=== PATIENT | female | born 1940 | race Caucasian/White ===

== ENCOUNTER 2016-03-05 10:02 | Inpatient (IN) | payer OTHER ==
[~2016-03-05] VITALS: Ht 170.2 cm; Wt 136.3 kg
[~2016-03-05 10:02] MED LIST: ALLO300T2 PO; ANT125 PO; BND25X PO; FERR325T PO; LISI1TAB3 PO; LPR100 PO; METF500T5 PO; MOME200A INH; PRD20 PO; PRED1SUS3 OPL; PRT/40 PO; TIOT1SPR INH; WARF-246 PO
[2016-03-05] MEDS ORDERED: LISI40TA PO (10:47)
[2016-03-05] MEDS ORDERED: CEPH500C2 PO (10:47)
[2016-03-05 12:08] LABS: BASO % 0.6 %; BASO ABS # 0.03 K/uL (0-0.2); EOS % 7.3 %; IG% 0.2 %; LYMPH % 17.9 %; LYMPH ABS # 0.88 K/uL (1.2-3.4); MEAN CORPUSCULAR HEMOGLOBIN 27.5 pg (25-34); MEAN CORPUSCULAR HGB CONC 31.7 g/dl (32-36); MEAN PLATELET VOLUME 10.5 fL (7.4-10.4); MONO % 6.7 %; NEUT % 67.3 %; PLATELET COUNT 162 K/uL (130-400); RED BLOOD COUNT 4.14 M/uL (4.2-5.4); WHITE BLOOD COUNT 4.92 K/uL (4.8-10.8)
[2016-03-05 12:15] LABS: BLOOD UREA NITROGEN 35 mg/dl (7-18); BUN/CREATININE RATIO 28.8 (10-20); CALCIUM 9.7 mg/dl (8.5-10.1); CARBON DIOXIDE 25 mmol/L (21-32); CHLORIDE 106 mmol/L (98-107); GLUCOSE 155 mg/dl (70-99); POTASSIUM 4.4 mmol/L (3.5-5.1); SODIUM 141 mmol/L (136-145)
--- NOTE | 2016-03-05 12:15 | EMERGENCY ROOM VISIT NOTE ---
History Report prepared by Mary: Geri Rico Under the Supervision of: Dr. Kaz Osborn M.D. First contact with patient: 11:56 Chief Complaint: DIZZY Stated Complaint: LIGHTHEADED, DIZZINESS Nursing Triage Summary: dizziness started on saturday. hx of vertigo. "I didnt take any meclizine" History of Present Illness The patient is a 75 year old female who presents to the Emergency Room with complaints of intermittent dizziness starting 2 days ago. She reports the dizziness occurs with certain movements of her head. She currently denies any dizziness. She has some trouble walking which is not normal for her. She also complains of neck pain in the back which radiates to her left shoulder. She has a history of vertigo but reports that the quality of her current symptoms is different. She is on Coumadin for A-Fib, pulmonary embolism, and DVT. The patient denies chest pain, shortness of breath, or any other complaints. Source of History: patient Onset: 2 days ago Position: other (global) Quality: other (dizziness) Timing: intermittent Associated Symptoms: + neck pain, No SOB, No chest pain Review of Systems See HPI for pertinent positives & negatives. A total of 10 systems reviewed and were otherwise negative. 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 Family History Diabetes mellitus Social History Smoking Status: Never Smoker Drug Use: none Marital Status: single Housing Status: lives alone Occupation Status: employed Current/Historical Medications Scheduled Allopurinol (Zyloprim), 300 MG PO QAM Cephalexin Monohydrate (Keflex), 500 MG PO BID Ferrous Sulfate (Ferrous Sulfate), 325 MG PO QPM Lisinopril (Zestril), 40 MG PO DAILY Metformin Hcl Er (Glucophage Er), 500 MG PO BID Metoprolol Tartrate (Metoprolol Tartrate), 100 MG PO BID Mometasone Furoate-Formoterol (Dulera 200/5 Mcg), 1 PUFF INH BID Pantoprazole (Pantoprazole Sodium), 40 MG PO QAM Tiotropium [place] Monohydrate (Spiriva Respimat), 1 PUFF INH DAILY Warfarin Sodium (Warfarin Sodium), PO UD Allergies Coded Allergies: Technetium-99M (Verified Allergy, Severe, ANAPHYLAXIS, 09/07/15) Amoxicillin (Verified Allergy, Intermediate, RASH, 09/11/15) Nitrofurantoin (Verified Allergy, Intermediate, HIVES, 09/07/15) Replaces FURADANTIN CARR Iodine (Unverified Allergy, Unknown, hives, HAS HAD SINCE W/O PROBLEM, ) pt states that it only happened once, and has had iodine at [place] and was fine. Physical Exam Vital Signs Date Time Temp Pulse Resp B/P Pulse Ox O2 Delivery O2 Flow Rate FiO2 03/05/16 14:41 68 03/05/16 14:00 68 28 130/66 94 Room Air 03/05/16 12:13 68 18 176/81 97 Room Air 74 174/78 66 166/66 03/05/16 10:21 36.6 64 18 171/88 92 Room Air Physical Exam CONSTITUTIONAL: No acute distress HEENT: No icterus, moist mucous membranes NECK: No meningismus, trachea is midline. CARDIOVASCULAR: Regular rate, normal perfusion RESPIRATORY: Unlabored breathing. Clear to auscultation. GASTROINTESTINAL: Non-tender GENITOURINARY: No flank tenderness MUSCULOSKELETAL: Full range of motion NEUROLOGIC: No acute gross focal deficits. No cerebellar signs. PSYCHIATRIC: Normal affect SKIN: Normal for ethnicity. Medical Decision & Procedures ER Provider Diagnostic Interpretation: CT results as stated below per my review and radiologist interpretation. CT OF THE HEAD WITHOUT CONTRAST CLINICAL HISTORY: Dizziness. COMPARISON STUDY: Head CT and MRI of the brain April 27, 2013. CT DOSE: 537.48 mGy.cm TECHNIQUE: Helical axial images of the head were obtained without IV contrast. Automated exposure control was utilized for the study. FINDINGS: No acute intracranial hemorrhage, midline shift or mass effect is present. Ventricular system is normal. The basilar cisterns are patent. There are no extra-axial collections. White matter hypodensity suggests small vessel disease. There are no findings to suggest acute dural sinus thrombosis or acute territorial infarct. There is chronic deformity of the left globe. Visualized portions of the sinuses and mastoid air cells are clear. There are no calvarial abnormalities. IMPRESSION: No acute intracranial findings. Electronically signed by: Eduin Castanon M.D. 03/05/2016 12:53 PM Dictated Date/Time: 03/05/2016 12:51 PM Laboratory Results 03/05/16 11:20 Red Blood Count 4.14, Mean Corpuscular Volume 87.0, Mean Corpuscular Hemoglobin 27.5, Mean Corpuscular Hemoglobin Concent 31.7, Mean Platelet Volume 10.5, Neutrophils (%) (Auto) 67.3, Lymphocytes (%) (Auto) 17.9, Monocytes (%) (Auto) 6.7, Eosinophils (%) (Auto) 7.3, Basophils (%) (Auto) 0.6, Neutrophils # (Auto) 3.31, Lymphocytes # (Auto) 0.88, Monocytes # (Auto) 0.33, Eosinophils # (Auto) 0.36, Basophils # (Auto) 0.03 03/05/16 11:20 Test 03/05/16 11:20 03/05/16 12:25 White Blood Count 4.92 K/uL (4.8-10.8) Red Blood Count 4.14 M/uL (4.2-5.4) Hemoglobin 11.4 g/dL (12.0-16.0) Hematocrit 36.0 % (37-47) Mean Corpuscular Volume 87.0 fL (80-100) Mean Corpuscular Hemoglobin 27.5 pg (25-34) Mean Corpuscular Hemoglobin Concent 31.7 g/dl (32-36) Platelet Count 162 K/uL (130-400) Mean Platelet Volume 10.5 fL (7.4-10.4) Neutrophils (%) (Auto) 67.3 % Lymphocytes (%) (Auto) 17.9 % Monocytes (%) (Auto) 6.7 % Eosinophils (%) (Auto) 7.3 % Basophils (%) (Auto) 0.6 % Neutrophils # (Auto) 3.31 K/uL (1.4-6.5) Lymphocytes # (Auto) 0.88 K/uL (1.2-3.4) Monocytes # (Auto) 0.33 K/uL (0.11-0.59) Eosinophils # (Auto) 0.36 K/uL (0-0.5) Basophils # (Auto) 0.03 K/uL (0-0.2) RDW Standard Deviation 63.2 fL (36.4-46.3) RDW Coefficient of Variation 20.0 % (11.5-14.5) Immature Granulocyte % (Auto) 0.2 % Immature Granulocyte # (Auto) 0.01 K/uL (0.00-0.02) Anisocytosis PRESENT Prothrombin Time 30.1 SECONDS (9.0-12.0) Prothromb Time International Ratio 2.7 (0.9-1.1) Activated Partial Thromboplast Time 49.2 SECONDS (21.0-31.0) Partial Thromboplastin Ratio 1.9 Anion Gap 10.0 mmol/L (3-11) Est Creatinine Clear Calc Drug Dose 60.4 ml/min Estimated GFR () 51.6 Estimated GFR (Non- 44.5 BUN/Creatinine Ratio 28.8 (10-20) Calcium Level 9.7 mg/dl (8.5-10.1) Troponin I < 0.015 ng/ml (0-0.045) Urine Color YELLOW Urine Appearance CLEAR (CLEAR) Urine pH 5.0 (4.5-7.5) Urine Specific [place] 1.014 (1.000-1.030) Urine Protein NEG (NEG) Urine Glucose (UA) NEG (NEG) Urine Ketones NEG (NEG) Urine Occult Blood TRACE (NEG) Urine Nitrite POS (NEG) Urine Bilirubin NEG (NEG) Urine Urobilinogen NEG (NEG) Urine Leukocyte Esterase TRACE (NEG) Urine WBC (Auto) 5-10 /hpf (0-5) Urine RBC (Auto) 0-4 /hpf (0-4) Urine Hyaline Casts (Auto) 1-5 /lpf (0-5) Urine Epithelial Cells (Auto) >30 /lpf (0-5) Urine Bacteria (Auto) 4+ (NEG) Labs reviewed by ED physician. ECG Indication: other (Dizziness) Rate (beats per minute): 60s Rhythm: sinus rhythm Findings: other (Normal axis; normal St segments) ED Course 1156: Past medical records reviewed. The patient was evaluated in room B11A. A complete history and physical examination was performed. Medical Decision Differential diagnosis includes but is not limited to intracranial bleed, orthostatic hypotension, UTI, electrolyte abnormality,anemia. 75 y/o presented from home for evaluation of acute onset gait dysfunction and dizziness. afib, DVT, PE on coumadin. 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 There is a slight droop of left eyelid which patient states is chronic. (-) CT Head, INR satisfactory. Possible UTI noted. Patient hospitalized as she could not walk safely on more than two occasions/re-examinations. [place] [facility] [place] Primary Impression: Dizziness Scribe Attestation The scribe's documentation has been prepared under my direction and personally reviewed by me in its entirety. I confirm that the note above accurately reflects all work, treatment, procedures, and medical decision making performed by me. Departure Information Referrals Bc Carter M.D. (PCP) Patient Instructions My [facility]
[2016-03-05 12:22] LABS: INR 2.7 (0.9-1.1); PARTIAL THROMBOPLASTIN RATIO 1.9; PROTHROMBIN TIME (PATIENT) 30.1 SECONDS (9.0-12.0)
[2016-03-05 12:34] LABS: ANISOCYTOSIS PRESENT; COMPLETE YES
--- NOTE | 2016-03-05 12:55 | DIAGNOSTIC IMAGING REPORT ---
CT OF THE HEAD WITHOUT CONTRAST CLINICAL HISTORY: Dizziness. COMPARISON STUDY: Head CT and MRI of the brain April 27, 2013. CT DOSE: 537.48 mGy.cm TECHNIQUE: Helical axial images of the head were obtained without IV contrast. Automated exposure control was utilized for the study. FINDINGS: No acute intracranial hemorrhage, midline shift or mass effect is present. Ventricular system is normal. The basilar cisterns are patent. There are no extra-axial collections. White matter hypodensity suggests small vessel disease. There are no findings to suggest acute dural sinus thrombosis or acute territorial infarct. There is chronic deformity of the left globe. Visualized portions of the sinuses and mastoid air cells are clear. There are no calvarial abnormalities. IMPRESSION: No acute intracranial findings. Electronically signed by: Eduin Castanon M.D. 03/05/2016 12:53 PM Dictated Date/Time: 03/05/2016 12:51 PM
[2016-03-05 13:01] LABS: URINE APPEARANCE CLEAR (CLEAR); URINE BILIRUBIN NEG (NEG); URINE COLOR YELLOW; URINE EPITHELIAL CELL AUTO >30 /lpf (0-5); URINE NITRITE POS (NEG); URINE SPECIFIC GRAVITY 1.014 (1.000-1.030); UROBILINOGEN NEG (NEG); ZZUR CULT IF INDIC CLEAN CATCH YES
[2016-03-05 13:06] LABS: MANUAL MICROSCOPIC REQUIRED? NO; REVIEW REQ? NO
[2016-03-05] MEDS ORDERED: SODIUM CHLORIDE 0.9% 1000ML 1,000 ML IV SCH (17:32)
[2016-03-05] MEDS ORDERED: MECLIZINE HCL 25 MG TAB PO SCH (17:32)
[2016-03-05] MEDS ORDERED: ONDANSETRON INJ 2 MG/ML 2 ML VIAL IV PRN (17:45)
[2016-03-05] MEDS ORDERED: ACETAMINOPHEN 325 MG TAB PO PRN (17:45)
[2016-03-05 20:04] VITALS: BP 166/81; PULSE 66; TEMP 36.5; O2SAT 95; Ht 170.2 cm; Wt 136.3 kg
--- NOTE | 2016-03-05 21:07 | History and Physical ---
History & Physical Date & Time of Service: Mar 05, 2016 at 20:51 Chief Complaint: Dizziness Primary Care Physician: Bc Carter M.D. History of Present Illness Source: patient, hospital records 75 yo female with history of atrial fibrillation, DVT and PE, long standing anticoagulation on Coumadin, presented to the ED with increased dizziness. Symptoms started three days ago. She described feeling light headed early Saturday morning around 3 am when she woke to go to the bathroom. She then woke at 6am with plans to go her grand daughters competition but when she bent forward to brush her teeth she immediately felt dizzy. She did not leave the house that day, moved around very little. Yesterday, her symptoms seemed better and she assumed she was getting better. Then today the dizziness got worse. At one point she felt the room was spinning and she fell into her chair. She denies any recent viral infections, no sinusitis, no ear infections. She has a tendency to get wax build up in her ears, got some wax out of her right ear yesterday. No nausea or vomiting associated with the dizziness, no new visual changes. She was ambulated by the doctor and nursing staff in the ED and she was so unsteady, they recommended coming in for observation, especially since she lives alone and she is on Coumadin, did not want to fall and hurt herself. Past Medical/Surgical History Medical Problems: (1) Anticoagulants,Lt,Current Use Status: Chronic (2) Atrial fibrillation with RVR Status: Resolved (3) Deep venous thrombosis Status: Resolved (4) DM (diabetes mellitus) Status: Chronic (5) HTN (hypertension) Status: Chronic (6) Knee Joint Replacement Status Status: Resolved (7) Morbid Obesity Status: Chronic (8) Pulmonary embolism Status: Resolved (9) Sepsis Status: Resolved Family History Diabetes mellitus Social History Smoking Status: Never Smoker Drug Use: none Marital Status: single Occupational Status: employed Immunizations History of Influenza Vaccine: Yes Influenza Vaccine Date: Dec 08, 2010 History of Tetanus Vaccine?: Yes History of Pneumococcal: Yes History of Hepatitis B Vaccine: No Multi-Drug Resistant Organisms History of MDRO: No Allergies Coded Allergies: Technetium-99M (Verified Allergy, Severe, ANAPHYLAXIS, 09/07/15) Amoxicillin (Verified Allergy, Intermediate, RASH, 09/11/15) Nitrofurantoin (Verified Allergy, Intermediate, HIVES, 09/07/15) Replaces FURADANTIN CARR Iodine (Unverified Allergy, Unknown, hives, HAS HAD SINCE W/O PROBLEM, ) pt states that it only happened once, and has had iodine at [place] and was fine. Home Medications Scheduled Allopurinol (Zyloprim), 300 MG PO QAM Cephalexin Monohydrate (Keflex), 500 MG PO BID Ferrous Sulfate (Ferrous Sulfate), 325 MG PO QPM Lisinopril (Zestril), 40 MG PO DAILY Metformin Hcl Er (Glucophage Er), 500 MG PO BID Metoprolol Tartrate (Metoprolol Tartrate), 100 MG PO BID Mometasone Furoate-Formoterol (Dulera 200/5 Mcg), 1 PUFF INH BID Pantoprazole (Pantoprazole Sodium), 40 MG PO QAM Tiotropium [place] Monohydrate (Spiriva Respimat), 1 PUFF INH DAILY Warfarin Sodium (Warfarin Sodium), PO UD Review of Systems Constitutional: + fatigue, + weakness, No chills, No fever, No problem reported , No sweats, No weight loss Eyes: No diplopia, No discharge, No eye pain, No problem reported, No redness, No worsening of vision ENT: No dental problems, No hearing loss, No nasal symptoms, No problem reported, No sore throat, No tinnitus, No trouble swallowing, No unusual epistaxis Respiratory: No cough, No dyspnea at rest, No dyspnea on exertion, No hemoptysis, No problem reported, No shortness of breath, No sputum, No wheezing Cardiovascular: No PND, No chest pain, No claudication, No edema, No orthopnea , No palpitations, No problem reported Abdomen: No GI bleeding, No constipation, No diarrhea, No nausea, No pain, No problem reported, No vomiting Musculoskeletal: No calf pain, No joint pain, No muscle pain, No problem reported, No swelling Genitourinary - Female: No dysuria, No urinary frequency, No urinary incontinence, No urinary urgency Neurologic: + balance problems, + vertigo, No memory loss, No numbness/tingling , No paralysis, No problem reported, No weakness Psychiatric: No anhedonism, No anxiety, No depression symptoms, No insomnia, No problem reported, No substance abuse Endocrine: No excessive thirst, No excessive urination, No fatigue, No problem reported Hematologic / Lymphatic: No abnormal bleeding/bruising, No clotting problems, No night sweats, No problem reported, No swollen lymph nodes Integumentary: No bleeding, No color change, No itch, No new/changing skin lesions, No problem reported, No rash Allergic / Immunologic: No environmental allergies, No food allergies, No frequent infections, No hives, No pet sensitivities, No poor healing, No problem reported, No prolonged convalescence, No seasonal allergies Physical Exam Vital Signs Date Time Temp Pulse Resp B/P Pulse Ox O2 Delivery O2 Flow Rate FiO2 03/05/16 20:04 36.5 66 18 166/81 95 Room Air 03/05/16 18:16 70 18 171/71 95 Room Air 03/05/16 14:41 68 03/05/16 14:00 68 28 130/66 94 Room Air 03/05/16 12:13 68 18 176/81 97 Room Air 74 174/78 66 166/66 03/05/16 10:21 36.6 64 18 171/88 92 Room Air General Appearance: WD/WN, no apparent distress Head: normocephalic, atraumatic Eyes: normal inspection, PERRL, EOMI, sclerae normal, + pertinent finding (no nystagmus, horizontal or vertical) ENT: normal ENT inspection, hearing grossly normal, pharynx normal Neck: supple, no adenopathy, no JVD, trachea midline Respiratory/Chest: chest non-tender, lungs clear, normal breath sounds, no respiratory distress, no accessory muscle use Cardiovascular: regular rate, rhythm, no edema, no gallop, no JVD, no murmur, normal peripheral pulses Abdomen/GI: normal bowel sounds, non tender, soft, no organomegaly Back: normal inspection, no CVA tenderness, no muscle spasm, normal range of motion Extremities/Musculoskelatal: normal inspection, no calf tenderness, normal capillary refill, no pedal edema, normal range of motion Neurologic/Psych: pizza cook II-XII nml as tested, no motor/sensory deficits, alert, normal mood/affect, oriented x 3 Skin: normal color, warm/dry, no rash Diagnostics Laboratory Results Results Past 24 Hours Test 03/05/16 11:20 03/05/16 12:25 Range/Units White Blood Count 4.92 4.8-10.8 K/uL Red Blood Count 4.14 4.2-5.4 M/uL Hemoglobin 11.4 12.0-16.0 g/dL Hematocrit 36.0 37-47 % Mean Corpuscular Volume 87.0 80-100 fL Mean Corpuscular Hemoglobin 27.5 25-34 pg Mean Corpuscular Hemoglobin Concent 31.7 32-36 g/dl Platelet Count 162 130-400 K/uL Mean Platelet Volume 10.5 7.4-10.4 fL Neutrophils (%) (Auto) 67.3 % Lymphocytes (%) (Auto) 17.9 % Monocytes (%) (Auto) 6.7 % Eosinophils (%) (Auto) 7.3 % Basophils (%) (Auto) 0.6 % Neutrophils # (Auto) 3.31 1.4-6.5 K/uL Lymphocytes # (Auto) 0.88 1.2-3.4 K/uL Monocytes # (Auto) 0.33 0.11-0.59 K/uL Eosinophils # (Auto) 0.36 0-0.5 K/uL Basophils # (Auto) 0.03 0-0.2 K/uL RDW Standard Deviation 63.2 36.4-46.3 fL RDW Coefficient of Variation 20.0 11.5-14.5 % Immature Granulocyte % (Auto) 0.2 % Immature Granulocyte # (Auto) 0.01 0.00-0.02 K/uL Anisocytosis PRESENT Prothrombin Time 30.1 9.0-12.0 SECONDS Prothromb Time International Ratio 2.7 0.9-1.1 Activated Partial Thromboplast Time 49.2 21.0-31.0 SECONDS Partial Thromboplastin Ratio 1.9 Sodium Level 141 136-145 mmol/L Potassium Level 4.4 3.5-5.1 mmol/L Chloride Level 106 98-107 mmol/L Carbon Dioxide Level 25 21-32 mmol/L Anion Gap 10.0 3-11 mmol/L Blood Urea Nitrogen 35 7-18 mg/dl Creatinine 1.20 0.60-1.20 mg/dl Est Creatinine Clear Calc Drug Dose 60.4 ml/min Estimated GFR () 51.6 Estimated GFR (Non- 44.5 BUN/Creatinine Ratio 28.8 10-20 Random Glucose 155 70-99 mg/dl Calcium Level 9.7 8.5-10.1 mg/dl Troponin I < 0.015 0-0.045 ng/ml Urine Color YELLOW Urine Appearance CLEAR CLEAR Urine pH 5.0 4.5-7.5 Urine Specific [place] 1.014 1.000-1.030 Urine Protein NEG NEG Urine Glucose (UA) NEG NEG Urine Ketones NEG NEG Urine Occult Blood TRACE NEG Urine Nitrite POS NEG Urine Bilirubin NEG NEG Urine Urobilinogen NEG NEG Urine Leukocyte Esterase TRACE NEG Urine WBC (Auto) 5-10 0-5 /hpf Urine RBC (Auto) 0-4 0-4 /hpf Urine Hyaline Casts (Auto) 1-5 0-5 /lpf Urine Epithelial Cells (Auto) >30 0-5 /lpf Urine Bacteria (Auto) 4+ NEG Microbiology Results 03/05/16 Urine Culture, Received Pending Diagnostic Radiology CT head normal EKG sinus bradycardia Impression Assessment and Plan 75 yo female with worsening vertigo, unclear etiology - Vertigo: unclear etiology, CT head normal, no signs of ear infection ED suggested possible UTI but doubt that it is contributing, no symptoms and contaminated sample will treat symptoms with Meclizine she c/o stiff neck, will check cervical spine films check MRI brain to r/o small stroke - Atrial fibrillation: in sinus rhythm, continue metoprolol and Coumadin - h/o PE and DVT: continue Coumadin - DM type II: continue Metformin and use Novolog SS - DVT prophylaxis: on Coumadin Level of Care Telemetry Advanced Directives Existing Advance Directive: Yes Existing Living Will: Yes Existing Power of Glassware Defect Repairer: Yes Resuscitation Status FULL RESUSCITATION VTE Prophylaxis VTE Risk Assessment Done? Y/N: Yes Risk Level: High Given or contraindicated: Warfarin (Coumadin) Additional Copies To Bc Carter M.D.
[2016-03-05] MEDS ORDERED: GLUCOSE 10 TABS/TUBE PO PRN (21:15)
[2016-03-05] MEDS ORDERED: DEXTROSE 50% 50 ML SYR IV PRN (21:15)
[2016-03-05] MEDS ORDERED: GLUCAGON FOR INJ 1 MG VIAL SQ PRN (21:15)
[2016-03-05] MEDS ORDERED: GLUCOSE 40% GEL 15 GM TUBE PO PRN (21:15)
[2016-03-05] MEDS ORDERED: IV FLUIDS COMPLETED PRN (21:30)
--- NOTE | 2016-03-05 21:48 | DIAGNOSTIC IMAGING REPORT ---
MRI OF THE BRAIN WITHOUT IV CONTRAST CLINICAL HISTORY: Dizziness. COMPARISON STUDY: CT of the brain dated 03/05/2016. MRI of the brain dated 04/27/2013. TECHNIQUE: MRI of the brain was performed utilizing various T1 and T2-weighted sequences in the axial, sagittal, and coronal planes. IV contrast was not administered for this examination. The patient declined to complete the examination, and there is no coronal FLAIR or axial T1 sequence. FINDINGS: Brain parenchyma: There is mild patchy subcortical and periventricular microangiopathic disease. There is no hemorrhage or mass effect. There is no restricted diffusion to suggest acute ischemia. Sifuentes-white matter differentiation is preserved. No extra-axial fluid collection is seen. The cerebellar tonsils are normal in configuration. Ventricles, sulci, and cisterns: Normal in configuration. Pituitary and sella: Unremarkable. Intracranial vasculature: Normal flow voids are maintained at the skull base. Orbits: The bony orbits are grossly intact. There is chronic deformity and atrophy of the left lobe. The right globes normal in appearance. There is a right ocular lens implant. Sinuses and mastoids: The paranasal sinuses are clear. There is a right mastoid effusion. Calvarium: Unremarkable. Cervical cord: Partially visualized cervical spinal cord is normal in morphology and signal intensity. IMPRESSION: No acute intracranial abnormality is identified noting an incomplete examination. The patient declined to complete the study. Electronically signed by: Karel Palma M.D. 03/05/2016 9:46 PM Dictated Date/Time: 03/05/2016 9:36 PM
--- NOTE | 2016-03-05 22:41 | DIAGNOSTIC IMAGING REPORT ---
CERVICAL SPINE 4 VIEWS CLINICAL HISTORY: Neck pain and vertigo. FINDINGS: AP, lateral, odontoid, and Osborne views of the cervical spine are obtained. No prior studies are available for comparison at the time of dictation. The skeletal structures are osteopenic. There is no radiographic evidence of fracture or malalignment. Vertebral body height and alignment are maintained throughout the cervical spine. The spinolaminar line is preserved. The odontoid process and lateral masses are intact as visualized. These are suboptimally imaged. Anterior osteophytes are seen throughout. There is moderate degenerative disc space narrowing seen from C3-C4 through C6-C7. Degenerative endplate sclerosis is identified at C3-C4, C5-C6, and C6-C7. Posterior disc osteophyte complexes from C3 -C4 through C6-C7 likely contribute to mild acquired compromise of the central canal. Facet arthropathy is noted at several levels. The prevertebral soft tissues are within normal limits. Atherosclerotic calcification is seen in the carotid bulbs. Partially imaged apical lung parenchyma appears clear. IMPRESSION: 1. No acute bony abnormality is seen involving the cervical spine. 2. Osteopenia and multilevel cervical spondylosis as detailed above. Electronically signed by: Karel Palma M.D. 03/05/2016 10:38 PM Dictated Date/Time: 03/05/2016 10:36 PM
[2016-03-05] MEDS: FERROUS SULFATE 325 MG TAB PO SCH (22:43)
[2016-03-05] MEDS: METFORMIN HCL 500 MG TABCR PO SCH (22:43)
[2016-03-05] MEDS: METOPROLOL TARTRATE 100 MG TAB PO SCH (22:44)
[2016-03-05] MEDS: INSULIN ASPART 100 UNITS/ML 3 ML PEN SC SCH (22:53)
[2016-03-05] MEDS ORDERED: CEPHALEXIN MONOHYDRATE 500 MG CAP PO ONE (23:27)
[2016-03-05 23:40] VITALS: BP 100/61; PULSE 57; TEMP 36.4; O2SAT 92
[2016-03-06] VITALS (11 sets, daily range): BP systolic 98–149; BP diastolic 50–76; PULSE 57–68; TEMP 36.4–36.7; O2SAT 92–97
[2016-03-06 07:29] LABS: BASO % 0.5 %; BASO ABS # 0.02 K/uL (0-0.2); EOS % 7.8 %; HEMATOCRIT 33.1 % (37-47); IG% 0.3 %; LYMPH % 26.9 %; MEAN CELL VOLUME 87.1 fL (80-100); MEAN CORPUSCULAR HEMOGLOBIN 27.4 pg (25-34); MEAN CORPUSCULAR HGB CONC 31.4 g/dl (32-36); MEAN PLATELET VOLUME 10.1 fL (7.4-10.4); MONO % 6.2 %; NEUT % 58.3 %; PLATELET COUNT 132 K/uL (130-400); WHITE BLOOD COUNT 3.72 K/uL (4.8-10.8)
[2016-03-06 07:42] LABS: INR 2.4 (0.9-1.1); PROTHROMBIN TIME (PATIENT) 27.2 SECONDS (9.0-12.0)
[2016-03-06] MEDS: METFORMIN HCL 500 MG TABCR PO SCH ×2 (07:51→17:11)
[2016-03-06] MEDS: INSULIN ASPART 100 UNITS/ML 3 ML PEN SC SCH ×4 (07:53→21:00)
[2016-03-06 07:59] LABS: COMPLETE YES
[2016-03-06 08:02] LABS: BUN/CREATININE RATIO 27.1 (10-20); CALCIUM 8.8 mg/dl (8.5-10.1); CREATININE 1.1 mg/dl (0.60-1.20); MAGNESIUM 1.4 mg/dl (1.8-2.4); POTASSIUM 4.1 mmol/L (3.5-5.1)
[2016-03-06] MEDS ORDERED: CEPHALEXIN MONOHYDRATE 500 MG CAP PO SCH (09:00)
[2016-03-06] MEDS: DULERA - ORDER AWAITING ACTION SCH ×2 (09:21)
[2016-03-06] MEDS: TIOTROPIUM BROMIDE 5 PUFF/90 MCG INH INH SCH (09:21)
[2016-03-06] MEDS: PANTOprazole SOD 40 MG TAB PO SCH (09:21)
[2016-03-06] MEDS: METOPROLOL TARTRATE 100 MG TAB PO SCH (09:21)
[2016-03-06] MEDS: LISINOPRIL 40 MG TAB PO SCH (09:22)
[2016-03-06] MEDS: ALLOPURINOL 300 MG TAB PO SCH (09:22)
[2016-03-06] MEDS ORDERED: MAGNESIUM SULFATE 1GM / D5W 1 GM in PREMIXED IN D5W 100 ML IV ONE ×2 (10:30→10:45)
[2016-03-06] MEDS ORDERED: MAGNESIUM SULFATE 1GM / D5W 1 GM in PREMIXED IN D5W 100 ML IV SCH (11:00)
[2016-03-06] MEDS: MECLIZINE HCL 25 MG TAB PO PRN (11:01)
[2016-03-06] MEDS: CIPROFLOXACIN / D5W 400 MG in PREMIXED IN D5W 200 ML IV SCH ×2 (11:31→23:13)
--- NOTE | 2016-03-06 13:58 | Medical Student: [facility] ---
Med Student Progress Note Date of Service Mar 06, 2016. Subjective Pt evaluation today including: conversation w/ patient, physical exam, chart review, lab review, review of studies Pain: none reported PO Intake: tolerating po diet Voiding: no voiding problems no acute events overnight. patient reports that she has been feeling well for the most part since being hospitalized yesterday for lightheadedness and near falls. she reports that she had some lightheadedness on one of her three trips to the bathroom overnight, and fell on the bed. She had not asked for the nurse to help her ambulate to the toilet but acknowledged that she should while here in the hospital. denies palpitations, shortness of breath, weakness, changes in sensation, abdominal pain, nausea, vomiting, diarrhea. No other symptoms to report. Review of Systems All Other Systems: Reviewed and Negative (see HPI) Objective Vital Signs Date Time Temp Pulse Resp B/P Pulse Ox O2 Delivery O2 Flow Rate FiO2 03/06/16 12:00 94 Room Air 03/06/16 11:49 36.7 59 18 146/76 94 Room Air 03/06/16 08:42 36.4 65 18 137/74 92 Room Air 03/06/16 08:00 93 Room Air 03/06/16 04:00 93 Room Air 03/06/16 03:20 36.5 58 18 98/58 93 Room Air 03/06/16 00:01 92 Room Air 03/05/16 23:40 36.4 57 18 100/61 92 Room Air 03/05/16 20:04 36.5 66 18 166/81 95 Room Air 03/05/16 18:16 70 18 171/71 95 Room Air 03/05/16 14:41 68 03/05/16 14:00 68 28 130/66 94 Room Air Physical Exam General Appearance: no apparent distress, + obese Eyes: right eye normal inspection, left eye pertinent finding (ptosis and loss of vision), bilateral eyes EOMI, bilateral eyes PERRL ENT: hearing grossly normal, pharynx normal Neck: supple, no JVD Respiratory/Chest: chest non-tender, lungs clear, normal breath sounds, + pertinent finding (some transmitted upper respiratory sounds and coughing on exam) Cardiovascular: no edema, no gallop, no JVD, no murmur, + irregularly irregular Abdomen: non tender, soft Extremities: non-tender, no pedal edema Neurologic/Psychiatric: security rep II-XII nml as tested, no motor/sensory deficits, alert, normal mood/affect, oriented x 3 Skin: normal color, warm/dry, no rash Laboratory Results Last 24 Hours Test 03/05/16 22:50 03/06/16 06:28 03/06/16 07:05 03/06/16 11:34 Bedside Glucose 189 mg/dl 128 mg/dl 125 mg/dl White Blood Count 3.72 K/uL Red Blood Count 3.80 M/uL Hemoglobin 10.4 g/dL Hematocrit 33.1 % Mean Corpuscular Volume 87.1 fL Mean Corpuscular Hemoglobin 27.4 pg Mean Corpuscular Hemoglobin Concent 31.4 g/dl Platelet Count 132 K/uL Mean Platelet Volume 10.1 fL Neutrophils (%) (Auto) 58.3 % Lymphocytes (%) (Auto) 26.9 % Monocytes (%) (Auto) 6.2 % Eosinophils (%) (Auto) 7.8 % Basophils (%) (Auto) 0.5 % Neutrophils # (Auto) 2.17 K/uL Lymphocytes # (Auto) 1.00 K/uL Monocytes # (Auto) 0.23 K/uL Eosinophils # (Auto) 0.29 K/uL Basophils # (Auto) 0.02 K/uL RDW Standard Deviation 63.5 fL RDW Coefficient of Variation 20.1 % Immature Granulocyte % (Auto) 0.3 % Immature Granulocyte # (Auto) 0.01 K/uL Red Blood Cell Morphology Unremarkable Prothrombin Time 27.2 SECONDS Prothromb Time International Ratio 2.4 Sodium Level 142 mmol/L Potassium Level 4.1 mmol/L Chloride Level 108 mmol/L Carbon Dioxide Level 23 mmol/L Anion Gap 11.0 mmol/L Blood Urea Nitrogen 30 mg/dl Creatinine 1.10 mg/dl Est Creatinine Clear Calc Drug Dose 64.5 ml/min Estimated GFR () 57.3 Estimated GFR (Non- 49.4 BUN/Creatinine Ratio 27.1 Random Glucose 125 mg/dl Calcium Level 8.8 mg/dl Magnesium Level 1.4 mg/dl Medications Current Inpatient Medications Medications (Trade) Dose Ordered Sig/Claudia Route Start Time Stop Time Status Last Admin Dose Admin Acetaminophen (Tylenol Tab) 650 mg Q4H PRN PO 03/05/16 17:45 04/04/16 17:44 Ondansetron HCl (Zofran Inj) 4 mg Q6H PRN IV 03/05/16 17:45 04/04/16 17:44 Meclizine HCl (Antivert Tab) 25 mg Q8 PRN PO 03/05/16 17:45 04/04/16 17:44 03/06/16 11:01 25 MG Allopurinol (Zyloprim Tab) 300 mg QAM PO 03/06/16 09:00 04/05/16 08:59 03/06/16 09:22 300 MG Lisinopril (Zestril Tab) 40 mg DAILY PO 03/06/16 09:00 04/05/16 08:59 03/06/16 09:22 40 MG Metformin HCl (Glucophage Extended Rel Tab) 500 mg BIDM PO 03/05/16 21:00 04/04/16 20:59 03/06/16 07:51 500 MG Pantoprazole Sodium (Protonix Tab) 40 mg QAM PO 03/06/16 09:00 04/05/16 08:59 03/06/16 09:21 40 MG Ferrous Sulfate (Feosol Tab) 325 mg QPM PO 03/05/16 21:00 04/04/16 20:59 03/05/16 22:43 325 MG Tiotropium [place] (Spiriva Handihaler Inhaler) 1 puff DAILY INH 03/06/16 09:00 04/05/16 08:59 03/06/16 09:21 1 PUFF Warfarin Sodium (Coumadin Tab) 5 mg DAILY@16 PO 03/06/16 16:00 04/05/16 15:59 Insulin Aspart (novoLOG ASPART) SLIDING SCALE G... ACHS SC 03/05/16 21:00 04/04/16 20:59 03/06/16 12:08 8 UNITS Glucose (Glucose 40% Gel) 15-30 GRAMS 15 GRAMS... UD PRN PO 03/05/16 21:15 04/04/16 21:14 Glucose (Glucose Chew Tab) 4-8 Tablets 4 Tabl... UD PRN PO 03/05/16 21:15 04/04/16 21:14 Dextrose (Dextrose 50% 50ML Syringe) 25-50ML OF 50% DW IV FOR... UD PRN IV 03/05/16 21:15 04/04/16 21:14 Glucagon (Glucagon Inj) 1 mg UD PRN SQ 03/05/16 21:15 04/04/16 21:14 Miscellaneous (Iv Fluids Completed) 1 ea PRN PRN N/A 03/05/16 21:30 03/05/17 21:29 Metoprolol Tartrate 50 mg 50 mg BID PO 03/06/16 21:00 04/05/16 20:59 Ciprofloxacin/ Dextrose/Prmx (Cipro / D5w/ Premixed D5W) 200 ml @ 100 mls/hr Q12H IV 03/06/16 11:00 03/11/16 10:59 03/06/16 11:31 100 MLS/HR Mometasone Furoate/ Formoterol Fumar (Dulera) 1 ea BID INH 03/06/16 21:00 04/05/16 20:59 Assessment and Plan Assessment and Plan: This is a 75 yo woman with a history of afib rate controlled with metoprolol, DVT, PE on coumadin prophylaxis who presented with lightheadedness and near fall. Non-vertiginous lightheadedness: per imaging, no acute cerebrovascular accident - UA suggestive of UTI - d/c keflex and begin ciprofloxacin for treatment given penicillin/ nitrofurantoin allergies - Possibly due to beta andrea-induced bradycardia - decreased metoprolol to from 100 mg bid to 50 mg bid, new dose to start tonight (03/06) - Meclizine prn for symptoms of vertigo Atrial fibrillation: - bradycardic, but sinus rhythm on metoprolol - decrease dose to 50 mg po bid and monitor rate control - continue coumadin 5 mg for stroke prophylaxis h/o PE and DVT: - continue Coumadin DM type II: - continue Metformin and use Novolog SS DVT prophylaxis: - on Coumadin
[2016-03-06] MEDS: WARFARIN SOD 5 MG TAB PO SCH (16:13)
--- NOTE | 2016-03-06 16:45 | Progress Note ---
Subjective Date of Service: Mar 06, 2016. Subjective pt still feels about the same, recounts how she fell to left while standing at bedside overnight, no injuries and was aware she was not supposed to get out of bed without help, is agreeable to starting antibiotic for uti and lowering Metoprolol Problem List Medical Problems: (1) Dizziness Status: Acute Review of Systems Constitutional: + fatigue, + weakness, No chills, No fever Respiratory: No cough, No shortness of breath Cardiac: No chest pain, No edema Abdomen: No diarrhea, No nausea, No pain, No vomiting Musculoskeletal: No joint pain, No muscle pain Female : No dysuria, No urinary frequency Neurologic: + balance problems, + weakness, No memory loss, No paralysis Psychiatric: No anhedonism, No depression symptoms Objective Vital Signs Date Time Temp Pulse Resp B/P Pulse Ox O2 Delivery O2 Flow Rate FiO2 03/06/16 04:00 93 Room Air 03/06/16 03:20 36.5 58 18 98/58 93 Room Air 03/06/16 00:01 92 Room Air 03/05/16 23:40 36.4 57 18 100/61 92 Room Air 03/05/16 20:04 36.5 66 18 166/81 95 Room Air 03/05/16 18:16 70 18 171/71 95 Room Air 03/05/16 14:41 68 03/05/16 14:00 68 28 130/66 94 Room Air 03/05/16 12:13 68 18 176/81 97 Room Air 74 174/78 66 166/66 03/05/16 10:21 36.6 64 18 171/88 92 Room Air Physical Exam General Appearance: WD/WN, + mild distress Eyes: + pertinent finding (has cloudy corneal on left eye) Respiratory/Chest: chest non-tender, lungs clear Cardiovascular: regular rate, rhythm, no murmur Abdomen: normal bowel sounds, non tender, soft Extremities: no pedal edema, no calf tenderness Neurologic/Psychiatric: alert, oriented x 3 Laboratory Results Last 24 Hours Test 03/05/16 11:20 03/05/16 12:25 03/05/16 22:50 03/06/16 06:28 White Blood Count 4.92 K/uL Red Blood Count 4.14 M/uL Hemoglobin 11.4 g/dL Hematocrit 36.0 % Mean Corpuscular Volume 87.0 fL Mean Corpuscular Hemoglobin 27.5 pg Mean Corpuscular Hemoglobin Concent 31.7 g/dl Platelet Count 162 K/uL Mean Platelet Volume 10.5 fL Neutrophils (%) (Auto) 67.3 % Lymphocytes (%) (Auto) 17.9 % Monocytes (%) (Auto) 6.7 % Eosinophils (%) (Auto) 7.3 % Basophils (%) (Auto) 0.6 % Neutrophils # (Auto) 3.31 K/uL Lymphocytes # (Auto) 0.88 K/uL Monocytes # (Auto) 0.33 K/uL Eosinophils # (Auto) 0.36 K/uL Basophils # (Auto) 0.03 K/uL RDW Standard Deviation 63.2 fL RDW Coefficient of Variation 20.0 % Immature Granulocyte % (Auto) 0.2 % Immature Granulocyte # (Auto) 0.01 K/uL Anisocytosis PRESENT Prothrombin Time 30.1 SECONDS Prothromb Time International Ratio 2.7 Activated Partial Thromboplast Time 49.2 SECONDS Partial Thromboplastin Ratio 1.9 Sodium Level 141 mmol/L Potassium Level 4.4 mmol/L Chloride Level 106 mmol/L Carbon Dioxide Level 25 mmol/L Anion Gap 10.0 mmol/L Blood Urea Nitrogen 35 mg/dl Creatinine 1.20 mg/dl Est Creatinine Clear Calc Drug Dose 60.4 ml/min Estimated GFR () 51.6 Estimated GFR (Non- 44.5 BUN/Creatinine Ratio 28.8 Random Glucose 155 mg/dl Calcium Level 9.7 mg/dl Troponin I < 0.015 ng/ml Urine Color YELLOW Urine Appearance CLEAR Urine pH 5.0 Urine Specific [place] 1.014 Urine Protein NEG Urine Glucose (UA) NEG Urine Ketones NEG Urine Occult Blood TRACE Urine Nitrite POS Urine Bilirubin NEG Urine Urobilinogen NEG Urine Leukocyte Esterase TRACE Urine WBC (Auto) 5-10 /hpf Urine RBC (Auto) 0-4 /hpf Urine Hyaline Casts (Auto) 1-5 /lpf Urine Epithelial Cells (Auto) >30 /lpf Urine Bacteria (Auto) 4+ Bedside Glucose 189 mg/dl 128 mg/dl Test 03/06/16 07:05 Assessment and Plan 75 yo female with dizziness that she does not feel is consistent with her previous vertigo, unclear etiology dizziness: unclear etiology, CT head normal, no signs of ear infection MRI brain normal but was incomplete as pt could not tolerate complete study etiology could be from too much b andrea preventing compensating tachy, could be from gram negative seen in urine >100,000 will treat with cipro, in addition to supressive cephalexin, and reduce metoprolol while on monitor to track afib - Atrial fibrillation: in sinus rhythm, continue metoprolol and Coumadin - h/o PE and DVT: continue Coumadin - DM type II: continue Metformin and use Novolog SS - DVT prophylaxis: on Coumadin
[2016-03-06] MEDS: MOMETASONE FUROATE-FORMOTEROL (DULERA) 200mcg/5mcg per inh INH SCH (21:07)
[2016-03-06] MEDS: FERROUS SULFATE 325 MG TAB PO SCH (21:07)
[2016-03-06] MEDS: CEPHALEXIN MONOHYDRATE 500 MG CAP PO SCH (21:07)
[2016-03-06] MEDS: METOPROLOL TARTRATE 50 MG TAB PO SCH (21:07)
[2016-03-07] VITALS (11 sets, daily range): BP systolic 102–150; BP diastolic 58–81; PULSE 61–66; TEMP 36.3–36.7; O2SAT 90–96
[2016-03-07] MEDS: MECLIZINE HCL 25 MG TAB PO PRN ×2 (03:05→17:06)
[2016-03-07 06:23] LABS: INR 2.4 (0.9-1.1); PROTHROMBIN TIME (PATIENT) 26.2 SECONDS (9.0-12.0)
[2016-03-07] MEDS: METFORMIN HCL 500 MG TABCR PO SCH ×2 (07:50→17:04)
[2016-03-07] MEDS: INSULIN ASPART 100 UNITS/ML 3 ML PEN SC SCH ×4 (07:51→21:18)
[2016-03-07] MEDS: MOMETASONE FUROATE-FORMOTEROL (DULERA) 200mcg/5mcg per inh INH SCH ×2 (08:31→21:11)
[2016-03-07] MEDS: ALLOPURINOL 300 MG TAB PO SCH (08:32)
[2016-03-07] MEDS: CEPHALEXIN MONOHYDRATE 500 MG CAP PO SCH ×2 (08:32→21:12)
[2016-03-07] MEDS: LISINOPRIL 40 MG TAB PO SCH (08:32)
[2016-03-07] MEDS: TIOTROPIUM BROMIDE 5 PUFF/90 MCG INH INH SCH (08:32)
[2016-03-07] MEDS: PANTOprazole SOD 40 MG TAB PO SCH (08:32)
[2016-03-07] MEDS: METOPROLOL TARTRATE 50 MG TAB PO SCH (08:33)
[2016-03-07] MEDS ORDERED: ASPIRIN 81 MG ECTAB PO STA (10:34)
[2016-03-07] MEDS: CIPROFLOXACIN / D5W 400 MG in PREMIXED IN D5W 200 ML IV SCH ×3 (10:47→22:50)
[2016-03-07] MEDS ORDERED: SCOPOLAMINE 1.5 MG TDSY TD SCH (11:00)
--- NOTE | 2016-03-07 13:56 | Progress Note ---
Subjective Date of Service: Mar 07, 2016. Subjective this pt did have a spell that coincided with some more significant bradycardia, she stated it improved with meclizine Problem List Medical Problems: (1) Dizziness Status: Acute Review of Systems Constitutional: + fatigue, + weakness, No chills, No fever Respiratory: No cough, No shortness of breath, No sputum, No wheezing Cardiac: No PND, No chest pain, No palpitations Abdomen: No diarrhea, No pain, No vomiting Neurologic: + balance problems, + weakness Objective Vital Signs Date Time Temp Pulse Resp B/P Pulse Ox O2 Delivery O2 Flow Rate FiO2 03/07/16 12:00 92 Room Air 03/07/16 11:45 36.4 61 16 114/59 92 Room Air 03/07/16 08:00 91 Room Air 03/07/16 07:14 36.7 64 18 102/61 91 Room Air 03/07/16 04:00 90 Room Air 03/07/16 03:55 36.6 65 21 150/70 90 Room Air 03/07/16 00:00 92 Room Air 03/06/16 23:55 36.6 63 20 112/50 92 Room Air 03/06/16 20:00 97 Room Air 03/06/16 20:00 36.5 68 149/75 97 Room Air 03/06/16 16:00 95 Room Air 03/06/16 15:23 36.4 57 18 126/76 95 Room Air Physical Exam General Appearance: WD/WN, + mild distress Neck: supple, no JVD Respiratory/Chest: chest non-tender, lungs clear, normal breath sounds Cardiovascular: + bradycardia, + systolic murmur Abdomen: normal bowel sounds, non tender, no organomegaly Extremities: no pedal edema, no calf tenderness Neurologic/Psychiatric: alert, oriented x 3 Laboratory Results Last 24 Hours Test 03/06/16 16:22 03/06/16 20:03 03/07/16 05:56 03/07/16 06:52 Bedside Glucose 93 mg/dl 118 mg/dl 134 mg/dl Prothrombin Time 26.2 SECONDS Prothromb Time International Ratio 2.4 Test 03/07/16 10:58 Bedside Glucose 144 mg/dl Assessment and Plan 75 yo female with dizziness that she does not feel is consistent with her previous vertigo, unclear etiology dizziness: unclear etiology, CT head normal, no signs of ear infection MRI brain normal but was incomplete as pt could not tolerate complete study etiology could be from too much b andrea preventing compensating tachy, did have episode of bradycardia duscussed with Dr Aponte and will stop metoprolol tartrate and change to am succinate on 03/08 given improved with meclizine, will try trans derm scopolamine and use low dose aspirin in case of cerebrovascular disease could be from gram negative seen in urine >100,000 will treat with cipro, in addition to supressive cephalexin - Atrial fibrillation: in sinus rhythm(gonzalez at times) , continue metoprolol and Coumadin - h/o PE and DVT: continue Coumadin - DM type II: continue Metformin and use Novolog SS - DVT prophylaxis: on Coumadin
[2016-03-07] MEDS ORDERED: METOPROLOL TARTRATE 1 MG/ML VIAL IV PRN (14:00)
[2016-03-07] MEDS: CHECK SCOPOLAMINE PATCH PLACEMENT SCH ×2 (16:00→22:50)
[2016-03-07] MEDS: WARFARIN SOD 5 MG TAB PO SCH (16:38)
--- NOTE | 2016-03-07 18:43 | CARDIOLOGY CONSULTATION ---
DATE OF CONSULTATION: 03/07/2016 CONSULTING PHYSICIAN: Dr. Scruggs. REASON FOR CONSULTATION: Possible symptomatic bradycardia. TIME: 17:35 p.m. HISTORY OF PRESENT ILLNESS: Ms. Rocha is a very pleasant 75-year-old female with a history significant for mitral valve endocarditis, paroxysmal atrial fibrillation, diastolic CHF, nonobstructive CAD, dyslipidemia, hypertension, GI bleeding requiring blood transfusion and also history of pulmonary emboli. She presented to [facility] on 03/05/2016 with dizziness. Symptoms have been going on for the past few days. She feels lightheaded or woozy when she stands up and describes it as dizziness. She did have some spinning sensation at some point when she turns from side to side, but otherwise describes it mostly as a lightheaded/unbalanced type feeling. They occur only while standing and changing positions. She does not have any episodes at rest. She denies any actual syncope or near syncope, but did fall to the floor due to feeling a spinning sensation at one point. While here, she has been diagnosed with a urinary tract infection and has been placed on antibiotics by the primary service. She has also been noted to have intermittent bradycardia with heart rates in the 50s, especially overnight. She had an episode of lightheadedness/dizziness at approximately 3:00 a.m. this morning and was noted to have heart rates in the 50s with an ectopic beat at that time. For this reason, her beta andrea therapy, metoprolol, has been weaned. She was on 100 mg twice daily chronically but this was decreased to 50 mg twice daily, as of last evening. Despite this change, she had another episode of lightheadedness/dizziness today at approximately noon. Her heart rate at that time mostly was in the 60, but at times also in the 50s. There was no arrhythmia to correlate with any of these symptoms. She took meclizine for 2 doses and actually felt better while on meclizine without any significant symptoms. This has been replaced by a scopolamine patch. Her symptoms today occurred with this patch in place. She did have orthostatic vital signs done upon presentation. She did not have any significant drop in her blood pressure at that time. There was also no significant change in her heart rate. Thus, her orthostatic vitals were unremarkable. She does not feel that she is any better now than she was since she presented. Once again; however, she recently has had changes in her medications as noted above. She denies chest pain, shortness of breath, syncope, near syncope or recent palpitations; however, she has had occasional palpitations over the past few months. Palpitations last only a few minutes and do not appear to be overly bothersome to her. She denies any worsening in her swelling. She denies melena, hematochezia, hematuria, or other bleeding. She has not had any recent nausea, vomiting, abdominal pain, stroke or stroke-like symptoms. REVIEW OF SYSTEMS: As above and review of systems otherwise negative. PAST MEDICAL HISTORY: 1. Mitral valve endocarditis, April 2013. 2. Group B strep septicemia April 2013. 3. Paroxysmal atrial fibrillation. 4. Endophthalmitis April of 2013. 5. Diastolic CHF. 6. Nonobstructive CAD. 7. Dyslipidemia. 8. Hypertension. 9. GI bleeding requiring blood transfusion. 10. History of pulmonary emboli. 11. Right shoulder septic joint and left knee infected hardware April of 2013, status post surgery. 12. Recurrent diverticulitis with GI bleed with a hemoglobin of 6.2 on 11/18/2014. 13. Arthritis. 14. Asthma. 15. Diabetes. 16. COPD. 17. Esophageal reflux. 18. Migraines. 19. Mitral regurgitation. 20. Superficial thrombophlebitis lower extremities. 21. Varicose veins. CURRENT MEDICATIONS: Include: 1. Aspirin 81 mg daily. 2. Keflex 500 mg p.o. b.i.d. 3. Ciprofloxacin 400 mg IV q. 12 hours. 4. Lisinopril 40 mg daily. 5. Metoprolol tartrate 50 mg twice daily. 6. Meclizine 25 mg as needed. 7. Metformin 500 mg b.i.d. 8. Protonix 40 mg daily. 9. Scopolamine patch 1.5 mg q. 72 hours. 10. Coumadin 5 mg daily. ALLERGIES: AMOXICILLIN, IODINE, NITROFURANTOIN, TECHNETIUM 99M. SOCIAL HISTORY: No current tobacco abuse. Lives alone. She works at [email or web address]. She has 1 son named Leighton. She has grandchildren. She is currently alone in her hospital room. FAMILY HISTORY: Her mother had heart disease in her 60s. PHYSICAL EXAMINATION: VITAL SIGNS: Temperature 36.5 degrees, heart rate 64 beats per minute, respiration rate 19, blood pressure 124/81 mmHg, oxygen saturation is 96% on room air. Weight 135.7 kg. GENERAL: No acute distress. She is alert and oriented. HEENT: Anicteric sclerae NECK: No appreciable JVD. No bruits. Normal carotid upstrokes bilaterally. CARDIAC: PMI was nonpalpable. There was no ventricular heave. Normal S1, S2. No murmurs, rubs, or gallops were auscultated. LUNGS: Clear to auscultation bilaterally without wheezes, rales or rhonchi. ABDOMEN: Soft, obese, nontender, nondistended, normoactive bowel sounds, no bruits. EXTREMITIES: Trace bilateral lower extremity edema. 2+ radial pulses bilaterally. 2+ posterior tibialis pulses bilaterally. No palpable cords. No cyanosis. PSYCHIATRIC: Affect appears appropriate. LABORATORY DATA: White blood cell count 3.72, hemoglobin 10.4, platelets 132. Sodium 142, potassium 4.1, BUN 30, creatinine 1.1, magnesium 1.4. Troponin undetectable. She did receive magnesium supplementation. IMAGING DATA: Brain MRI report reviewed. No acute intracranial abnormality; however, incomplete examination. She declined a complete study according to radiology. Telemetry personally reviewed as noted above. ECG upon presentation demonstrated sinus bradycardia at 55 beats per minute. ASSESSMENT AND PLAN: 1. Bradycardia: It is not clear if bradycardia is playing a role in her symptoms; however, she does have bradycardia and with symptoms, it would be reasonable to further reduce beta andrea. Dr. Scruggs has inquired about changing metoprolol tartrate 50 mg twice daily to 50 mg once daily and metoprolol succinate formulation. This would appear to be a reasonable approach. Her heart rate trend does demonstrate that her heart rate mostly has been in the 50s and 60s throughout her hospital stay. This was discussed with her in detail. Monitor closely for any change in symptoms. 2. Lightheadedness/dizziness: She did not have any orthostatic blood pressure changes upon presentation, but continues to have these symptoms intermittently. She appeared to do better while on meclizine. There could be a vertigo component as she did have some spinning sensation, but not always. Heart rate medications adjusted as above. She does not appear to be hypovolemic. If no significant improvement in her symptoms, could consider decreasing lisinopril to 30 mg daily, which she had been on for quite some time before it was increased to 40, several months ago. But, otherwise would continue with plan for now. When reviewing old records, she did have MRA of her neck vasculature on 04/27/2013 with moderate atherosclerotic narrowing of the origin of the great vessels. 3. Carotid artery stenosis: Neck MRA in the past did suggest atherosclerotic changes. Carotid duplex ordered as noted above. 4. Paroxysmal atrial fibrillation: She is in sinus rhythm. Beta andrea being adjusted as above. Continue anticoagulation for stroke risk reduction. Her INR is therapeutic. 5. Nonobstructive coronary artery disease: No angina. She did not tolerate statin therapy. Continue beta andrea with changes as above. 6. Hypertension: Beta andrea being adjusted as above. She is on lisinopril. Continue current regimen for now. 7. Urinary tract infection: May or may not be contributing to her symptoms. This is being treated per primary service. 8. Disposition: Cardiology will continue to follow along. The patient's care was discussed earlier today with Dr. Scruggs in regards to beta andrea plan. Greater than 40 minutes time spent counseling patient, coordinating care, and reviewing multiple records. Thank you for allowing us to participate in care of Ms. Rocha.
--- NOTE | 2016-03-07 19:02 | DIAGNOSTIC IMAGING REPORT ---
ULTRASOUND OF THE CAROTID ARTERIES CLINICAL HISTORY: Carotid artery stenosis. COMPARISON STUDY: Radiograph of the neck dated 04/27/2013. TECHNIQUE: Real-time, grayscale, and color Doppler sonography of the carotid arteries is performed. Images are reviewed in the transverse and longitudinal planes. FINDINGS: Blood pressure in the right arm measures 181/100 and blood pressure in the left arm measures 189/112. The carotid arteries are patent bilaterally and demonstrate antegrade flow. There is mild echogenic shadowing atherosclerotic plaque seen bilaterally. Normal doppler arterial waveforms are seen throughout. Velocity measurements are listed below. Common carotid peak systolic velocity (cm/sec): RIGHT: 92 LEFT: 109 ICA proximal peak systolic velocity (cm/sec): RIGHT: 55 LEFT: 78 ICA mid peak systolic velocity (cm/sec): RIGHT: 65 LEFT: 70 ICA distal peak systolic velocity (cm/sec): RIGHT: 62 LEFT: 73 ICA/CC peak systolic ratio: RIGHT: 0.7 LEFT: 0.7 Antegrade flow was shown in the vertebral arteries. The external carotid arteries are patent. IMPRESSION: 1. There is no sonographic evidence of hemodynamically significant stenosis in the right or left carotid arterial system. 2. Antegrade flow is shown in the vertebral arteries. 3. Hypertension as above. Electronically signed by: Karel Palma M.D. 03/07/2016 7:00 PM Dictated Date/Time: 03/07/2016 6:58 PM
[2016-03-07] MEDS: FERROUS SULFATE 325 MG TAB PO SCH (21:13)
[2016-03-08 04:00] VITALS: BP 115/67; PULSE 78; TEMP 36.4; O2SAT 91
[2016-03-08] MEDS: MECLIZINE HCL 25 MG TAB PO PRN (05:52)
[2016-03-08 06:52] LABS: INR 2.1 (0.9-1.1); PROTHROMBIN TIME (PATIENT) 23.3 SECONDS (9.0-12.0)
[2016-03-08 07:46] VITALS: BP 140/80; PULSE 83; TEMP 36.7; O2SAT 90
[2016-03-08] MEDS: METFORMIN HCL 500 MG TABCR PO SCH ×2 (08:06→17:06)
[2016-03-08] MEDS: CHECK SCOPOLAMINE PATCH PLACEMENT SCH ×3 (08:06→23:46)
[2016-03-08] MEDS: INSULIN ASPART 100 UNITS/ML 3 ML PEN SC SCH ×4 (08:06→21:00)
[2016-03-08] MEDS: ALLOPURINOL 300 MG TAB PO SCH (08:11)
[2016-03-08] MEDS: PANTOprazole SOD 40 MG TAB PO SCH (08:11)
[2016-03-08] MEDS: METOPROLOL SUCC 50MG EXT REL TAB PO SCH (08:12)
[2016-03-08] MEDS: ASPIRIN 81 MG ECTAB PO SCH (08:13)
[2016-03-08] MEDS: TIOTROPIUM BROMIDE 5 PUFF/90 MCG INH INH SCH (08:14)
[2016-03-08] MEDS: MOMETASONE FUROATE-FORMOTEROL (DULERA) 200mcg/5mcg per inh INH SCH ×2 (08:14→21:01)
[2016-03-08] MEDS: CEPHALEXIN MONOHYDRATE 500 MG CAP PO SCH ×2 (08:15→21:02)
[2016-03-08] MEDS: LISINOPRIL 40 MG TAB PO SCH (08:16)
[2016-03-08] MEDS ORDERED: ASPEC81 PO (09:08)
--- NOTE | 2016-03-08 09:09 | Discharge Instructions ---
Discharge Instructions Admission Reason for Admission: Dizziness Discharge Discharge Diagnosis / Problem: urinary infection , dizziness Discharge Goals Goal(s): Diagnostic testing, Therapeutic intervention Activity Recommendations Activity Limitations: resume your previous activity . Current Hospital Diet Patient's current hospital diet: Diabetes Type 2 Diet Discharge Diet Recommended Diet: Diabetes Type 2 Diet Pending Studies Studies pending at discharge: no Medical Emergencies . Who to Call and When: Medical Emergencies: If at any time you feel your situation is an emergency, please call 911 immediately. . Non-Emergent Contact Non-Emergency issues call your: Manager [employer] (Dr Aponte) Call Non-Emergent contact if: temperature is above 101, you have any medication questions . . "Provider Documentation" section prepared by Subhash Scruggs. VTE Core Measure Inpt VTE Proph given/why not?: Warfarin (Coumadin)
[2016-03-08] MEDS ORDERED: TPRSR50 PO (09:13)
[2016-03-08] MEDS ORDERED: SCPTP TOP (09:13)
[2016-03-08] MEDS ORDERED: MECL-91 PO (09:13)
[2016-03-08] MEDS ORDERED: CPR500 PO (09:15)
[2016-03-08] MEDS ORDERED: MECLIZINE HCL 25 MG TAB PO ONE (10:30)
[2016-03-08] MEDS ORDERED: METOPROLOL SUCC 50MG EXT REL TAB PO ONE (11:00)
--- NOTE | 2016-03-08 11:40 | CARDIOLOGY PROGRESS NOTE ---
DATE: 03/08/2016 TIME: 11:12 a.m. SUBJECTIVE: She continues to feel quite poor while on her feet and ambulating. I was able to witness and speak to her while she was walking with physical therapy. She was quite symptomatic. Her heart rate at that time appropriately increased and was in the 100s on telemetry. Overall, her heart rate has trended upward with reduction in beta-andrea therapy. She stated that just getting out of bed and to use the bedside commode also caused significant dizziness/lightheadedness. She denies shortness of breath at rest, syncope, near syncope or chest discomfort. She does have chronic dyspnea with exertion, which is unchanged. OBJECTIVE: VITAL SIGNS: Temperature 36.7 degrees, heart rate 83 beats per minute, respiration rate 18, blood pressure 140/80 mmHg, oxygen saturation 90% on room air. Weight 135.1 kg. GENERAL: No acute distress. She is alert. NECK: No appreciable JVD but thick neck. CARDIAC EXAM: No ventricular heave. Regular, normal S1, S2. No audible murmurs, rubs or gallops. LUNGS: Clear to auscultation bilaterally without wheezes, rales or rhonchi. ABDOMEN: Obese, soft, nontender, nondistended. Normoactive bowel sounds. EXTREMITIES: Trace bilateral lower extremity edema. No cyanosis. PSYCHIATRIC: Affect appears appropriate. Telemetry personally reviewed. Heart rate has trended upward. She now comes tachycardic with little exertion in her room. No arrhythmia. LABORATORY DATA: Glucose 132. INR 2.1. MEDICATIONS: Include aspirin 81 mg daily, ciprofloxacin 400 mg IV q. 12 hours, lisinopril 40 mg daily, scopolamine patch, metoprolol succinate 50 mg daily, Protonix 40 mg daily, Coumadin 5 mg daily, Spiriva 1 puff daily. Carotid duplex report reviewed from 03/07/2016. No hemodynamically significant stenosis bilaterally. Antegrade flow shown within the vertebral arteries. ASSESSMENT AND PLAN: 1. Dizziness: Etiology uncertain. She felt as though she did better while on meclizine alone; however, she did receive meclizine last evening and also this morning. Heart rate does not appear to be playing a role as she is no longer bradycardic and continues to have symptoms without any significant improvement. Carotid duplex is unremarkable. Orthostatic vital signs will be once again ordered; however, they were unremarkable upon presentation. Symptoms do not appear to be related to the cardiac issue at this time. Further workup per primary service. 2. Bradycardia: This has resolved with decreasing doses of beta-andrea. She had been taking 100 mg twice daily and is now on 50 mg of metoprolol succinate. She is now becoming tachycardic with little exertion. Can increase metoprolol succinate to 100 mg daily. Additional beta-andrea was ordered today by Dr. Scruggs. Bradycardia does not appear to be symptomatic as her symptoms continue despite weaning doses of beta-andrea. 3. Carotid artery stenosis: No significant carotid artery stenosis on duplex. 4. Paroxysmal atrial fibrillation: Continue beta-andrea with adjustments as above. INR is therapeutic. Continue anticoagulation for stroke risk reduction. 5. Nonobstructive coronary artery disease: She is asymptomatic in this regard. She did not tolerate statin therapy. 6. Hypertension: Blood pressure has been reasonable with intermittent mild hypertension. However, she was more significantly hypertensive upon presentation. Continue medications as above. If she was found to have orthostatic hypotension today, would reduce lisinopril; however, orthostatics were unremarkable upon presentation. 7. Urinary tract infection: She is being treated per primary service. 8. Disposition: No further cardiac recommendations at this time. Plan of care has been discussed with Dr. Scruggs of the primary service.
[2016-03-08 11:51] VITALS: BP 140/75; PULSE 61; TEMP 36.4; O2SAT 97
[2016-03-08] MEDS: CIPROFLOXACIN / D5W 400 MG in PREMIXED IN D5W 200 ML IV SCH ×2 (11:57→22:31)
[2016-03-08 15:42] VITALS: BP 137/81; PULSE 61; TEMP 36.5; O2SAT 100
--- NOTE | 2016-03-08 16:20 | Progress Note ---
Subjective Date of Service: Mar 08, 2016. Subjective with tapering of B Joao did have tachycardia with exertion, also transderm scop did not work as well with meclizine, does not feel steady on feet enough to go home alone Problem List Medical Problems: (1) Dizziness Status: Acute Review of Systems Constitutional: + fatigue, + weakness, No chills, No fever Eyes: No diplopia, No worsening of vision Respiratory: + dyspnea on exertion, No cough, No shortness of breath Cardiac: + palpitations, No chest pain, No edema Abdomen: No diarrhea, No nausea, No pain, No vomiting Neurologic: + balance problems, + weakness, No memory loss, No paralysis Objective Vital Signs Date Time Temp Pulse Resp B/P Pulse Ox O2 Delivery O2 Flow Rate FiO2 03/08/16 12:00 Room Air 03/08/16 11:51 36.4 61 20 140/75 97 Room Air 03/08/16 08:00 Room Air 03/08/16 07:46 36.7 83 18 140/80 90 Room Air 03/08/16 04:00 36.4 78 16 115/67 91 Room Air 03/08/16 04:00 Room Air 03/07/16 23:54 36.5 66 18 113/58 93 Room Air 03/07/16 23:44 Room Air 03/07/16 20:00 Room Air 03/07/16 19:17 36.3 62 22 137/58 94 Room Air Physical Exam General Appearance: WD/WN, + mild distress Eyes: PERRL, EOMI Neck: supple, no JVD Respiratory/Chest: chest non-tender, lungs clear, normal breath sounds Cardiovascular: regular rate, rhythm (in nsr but fast with exertion), + tachycardia, + systolic murmur Abdomen: normal bowel sounds, non tender, soft Neurologic/Psychiatric: alert, oriented x 3 Laboratory Results Last 24 Hours Test 03/07/16 20:07 03/08/16 05:27 03/08/16 06:21 03/08/16 11:21 Bedside Glucose 121 mg/dl 132 mg/dl 135 mg/dl Prothrombin Time 23.3 SECONDS Prothromb Time International Ratio 2.1 Assessment and Plan 75 yo female with dizziness that initially was not felt to be vertigo but with negative work up and now meclizine helps dizziness: consider vertigo, CT head normal, no signs of ear infection MRI brain normal but was incomplete as pt could not tolerate complete study etiology could be from too much b joao preventing compensating tachy, did have episode of bradycardia associated with symptoms Dr Aponte in agreement with metoprolol tartrate change to succinate on 03/08, needed to increase dose to 100mg from 50 mg given improved with meclizine, will increase daily meclizine dose stop transderm scopolamine Enterobacter uti will treat with cipro( sensitivities confirm), in addition to suppressive cephalexin - Atrial fibrillation: in sinus rhythm(gonzalez at times) , continue metoprolol and Coumadin - h/o PE and DVT: continue Coumadin - DM type II: continue Metformin and use Novolog SS - DVT prophylaxis: on Coumadin
[2016-03-08] MEDS: WARFARIN SOD 5 MG TAB PO SCH (17:07)
[2016-03-08 19:49] VITALS: BP_SYST 142; BP_SYST 153; BP_SYST 160; BP_DIAS 69; BP_DIAS 81; BP_DIAS 83; PULSE 53; TEMP 36.4; O2SAT 96
[2016-03-08 20:00] VITALS: O2SAT 96
[2016-03-08] MEDS: FERROUS SULFATE 325 MG TAB PO SCH (21:02)
[2016-03-08] MEDS: MECLIZINE HCL 25 MG TAB PO SCH (22:31)
[2016-03-09] VITALS (12 sets, daily range): BP systolic 90–137; BP diastolic 52–87; PULSE 59–73; TEMP 36.3–36.7; O2SAT 91–99
[2016-03-09] MEDS: MECLIZINE HCL 25 MG TAB PO SCH ×2 (05:58→14:21)
--- NOTE | 2016-03-09 07:46 | Clinical Documentation Query ---
RONAK Dalton : CLINICAL DOCUMENTATION QUERY Patient is a 75 year old female admitted with dizziness. Differential has included vertigo, inner ear infection, adverse effect of beta andrea therapy. Documentation after admission has included Enterobacter UTI, being treated with Ciprofloxacin. As appropriate, consider explicit documentation of POA status as this may directly affect DRG assignment and cannot be assumed by the data warehouse developer. Thank you. In your clinical opinion is this patient being managed for: ( . ) Enterobacter UTI, POA ( ) Other explanation of clinical findings (Please Explain) ( ) Unable to determine (Please Define) ( ) Need to Discuss ( ) Not Agree The medical record reflects the following clinical findings, treatment, and risk factors. Clinical Indicators: As above Treatment: UA, C&S, Ciprofloxacin Risk Factors: Age, gender Please clarify and document your clinical opinion in the progress notes and discharge summary. Terms such as "probable", "suspected", "likely", "questionable", "possible", or "still to be ruled out" are acceptable. IF IN AGREEMENT, YOU MUST DOCUMENT ABOVE DIAGNOSTIC STATEMENT IN DAILY PROGRESS NOTES AND DISCHARGE SUMMARY. This document is not part of the patient's record. Thank You, Ted Marnielli, RN [phone]
[2016-03-09] MEDS: CHECK SCOPOLAMINE PATCH PLACEMENT SCH (08:00)
[2016-03-09] MEDS: METFORMIN HCL 500 MG TABCR PO SCH (08:13)
[2016-03-09] MEDS: TIOTROPIUM BROMIDE 5 PUFF/90 MCG INH INH SCH (08:14)
[2016-03-09] MEDS: ALLOPURINOL 300 MG TAB PO SCH (08:14)
[2016-03-09] MEDS: MOMETASONE FUROATE-FORMOTEROL (DULERA) 200mcg/5mcg per inh INH SCH (08:14)
[2016-03-09] MEDS: ASPIRIN 81 MG ECTAB PO SCH (08:14)
[2016-03-09] MEDS: CEPHALEXIN MONOHYDRATE 500 MG CAP PO SCH (08:15)
[2016-03-09] MEDS: PANTOprazole SOD 40 MG TAB PO SCH (08:15)
[2016-03-09] MEDS: INSULIN ASPART 100 UNITS/ML 3 ML PEN SC SCH ×2 (08:17→12:10)
[2016-03-09] MEDS: LISINOPRIL 40 MG TAB PO SCH (09:38)
[2016-03-09] MEDS: METOPROLOL SUCC 50MG EXT REL TAB PO SCH (09:38)
[2016-03-09] MEDS ORDERED: CPR500 PO (11:33)
--- NOTE | 2016-03-09 11:37 | Discharge Summary ---
Discharge Summary Admission Date: Mar 08, 2016 at 16:49 Discharge Date: Mar 09, 2016 Discharge Disposition: Home Principal Diagnosis: dizziness, vertigo, medication affect Immunizations: Have You Had Influenza Vaccine: Yes Influenza Vaccine Date: Dec 08, 2010 History of Tetanus Vaccine?: Yes History of Pneumococcal: Yes History of Hepatitis B Vaccine: No Medication Reconciliation New Medications: Ciprofloxacin (Ciprofloxacin HCl) 500 Mg Tab 500 MG PO BID, #7 DOSE Meclizine HCl (Meclizine 25) 25 Mg Tab 25 MG PO Q8, #30 DOSE 4 Refills Metoprolol Succinate (Metoprolol Succinate ER) 50 Mg Tabcr 100 MG PO DAILY, #60 DOSE 6 Refills may substitute 100mg tabs if available Aspirin (Aspirin EC Low Dose) 81 Mg Ectab 81 MG PO QAM for 365 Days Changed Medications: Lisinopril (Zestril) 40 Mg Tab 20 MG PO DAILY, #60 TAB (Changed from: 40 MG) Continued Medications: Allopurinol (Zyloprim) 300 Mg Tab 300 MG PO QAM, #90 Cephalexin Monohydrate (Keflex) 500 Mg Cap 500 MG PO BID, #15 CAP Ferrous Sulfate (Ferrous Sulfate) 325 Mg Tab 325 MG PO QPM, #30 Metformin Hcl Er (Glucophage Er) 500 Mg Tab 500 MG PO BID, TAB Mometasone Furoate-Formoterol (Dulera 200/5 Mcg) 1 Aer Aer 1 PUFF INH BID, #13 Pantoprazole (Pantoprazole Sodium) 40 Mg Tab 40 MG PO QAM Tiotropium Speer Monohydrate (Spiriva Respimat) 2.5 Mcg/Act Spr 1 PUFF INH DAILY, #4 Warfarin Sodium (Warfarin Sodium) 5 Mg Tab PO UD, #60 5 MG ON WEDNESDAYS THEN 7.5 SATURDAY,SATURDAY,SATURDAY,SATURDAY,SATURDAY,SATURDAY Discontinued Medications: Metoprolol Tartrate (Metoprolol Tartrate) 100 Mg Tab 100 MG PO BID, #120 Discharge Exam Review of Systems: Constitutional: + weakness, No chills, No fever Respiratory: No cough, No dyspnea on exertion, No shortness of breath, No sputum Cardiovascular: No chest pain, No edema, No orthopnea Abdomen: No diarrhea, No nausea, No pain, No vomiting Genitourinary - Female: No dysuria, No urinary frequency Neurologic: No memory loss, No paralysis Psychiatric: No anhedonism, No depression symptoms Physical Exam: General Appearance: WD/WN, no apparent distress Neck: supple, no JVD Respiratory/Chest: chest non-tender, lungs clear, normal breath sounds Cardiovascular: regular rate, rhythm, no murmur Abdomen / GI: normal bowel sounds, non tender, soft Extremities: no pedal edema, normal range of motion Neurologic/Psychiatric: alert, oriented x 3 Hospital Course 75 yo female with dizziness that initially was not felt to be vertigo but with negative work up and now meclizine helps dizziness: consider vertigo, CT head normal, no signs of ear infection MRI brain normal but was incomplete as pt could not tolerate complete study etiology could be from too much b andrea preventing compensating tachy, did have episode of bradycardia associated with symptoms Dr Aponte in agreement with metoprolol tartrate change to succinate on 03/08, needed to increase dose to 100mg from 50 mg given improved with meclizine, will increase daily meclizine dose stop transderm scopolamine Enterobacter uti poa will treat with cipro( sensitivities confirm), in addition to suppressive cephalexin - Atrial fibrillation: in sinus rhythm(gonzalez at times) , continue metoprolol and Coumadin - h/o PE and DVT: continue Coumadin - DM type II: continue Metformin - DVT prophylaxis: on Coumadin Total Time Spent: Greater than 30 minutes This includes examination of the patient, discharge planning, medication reconciliation, and communication with other providers. Discharge Instructions Please refer to the electronic Patient Visit Report (Discharge Instructions) for additional information.
[2016-03-09] MEDS: CIPROFLOXACIN / D5W 400 MG in PREMIXED IN D5W 200 ML IV SCH (12:00)
[2016-03-09] MEDS ORDERED: LISI40TA PO (12:53)
== END 2016-03-09 16:05 | disposition home or self-care (01) | DRG 690 ==
LOC: ENRESERVTM → ENRESERVDT → C.EDB 10:03 → C.2T 17:38 → OBSVTOIN 03-08 16:49
PROVIDERS: ADMIT Internal Medicine; ATTEND Internal Medicine
DX: N39.0 Urinary tract infection, site not specified (principal); I50.32 Chronic diastolic (congestive) heart failure; R42 Dizziness and giddiness; B96.89 Other specified bacterial agents as the cause of diseases classified elsewhere; I48.0 Paroxysmal atrial fibrillation; I25.10 Atherosclerotic heart disease of native coronary artery without angina pectoris; I10 Essential (primary) hypertension; J44.9 Chronic obstructive pulmonary disease, unspecified; E78.5 Hyperlipidemia, unspecified; K21.9 Gastro-esophageal reflux disease without esophagitis; E11.9 Type 2 diabetes mellitus without complications; Z79.4 Long term (current) use of insulin; Z79.01 Long term (current) use of anticoagulants; Z79.82 Long term (current) use of aspirin; Z86.718 Personal history of other venous thrombosis and embolism; Z86.711 Personal history of pulmonary embolism; Z82.49 Family history of ischemic heart disease and other diseases of the circulatory system

== ENCOUNTER → 2016-04-12 | Outpatient (CLI) | payer OTHER ==
[~2016-04-12] MED LIST changes: -ANT125 PO; +ASPEC81 PO; -BND25X PO; +CEPH500C2 PO; +CPR500 PO; -LISI1TAB3 PO; +LISI40TA PO; -LPR100 PO; +MECL-91 PO; -PRD20 PO; -PRED1SUS3 OPL; +TPRSR50 PO
[2016-04-12 16:43] LABS: HEMATOCRIT 35.9 % (37-47); MEAN CELL VOLUME 88.2 fL (80-100); MEAN CORPUSCULAR HGB CONC 32.9 g/dl (32-36); PLATELET COUNT 205 K/uL (130-400); RED BLOOD COUNT 4.07 M/uL (4.2-5.4); WHITE BLOOD COUNT 5.18 K/uL (4.8-10.8)
[2016-04-12 16:44] LABS: URINE APPEARANCE CLOUDY (CLEAR); URINE BILIRUBIN NEG (NEG); URINE COLOR YELLOW; URINE EPITHELIAL CELL AUTO >30 /lpf (0-5); URINE NITRITE NEG (NEG); URINE SPECIFIC GRAVITY 1.012 (1.000-1.030); UROBILINOGEN NEG (NEG)
[2016-04-12 16:49] LABS: BLOOD UREA NITROGEN 38 mg/dl (7-18); BUN/CREATININE RATIO 31.6 (10-20); CALCIUM 9.4 mg/dl (8.5-10.1); CARBON DIOXIDE 27 mmol/L (21-32); CHLORIDE 105 mmol/L (98-107); GLUCOSE 133 mg/dl (70-99); POTASSIUM 4.4 mmol/L (3.5-5.1); SODIUM 139 mmol/L (136-145)
[2016-04-12 17:00] LABS: MANUAL MICROSCOPIC REQUIRED? NO; REVIEW REQ? NO; URINE PROTIEN/CREAT RATIO 0.1 (0-0.2); URINE TOTAL PROTEIN 9.8 mg/dl (0-11.9)
== END | disposition home or self-care (01) ==
LOC: C.LAB1850 15:40
PROVIDERS: ATTEND Internal Medicine Nephrology
DX: N18.3 Chronic kidney disease, stage 3 (moderate) (principal); E55.9 Vitamin D deficiency, unspecified; I48.91 Unspecified atrial fibrillation

== ENCOUNTER → 2016-07-02 | Outpatient (CLI) | payer OTHER ==
[~2016-07-02] MED LIST changes: +FERR1TAB62 PO; -FERR325T PO; +PANT40TA2 PO; -PRT/40 PO
[2016-07-02 13:13] LABS: BASO % 0.5 %; BASO ABS # 0.03 K/uL (0-0.2); COMPLETE YES; EOS % 8.6 %; HEMATOCRIT 40.6 % (37-47); IG% 0.2 %; LYMPH % 18.8 %; LYMPH ABS # 1.13 K/uL (1.2-3.4); MEAN CELL VOLUME 93.5 fL (80-100); MEAN CORPUSCULAR HEMOGLOBIN 30.2 pg (25-34); MEAN CORPUSCULAR HGB CONC 32.3 g/dl (32-36); MEAN PLATELET VOLUME 10.2 fL (7.4-10.4); MONO % 6.8 %; NEUT % 65.1 %; PLATELET COUNT 187 K/uL (130-400); RED BLOOD COUNT 4.34 M/uL (4.2-5.4); WHITE BLOOD COUNT 6.02 K/uL (4.8-10.8)
[2016-07-02 13:45] LABS: ESTIMATED AVERAGE GLUCOSE 154 mg/dl; HA1C FLAG Normal (Normal)
[2016-07-02 15:04] LABS: AST/SGOT 21 U/L (15-37); BLOOD UREA NITROGEN 22 mg/dl (7-18); BUN/CREATININE RATIO 22.3 (10-20); CALCIUM 9.7 mg/dl (8.5-10.1); CARBON DIOXIDE 25 mmol/L (21-32); CHLORIDE 107 mmol/L (98-107); CHOLESTEROL 262 mg/dl (0-200); GLUCOSE 146 mg/dl (70-99); POTASSIUM 4.5 mmol/L (3.5-5.1); SODIUM 142 mmol/L (136-145)
[2016-07-02 15:06] LABS: ALB/GLOB RATIO 1.1 (0.9-2); ALKALINE PHOSPHATASE 69 U/L (45-117); ALT/SGPT 35 U/L (12-78); CHOLESTEROL/HDL RATIO 4.6; HDL CHOLESTEROL 57 mg/dl; LDL CHOLESTEROL CALCULATED 150 mg/dl; TRIGLYCERIDES 276 mg/dl (0-150); VERY LOW DENSITY LIPOPROT CALC 55 mg/dl
== END | disposition home or self-care (01) ==
LOC: C.LAB1850 11:41
PROVIDERS: ATTEND Internal Medicine Pulmonary Disease
DX: I10 Essential (primary) hypertension (principal); E78.5 Hyperlipidemia, unspecified; E11.9 Type 2 diabetes mellitus without complications; K57.90 Diverticulosis of intestine, part unspecified, without perforation or abscess without bleeding; J44.9 Chronic obstructive pulmonary disease, unspecified; J45.909 Unspecified asthma, uncomplicated; D64.9 Anemia, unspecified; I48.91 Unspecified atrial fibrillation; A49.1 Streptococcal infection, unspecified site

== ENCOUNTER → 2016-10-22 | Outpatient (CLI) | payer OTHER ==
[~2016-10-22] MED LIST changes: -FERR1TAB62 PO; +FERR325T PO; -PANT40TA2 PO; +PRT/40 PO
[2016-10-22 18:17] LABS: BLOOD UREA NITROGEN 40 mg/dl (7-18); CALCIUM 9.7 mg/dl (8.5-10.1); CARBON DIOXIDE 27 mmol/L (21-32); CHLORIDE 106 mmol/L (98-107); GLUCOSE 236 mg/dl (70-99); POTASSIUM 4.7 mmol/L (3.5-5.1); SODIUM 139 mmol/L (136-145)
== END | disposition home or self-care (01) ==
LOC: C.LAB1850 16:22
PROVIDERS: ATTEND Internal Medicine Cardiovascular Disease
DX: I10 Essential (primary) hypertension (principal); I48.91 Unspecified atrial fibrillation

== ENCOUNTER → 2017-01-07 | Outpatient (CLI) | payer OTHER ==
[~2017-01-07] MED LIST changes: +FERR1TAB62 PO; -FERR325T PO; +PANT40TA2 PO; -PRT/40 PO
[2017-01-07 12:43] LABS: BASO % 1.6 %; BASO ABS # 0.08 K/uL (0-0.2); COMPLETE YES; EOS % 8.4 %; HEMATOCRIT 39.8 % (37-47); IG% 0.2 %; LYMPH % 22.6 %; LYMPH ABS # 1.15 K/uL (1.2-3.4); MEAN CELL VOLUME 96.6 fL (80-100); MEAN CORPUSCULAR HEMOGLOBIN 31.6 pg (25-34); MEAN CORPUSCULAR HGB CONC 32.7 g/dl (32-36); MEAN PLATELET VOLUME 10.8 fL (7.4-10.4); MONO % 5.5 %; NEUT % 61.7 %; PLATELET COUNT 159 K/uL (130-400); RED BLOOD COUNT 4.12 M/uL (4.2-5.4); WHITE BLOOD COUNT 5.09 K/uL (4.8-10.8)
[2017-01-07 14:05] LABS: ALT/SGPT 34 U/L (12-78); AST/SGOT 19 U/L (15-37); BLOOD UREA NITROGEN 27 mg/dl (7-18); BUN/CREATININE RATIO 25.6 (10-20); CALCIUM 9.2 mg/dl (8.5-10.1); CARBON DIOXIDE 23 mmol/L (21-32); CHLORIDE 104 mmol/L (98-107); CREATININE 1.06 mg/dl (0.60-1.20); GLUCOSE 179 mg/dl (70-99); POTASSIUM 4.6 mmol/L (3.5-5.1); SODIUM 137 mmol/L (136-145); URIC ACID 5.1 mg/dl (2.6-7.2)
[2017-01-07 14:06] LABS: ALKALINE PHOSPHATASE 66 U/L (45-117)
[2017-01-07 14:33] LABS: ESTIMATED AVERAGE GLUCOSE 163 mg/dl; HA1C FLAG Normal (Normal)
== END | disposition home or self-care (01) ==
LOC: C.LAB1850 10:10
PROVIDERS: ATTEND Internal Medicine Pulmonary Disease
DX: K57.90 Diverticulosis of intestine, part unspecified, without perforation or abscess without bleeding (principal)

== ENCOUNTER → 2017-01-11 | Outpatient (CLI) | payer OTHER ==
--- NOTE | 2017-01-11 15:38 | DIAGNOSTIC IMAGING REPORT ---
(CHEST) THORAX WITHOUT CT DOSE: 1620.76 mGy.cm HISTORY: COUGH TECHNIQUE: Multiaxial CT images of the chest were performed without contrast. A dose lowering technique was utilized adhering to the principles of ALARA. COMPARISON: Chest CT 05/31/2015. FINDINGS: The central airways are patent. No pleural effusions. No pneumothorax. Emphysema. No suspicious lytic or blastic osseous lesions. Mildly heterogeneous thyroid gland is again noted. No mediastinal or hilar lymphadenopathy. The heart is normal in size. Mild calcified plaque within the normal caliber thoracic aorta. The main pulmonary artery is mildly dilated up to 3.3 cm. This remains unchanged. The visualized spleen and adrenal glands are unremarkable. There are few stable hypodense lesions within the liver. Dominant lesion within the left hepatic lobe measures 1.7 cm. No significant change in multiple scattered groundglass nodules seen throughout the lungs. Dominant nodule within the left upper lobe on image 99 measures 11 mm. Dominant right lung nodule within the right middle lobe on image 194 measures 13 mm. There are few scattered solid subcentimeter nodules with the largest in the left lower lobe on image 123 measuring 5 mm. IMPRESSION: 1. No significant change in the multiple scattered groundglass nodules. These are highly suspicious for low-grade neoplasms. 2. A few stable subcentimeter solid nodules within the lungs. 3. Emphysema. Electronically signed by: Maciel Modi M.D. 01/11/2017 3:37 PM Dictated Date/Time: 01/11/2017 3:29 PM
== END | disposition home or self-care (01) ==
LOC: C.CTS 15:08
PROVIDERS: ATTEND Internal Medicine Pulmonary Disease
DX: R91.8 Other nonspecific abnormal finding of lung field (principal); I48.91 Unspecified atrial fibrillation; J44.9 Chronic obstructive pulmonary disease, unspecified; R05 Cough; E11.9 Type 2 diabetes mellitus without complications; I10 Essential (primary) hypertension

== ENCOUNTER → 2017-02-14 | Outpatient (CLI) | payer OTHER ==
[~2017-02-14] MED LIST changes: -ASPEC81 PO; +ASPI-320 PO
--- NOTE | 2017-02-14 09:46 | DIAGNOSTIC IMAGING REPORT ---
TWO VIEW CHEST CLINICAL HISTORY: Hemoptysis. FINDINGS: PA and lateral chest radiographs are compared to study dated 01/19/2016 and correlated with chest CT dated 01/11/2017. The examination is degraded by large body habitus. The cardiomediastinal heart is top normal for projection and there is atherosclerotic calcification of the thoracic aorta. Chronic interstitial thickening is similar to previous. Small groundglass lesions seen on the previous CT are not apparent by x-ray. No airspace consolidation or pleural effusion is identified. There is no pneumothorax. The skeletal structures are osteopenic. The bony thorax appears intact. IMPRESSION: No acute cardiopulmonary abnormality. Small groundglass foci seen on the 01/11/[address] are not apparent by x-ray. Electronically signed by: Karel Palma M.D. 02/14/2017 9:45 AM Dictated Date/Time: 02/14/2017 9:43 AM
[2017-02-14 11:26] LABS: BASO % 0.8 %; BASO ABS # 0.04 K/uL (0-0.2); EOS % 8.3 %; EOS ABS # 0.42 K/uL (0-0.5); HEMATOCRIT 35.9 % (37-47); IG# 0.02 K/uL (0.00-0.02); LYMPH % 21.7 %; MEAN CORPUSCULAR HEMOGLOBIN 32.1 pg (25-34); MEAN CORPUSCULAR HGB CONC 33.4 g/dl (32-36); MEAN PLATELET VOLUME 10.3 fL (7.4-10.4); MONO % 7.3 %; MONO ABS # 0.37 K/uL (0.11-0.59); NEUT % 61.5 %; NEUT ABS # 3.13 K/uL (1.4-6.5); PLATELET COUNT 178 K/uL (130-400); RED CELL DISTRIBUTION WIDTH CV 15.4 % (11.5-14.5); RED CELL DISTRIBUTION WIDTH SD 54.1 fL (36.4-46.3); WHITE BLOOD COUNT 5.08 K/uL (4.8-10.8)
[2017-02-14 11:30] LABS: INR 1.9 (0.9-1.1)
[2017-02-14 13:05] LABS: ALKALINE PHOSPHATASE 62 U/L (45-117); ALT/SGPT 29 U/L (12-78); AST/SGOT 23 U/L (15-37); BLOOD UREA NITROGEN 40 mg/dl (7-18); CALCIUM 9.5 mg/dl (8.5-10.1); CARBON DIOXIDE 22 mmol/L (21-32); CREATININE 1.37 mg/dl (0.60-1.20); GLUCOSE 169 mg/dl (70-99); POTASSIUM 4.2 mmol/L (3.5-5.1); SODIUM 136 mmol/L (136-145); TOTAL PROTEIN 6.9 gm/dl (6.4-8.2)
== END | disposition home or self-care (01) ==
LOC: C.RAD1850 09:31
PROVIDERS: ATTEND Internal Medicine Pulmonary Disease
DX: R04.2 Hemoptysis (principal)

== ENCOUNTER → 2017-07-03 | Outpatient (CLI) | payer OTHER ==
[2017-07-03 12:38] LABS: BASO % 0.8 %; BASO ABS # 0.04 K/uL (0-0.2); EOS % 9.7 %; EOS ABS # 0.46 K/uL (0-0.5); HEMATOCRIT 39.7 % (37-47); HEMOGLOBIN 13.3 g/dL (12.0-16.0); IG# 0.01 K/uL (0.00-0.02); LYMPH % 24.7 %; LYMPH ABS # 1.17 K/uL (1.2-3.4); MEAN CELL VOLUME 94.1 fL (80-100); MEAN CORPUSCULAR HEMOGLOBIN 31.5 pg (25-34); MEAN CORPUSCULAR HGB CONC 33.5 g/dl (32-36); MONO % 4.9 %; MONO ABS # 0.23 K/uL (0.11-0.59); NEUT % 59.7 %; NEUT ABS # 2.83 K/uL (1.4-6.5); PLATELET COUNT 140 K/uL (130-400); RED CELL DISTRIBUTION WIDTH CV 15.3 % (11.5-14.5); RED CELL DISTRIBUTION WIDTH SD 51.9 fL (36.4-46.3); WHITE BLOOD COUNT 4.74 K/uL (4.8-10.8)
[2017-07-03 12:54] LABS: HEMOGLOBIN A1C 7.7 % (4.5-5.6)
[2017-07-03 13:04] LABS: ALBUMIN 3.5 gm/dl (3.4-5.0); ALKALINE PHOSPHATASE 60 U/L (45-117); ALT/SGPT 37 U/L (12-78); AST/SGOT 26 U/L (15-37); BLOOD UREA NITROGEN 21 mg/dl (7-18); CALCIUM 9.4 mg/dl (8.5-10.1); CARBON DIOXIDE 28 mmol/L (21-32); GLUCOSE 153 mg/dl (70-99); POTASSIUM 4.3 mmol/L (3.5-5.1); SODIUM 139 mmol/L (136-145); TOTAL PROTEIN 6.8 gm/dl (6.4-8.2)
== END | disposition home or self-care (01) ==
LOC: C.LAB1850 10:56
PROVIDERS: ATTEND Internal Medicine Pulmonary Disease
DX: I10 Essential (primary) hypertension (principal); E11.9 Type 2 diabetes mellitus without complications; I48.91 Unspecified atrial fibrillation; R05 Cough; R91.8 Other nonspecific abnormal finding of lung field; J44.9 Chronic obstructive pulmonary disease, unspecified

== ENCOUNTER 2018-09-11 21:06 | Inpatient (IN) ==
[2018-09-11] MEDS ORDERED: ONDANSETRON INJ 2 MG/ML 2 ML VIAL IV STA (21:37)
[2018-09-11] MEDS ORDERED: ACETAMINOPHEN 500 MG TAB PO STA (21:40)
[2018-09-11] MEDS ORDERED: ALBUT/IPRATROP 3MG/0.5MG NEB 3 ML VIAL NEB STA (21:40)
[2018-09-11] MEDS ORDERED: SODIUM CHLORIDE 0.9% 1000ML 1,000 ML IV SCH (21:45)
[2018-09-11 22:32] LABS: Basophils # (auto) 0.01 K/uL (0-0.2); Basophils % (auto) 0.2 %; Eosinophils # (auto) 0.02 K/uL (0-0.5); Eosinophils % (auto) 0.3 %; Hematocrit (blood only) 37.3 % (37-47); Hemoglobin 12.4 g/dL (12.0-16.0); Lymphocytes # (auto) 0.56 K/uL (1.2-3.4); Lymphocytes % (auto) 8.6 %; Mean Corpuscular Hgb Conc 33.2 g/dL (32-36); Mean Corpuscular Volume 94.9 fL (80-100); Mean Platelet Volume 10.5 fL (7.4-10.4); Monocytes # (auto) 0.23 K/uL (0.11-0.59); Monocytes % (auto) 3.5 %; Neutrophils # (auto) 5.67 K/uL (1.4-6.5); Neutrophils % (auto) 87.4 %; Platelet Count 134 K/uL (130-400); RDW Coefficient of Variation 15.1 % (11.5-14.5); RDW Standard Deviation 52.4 fL (36.4-46.3); Red Blood Count 3.93 M/uL (4.2-5.4); White Blood Count 6.49 K/uL (4.8-10.8)
--- NOTE | 2018-09-11 22:35 | XRay Report ---
XR chest 1V portable HISTORY: 78 years-old Female weakness acute weakness COMPARISON: Chest radiograph 05/15/2018 TECHNIQUE: , Chest CT 01/23/2018 FINDINGS: Cardiac silhouette is enlarged, unchanged. Emphysema with chronic interstitial coarsening. Subsegment al medial right lung base opacities. No pneumothorax, large pleural effusion or overt pulmonary edema . Degenerative changes of the shoulders and spine. IMPRESSION: 1. Cardiomegaly without overt pulmonary edema. 2. Emphysema. 3. Subsegmental medial right lung base opacities suggest atelectasis with pneumonitis considered less likely. The above report was generated using voice recognition software. It may contain grammatical, syntax o r spelling errors. Electronically signed by: Cuco Naylor M.D. 09/11/2018 10:33 PM
[2018-09-11 22:50] LABS: Alanine Aminotransferase 19 U/L (12-78); Albumin Level 3.4 gm/dl (3.4-5.0); Aspartate Aminotransferase 14 U/L (15-37); BUN Creatinine Ratio 17.1 (10-20); Blood Urea Nitrogen 30 mg/dl (7-18); Calcium 9.2 mg/dl (8.5-10.1); Carbon Dioxide 24 mmol/L (21-32); Chloride 104 mmol/L (98-107); Creatinine Clr Calc Pharmacy 39.1 ml/min; Est GFR (African American) 31.6; Est GFR (Non-African American) 27.2; Glucose 159 mg/dl (70-99); Magnesium 1.4 mg/dl (1.8-2.4); Potassium 4.6 mmol/L (3.5-5.1); Sodium 135 mmol/L (136-145)
[2018-09-11 22:57] LABS: INR 2.8 (0.9-1.1); Prothrombin Time 26.7 Seconds (9.0-12.0)
--- NOTE | 2018-09-11 22:58 | CT Scan Report ---
ABDOMEN AND PELVIS CT WITHOUT CONTRAST CT DOSE: 1929.75 mGy.cm HISTORY: Acute upper abdominal pain UPPER ABD PAIN TECHNIQUE: Multiaxial CT images of the abdomen and pelvis were performed without contrast. A dose lo wering technique was utilized adhering to the principles of ALARA. COMPARISON STUDY: Chest radiograph of same day, chest CT 01/23/2018, CT abdomen and pelvis 01/18/2015 FINDINGS: Partially imaged consolidative and groundglass opacities of the right lower lobe. 1.6 cm groundglass nodule of the right middle lobe is unchanged from 01/23/2018. Left lung base is generally clear. No p neumatosis or pneumoperitoneum. Imaged inferior cardiac chambers are mildly enlarged with small peric ardial effusion. Dense mitral annular calcifications noted. Limited evaluation of the solid abdominal organs without the use of IV contrast. Suggestion of mild hepatic steatosis. There are several scatt ered subcentimeter hypodense lesions of the liver which are too small to characterize however suggest s probable cysts. 1.3 cm subcapsular cyst of the left hepatic lobe is unchanged. No intrahepatic bili juan ductal dilation. Cholelithiasis without CT evidence of acute cholecystitis. Spleen is mildly enla rged, 14.1 cm. Mild generalized pancreatic atrophy. Mild thickening of the adrenal glands. Mild nonsp ecific bilateral perinephric stranding. No renal or ureteral calculi or obstructive uropathy. Calcifi cation about the left hemipelvis on image 295 series 3 is likely vascular. Urinary bladder is unremar kable small cystocele. Uterus is within normal limits. Indeterminate 3.8 x 3.0 cm cystic lesion of th e left adnexum, unchanged. Calcified plaque of the abdominal aorta without aneurysm. No adenopathy. Tiny hiatal hernia. No bowel obstruction. Colonic diverticulosis without acute diverticulitis. No bowel wall thickening. Terminal ileum and appendix are unremarkable. Diastases recti with tiny fat filled periumbilical hernia. Dege nerative changes of the pelvis, hips and spine. No acute fracture identified. Lumbar levoscoliosis. IMPRESSION: 1. Partially imaged consolidation of the right lower lobe is suggestive of pneumonia. Follow-up imagi ng to document resolution recommended. 2. 1.6 cm groundglass nodule of the right middle lobe, unchanged from 01/23/2018. 3. No bowel obstruction or bowel wall thickening. 4. Cholelithiasis. 5. Colonic diverticulosis without acute diverticulitis. 5. Additional findings as above. Electronically signed by: Cuco Naylor M.D. 09/11/2018 10:56 PM
[2018-09-11 23:01] LABS: Alkaline Phosphatase 65 U/L (45-117); Bilirubin,Total 0.6 mg/dl (0.2-1); Globulin 3.4 gm/dl (2.5-4.0); Total Protein 6.8 gm/dl (6.4-8.2); Troponin I < 0.015 ng/ml (0-0.045)
[2018-09-11 23:03] LABS: Partial Thromboplastin Time 54.6 Seconds (21.0-31.0)
[2018-09-11 23:22] LABS: Appearance Urine Clear (Clear); Bilirubin Urine Negative (Negative); Blood Urine Negative (Negative); Color Urine Yellow; Glucose Urine UA Negative (Negative); Ketones Urine Negative (Negative); Leukocyte Esterase Urine Negative (Negative); Nitrite Urine Negative (Negative); Protein Urine Negative (Negative); Specific Gravity Urine 1.021 (1.000-1.030); Urobilinogen Urine Negative (Negative)
[2018-09-11] MEDS ORDERED: DOXYCYCLINE HYCLATE 100 MG in DEXTROSE 5% 100 ML IV STA (23:36)
[2018-09-11] MEDS ORDERED: CEFEPIME 2,000 MG/20 ML VIAL IV STA (23:36)
[2018-09-12] MEDS: MAGNESIUM SULFATE / D5W 1 GM/100 ML BAG IV SCH ×2 (00:04→01:05)
--- NOTE | 2018-09-12 01:15 | History & Physical Report ---
Date of Service September 12, 2018 Assessment & Plan (1) Pneumonia: 78 y/o F Hx DM II, HTN, DVT/PE, gout, GERD, AF, septic joint. Presenting from home at the [facility] for progressive weakness, nausea and a cough, which she states set in the day of admission. She denies any CP, significant SOB and could not confirm a fever, although she was febrile on arrival. A CT abdomen was obtained and did not show any acute abnormalities in the abdomen, however a RLL consolidation was seen. Initial labs are notable for ARABELLA and hypomagnesemia. 1) PNM - she received Cefepime and Doxy in the ER. We will provide Doxy only for now. Would consider broadening coverage if she does not show short-term improvement, only because she had been taking Bactrim and Keflex. Placed on duonebs and an 02 protocol. 2) ARABELLA - IVF - recheck BMP AM 3) AF - rate is controlled, INR is therapeutic at 2.8 - cont Coumadin, Toprol. 4) DM II - placed on a SS 5) Gout - cont Allopurinol 6) Regarding her joint inflammation - there is no current evidence of this. We would choose to contact her orthopedist (Dr Juarez) AM to determine if Keflex or Bactrim should be continued. Full code - Coumadin prophylaxis Total time for this admit including review of labs, meds, imaging, records - discussion with pt and ER attending - 40 min Present on Admission?: Yes History of Present Illness Chief Complaint: Cough and weakness Primary Care Provider: Bc Carter MD 78 y/o F Hx DM II, HTN, DVT/PE, gout, GERD, AF, septic joint. Presenting from home at the [facility] for progressive weakness, nausea and a cough, which she states set in the day of admission. She denies any CP, significant SOB and could not confirm a fever, although she was febrile on arrival. A CT abdomen was obtained and did not show any acute abnormalities in the abdomen, however a RLL consolidation was seen. Initial labs are notable for ARABELLA and hypomagnesemia. The pt reports that the prior week she developed swelling of her L wrist and 4th and 5th fingers. She was evaluated by her orthopedist and placed on Keflex and Bactrim as she had a high WBC count and an elevated CRP. She states that she was not diagnosed with cellulitis and osteomyelitis and that the swelling resolved in a day after she was placed in a removable splint. 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 Does not drink alcohol. Maintains independence Family: Mother due to lung disease Father due to "old age" at 83 Allergies Allergy/AdvReac Type Severity Reaction Status Date / Time technetium-99m Allergy Severe ANAPHYLAXIS Verified 09/11/18 21:30 amoxicillin Allergy Intermediate RASH Verified 09/11/18 21:30 nitrofurantoin Allergy Intermediate HIVES Verified 09/11/18 21:30 iodine Allergy Unknown hives, HAS Verified 09/11/18 21:30 HAD SINCE W/O PROBLEM Home Medications Home Medications Medication Instructions Recorded Confirmed Type allopurinol 300 mg PO DAILY 05/15/18 09/11/18 History cephalexin [Keflex] 500 mg PO BID 05/15/18 09/11/18 History ferrous sulfate 324 mg PO DAILY 05/15/18 09/11/18 History lisinopril 40 mg PO DAILY 05/15/18 09/11/18 History metformin 500 mg PO BID 05/15/18 09/11/18 History metoprolol succinate [Toprol XL] 100 mg PO BID 05/15/18 09/11/18 History tiotropium bromide [Spiriva 2 puff INHALATION DAILY 05/15/18 09/11/18 History Respimat] warfarin 2.5 mg PO Q OTHER DAY 05/15/18 09/11/18 History warfarin 5 mg PO Q OTHER DAY 05/15/18 09/11/18 History sulfamethoxazole-trimethoprim 1 tab PO BID 09/11/18 09/11/18 History [Bactrim DS] Past Med/Surg History Medical History Atrial fibrillation with RVR (Resolved 04/24/13) DM (diabetes mellitus) (Chronic) HTN (hypertension) (Chronic) Sepsis (Resolved) Acute renal failure Anemia Diverticulitis Elevated troponin GI bleed Proteinuria Uremic encephalopathy C. difficile colitis Social History Preferred Language: Thai Feels Safe at Home: Yes Smoking Status: Former smoker Cigarettes Per Day: 50 Review of Systems Review of Systems: Gen: Weakness reported ENT: Denies congestion, throat pain, hearing loss Eyes: Denies acute visual changes CV: Denies CP, palpitations Pulmonary: Denies SOB, cough, wheezing GI: Denies N/V, diarrhea, constipation Neuro: Denies acute or unilateral weakness, acute gait impairment, headache or acute visual changes Musculoskeletal: Denies joint pain, inflammation Endocrine: Denies polydipsia, polyuria Skin: Denies acute rashes or ulcers Physical Exam Physical Exam: General: AAO x 3, no distress ENT: No erythema or exudates, no thrush Eyes: MIGUEL, EOMI Head and neck: Normocephalic, atraumatic, No JVD, neck is supple. Chest/heart: Nontender, S1,2, RRR, no murmurs, no gallops Lungs: CTAB, no wheezing or crackles Abdomen: Nontender, nondistended, BS+ Neuro: AAO x 3, speech is clear, no unilateral weakness or loss of sensation, coordination intact Musculoskeletal: No joint inflammation, muscle tenderness, FROM Skin: No acute rashes or ulcers Extremities: No clubbing, cyanosis, edema Results & Data Vital Signs (Past 12 Hours) Vital Signs Temp Pulse Pulse Resp BP BP Pulse Ox 09/12/18 00:51 95 H 21 09/12/18 00:50 96 H 19 91/42 L 09/12/18 00:00 100 H 23 108/55 L 92 09/11/18 23:31 102 H 26 H 119/61 91 09/11/18 22:31 108 H 15 128/59 L 09/11/18 22:10 95 09/11/18 22:09 94 H 24 93/76 L 95 09/11/18 21:57 97 H 20 94 09/11/18 21:08 99.0 F 104 H 18 149/86 H 90 PG Care Time/CCT Total # of Minutes Spent Total Time Spent with Patient: Total time spent is greater than 50% in coordination of care (as documented) at patient's floor/unit and/or counseling patient: (1) Pneumonia Laterality: right Lung location: lower lobe of lung
[2018-09-12] MEDS ORDERED: SODIUM CHLORIDE 0.9% 1000ML 1,000 ML IV SCH (01:30)
[2018-09-12] MEDS ORDERED: SODIUM CHLORIDE 0.9% 1000ML 500 ML IV SCH (01:30)
[2018-09-12] MEDS ORDERED: ACETAMINOPHEN 325 MG TAB PO PRN (02:26)
[2018-09-12] MEDS ORDERED: ALUMINUM/MAGNESIUM SUSP 30 ML UDC PO PRN (02:26)
[2018-09-12] MEDS ORDERED: ONDANSETRON INJ 2 MG/ML 2 ML VIAL IV PRN (02:26)
[2018-09-12] MEDS ORDERED: MAGNESIUM HYDROXIDE SUSP 30 ML UDC PO PRN (02:26)
[2018-09-12] MEDS ORDERED: POLYETHYLENE (MIRALAX) 17 GM PACK PO PRN (02:26)
--- NOTE | 2018-09-12 02:34 | Emergency Department Note ---
Entered by Lissette Powell acting as a scribe for ED Provider Note CHIEF COMPLAINT: Nausea HISTORY OF PRESENT ILLNESS: The patient is a 78 year old female with PMHx of Afib and sepsis who presents to the Emergency Room with complaints of nausea starting 18 hours ago. The patient states that she woke up at 0330 this morning with chills, cough, back pain, weakness, headache, lightheadedness and epigastric pain. The patient notes that she felt perfectly fine yesterday. The patient states that she had blood work done 8 days ago and had a high blood count. The patient notes that she saw her PCP 2 days ago for hand swelling and was put on Bactrim which she takes twice a day. The patient states that she is concerned that this new medication is causing the nausea. Pt denies LOC, diaphoresis, visual changes, neck pain, chest pain, breathing difficulties, vomiting, melena, hematochezia, urinary symptoms, numbness, lymphadenopathy, rash, or other complaints. REVIEW OF SYSTEMS: See HPI for pertinent positives and negatives. A total of ten systems were reviewed and were otherwise negative. PMHx/PSHx: Afib, sepsis, C.diff, HTN, diverticulitis, GI bleed SOCIAL HISTORY: Patient lives at home. PHYSICAL EXAM: GENERAL: Awake, alert, well-appearing, in no distress HENT: Normocephalic, atraumatic. Oropharynx unremarkable. EYES: PERRL. Normal conjunctiva. Sclera non-icteric. NECK: Inspection normal. Non-tender. Supple. No nuchal rigidity. FROM. No masses. RESPIRATORY: Expiratory wheezes. No rales. Normal respiratory effort. CARDIAC: Borderline tachycardic, irregular rhythm. No murmurs. No rubs. Extremities warm and well perfused. Pulses equal. No JVD. GI: Upper abdominal tenderness bilaterally. Soft, non-distended. No rebound or guarding. No masses. RECTAL: Deferred. MUSCULOSKELETAL: Atraumatic. Chest examination reveals no tenderness. The back is symmetrical on inspection without obvious abnormality. There is no CVA tenderness to palpation. No joint edema. LOWER EXTREMITIES: Calves are equal size bilaterally and non-tender. No edema. No discoloration. NEURO: Normal sensorium. No sensory or motor deficits noted. SKIN: No rash or jaundice noted. EMERGENCY DEPARTMENT COURSE: 2133: Past medical records reviewed. The patient was evaluated in room C1, and a complete history and physical examination were performed. 2345: Patient was reassessed. She is feeling informed of the findings. Will need further management in the hospital. 0035: I discussed the patient's case with Dr. Galarza- [facility] Hospitalist. He will e valuate the patient for further management. MEDICAL DECISION MAKING: C1 Prior records/ancillary studies reviewed. Prior laboratory studies revealed normal renal function. Nursing notes reviewed and agree them. Additional history obtained from the patient's son. The patient's history was concerning for weakness and chills. Differential diagnosis: Etiologies such as metabolic, infection, hypo/hyperglycemia, electrolyte abnormalities, cardiac sources, intracerebral event, toxicologic, neurologic, as well as others were entertained. Physical examination: As above. Patient had wheezing and a significant cough present. ER treatment provided: IV Lock Normal saline hydration IV magnesium IV cefepime IV doxycycline On reassessment the patient felt better. Diagnostics interpretation by me: ECG: Rapid A. fib noted. No acute ischemia. The labs revealed an unremarkable CBC. INR therapeutic at 2.8. Chemistry panel revealed mild dehydration with a slight elevation of her creatinine. The value of 1.4. Troponin and urinalysis were negative. Imaging studies: Chest x-ray revealed increased markings in the right base felt to be consistent with atelectasis per radiology. CT scan of the abdomen pelvis was performed due to the abdominal discomfort and nausea. The patient had consolidation noted at the right base concerning for pneumonia. Patient was weak. She had hypomagnesemia. She also has a pneumonia seen on CT imaging with wheezing and a cough. This is concerning as she was on Bactrim as well as Keflex as an outpatient. I discussed further treatment in the hospital. Patient and family were in agreement. Consultation: A consultation was placed with the hospitalist. The case was discussed and diagnostics were reviewed. The patient was evaluated in the ER for further treatment. IMPRESSION: Pneumonia right lower lobe, nausea, dehydration, hypomagnesemia PLAN: Being evaluated by Hospitalist The scribe's documentation has been prepared under my direction and personally reviewed by me in its entirety. I confirm that the note above accurately reflects all work, treatment, procedures, and medical decision making performed by me. Impression & Plan Pneumonia, Nausea, Dehydration, Hypomagnesemia Past Med/Surg History Medical History Atrial fibrillation with RVR (Resolved 04/24/13) DM (diabetes mellitus) (Chronic) HTN (hypertension) (Chronic) Sepsis (Resolved) Acute renal failure Anemia Diverticulitis Elevated troponin GI bleed Proteinuria Uremic encephalopathy C. difficile colitis Social History Preferred Language: [place] Feels Safe at Home: Yes Smoking Status: Former smoker Cigarettes Per Day: 50 Results & Data Vital Signs Vital Signs - 24 hr 09/11/18 21:08 09/11/18 21:57 09/11/18 22:09 Temperature 37.2 C Temperature Source Oral Sepsis Recent Fever Within 48 Hours No Sepsis New/Unexplained Change in Mental Status No Sepsis Action Taken by Nursing No Action Required Pulse Rate 104 H Pulse Rate [Right Finger] 97 H 94 H Pulse Rate from SpO2 Sensor Pulse Rhythm [Right Finger] Respiratory Rate 18 20 24 Respiratory Effort / Characteristics Non-Labored Spontaneous Non-Labored Spontaneous Non-Labored Spontaneous Respiratory Depth Normal Normal Respiratory Pattern Regular Blood Pressure 149/86 H Blood Pressure [Right Arm] 93/76 L Blood Pressure Mean 107 Blood Pressure Mean [Right Arm] 81 Blood Pressure Position Sitting Pulse Oximetry 90 94 95 Oxygen Delivery Method Room Air Room Air Room Air 09/11/18 22:10 09/11/18 22:31 09/11/18 23:31 Temperature Temperature Source Sepsis Recent Fever Within 48 Hours Sepsis New/Unexplained Change in Mental Status Sepsis Action Taken by Nursing Pulse Rate 108 H Pulse Rate [Right Finger] 102 H Pulse Rate from SpO2 Sensor Pulse Rhythm [Right Finger] Irregular Respiratory Rate 15 26 H Respiratory Effort / Characteristics Non-Labored Spontaneous Respiratory Depth Normal Respiratory Pattern Regular Blood Pressure 128/59 L Blood Pressure [Right Arm] 119/61 Blood Pressure Mean 82 Blood Pressure Mean [Right Arm] 80 Blood Pressure Position Pulse Oximetry 95 91 Oxygen Delivery Method Room Air Room Air 09/12/18 00:00 09/12/18 00:50 09/12/18 00:51 Temperature Temperature Source Sepsis Recent Fever Within 48 Hours Sepsis New/Unexplained Change in Mental Status Sepsis Action Taken by Nursing Pulse Rate 100 H 96 H Pulse Rate [Right Finger] 95 H Pulse Rate from SpO2 Sensor 101 H Pulse Rhythm [Right Finger] Respiratory Rate 23 19 21 Respiratory Effort / Characteristics Respiratory Depth Respiratory Pattern Blood Pressure 108/55 L 91/42 L Blood Pressure [Right Arm] Blood Pressure Mean 72 58 Blood Pressure Mean [Right Arm] Blood Pressure Position Pulse Oximetry 92 Oxygen Delivery Method Room Air Home Medications Current Medication List: was personally reviewed by me Laboratory Data Attestation: I reviewed the patient's lab results. Result diagrams: 09/11/18 22:17 09/11/18 22:17 Lab Results 09/11/18 09/11/18 09/11/18 Range/Units 22:17 22:17 22:17 WBC 6.49 (4.8-10.8) K/uL RBC 3.93 L (4.2-5.4) M/uL Hgb 12.4 (12.0-16.0) g/dL Hct 37.3 (37-47) % MCV 94.9 (80-100) fL MCH 31.6 (25-34) pg MCHC 33.2 (32-36) g/dL RDW Std Deviation 52.4 H (36.4-46.3) fL RDW Coeff of Beatrice 15.1 H (11.5-14.5) % Plt Count 134 (130-400) K/uL MPV 10.5 H (7.4-10.4) fL Immature Gran % (Auto) 0.0 % Neut % (Auto) 87.4 % Lymph % (Auto) 8.6 % [place] % (Auto) 3.5 % Eos % (Auto) 0.3 % Baso % (Auto) 0.2 % Immature Gran # (Auto) 0.00 (0.00-0.02) K/uL Neut # (Auto) 5.67 (1.4-6.5) K/uL Lymph # (Auto) 0.56 L (1.2-3.4) K/uL [place] # (Auto) 0.23 (0.11-0.59) K/uL Eos # (Auto) 0.02 (0-0.5) K/uL Baso # (Auto) 0.01 (0-0.2) K/uL PT 26.7 H (9.0-12.0) Seconds INR 2.8 H (0.9-1.1) APTT 54.6 H* (21.0-31.0) Seconds PTT Ratio 2.0 Sodium 135 L (136-145) mmol/L Potassium 4.6 (3.5-5.1) mmol/L Chloride 104 (98-107) mmol/L Carbon Dioxide 24 (21-32) mmol/L Anion Gap 6.0 (3-11) BUN 30 H (7-18) mg/dl Creatinine 1.77 H (0.6-1.2) mg/dl Est Cr Clr Drug Dosing 39.1 ml/min Est GFR ( Amer) 31.6 Est GFR (Non-Af Amer) 27.2 BUN/Creatinine Ratio 17.1 (10-20) Glucose 159 H (70-99) mg/dl POC Lactic Acid Elias (0.90-1.70) mmol/L Calcium 9.2 (8.5-10.1) mg/dl Magnesium 1.4 L (1.8-2.4) mg/dl Total Bilirubin 0.6 (0.2-1) mg/dl AST 14 L (15-37) U/L ALT 19 (12-78) U/L Alkaline Phosphatase 65 (45-117) U/L Troponin I < 0.015 (0-0.045) ng/ml Total Protein 6.8 (6.4-8.2) gm/dl Albumin 3.4 (3.4-5.0) gm/dl Globulin 3.4 (2.5-4.0) gm/dl Albumin/Globulin Ratio 1.0 (0.9-2) TSH 0.921 (0.300-4.500) uIu/ml Urine Color Urine Appearance (Clear) Urine pH (4.5-7.5) Ur Specific [place] (1.000-1.030) Urine Protein (Negative) Urine Glucose (UA) (Negative) Urine Ketones (Negative) Urine Blood (Negative) Urine Nitrite (Negative) Urine Bilirubin (Negative) Urine Urobilinogen (Negative) Ur Leukocyte Esterase (Negative) 09/11/18 09/11/18 Range/Units 22:24 23:10 WBC (4.8-10.8) K/uL RBC (4.2-5.4) M/uL Hgb (12.0-16.0) g/dL Hct (37-47) % MCV (80-100) fL MCH (25-34) pg MCHC (32-36) g/dL RDW Std Deviation (36.4-46.3) fL RDW Coeff of Beatrice (11.5-14.5) % Plt Count (130-400) K/uL MPV (7.4-10.4) fL Immature Gran % (Auto) % Neut % (Auto) % Lymph % (Auto) % [place] % (Auto) % Eos % (Auto) % Baso % (Auto) % Immature Gran # (Auto) (0.00-0.02) K/uL Neut # (Auto) (1.4-6.5) K/uL Lymph # (Auto) (1.2-3.4) K/uL [place] # (Auto) (0.11-0.59) K/uL Eos # (Auto) (0-0.5) K/uL Baso # (Auto) (0-0.2) K/uL PT (9.0-12.0) Seconds INR (0.9-1.1) APTT (21.0-31.0) Seconds PTT Ratio Sodium (136-145) mmol/L Potassium (3.5-5.1) mmol/L Chloride (98-107) mmol/L Carbon Dioxide (21-32) mmol/L Anion Gap (3-11) BUN (7-18) mg/dl Creatinine (0.6-1.2) mg/dl Est Cr Clr Drug Dosing ml/min Est GFR ( Amer) Est GFR (Non-Af Amer) BUN/Creatinine Ratio (10-20) Glucose (70-99) mg/dl POC Lactic Acid Elias 1.31 (0.90-1.70) mmol/L Calcium (8.5-10.1) mg/dl Magnesium (1.8-2.4) mg/dl Total Bilirubin (0.2-1) mg/dl AST (15-37) U/L ALT (12-78) U/L Alkaline Phosphatase (45-117) U/L Troponin I (0-0.045) ng/ml Total Protein (6.4-8.2) gm/dl Albumin (3.4-5.0) gm/dl Globulin (2.5-4.0) gm/dl Albumin/Globulin Ratio (0.9-2) TSH (0.300-4.500) uIu/ml Urine Color Yellow Urine Appearance Clear (Clear) Urine pH 5.0 (4.5-7.5) Ur Specific [place] 1.021 (1.000-1.030) Urine Protein Negative (Negative) Urine Glucose (UA) Negative (Negative) Urine Ketones Negative (Negative) Urine Blood Negative (Negative) Urine Nitrite Negative (Negative) Urine Bilirubin Negative (Negative) Urine Urobilinogen Negative (Negative) Ur Leukocyte Esterase Negative (Negative) Administered Medications Sodium Chloride (Nss 1000ml) 1,000 mls @ 500 mls/hr IV .Q2H NEELA Stop: 10/12/18 01:29 Last Admin: 09/12/18 02:28 Dose: Not Given Documented by: [id number] Discontinued Medications Acetaminophen (Tylenol) 1,000 mg PO NOW STA Stop: 09/11/18 21:41 Last Admin: 09/11/18 22:29 Dose: 1,000 mg Documented by: [id number] Albuterol (Duoneb) 3 ml NEB NOW STA Stop: 09/11/18 21:41 Last Admin: 09/11/18 21:55 Dose: 3 ml Documented by: [id number] Sodium Chloride (Nss 1000ml) 1,000 mls @ 125 mls/hr IV .Q8H NEELA Stop: 09/12/18 05:44 Last Infusion: 09/12/18 01:58 Dose: 125 mls/hr Documented by: [id number] Infusion: 09/12/18 01:27 Dose: 0 mls/hr Documented by: [id number] Admin: 09/11/18 22:25 Dose: 125 mls/hr Documented by: [id number] Magnesium Sulfate/Dextrose (Magnesium Sulfate / D5w) 1 gm in 100 mls @ 100 mls/hr IV Q1H NEELA Stop: 09/12/18 01:44 Last Infusion: 09/12/18 02:05 Dose: 0 mls/hr Documented by: [id number] Admin: 09/12/18 01:05 Dose: 100 mls/hr Documented by: [id number] Infusion: 09/12/18 01:04 Dose: 0 mls/hr Documented by: [id number] Admin: 09/12/18 00:04 Dose: 100 mls/hr Documented by: [id number] Cefepime HCl (Maxipime) 2,000 mg in 20 mls @ 5 mls/min IV NOW STA; Protocol Stop: 09/11/18 23:39 Last Admin: 09/11/18 23:57 Dose: 5 mls/min Documented by: [id number] Doxycycline Hyclate 100 mg/ (Dextrose) 110 mls @ 50 mls/hr IV NOW STA Stop: 09/12/18 01:47 Last Infusion: 09/12/18 02:15 Dose: 0 mls/hr Documented by: [id number] Admin: 09/12/18 00:03 Dose: 50 mls/hr Documented by: [id number] Sodium Chloride (Nss 1000ml) 500 mls @ 999 mls/hr IV .Q31M NEELA Stop: 09/12/18 02:00 Last Infusion: 09/12/18 01:58 Dose: 0 mls/hr Documented by: [id number] Admin: 09/12/18 01:27 Dose: 999 mls/hr Documented by: [id number] Ondansetron HCl (Zofran) 4 mg IV NOW STA Stop: 09/11/18 21:38 Last Admin: 09/11/18 22:24 Dose: 4 mg Documented by: [id number] Imaging Data Radiologist's Impression: Radiology results as stated below per my review and the radiologist's interpretation: XR chest 1V portable HISTORY: 78 years-old Female weakness acute weakness COMPARISON: Chest radiograph 05/15/2018 TECHNIQUE: , Chest CT 01/23/2018 FINDINGS: Cardiac silhouette is enlarged, unchanged. Emphysema with chronic interstitial coarsening. Subsegmental medial right lung base opacities. No pneumothorax, large pleural effusion or overt pulmonary edema. Degenerative changes of the shoulders and spine. IMPRESSION: 1. Cardiomegaly without overt pulmonary edema. 2. Emphysema. 3. Subsegmental medial right lung base opacities suggest atelectasis with pneumonitis considered less likely. The above report was generated using voice recognition software. It may contain grammatical, syntax or spelling errors. Electronically signed by: Cuco Naylor M.D. 09/11/2018 10:33 PM ABDOMEN AND PELVIS CT WITHOUT CONTRAST CT DOSE: 1929.75 mGy.cm HISTORY: Acute upper abdominal pain UPPER ABD PAIN TECHNIQUE: Multiaxial CT images of the abdomen and pelvis were performed without contrast. A dose lowering technique was utilized adhering to the principles of ALARA. COMPARISON STUDY: Chest radiograph of same day, chest CT 01/23/2018, CT abdomen and pelvis 01/18/2015 FINDINGS: Partially imaged consolidative and groundglass opacities of the right lower lobe. 1.6 cm groundglass nodule of the right middle lobe is unchanged from 01/11. Left lung base is generally clear. No pneumatosis or pneumoperitoneum. Imaged inferior cardiac chambers are mildly enlarged with small pericardial effusion. Dense mitral annular calcifications noted. Limited evaluation of the solid abdominal organs without the use of IV contrast. Suggestion of mild hepatic steatosis. There are several scattered subcentimeter hypodense lesions of the liver which are too small to characterize however suggests probable cysts. 1.3 cm subcapsular cyst of the left hepatic lobe is unchanged. No intrahepatic biliary ductal dilation. Cholelithiasis without CT evidence of acute cholecystitis. Spleen is mildly enlarged, 14.1 cm. Mild generalized pancreatic atrophy. Mild thickening of the adrenal glands. Mild nonspecific bilateral perinephric stranding. No renal or ureteral calculi or obstructive uropathy. Calcification about the left hemipelvis on image 295 series 3 is likely vascular. Urinary bladder is unremarkable small cystocele. Uterus is within normal limits. Indeterminate 3.8 x 3.0 cm cystic lesion of the left adnexum, unchanged. Calcified plaque of the abdominal aorta without aneurysm. No adenopathy. Tiny hiatal hernia. No bowel obstruction. Colonic diverticulosis without acute diverticulitis. No bowel wall thickening. Terminal ileum and appendix are unremarkable. Diastases recti with tiny fat filled periumbilical hernia. Degenerative changes of the pelvis, hips and spine. No acute fracture identified. Lumbar levoscoliosis. IMPRESSION: 1. Partially imaged consolidation of the right lower lobe is suggestive of pneumonia. Follow-up imaging to document resolution recommended. 2. 1.6 cm groundglass nodule of the right middle lobe, unchanged from 01/23/2018. 3. No bowel obstruction or bowel wall thickening. 4. Cholelithiasis. 5. Colonic diverticulosis without acute diverticulitis. 5. Additional findings as above. Electronically signed by: Cuco Naylor M.D. 09/11/2018 10:56 PM ECG Data Attestation: I personally reviewed and interpreted this ECG as follows: Indication: weakness Rate (beats per minute): 105 Rhythm: atrial fibrillation Findings: + other (low voltage QRS) and + nonspecific-ST abn; no ST elevation Blood Pressure Blood Pressure Findings: Normal blood pressure Blood Pressure Disposition: did not require urgent referral Discharge Plan Visit Data *Final* Discharge Date/Time: 09/12/18 02:00 Chief Complaint: Nausea Stated Complaint: NAUSEA, STOMACH CRAMPS ED Provider: Bc Platt Discharge Problem: Pneumonia, Nausea, Dehydration, Hypomagnesemia Patient Disposition: Admitted As Inpatient Discharge Instructions Interventions: ED Discharge Assessment Last Done: 09/12/18 02:00 Discharge Problem: Pneumonia Qualifiers: Laterality: right Lung location: lower lobe of lung The scribe's documentation has been prepared under my direction and personally reviewed by me in its entirety. I confirm that the note above accurately reflects all work, treatment, procedures, and medical decision making performed by me.
[2018-09-12] MEDS: LACTATED RINGER'S 1,000 ML IV SCH ×2 (02:58→11:01)
[2018-09-12] MEDS: ALBUT/IPRATROP 3MG/0.5MG NEB 3 ML VIAL NEB SCH ×4 (07:24→19:19)
[2018-09-12] MEDS: FERROUS SULFATE 325 MG TAB PO SCH (08:38)
[2018-09-12] MEDS: LISINOPRIL 40 MG TAB PO SCH (08:39)
[2018-09-12] MEDS: METOPROLOL SUCC 50MG EXT REL TAB PO SCH ×2 (08:39→19:27)
[2018-09-12] MEDS: ALLOPURINOL 300 MG TAB PO SCH (08:39)
[2018-09-12] MEDS: DOXYCYCLINE HYCLATE 100 MG in DEXTROSE 5% 100 ML IV SCH ×2 (12:51→22:59)
[2018-09-12] MEDS ORDERED: WARFARIN SOD 5 MG TAB PO SCH (16:00)
[2018-09-13] MEDS: ALBUT/IPRATROP 3MG/0.5MG NEB 3 ML VIAL NEB SCH ×4 (07:23→19:11)
[2018-09-13] MEDS: ALLOPURINOL 300 MG TAB PO SCH (08:07)
[2018-09-13] MEDS: METOPROLOL SUCC 50MG EXT REL TAB PO SCH ×2 (08:07→20:49)
[2018-09-13] MEDS: FERROUS SULFATE 325 MG TAB PO SCH (08:07)
[2018-09-13] MEDS: LISINOPRIL 40 MG TAB PO SCH (10:21)
--- NOTE | 2018-09-13 12:13 | Family Medicine Progress Note ---
Date of Service September 13, 2018 Assessment & Plan (1) Pneumonia: 78 y/o F Hx DM II, HTN, DVT/PE, gout, GERD, AF, septic joint. Presenting from home at the behest of family for progressive weakness, nausea and a cough, which she states set in the day of admission. She denies any CP, significant SOB and could not confirm a fever, although she was febrile on arrival. A CT abdomen was obtained and did not show any acute abnormalities in the abdomen, however a RLL consolidation was seen. Initial labs are notable for ARABELLA and hypomagnesemia. On bactrim and keflex as outpatient for septic joint PNM - received Cefepime and Doxy in the ER. Continued only Doxy. Blood cultures negative so far. Would consider broadening coverage if she does not show short- term improvement, only because she had been taking Bactrim and Keflex. - Continue duonebs Hypotension - Likely from infection. Holding lisinopril. Hypoxia - continue O2. ARABELLA - IVF - recheck BMP AM AF - rate is controlled, INR is therapeutic at 2.8 on admission- cont Coumadin, Toprol. DM II - placed on a SS. Metformin on hold due to CT scan on admission. Last A1c 7.6 Gout - cont Allopurinol Regarding her joint inflammation - there is no current evidence of this. Will contact her orthopedist (Dr Juarez) before discharge to determine if Keflex or Bactrim should be continued. Full code - Coumadin prophylaxis (2) Hypoxia: (3) Hypotension: (4) DM (diabetes mellitus): (5) HTN (hypertension): Subjective Feeling tired. no fever cough +. denies difficulty breathing. was out to the restroom - dizziness better Review of Systems Cardiovascular: no chest pain with activity Physical Exam Constitutional: WD/WN, vitals as above dissheveled + Respiratory: normal respiratory effort Auscultation: + rhonchi Cardiovascular: Rate/Rhythm: regular rate and regular rhythm Gastrointestinal (Abdomen): normal bowel sounds, soft, nontender, no hepatosplenomegaly Results & Data Vital Signs (Past 12 Hours) Vital Signs Temp Pulse Pulse Resp BP BP Pulse Ox 09/13/18 11:16 37.1 C 95 H 22 125/75 94 09/13/18 11:14 90 18 95 09/13/18 08:00 101 H 09/13/18 07:24 91 H 18 95 09/13/18 07:00 37.4 C 91 H 22 94/48 L 96 09/13/18 05:00 95 H 22 94 09/13/18 04:31 36.8 C 102 H 22 164/89 H 91 PG Care Time/CCT Total # of Minutes Spent Total Time Spent with Patient: Total time spent is greater than 50% in coordination of care (as documented) at patient's floor/unit and/or counseling patient: (1) Pneumonia Laterality: right Lung location: lower lobe of lung
[2018-09-13] MEDS: DOXYCYCLINE HYCLATE 100 MG in DEXTROSE 5% 100 ML IV SCH (12:34)
[2018-09-13] MEDS ORDERED: WARFARIN SOD 2.5 MG TAB PO SCH (16:00)
[2018-09-13] MEDS: INSULIN ASPART 100 UNITS/ML 3 ML PEN SC SCH (20:50)
[2018-09-14] MEDS: DOXYCYCLINE HYCLATE 100 MG in DEXTROSE 5% 100 ML IV SCH ×2 (00:17→11:55)
[2018-09-14] MEDS ORDERED: COUGH DROP (SUGAR FREE) LOZ 24 LOZ/1 BOX BUCCAL PRN (04:44)
[2018-09-14 06:14] LABS: Hematocrit (blood only) 30.5 % (37-47); Hemoglobin 10.1 g/dL (12.0-16.0); Mean Corpuscular Hgb Conc 33.1 g/dL (32-36); Mean Corpuscular Volume 95.6 fL (80-100); RDW Coefficient of Variation 15.2 % (11.5-14.5); RDW Standard Deviation 53.4 fL (36.4-46.3); Red Blood Count 3.19 M/uL (4.2-5.4); White Blood Count 3.57 K/uL (4.8-10.8)
[2018-09-14 06:22] LABS: INR 1.6 (0.9-1.1); Prothrombin Time 15.6 Seconds (9.0-12.0)
[2018-09-14 06:37] LABS: Mean Platelet Volume 10.5 fL (7.4-10.4); Platelet Count 97 K/uL (130-400)
[2018-09-14 06:40] LABS: Basophils # (auto) 0.02 K/uL (0-0.2); Basophils % (auto) 0.6 %; Dohle Bodies Occasional; Eosinophils % (auto) 5.6 %; Lymphocytes % (auto) 19.6 %; Monocytes # (auto) 0.25 K/uL (0.11-0.59); Neutrophils % (auto) 67.2 %; Platelet Estimate Decreased (Normal)
[2018-09-14 06:45] LABS: Albumin Level 2.6 gm/dl (3.4-5.0); BUN Creatinine Ratio 22.6 (10-20); Calcium 8.1 mg/dl (8.5-10.1); Creatinine Clr Calc Pharmacy 51.3 ml/min; Est GFR (African American) 44.6; Est GFR (Non-African American) 38.5; Potassium 4.4 mmol/L (3.5-5.1)
[2018-09-14 06:48] LABS: Albumin Globulin Ratio 0.9 (0.9-2); Bilirubin,Total 0.5 mg/dl (0.2-1); Total Protein 5.6 gm/dl (6.4-8.2)
[2018-09-14] MEDS: ALBUT/IPRATROP 3MG/0.5MG NEB 3 ML VIAL NEB SCH ×3 (07:09→15:16)
[2018-09-14] MEDS: INSULIN ASPART 100 UNITS/ML 3 ML PEN SC SCH ×2 (08:26→12:13)
[2018-09-14] MEDS: FERROUS SULFATE 325 MG TAB PO SCH (08:27)
[2018-09-14] MEDS: METOPROLOL SUCC 50MG EXT REL TAB PO SCH (08:27)
[2018-09-14] MEDS: ALLOPURINOL 300 MG TAB PO SCH (08:27)
--- NOTE | 2018-09-14 14:35 | Discharge Summary ---
Date of Service September 14, 2018 Admission HPI Per Admitting Provider 78 y/o F Hx DM II, HTN, DVT/PE, gout, GERD, AF, septic joint. Presenting from home at the [facility] for progressive weakness, nausea and a cough, which she states set in the day of admission. She denies any CP, significant SOB and could not confirm a fever, although she was febrile on arrival. A CT abdomen was obtained and did not show any acute abnormalities in the abdomen, however a RLL consolidation was seen. Initial labs are notable for ARABELLA and hypomagnesemia. The pt reports that the prior week she developed swelling of her L wrist and 4th and 5th fingers. She was evaluated by her orthopedist and placed on Keflex and Bactrim as she had a high WBC count and an elevated CRP. She states that she was not diagnosed with cellulitis and osteomyelitis and that the swelling resolved in a day after she was placed in a removable splint. 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 Does not drink alcohol. Maintains independence Family: Mother due to lung disease Father due to "old age" at 83 Principal Diagnosis Community Acquired Pneumonia with hypoxia Discharge Exam Constitutional WD/WN, vitals as above Respiratory normal respiratory effort Auscultation: + rhonchi Cardiovascular Rate/Rhythm: regular rate and regular rhythm Gastrointestinal (Abdomen) normal bowel sounds, soft, nontender, no hepatosplenomegaly Discharge Data Allergies Allergy/AdvReac Type Severity Reaction Status Date / Time technetium-99m Allergy Severe ANAPHYLAXIS Verified 09/11/18 21:30 amoxicillin Allergy Intermediate RASH Verified 09/11/18 21:30 nitrofurantoin Allergy Intermediate HIVES Verified 09/11/18 21:30 iodine Allergy Unknown hives, HAS Verified 09/11/18 21:30 HAD SINCE W/O PROBLEM Consultations 09/11/18 23:39 ED Decision to Admit Stat Ordered Studies 09/11/18 21:37 CT abd pelvis wo con Stat Hospital Course (1) Pneumonia: 78 y/o F Hx DM II, HTN, DVT/PE, gout, GERD, AF, septic joint. Presenting from home at the [facility] for progressive weakness, nausea and a cough, which she states set in the day of admission. She denies any CP, significant SOB and could not confirm a fever, although she was febrile on arrival. A CT abdomen was obtained and did not show any acute abnormalities in the abdomen, however a RLL consolidation was seen. Initial labs are notable for ARABELLA and hypomagnesemia. On bactrim and keflex as outpatient for septic joint Community Acquired pneumonia - received Cefepime and Doxy in the ER. Continued only Doxy through the hospital stay. Blood cultures negative x2. -Vitals stable, felt overall better. Discharged home on doxycycline for 7 more days. Hypertension - Was hypotensive during hospital stay. Had dizziness on initial presentation. ? secondary to infection. Held lisinopril during hospital stay and d/tennille on discharge. to check BP at home and take readings at hospital f/u appt. Hypoxia - 2 step with no oxygen needs on discharge. ARABELLA - creatinine improved 1.77 on admission - 1.4 on discharge. AF - rate controlled, INR is therapeutic at 2.8 on admission- continued Coumadin. INR on discharge 1.6. Dose of coumadin recently decreased. Advised to go back to 5mgs daily except 2.5mgs on saturday. Continued Toprol. DM II - placed on a SS. Metformin on hold due to CT scan on admission. Resume metformin on discharge. Last A1c 7.6 Gout - cont Allopurinol h/o Septic joints - on keflex and bactrim at home. Bactrim was prescribed only for 10 days as outpatient - since he will be doxy for total of 10 days - advised to discuss with Dr. Carter/or ortho Dr. Juarez if he needs any further bactrim after finishing doxy. continued keflex. (2) Hypoxia: (3) Hypotension: (4) DM (diabetes mellitus): (5) HTN (hypertension): Total Time Total Time Spent Total Time Spent (In Minutes): 40 Discharge Plan Discharge Items Patient Disposition: Home - Self-Care Reason For Visit: PNM, DEHYDRATION Discharge Diagnosis: Pneumonia - Community acquired, Hypoxia Discharge Goals: Decrease discomfort Activity: Resume your previous activity Non-emergency contact: Primary Care Provider Call non-emergency contact if: you have any medication questions Follow-up/Referrals: Bc Carter MD [Primary Care Provider] - Diet: Carb Consistent or DM2 and Heart Healthy Addtl Provider Instructions: Follow up with family physician in one week Stop lisinopril for now since your blood pressure has been running low. Keep checking your blood pressure at home until your visit with Dr. Carter Your INR on day of discharge is 1.6. Take warfarin 5mg daily except saturday when you take 2.5mgs. Check INR on 09/17/18 and report to your physician for any adjustment on INR Prescriptions: New doxycycline hyclate 100 mg capsule 100 mg PO BID 10 Days Qty: 20 RF: 0 Continued metoprolol succinate [Toprol XL] 100 mg Tablet Extended Release 24 Hr 100 mg PO BID RF: 0 cephalexin [Keflex] 500 mg Capsule 500 mg PO BID RF: 0 warfarin 5 mg Tablet 5 mg PO Q OTHER DAY RF: 0 warfarin 5 mg Tablet 2.5 mg PO Q OTHER DAY RF: 0 allopurinol 300 mg Tablet 300 mg PO DAILY RF: 0 metformin 500 mg Tablet Extended Release 24 Hr 500 mg PO BID RF: 0 ferrous sulfate 324 mg (65 mg iron) Tablet,Delayed Release (Dr/Ec) 324 mg PO DAILY RF: 0 Spiriva Respimat 2.5 mcg/actuation Mist 2 puff INHALATION DAILY RF: 0 Discontinued lisinopril 40 mg tablet 40 mg PO DAILY RF: 0 sulfamethoxazole-trimethoprim [Bactrim DS] 800-160 mg Tablet 1 tab PO BID RF: 0 Stand-Alone Forms: [facility] Discharge Orders: Discharge Order (Routine); Ordered 09/14/18 Ordered By: Carlyn Daniel Admission Data Admit Date/Time: 09/12/18 01:08 Attending Provider: Carlyn Daniel Admit Provider: Dameon Galarza Primary Care Provider: Bc Carter Other Providers: Dameon Galarza Service: Telemetry Medical Other Interventions: Discharge Summary Assessment (RN) Last Done: 09/14/18 15:29 DC Date/Time DO NOT enter until pt leaves facility: 09/14/18 15:55
== END 2018-09-14 15:55 | disposition home or self-care (01) | DRG 194 ==
LOC: ED 21:06 → 2N 09-12 01:08 → SUATTDRO 09-12 01:08 → 2N 09-12 02:00

== ENCOUNTER 2019-10-20 07:21 | Inpatient (IN) ==
[2019-10-20 07:43] LABS: Basophils # (auto) 0.02 K/uL (0-0.2); Basophils % (auto) 0.3 %; Eosinophils # (auto) 0.16 K/uL (0-0.5); Eosinophils % (auto) 2.4 %; Hematocrit (blood only) 35.3 % (37-47); Hemoglobin 11.8 g/dL (12.0-16.0); Immature Granulocytes # (auto) 0.01 K/uL (0.00-0.02); Immature Granulocytes % (auto) 0.2 %; Lymphocytes # (auto) 1.04 K/uL (1.2-3.4); Lymphocytes % (auto) 15.7 %; Mean Corpuscular Hemoglobin 31.5 pg (25-34); Mean Corpuscular Hgb Conc 33.4 g/dL (32-36); Mean Corpuscular Volume 94.1 fL (80-100); Mean Platelet Volume 10.1 fL (7.4-10.4); Monocytes # (auto) 0.51 K/uL (0.11-0.59); Monocytes % (auto) 7.7 %; Neutrophils # (auto) 4.88 K/uL (1.4-6.5); Neutrophils % (auto) 73.7 %; Platelet Count 157 K/uL (130-400); RDW Coefficient of Variation 16.1 % (11.5-14.5); RDW Standard Deviation 55.2 fL (36.4-46.3); Red Blood Count 3.75 M/uL (4.2-5.4); White Blood Count 6.62 K/uL (4.8-10.8)
--- NOTE | 2019-10-20 07:47 | Emergency Department Note ---
Impression & Plan Pulmonary edema, Atrial fibrillation with rapid ventricular response, Hypomagnesemia ED Provider Note NAME: KINJAL DAVIS AGE: 79 SEX: F : 1940 ARRIVES VIA: Ambulance INFORMANT: Patient, ED PROVIDER(S): Leif Uribe DO CHIEF COMPLAINT: Shortness of breath HPI: The patient is a 79-year-old female who presented to the emergency department for an evaluation of shortness of breath. The patient's symptoms started yesterday. She started noticing very significant shortness of breath especially with any exertion. The patient has a history of atrial fibrillation and has been noticing rapid heart rate as well. She denies having any fever but does have a nonproductive cough. She is also noticed significant weight gain recently. She was started on steroids because of her breathing and noticed that she was having swelling in her legs as well as weight gain and orthopnea. The patient denies having any back pain that is new but she does have chronic back pain. She does complain of chest "tightness" which is worsened with exertion as well as lying flat. The patient did not see her primary care physician for the symptoms. She presented to the emergency department via ALS and was treated with 20 mg of Cardizem prior to arrival for rapid atrial fibrillation. The patient denies any COVID risk factors but was seen by her primary care physician last week. ROS: See above HPI for pertinent positives & negatives. A total of 10 systems reviewed and were otherwise negative. PAST MEDICAL HISTORY: See Below PAST SURGICAL HISTORY: See Below FAMILY HISTORY: See Below SOCIAL HISTORY: See Below HOME MEDICATIONS: See Below ALLERGIES: See Below VITALS: See Below PHYSICAL EXAMINATION: GENERAL: The patient is awake and alert. She is somewhat anxious appearing EYES: The left conjunctiva is injected. The left pupil is nonreactive. 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 EARS, NOSE, MOUTH AND THROAT: The nose is without any evidence of any deformity. NECK: The neck is nontender and supple. RESPIRATORY: Shallow respirations were noted. Diminished breath sounds were noted throughout. There were scattered rales in the right lung field. There is significant conversational dyspnea and tachypnea. CARDIOVASCULAR: Irregular and tachycardic heart sounds were noted to auscultation. No definite murmurs noted. GASTROINTESTINAL: The abdomen is soft. Abdomen is nontender. MUSCULOSKELETAL/EXTREMITIES: There is no evidence of gross deformity full range of motion is noted in the hips and shoulders. SKIN: Pedal edema was noted bilaterally. NEUROLOGIC: Patient is awake alert and oriented x3. MEDICAL DECISION MAKING: The patient is a 79-year-old female who presented to the emergency department fo r an evaluation of difficulty breathing. The patient was coughing and had abnormal lung sounds. Her physical exam appears to be consistent with volume overload and pulmonary edema. The patient was in rapid atrial fibrillation prior to arrival. She was treated with IV Cardizem prior to arrival after a medic command call. The patient was treated with IV magnesium and IV Lasix in the emergency department. She was reevaluated multiple times. At rest she was significantly improved but with any slight exertion she would become very dyspneic. I discussed patient's laboratory and radiographic studies with her. Ultimately I did discuss her case with the on-call [facility] hospitalist. They will evaluate the patient in the emergency department for further management and disposition. Triage Nursing notes reviewed. Prior medical records reviewed Vital Signs: reviewed and remarkable for tachypnea and tachycardia Differential diagnosis: Reactive airway disease, pneumonia, pneumothorax, COPD, CHF, infections, cardiac ischemia, pulmonary embolism, musculoskeletal, gastrointestinal, as well as other pathologies. ER treatment provided: See below Diagnostics interpreted by me: ECG: EKG was obtained in the emergency department. My interpretation is atrial fibrillation at 107 bpm. There is no ectopy. Lateral ST abnormalities were noted. This was compared to a tracing from September 11, 2018. No significant changes were noted. Cardiac Monitoring: An order was placed for continuous cardiac monitoring. The monitor shows a rate of 110 bpm with atrial fibrillation rhythm. Laboratory studies: As stated above and show below. Imaging studies: See below Consultation(s): 1015: I discussed this case with Karel Lyn [facility] will evaluate the patient in the emergency department for further management and disposition ED COURSE: Procedures: none PDMP:reviewed and no issues Critical Care: None Past Med/Surg History Medical History A-fib Alopecia Arthritis Asthma C. 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 Chronic kidney disease (CKD), stage III (moderate) Chronic obstructive pulmonary disease Diverticulitis Edema Endocarditis of mitral valve GI bleed Gout, joint HTN (hypertension) Hyperlipidemia intermediate project manager (current) use of anticoagulants Mitral regurgitation Obesity Panic attacks AND CLAUSTROPHOBIA Sepsis Shortness of breath Type 2 diabetes mellitus Surgical History History of anesthesia reaction SLOW TO WAKE UP [place] [place] of bladder surgery History of cataract surgery R/L History of colonoscopy History of total knee replacement R/L S/P IVC filter AND REMOVED Family History Unknown Diabetes Hypertension Mother Diabetes Cardiac disorder Grandfather Sinus disorder Social History Smoking Status: Former smoker Cigarettes Per Day: 50; Second Hand Exposure: No; Hx Alcohol Use: Yes Alcohol type: wine Hx Substance Use: No Preferred Language: Lao Communication Ability: Effective Cable Television Installer Required: No Beliefs That Will Affect Care: None Current Living Situation: Alone Feels Safe at Home: Yes Allergies Allergies Allergy/AdvReac Type Severity Reaction Status Date / Time technetium-99m Allergy Severe ANAPHYLAXIS Verified 10/20/19 08:20 amoxicillin Allergy Intermediate RASH Verified 10/20/19 08:20 nitrofurantoin Allergy Intermediate HIVES Verified 10/20/19 08:20 iodine Allergy Unknown HIVES, Verified 10/20/19 08:20 WITH DYE 30 YRS AGO-HAS HAD SINCE W/O PROBLEM Home Meds Home Medications Medication Instructions Recorded Confirmed blood sugar diagnostic #10 ea 09/29/18 10/14/19 lancets 30 gauge #25 ea 09/29/18 10/14/19 ferrous sulfate 324 mg PO HS 10/20/19 10/20/19 warfarin 5 mg PO HS 10/20/19 10/20/19 Previous Rx's Medication Instructions Recorded blood sugar diagnostic #100 ea 09/22/18 lancets #100 ea 09/22/18 metformin 500 mg tablet,extended 500 mg PO BID #180 tab 12/15/18 release 24 hr lisinopril 5 mg tablet 5 mg PO QAM #30 tab 12/16/18 cephalexin 500 mg capsule See Rx Instructions .ROUTE 03/23/19 .COMPLEX #60 each metoprolol succinate 100 mg 150 mg PO BID #270 tab 07/02/19 tablet,extended release 24 hr albuterol sulfate 1.25 mg INHALATION Q6H PRN #180 ml 07/22/19 tiotropium bromide 2.5 2 puff INHALATION QAM #4 gm 07/22/19 mcg/actuation mist for inhalation allopurinol 300 mg tablet 300 mg PO QAM #90 tab 09/14/19 mometasone-formoterol HFA 200 2 puff INH BID #3 inhaler 10/15/19 mcg-5 mcg/actuation aerosol inhaler Results & Data (ED) Vital Signs Vital Signs - 24 hr 10/20/19 07:31 10/20/19 07:33 10/20/19 07:35 Temperature 37.5 C Temperature Source Oral Pulse Rate 99 H 97 H Pulse Rate from SpO2 Sensor 104 H Pulse Rhythm Irregular Respiratory Rate 26 H 29 H Respiratory Effort / Characteristics Labored Short of Breath SOB on Exertion Blood Pressure 125/108 H Blood Pressure Mean 113 Blood Pressure Position Sitting Pulse Oximetry 94 92 Oxygen Delivery Method Room Air Room Air Room Air Oxygen Flow Rate 92 Sepsis Recent Fever Within 48 Hours No Sepsis New/Unexplained Change in Mental Status No Sepsis Action Taken by Nursing No Action Required 10/20/19 08:00 10/20/19 08:01 10/20/19 08:16 Temperature Temperature Source Pulse Rate 95 H 95 H Pulse Rate from SpO2 Sensor 101 H 99 H Pulse Rhythm Respiratory Rate 29 H 29 H 22 Respiratory Effort / Characteristics Labored Blood Pressure 135/80 147/61 H Blood Pressure Mean 100 87 Blood Pressure Position Pulse Oximetry 93 93 93 Oxygen Delivery Method Room Air Room Air Oxygen Flow Rate Sepsis Recent Fever Within 48 Hours Sepsis New/Unexplained Change in Mental Status Sepsis Action Taken by Nursing 10/20/19 08:31 10/20/19 08:46 10/20/19 09:01 Temperature Temperature Source Pulse Rate 99 H 99 H 93 H Pulse Rate from SpO2 Sensor 102 H 102 H 91 H Pulse Rhythm Respiratory Rate 29 H 31 H 21 Respiratory Effort / Characteristics Blood Pressure 137/76 116/102 H 117/67 Blood Pressure Mean 79 107 79 Blood Pressure Position Pulse Oximetry 93 94 93 Oxygen Delivery Method Room Air Oxygen Flow Rate Sepsis Recent Fever Within 48 Hours Sepsis New/Unexplained Change in Mental Status Sepsis Action Taken by Nursing 10/20/19 09:16 10/20/19 09:31 10/20/19 09:46 Temperature Temperature Source Pulse Rate 91 H 103 H 94 H Pulse Rate from SpO2 Sensor 92 H 98 H 95 H Pulse Rhythm Respiratory Rate 21 19 36 H Respiratory Effort / Characteristics Blood Pressure 93/64 L 101/55 L 95/55 L Blood Pressure Mean 70 64 72 Blood Pressure Position Pulse Oximetry 94 95 93 Oxygen Delivery Method Oxygen Flow Rate Sepsis Recent Fever Within 48 Hours Sepsis New/Unexplained Change in Mental Status Sepsis Action Taken by Nursing 10/20/19 10:01 10/20/19 10:08 Temperature Temperature Source Pulse Rate 95 H Pulse Rate from SpO2 Sensor 106 H Pulse Rhythm Respiratory Rate 29 H Respiratory Effort / Characteristics Spontaneous Blood Pressure 98/75 L Blood Pressure Mean 81 Blood Pressure Position Pulse Oximetry 95 93 Oxygen Delivery Method Room Air Oxygen Flow Rate Sepsis Recent Fever Within 48 Hours Sepsis New/Unexplained Change in Mental Status Sepsis Action Taken by Half-Way Medications Current Medication List: was personally reviewed by me Laboratory Data Attestation: I reviewed the patient's lab results. Result diagrams: 10/20/19 07:30 10/20/19 07:30 Lab Results 10/20/19 10/20/19 10/20/19 Range/Units 07:30 07:30 07:30 WBC 6.62 (4.8-10.8) K/uL RBC 3.75 L (4.2-5.4) M/uL Hgb 11.8 L (12.0-16.0) g/dL Hct 35.3 L (37-47) % MCV 94.1 (80-100) fL MCH 31.5 (25-34) pg MCHC 33.4 (32-36) g/dL RDW Std Deviation 55.2 H (36.4-46.3) fL RDW Coeff of Beatrice 16.1 H (11.5-14.5) % Plt Count 157 (130-400) K/uL MPV 10.1 (7.4-10.4) fL Immature Gran % (Auto) 0.2 % Neut % (Auto) 73.7 % Lymph % (Auto) 15.7 % Parker % (Auto) 7.7 % Eos % (Auto) 2.4 % Baso % (Auto) 0.3 % Neut # (Auto) 4.88 (1.4-6.5) K/uL Lymph # (Auto) 1.04 L (1.2-3.4) K/uL Parker # (Auto) 0.51 (0.11-0.59) K/uL Eos # (Auto) 0.16 (0-0.5) K/uL Baso # (Auto) 0.02 (0-0.2) K/uL Immature Gran # (Auto) 0.01 (0.00-0.02) K/uL PT 29.3 H (9.0-12.0) Seconds INR 2.9 H (0.9-1.1) APTT 49.5 H* (21.0-31.0) Seconds PTT Ratio 1.8 VBG pH (7.36-7.41) VBG pCO2 (38-50) mmHg VBG pO2 mmHg VBG HCO3 mmol/L VBG O2 Saturation % VBG Base Excess mEq/L Barometric Pressure mm/Hg Sodium 138 (136-145) mmol/L Potassium 4.2 (3.5-5.1) mmol/L Chloride 109 H (98-107) mmol/L Carbon Dioxide 22 (21-32) mmol/L Anion Gap 8.0 (3-11) BUN 26 H (7-18) mg/dl Creatinine 1.11 (0.6-1.2) mg/dl Est Cr Clr Drug Dosing 62.5 ml/min Est GFR ( Amer) 55.1 Est GFR (Non-Af Amer) 47.5 BUN/Creatinine Ratio 23.6 H (10-20) Glucose 190 H (70-99) mg/dl Lactate (0.4-2.0) mmol/L Calcium 8.7 (8.5-10.1) mg/dl Magnesium 1.1 L (1.8-2.4) mg/dl Total Bilirubin 0.7 (0.2-1) mg/dl AST 21 (15-37) U/L ALT 27 (12-78) U/L Alkaline Phosphatase 44 L (45-117) U/L Troponin I < 0.015 (0-0.045) ng/ml NT-Pro-B Natriuret Pep 7882 H (0-1800) pg/ml Total Protein 6.3 L (6.4-8.2) gm/dl Albumin 3.0 L (3.4-5.0) gm/dl Globulin 3.3 (2.5-4.0) gm/dl Albumin/Globulin Ratio 0.9 (0.9-2) Procalcitonin (0-0.5) ng/ml COVID-19 Eval Order COVID-19 PCR (Negative) 10/20/19 10/20/19 10/20/19 Range/Units 07:30 07:50 07:50 WBC (4.8-10.8) K/uL RBC (4.2-5.4) M/uL Hgb (12.0-16.0) g/dL Hct (37-47) % MCV (80-100) fL MCH (25-34) pg MCHC (32-36) g/dL RDW Std Deviation (36.4-46.3) fL RDW Coeff of Beatrice (11.5-14.5) % Plt Count (130-400) K/uL MPV (7.4-10.4) fL Immature Gran % (Auto) % Neut % (Auto) % Lymph % (Auto) % Parker % (Auto) % Eos % (Auto) % Baso % (Auto) % Neut # (Auto) (1.4-6.5) K/uL Lymph # (Auto) (1.2-3.4) K/uL Parker # (Auto) (0.11-0.59) K/uL Eos # (Auto) (0-0.5) K/uL Baso # (Auto) (0-0.2) K/uL Immature Gran # (Auto) (0.00-0.02) K/uL PT (9.0-12.0) Seconds INR (0.9-1.1) APTT (21.0-31.0) Seconds PTT Ratio VBG pH (7.36-7.41) VBG pCO2 (38-50) mmHg VBG pO2 mmHg VBG HCO3 mmol/L VBG O2 Saturation % VBG Base Excess mEq/L Barometric Pressure mm/Hg Sodium (136-145) mmol/L Potassium (3.5-5.1) mmol/L Chloride (98-107) mmol/L Carbon Dioxide (21-32) mmol/L Anion Gap (3-11) BUN (7-18) mg/dl Creatinine (0.6-1.2) mg/dl Est Cr Clr Drug Dosing ml/min Est GFR ( Amer) Est GFR (Non-Af Amer) BUN/Creatinine Ratio (10-20) Glucose (70-99) mg/dl Lactate (0.4-2.0) mmol/L Calcium (8.5-10.1) mg/dl Magnesium (1.8-2.4) mg/dl Total Bilirubin (0.2-1) mg/dl AST (15-37) U/L ALT (12-78) U/L Alkaline Phosphatase (45-117) U/L Troponin I (0-0.045) ng/ml NT-Pro-B Natriuret Pep (0-1800) pg/ml Total Protein (6.4-8.2) gm/dl Albumin (3.4-5.0) gm/dl Globulin (2.5-4.0) gm/dl Albumin/Globulin Ratio (0.9-2) Procalcitonin < 0.05 (0-0.5) ng/ml COVID-19 Eval Order Covid19 Done at [facility] COVID-19 PCR NEGATIVE (Negative) 10/20/19 10/20/19 Range/Units 08:03 08:03 WBC (4.8-10.8) K/uL RBC (4.2-5.4) M/uL Hgb (12.0-16.0) g/dL Hct (37-47) % MCV (80-100) fL MCH (25-34) pg MCHC (32-36) g/dL RDW Std Deviation (36.4-46.3) fL RDW Coeff of Beatrice (11.5-14.5) % Plt Count (130-400) K/uL MPV (7.4-10.4) fL Immature Gran % (Auto) % Neut % (Auto) % Lymph % (Auto) % Parker % (Auto) % Eos % (Auto) % Baso % (Auto) % Neut # (Auto) (1.4-6.5) K/uL Lymph # (Auto) (1.2-3.4) K/uL Parker # (Auto) (0.11-0.59) K/uL Eos # (Auto) (0-0.5) K/uL Baso # (Auto) (0-0.2) K/uL Immature Gran # (Auto) (0.00-0.02) K/uL PT (9.0-12.0) Seconds INR (0.9-1.1) APTT (21.0-31.0) Seconds PTT Ratio VBG pH 7.42 H (7.36-7.41) VBG pCO2 35 L (38-50) mmHg VBG pO2 57 mmHg VBG HCO3 22 mmol/L VBG O2 Saturation 91.0 % VBG Base Excess -1.8 mEq/L Barometric Pressure 733.9 mm/Hg Sodium (136-145) mmol/L Potassium (3.5-5.1) mmol/L Chloride (98-107) mmol/L Carbon Dioxide (21-32) mmol/L Anion Gap (3-11) BUN (7-18) mg/dl Creatinine (0.6-1.2) mg/dl Est Cr Clr Drug Dosing ml/min Est GFR ( Amer) Est GFR (Non-Af Amer) BUN/Creatinine Ratio (10-20) Glucose (70-99) mg/dl Lactate 1.1 (0.4-2.0) mmol/L Calcium (8.5-10.1) mg/dl Magnesium (1.8-2.4) mg/dl Total Bilirubin (0.2-1) mg/dl AST (15-37) U/L ALT (12-78) U/L Alkaline Phosphatase (45-117) U/L Troponin I (0-0.045) ng/ml NT-Pro-B Natriuret Pep (0-1800) pg/ml Total Protein (6.4-8.2) gm/dl Albumin (3.4-5.0) gm/dl Globulin (2.5-4.0) gm/dl Albumin/Globulin Ratio (0.9-2) Procalcitonin (0-0.5) ng/ml COVID-19 Eval Order COVID-19 PCR (Negative) Administered Medications Discontinued Medications Furosemide (Furosemide 40 Mg/4 Ml Vial) 40 mg IV NOW STA Stop: 10/20/19 09:28 Last Admin: 10/20/19 09:56 Dose: 40 mg Documented by: [id number] Magnesium Sulfate/Dextrose (Magnesium Sulfate / D5w) 1 gm in 100 mls @ 100 mls/hr IV Q1H NEELA Stop: 10/20/19 10:15 Last Admin: 10/20/19 09:56 Dose: 100 mls/hr Documented by: [id number] Infusion: 10/20/19 09:49 Dose: 0 mls/hr Documented by: [id number] Admin: 10/20/19 08:49 Dose: 100 mls/hr Documented by: [id number] Imaging Data Radiologist's Impression: XR chest 1V portable HISTORY: 79 years-old Female SEPSIS acute tachycardia COMPARISON: Chest radiograph 09/23/2019 TECHNIQUE: Portable AP view of the chest FINDINGS: Cardiac silhouette is enlarged. Emphysema with chronic interstitial coarsening. Calcified plaque the thoracic aortic arch. Mild pulmonary vascular congestion. Unchanged blunting of the costophrenic angles. There is no pneumothorax, large pleural effusion or airspace consolidation typical for pneumonia. Degenerative changes of the shoulders and spine. IMPRESSION: 1. Cardiomegaly with pulmonary vascular congestion. 2. Emphysema. ACT 112: Negative or not required by law. The above report was generated using voice recognition software. It may contain grammatical, syntax or spelling errors. Electronically signed by: Cuco Naylor M.D. 10/20/2019 9:16 AM Dictated: 10/20/19914 Transcribed: 10/20/19914 Blood Pressure Blood Pressure Findings: Normal blood pressure Discharge Plan Visit Data Chief Complaint: Shortness of Breath/Dyspnea Stated Complaint: sob/tachycardia ED Provider: Leif Uribe Discharge Problem: Pulmonary edema, Atrial fibrillation with rapid ventricular response, Hypomagnesemia Patient Disposition: Being Evaluated by Hospitalist Condition: Good Forms Stand Alone Forms: Butlr Prescriptions Prescriptions: No Action (DME) blood sugar diagnostic strip See Dose Instructions .ROUTE .MEDSUPPLY Qty: 100 RF: 3 (DME) lancets misc See Dose Instructions .ROUTE .MEDSUPPLY Qty: 100 RF: 3 metformin 500 mg tablet extended release 24 hr 500 mg PO BID Qty: 180 RF: 3 cephalexin 500 mg capsule See Rx Instructions .ROUTE .COMPLEX Qty: 60 RF: 11 metoprolol succinate [Toprol XL] 100 mg tablet extended release 24 hr 150 mg PO BID Qty: 270 RF: 3 Spiriva Respimat 2.5 mcg/actuation mist 2 puff INHALATION QAM Qty: 4 RF: 5 albuterol sulfate 2.5 mg /3 mL (0.083 %) solution for nebulization 1.25 mg INHALATION Q6H PRN (Reason: Wheezing) Qty: 180 RF: 5 allopurinol 300 mg tablet 300 mg PO QAM Qty: 90 RF: 3 Dulera 200-5 mcg/actuation HFA aerosol inhaler 2 puff INH BID Qty: 3 RF: 3 lisinopril 5 mg tablet 5 mg PO QAM Qty: 30 RF: 5 (DME) lancets [OneTouch Delica Lancets] 30 gauge misc See Dose Instructions .ROUTE .MEDSUPPLY Qty: 25 RF: 0 (DME) OneTouch Ultra Blue Test Strip strip See Dose Instructions .ROUTE .MEDSUPPLY Qty: 10 RF: 0 warfarin 5 mg tablet 5 mg PO HS RF: 0 ferrous sulfate 324 mg (65 mg iron) tablet,delayed release (DR/EC) 324 mg PO HS RF: 0 Referrals Referrals: Bc Carter MD [Primary Care Provider] - Discharge Problem: Pulmonary edema Qualifiers: Chronicity: acute Qualified Code(s): J81.0 - Acute pulmonary edema
[2019-10-20 07:59] LABS: BUN Creatinine Ratio 23.6 (10-20); Blood Urea Nitrogen 26 mg/dl (7-18); Calcium 8.7 mg/dl (8.5-10.1); Carbon Dioxide 22 mmol/L (21-32); Chloride 109 mmol/L (98-107); Creatinine Clr Calc Pharmacy 62.5 ml/min; Est GFR (African American) 55.1; Est GFR (Non-African American) 47.5; Glucose 190 mg/dl (70-99); Magnesium 1.1 mg/dl (1.8-2.4); Potassium 4.2 mmol/L (3.5-5.1); Sodium 138 mmol/L (136-145)
[2019-10-20 08:03] LABS: Alanine Aminotransferase 27 U/L (12-78); Albumin Globulin Ratio 0.9 (0.9-2); Alkaline Phosphatase 44 U/L (45-117); Aspartate Aminotransferase 21 U/L (15-37); Bilirubin,Total 0.7 mg/dl (0.2-1); Globulin 3.3 gm/dl (2.5-4.0); NT Pro B Type Natriuretic Pept 7882 pg/ml (0-1800); Total Protein 6.3 gm/dl (6.4-8.2); Troponin I < 0.015 ng/ml (0-0.045)
[2019-10-20 08:16] LABS: INR 2.9 (0.9-1.1); Partial Thromboplastin Ratio 1.8; Prothrombin Time 29.3 Seconds (9.0-12.0)
[2019-10-20 08:21] LABS: Base Excess VBG -1.8 mEq/L; pH VBG 7.42 (7.36-7.41)
[2019-10-20 08:37] LABS: Partial Thromboplastin Time 49.5 Seconds (21.0-31.0)
[2019-10-20] MEDS: MAGNESIUM SULFATE / D5W 1 GM/100 ML BAG IV SCH ×4 (08:49→22:50)
--- NOTE | 2019-10-20 09:18 | XRay Report ---
XR chest 1V portable HISTORY: 79 years-old Female SEPSIS acute tachycardia COMPARISON: Chest radiograph 09/23/2019 TECHNIQUE: Portable AP view of the chest FINDINGS: Cardiac silhouette is enlarged. Emphysema with chronic interstitial coarsening. Calcified plaque the thoracic aortic arch. Mild pulmonary vascular congestion. Unchanged blunting of the costophrenic angl es. There is no pneumothorax, large pleural effusion or airspace consolidation typical for pneumonia. Degenerative changes of the shoulders and spine. IMPRESSION: 1. Cardiomegaly with pulmonary vascular congestion. 2. Emphysema. ACT 112: Negative or not required by law. The above report was generated using voice recognition software. It may contain grammatical, syntax o r spelling errors. Electronically signed by: Cuco Naylor M.D. 10/20/2019 9:16 AM
[2019-10-20] MEDS ORDERED: FUROSEMIDE 40 MG/4 ML VIAL IV STA (09:27)
--- NOTE | 2019-10-20 11:08 | History & Physical Report ---
Date of Service October 20, 2019 Assessment & Plan (1) Atrial fibrillation with rapid ventricular response: Patient presented with shortness of breath but now with hypoxia She had received diltiazem 20 mg in route to the hospital Presented and found to be with pulmonary edema * Given furosemide 40 mg IV on arrival * Follow strict I's and O's Patient does have history of COPD but this does not appear to be exacerbation Continue treat the atrial fibrillation with RVR focusing on rate control She does follow with Dr. Nathen Aponte in the outpatient setting Follow on telemetry - Will continue Lasix 40 mg IV daily - Repeat echo (2) Pulmonary edema: Multifactorial including A. fib with RVR, administration of Cardizem Received 40 mg of furosemide in the ED Significant improvement within 30 minutes Chest x-ray tomorrow morning Continue to monitor on telemetry Focus on rate control for the atrial fibrillation (3) Hypomagnesemia: Magnesium level 1.1 Patient received 2 g of magnesium sulfate in the emergency department We will hold on additional correction at this time Repeat magnesium level at 3:00 this afternoon Potassium level is stable at 4.2 Patient noted to have low magnesium levels for at least the last 2 years. May benefit from oral supplement (4) Type 2 diabetes mellitus: Generally well controlled with a hemoglobin A1c of 7.4 at the highest Treated with metformin 500 mg p.o. twice daily No basal insulin at home We will hold metformin for now and start Lantus 5 mg twice daily as well as a sliding scale with NovoLog Check repeat hemoglobin A 1C as a previous is from June 2019 (5) CAD in [place] artery: Nonocclusive heart disease Followed by [facility] cardiology group Troponin is negative Continue with metoprolol and lisinopril Monitoring telemetry unit EKG tomorrow morning (6) Diverticulosis: Patient reports recent diverticulitis but I am unable to find CT abdomen pelvis Patient reportedly on Keflex 500 mg twice daily -this is been stopped at the time of admission Procalcitonin is negative No abdominal tenderness or adventitious sounds Hold antibiotics and follow supportively (7) Chronic kidney disease (CKD), stage III (moderate): Patient currently with a BUN of 26 and a creatinine of 1.11 Follow serial labs Strict I's and O's (8) Gout, joint: Allopurinol daily No current complaints (9) Chronic venous insufficiency: Recent chemical ablation of the bilateral saphenous vein with Dr. Lizarraga No evidence of asymmetrical edema No evidence of cellulitis Continue to follow (10) Arthritis: No aspirin, Plaquenil, methotrexate as an outpatient Follow supportively (11) DVT prophylaxis: Patient anticoagulated with Coumadin INR currently 2.9 Continue warfarin and follow daily INR Please refer to Dr. Acosta's addendum for further corrections or recommendations. History of Present Illness Primary Care Provider: Bc Carter MD Attending: Dr. Fan Acosta This is a 79-year-old female with a past medical history including permanent atrial fibrillation, chronic anticoagulation with warfarin, diabetes mellitus type 2 on metformin only, COPD, asthma, chronic venous insufficiency, gout, arthritis, history of endocarditis of mitral valve, mitral valve regurgitation, hypertension, chronic anemia on iron supplement, nonobstructive CAD, chronic kidney disease stage III, diverticulosis, endometrial polyp, GERD, hyperlipidemia, spondylolisthesis, history of umbilical hernia with repair, vitamin D deficiency. The patient states that for the last 2 or 3 days she has been having increasing shortness of breath. She has chronic atrial fibrillation and has noticed some variation in her heart rate over the last couple of days. Yesterday at 4:30 in the morning she awoke with a fast rate and felt lightheaded with shortness of breath. She denies any falls, syncope, presyncope. She has had a cough since August and has been on 2 course of prednisone with her last course completed 11 days ago. She has some chest tightness when laying flat but no specific chest pain. She has had nausea for about 2 weeks but no vomiting. She denies any fever or chills. She has no recent sick contacts. Rapid testing in the ED was COVID negative. She has no travel or contact with anyone that was COVID positive. She has no other acute complaints. Socially, the patient lives alone and has no pets. She has a son that lives in [facility]. She was a previous smoker but quit several years ago. She follows with Dr. Carter and Donna Wall PA-C on a regular basis for COPD and asthma.Most recent pulmonary function testing was completed 07/03/2011 and showed mild to moderate obstructive airway disease with slight improvement after inhaled bronchodilator. There was also mild reduction in the DLCO. FVC was 85% / 104%, FEV1 75% / 82%, FEV1/FVC 89% / 80%, TLC was 156%, DLCOunc was 66%. Most recent echocardiogram was 05/19/2018. Results showed mildly dilated left ventricle with normal systolic function with an EF of 60 to 65%. There is no evidence of wall motion abnormalities. There is moderate to severe mitral annular calcification of the posterior annulus. There is no hemodynamically significant valvular aortic stenosis or aortic regurgitation. Allergies Allergy/AdvReac Type Severity Reaction Status Date / Time technetium-99m Allergy Severe ANAPHYLAXIS Verified 10/20/19 08:20 amoxicillin Allergy Intermediate RASH Verified 10/20/19 08:20 nitrofurantoin Allergy Intermediate HIVES Verified 10/20/19 08:20 iodine Allergy Unknown HIVES, Verified 10/20/19 08:20 WITH DYE 30 YRS AGO-HAS HAD SINCE W/O PROBLEM Home Medications Home Medications Medication Instructions Recorded Confirmed Type blood sugar diagnostic #100 ea 09/22/18 10/14/19 Rx lancets #100 ea 09/22/18 10/14/19 Rx blood sugar diagnostic #10 ea 09/29/18 10/14/19 History lancets 30 gauge #25 ea 09/29/18 10/14/19 History metformin 500 mg tablet,extended 500 mg PO BID #180 tab 12/15/18 10/20/19 Rx release 24 hr lisinopril 5 mg tablet 5 mg PO QAM #30 tab 12/16/18 10/20/19 Rx cephalexin 500 mg capsule See Rx Instructions .ROUTE 03/23/19 10/20/19 Rx .COMPLEX #60 each metoprolol succinate 100 mg 150 mg PO BID #270 tab 07/02/19 10/20/19 Rx tablet,extended release 24 hr albuterol sulfate 1.25 mg INHALATION Q6H PRN #180 ml 07/22/19 10/20/19 Rx tiotropium bromide 2.5 2 puff INHALATION QAM #4 gm 07/22/19 10/20/19 Rx mcg/actuation mist for inhalation allopurinol 300 mg tablet 300 mg PO QAM #90 tab 09/14/19 10/20/19 Rx mometasone-formoterol HFA 200 2 puff INH BID #3 inhaler 10/15/19 10/20/19 Rx mcg-5 mcg/actuation aerosol inhaler ferrous sulfate 324 mg PO HS 10/20/19 10/20/19 History warfarin 5 mg PO HS 10/20/19 10/20/19 History Past Med/Surg History Medical History A-fib Alopecia Arthritis Asthma C. 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 Mitral regurgitation Obesity Panic attacks AND CLAUSTROPHOBIA Sepsis Shortness of breath Type 2 diabetes mellitus Surgical History History of anesthesia reaction SLOW TO WAKE UP History of [place]rosc[place] of [place] [place] of bladder surgery History of cataract surgery R/L History of colonoscopy History of total knee replacement R/L S/P IVC filter AND REMOVED Family History Unknown Diabetes Hypertension Mother Diabetes Cardiac disorder Grandfather Sinus disorder Social History Smoking Status: Former smoker Cigarettes Per Day: 50; Smoking End Date: 12/1992; Second Hand Exposure: No; Do You Dip or Chew Tobacco: No; Tobacco Cessation Education Requested by Patient: No Hx Alcohol Use: Yes Alcohol type: wine Hx Substance Use: No Preferred Language: Slovak Communication Ability: Effective Surgical Instrument Maker Required: No Beliefs That Will Affect Care: None marital status: Unknown Current Living Situation: Alone Other Information That Helps Us Care for You: No Feels Safe at Home: Yes Safety Concerns: Feels Safe At This Time Review of Systems Review of Systems: All systems reviewed & are unremarkable except as noted in HPI & below Physical Exam Physical Exam: GENERAL : No acute distress EYES: No icterus, gaze conjugate NOSE: No evidence of epistaxis MOUTH: No lesions or candidiasis NECK: Supple LUNGS: Rhonchorous bilaterally in the upper wiley on the posterior. There is also evidence of bronchospasm on the anterior with transmitted sounds to the larynx. Inspiratory effort is good. No paradoxical chest wall movement. HEART: Irregular, irregular, rate is in the 90s ABDOMEN: Soft, NT, ND, BS Present EXTREMITIES: No LE edema, pedal pulses intact surgical scars from recent bilateral SVG ablation. No evidence of cellulitis or infection. NEURO: A&OX3. Patient is blind in the left eye and cannot appreciate light fr om scope. Otherwise, no focal deficits appreciated to cranial nerves II through XII. Results & Data Results & Data ([facility]) Vital Signs (Past 12 Hours) Vital Signs Temp Pulse Resp BP Pulse Ox 10/20/19 10:08 93 10/20/19 10:01 95 H 29 H 98/75 L 95 10/20/19 09:46 94 H 36 H 95/55 L 93 10/20/19 09:31 103 H 19 101/55 L 95 10/20/19 09:16 91 H 21 93/64 L 94 10/20/19 09:01 93 H 21 117/67 93 10/20/19 08:46 99 H 31 H 116/102 H 94 10/20/19 08:31 99 H 29 H 137/76 93 10/20/19 08:16 95 H 22 147/61 H 93 10/20/19 08:01 95 H 29 H 135/80 93 10/20/19 08:00 29 H 93 10/20/19 07:33 37.5 C 97 H 29 H 125/108 H 92 10/20/19 07:31 99 H 26 H 94 Laboratory Results 10/20/19 07:30 10/20/19 07:30 Laboratory Tests 07/10/18 01/12/19 07/09/19 08:49 10:21 09:52 Hemoglobin A1c 7.6 H 6.9 H 7.3 H 10/20/19 07:30 Troponin I < 0.015 Laboratory Tests 05/15/18 09/11/18 10/20/19 08:46 22:17 07:30 Magnesium 1.4 L 1.4 L 1.1 L Diagnostic Findings XR chest 1V portable HISTORY: 79 years-old Female SEPSIS acute tachycardia COMPARISON: Chest radiograph 09/23/2019 TECHNIQUE: Portable AP view of the chest FINDINGS: Cardiac silhouette is enlarged. Emphysema with chronic interstitial coarsening. Calcified plaque the thoracic aortic arch. Mild pulmonary vascular congestion. Unchanged blunting of the costophrenic angles. There is no pneumothorax, large pleural effusion or airspace consolidation typical for pneumonia. Degenerative changes of the shoulders and spine. IMPRESSION: 1. Cardiomegaly with pulmonary vascular congestion. 2. Emphysema. ACT 112: Negative or not required by law. The above report was generated using voice recognition software. It may contain grammatical, syntax or spelling errors. Electronically signed by: Cuco Naylor M.D. 10/20/2019 9:16 AM Code Status & VTE Plan Code Status Level V: DNR/DNI VTE Prophylaxis Plan VTE Prophylaxis will be ordered: Yes Supervising Physician Co-Signing Physician Notes I supervised Karel Lyn PA-C on this admission. I interviewed and examined the patient independently of him. The plan is as written in the PA's note except for any following changes/exceptions: None 79yo F w/ hx of afib who presents with shortness of breath and afib with RVR. Feeling better now that Lasix is working. Less shortness of breath. - Will repeat echo to determine any changes that would have caused HF symptoms. - Continue Lasix 40 mg IV daily for now PG Care Time/CCT Total # of Minutes Spent Total Time Spent with Patient: Total time spent is greater than 50% in coordination of care (as documented) at patient's floor/unit and/or counseling patient: 60 minutes Coding Level of Care Code 01336 Initial Inpt Care Lvl 3 Diagnoses Atrial fibrillation with rapid ventricular response I48.91 Pulmonary edema J81.0 Chronicity: acute Hypomagnesemia E83.42 Type 2 diabetes mellitus E11.9 CAD in [place] artery I25.10 Diverticulosis K57.90 Chronic kidney disease (CKD), stage III (moderate) N18.3 Gout, joint M10.9 Chronic venous insufficiency I87.2 Arthritis M19.90 DVT prophylaxis Z29.9 Time Spent (min) 60 (1) Pulmonary edema Chronicity: acute Qualified Code(s): J81.0 - Acute pulmonary edema
[2019-10-20 11:13] LABS: Appearance Urine Clear (Clear); Bilirubin Urine Negative (Negative); Blood Urine Negative (Negative); Color Urine Yellow; Glucose Urine UA Negative (Negative); Ketones Urine Negative (Negative); Leukocyte Esterase Urine Negative (Negative); Nitrite Urine Negative (Negative); Protein Urine Negative (Negative); Specific Gravity Urine 1.013 (1.000-1.030); Urobilinogen Urine Negative (Negative)
[2019-10-20] MEDS ORDERED: GLUCOSE 10 TABS/TUBE PO PRN (12:28)
[2019-10-20] MEDS ORDERED: GLUCOSE 40% GEL 15 GM TUBE PO PRN (12:28)
[2019-10-20] MEDS ORDERED: ALUMINUM/MAGNESIUM SUSP 30 ML UDC PO PRN (12:28)
[2019-10-20] MEDS ORDERED: DEXTROSE 50% 50 ML SYRINGE IV PRN (12:28)
[2019-10-20] MEDS ORDERED: GLUCAGON FOR INJ 1 MG VIAL SQ PRN (12:28)
[2019-10-20] MEDS ORDERED: POLYETHYLENE (MIRALAX) 17 GM PACK PO PRN (12:28)
[2019-10-20] MEDS ORDERED: CARBOHYDRATES FOR HYPOGLYCEMIA PO PRN (12:28)
[2019-10-20] MEDS ORDERED: ONDANSETRON INJ 2 MG/ML 2 ML VIAL IV PRN (12:28)
[2019-10-20] MEDS ORDERED: ACETAMINOPHEN 325 MG TAB PO PRN (12:28)
[2019-10-20] MEDS ORDERED: MAGNESIUM HYDROXIDE SUSP 30 ML UDC PO PRN (12:28)
[2019-10-20] MEDS ORDERED: INSULIN GLARGINE SOLOSTAR 100 UNITS/ML 3 ML PEN SC ONE (12:56)
[2019-10-20] MEDS ORDERED: PHARMACY GLYCEMIC MGMT CONSULT SCH (12:57)
--- NOTE | 2019-10-20 13:02 | Pharmacy Report ---
Pharmacy Glycemic Short Note 2 - Date of Service October 20, 2019 - Glycemic Short BSG Results (Last 24 hours): 10/20/19 10/20/19 07:30 12:03 Glucose 190 H POC Glucose 216 H OUTPATIENT ANTIDIABETIC REGIMEN: * Metformin 500mg PO BID * A1c = 7.3% 07/09/19 ASSESSMENT: * Type 2 diabetic admitted w/ SOB, a fib w/ RVR, pulmonary edema * BSGs in the 190-216 range since admission * Plan to initiate basal/bolus regimen using "mild-moderate" stress level and adjusted body-weight. Metformin will be held at this time. PLAN FOR INPATIENT GLYCEMIC CONTROL: * Check A1c * Hold outpatient oral diabetes medications (metformin) * Basal insulin * Lantus 10 units SQ x 1 now. Then BID per scale: 0 units if BSG less than 140, 5 units if BSG 140-200, 10 units if BSG above 200 * Bolus insulin * NovoLog per scale ACHS or Q6hrs while NPO * Goal Range: Low 110 mg/dL - High 140 mg/dL * Correction Factor: 25 mg/dL/unit * Nutritional / Prandial insulin per carb ratio of 1 unit per 8 grams CHO consumed PLAN FOR DISCHARGE: * to be determined
[2019-10-20 13:14] LABS: Appearance Urine Clear (Clear); Bilirubin Urine Negative (Negative); Blood Urine Negative (Negative); Color Urine Yellow; Glucose Urine UA Negative (Negative); Ketones Urine Negative (Negative); Leukocyte Esterase Urine Negative (Negative); Nitrite Urine Negative (Negative); Protein Urine Negative (Negative); Specific Gravity Urine 1.009 (1.000-1.030); Urobilinogen Urine Negative (Negative)
[2019-10-20] MEDS: INSULIN ASPART 100 UNITS/ML 3 ML PEN SC SCH ×3 (13:27→20:50)
[2019-10-20] MEDS: lisinopriL 5 MG TAB PO SCH (13:28)
[2019-10-20] MEDS: FLUTICASONE/VILANTEROL 200/25MCG 14 PUFFS/INHALER INH SCH (13:30)
[2019-10-20] MEDS: UMECLIDINIUM BROMIDE 62.5MCG/BLISTER 7 PUFFS/INHALER INH SCH (13:30)
[2019-10-20] MEDS: WARFARIN SOD 5 MG TAB PO SCH (17:38)
--- NOTE | 2019-10-20 18:12 | Electrocardiogram Report ---
Test Reason : Blood Pressure : / mmHG Vent. Rate : 107 BPM Atrial Rate : 093 BPM P-R Int : 000 ms QRS Dur : 082 ms QT Int : 306 ms P-R-T Axes : 000 027 063 degrees QTc Int : 408 ms Atrial fibrillation with rapid ventricular response Low voltage QRS Abnormal ECG When compared with ECG of 11-SEP-2018 22:03, No significant change was found Confirmed by Maxime Willis ([id number]) on 10/20/2019 6:12:04 PM Referred By: ED Confirmed By:Elliott Willis
[2019-10-20] MEDS ORDERED: ALBUT/IPRATROP 3MG/0.5MG NEB 3 ML VIAL NEB PRN (19:35)
[2019-10-20] MEDS: INSULIN GLARGINE SOLOSTAR 100 UNITS/ML 3 ML PEN SC SCH (20:50)
[2019-10-20] MEDS: cephALEXin 500 MG CAP PO SCH (21:51)
[2019-10-20] MEDS: METOPROLOL SUCC 50MG EXT REL TAB PO SCH (22:03)
[2019-10-20] MEDS: FERROUS SULFATE 325 MG TAB PO SCH (22:04)
[2019-10-21] MEDS: MAGNESIUM SULFATE / D5W 1 GM/100 ML BAG IV SCH (00:41)
[2019-10-21 06:36] LABS: Basophils # (auto) 0.01 K/uL (0-0.2); Basophils % (auto) 0.2 %; Eosinophils # (auto) 0.12 K/uL (0-0.5); Eosinophils % (auto) 2.8 %; Hematocrit (blood only) 30.3 % (37-47); Hemoglobin 10.4 g/dL (12.0-16.0); Immature Granulocytes # (auto) 0.01 K/uL (0.00-0.02); Immature Granulocytes % (auto) 0.2 %; Lymphocytes # (auto) 0.87 K/uL (1.2-3.4); Lymphocytes % (auto) 20.3 %; Mean Corpuscular Hemoglobin 32.1 pg (25-34); Mean Corpuscular Hgb Conc 34.3 g/dL (32-36); Mean Corpuscular Volume 93.5 fL (80-100); Mean Platelet Volume 9.9 fL (7.4-10.4); Monocytes # (auto) 0.33 K/uL (0.11-0.59); Monocytes % (auto) 7.7 %; Neutrophils # (auto) 2.94 K/uL (1.4-6.5); Neutrophils % (auto) 68.8 %; Platelet Count 132 K/uL (130-400); RDW Standard Deviation 54.4 fL (36.4-46.3); Red Blood Count 3.24 M/uL (4.2-5.4); White Blood Count 4.28 K/uL (4.8-10.8)
[2019-10-21 06:42] LABS: INR 2.2 (0.9-1.1); Prothrombin Time 21.9 Seconds (9.0-12.0)
[2019-10-21 07:14] LABS: BUN Creatinine Ratio 22.2 (10-20); Calcium 8.5 mg/dl (8.5-10.1); Creatinine Clr Calc Pharmacy 62.4 ml/min; Est GFR (African American) 56.3; Est GFR (Non-African American) 48.6; Magnesium 1.8 mg/dl (1.8-2.4); Potassium 3.8 mmol/L (3.5-5.1)
[2019-10-21 07:47] LABS: Estimated Average Glucose 192 mg/dl; Hemoglobin A1C 8.3 % (4.5-5.6)
[2019-10-21] MEDS ORDERED: STAT IV Infusion **Titration per Protocol STA (08:05)
[2019-10-21] MEDS: INSULIN ASPART 100 UNITS/ML 3 ML PEN SC SCH ×4 (08:07→20:33)
[2019-10-21] MEDS: UMECLIDINIUM BROMIDE 62.5MCG/BLISTER 7 PUFFS/INHALER INH SCH (08:09)
[2019-10-21] MEDS: METOPROLOL SUCC 50MG EXT REL TAB PO SCH ×2 (08:10→20:30)
[2019-10-21] MEDS: FLUTICASONE/VILANTEROL 200/25MCG 14 PUFFS/INHALER INH SCH (08:10)
[2019-10-21] MEDS: cephALEXin 500 MG CAP PO SCH ×2 (08:11→20:30)
[2019-10-21] MEDS: FUROSEMIDE 40 MG in SYRINGE 0 ML IV SCH (08:12)
[2019-10-21] MEDS: INSULIN GLARGINE SOLOSTAR 100 UNITS/ML 3 ML PEN SC SCH ×2 (08:13→12:49)
[2019-10-21] MEDS: dilTIAZem HCL 125 MG in DEXTROSE 5% 100 ML IV SCH (08:20)
--- NOTE | 2019-10-21 09:05 | XRay Report ---
SINGLE VIEW CHEST CLINICAL HISTORY: Dyspnea. FINDINGS: An AP, portable, upright chest radiograph is compared to study dated 10/20/2019 and correlate d with chest CT dated 01/14/2019. The examination is degraded by portable technique and apical lordoti c positioning. The heart is enlarged noting atherosclerotic calcification of the thoracic aorta. Ques tion mild pulmonary vascular congestion. Emphysema and chronic interstitial thickening is similar to previous. Enlargement of central pulmonary arteries suggests pulmonary artery hypertension. No airspa ce consolidation or large pleural effusion is identified. Foci of parenchymal scarring are seen throu ghout both lungs. There is no pneumothorax. The skeletal structures are osteopenic. The bony thorax a ppears intact. IMPRESSION: 1. Cardiomegaly. Question mild pulmonary vascular congestion. 2. Emphysema. 3. No airspace consolidation or large pleural effusion is identified. ACT 112: Negative or not required by law. Electronically signed by: Karel Palma M.D. 10/21/2019 9:04 AM
[2019-10-21] MEDS: lisinopriL 5 MG TAB PO SCH (09:17)
--- NOTE | 2019-10-21 11:06 | Pharmacy Report ---
Pharmacy Glycemic Short Note 2 - Date of Service October 21, 2019 - Glycemic Short BSG Results (Last 24 hours): 10/20/19 10/20/19 10/20/19 12:03 16:25 20:08 Glucose POC Glucose 216 H 146 H 127 H 10/21/19 06:21 Glucose 146 H POC Glucose OUTPATIENT ANTIDIABETIC REGIMEN: * Metformin 500mg PO BID * A1c = 7.3% 07/09/19 ASSESSMENT: 10/20 * Glycemic control has improved over last 24 hrs. 23 units SQ insulin administered yesterday * Fasting BSG 146 this AM with 10 units basal on board - slightly above goal - will continue 10 units once daily at this time rather than BID scaled dosing * Novolog CF/CR doses performed well yesterday - continue same today and monitor BSG pattern * A1c 8.3% this AM, up from 7.3% when last checked 07/09/19 - patient's glycemic control appears to have deteriorated over last several months 10/19 * Type 2 diabetic admitted w/ SOB, a fib w/ RVR, pulmonary edema * BSGs in the 190-216 range since admission * Plan to initiate basal/bolus regimen using "mild-moderate" stress level and adjusted body-weight. Metformin will be held at this time. PLAN FOR INPATIENT GLYCEMIC CONTROL: * Check A1c * Hold outpatient oral diabetes medications (metformin) * Basal insulin * Lantus 10 units SQ x 1 now. Then BID per scale: 0 units if BSG less than 140, 5 units if BSG 140-200, 10 units if BSG above 200 * Bolus insulin * NovoLog per scale ACHS or Q6hrs while NPO * Goal Range: Low 110 mg/dL - High 140 mg/dL * Correction Factor: 25 mg/dL/unit * Nutritional / Prandial insulin per carb ratio of 1 unit per 8 grams CHO consumed PLAN FOR DISCHARGE: * Given more recent A1c of 8.3%, one might consider increasing metformin dosage and addition of a second agent to manage DM if the deterioration in glycemic control not due dietary indiscretion. Options for second agent include: empagliflozin (no dose adjustment if eGFR/eCrCl > 45) or canagliflozin (dose reduction required if eGFR/eCrCl < 60) due to benefits in CVD and CKD.
--- NOTE | 2019-10-21 11:53 | Hospitalist Progress Note ---
Date of Service October 21, 2019 Assessment & Plan (1) Acute systolic (congestive) heart failure: clinically improving with IV diuresis. continue lasix IV. will give additional dose this afternoon; weight is still above dry weight and she is still quite symptomatic. repeat labs in am. echo findings noted - EF now 50-55%, was >60% about 1 year ago. modest decrease in LV function could be tachy-arrhythmia induced vs ischemia (new wall motion abnormality on echo) vs other. formal cardiology consult placed to [facility] cardiology given her echo findings. (2) Atrial fibrillation with rapid ventricular response: improved with addition of low-dose cardizem infusion in addition to her usual beta andrea (150mg BID of toprol xl). cont coumadin with daily INR. (3) Type 2 diabetes mellitus: pharmacy consult appreciated for glycemic management. 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 now on chronic keflex 500mg BID for prophylaxis. all of the above was in setting of what sounds like a TKR infection. (5) CAD in [place] artery: 2012 cath reviewed - had 20-30% RCA disease. this RCA lesion could be worse 8+ years later - unable to take chronic statin. cont BB, JESUS. consider low-dose aspirin. echo results noted. (6) Chronic kidney disease (CKD), stage III (moderate): fluctuating CrCL over the last 1-2 years CrCL often <60 depending on volume status (7) Morbid obesity: BMI 47.9 (8) Abnormal echocardiogram: drop in EF to 50-55% wall motion abnormality - basal inferior wall cardiology consult requested (9) Chronic obstructive pulmonary disease: not in exacerbation at this time continue home meds pulmonary symptoms are cardiac in nature (10) DVT prophylaxis: coumadin daily INR will need PT/OT Admission and Anticipated Discharge Date Admission Date: October 20, 2019 Subjective overnight tele showed a.fib with rates >100. rates now improved this am with addition of cardizem infusion. patient reports feeling better overall. less dyspnea at rest, but still with SADLER with walking in the room. orthopnea also still present. abdominal bloating and LE edema improved. denies any recent chest pain although she has chest tightness when the dyspnea is at its worst. mentions she had 2 courses of prednisone this summer for her asthma without resolution of symptoms. Review of Systems Constitutional: no fever, no chills and no anorexia Respiratory: + cough (Mild ), + dyspnea, + dyspnea on exertion and + wheezing Cardiovascular: no palpitations Gastrointestinal: + bloating; no abdominal pain, no nausea and no vomiting Physical Exam Constitutional: + morbidly obese; no acute distress and no altered mental status ENMT: external ear and nose normal, oropharynx normal Respiratory: Auscultation: + diminished lung sounds (Bases) and + wheezes (End-exp); no crackles Cardiovascular: Rate/Rhythm: regular rate and + irregularly irregular Heart Sounds: normal S1 and normal S2; no murmur Vessels: + JVD, posterior tibial pulses present and dorsalis pedis pulses present Extremities: + edema (Trace b/l ) Gastrointestinal (Abdomen): normal bowel sounds, soft, nontender, no hepatosplenomegaly Psychiatric: A+Ox3, euthymic affect Results & Data Results & Data ([facility]) Vital Signs (Past 12 Hours) Vital Signs Temp Pulse Pulse Resp BP BP Pulse Ox 10/21/19 11:14 36.8 C 101 H 20 114/86 92 10/21/19 09:00 99 H 122/84 10/21/19 07:30 18 90 10/21/19 07:19 37.0 C 110 H 18 116/65 90 10/21/19 07:00 18 90 10/21/19 06:30 22 92 10/21/19 04:00 37.0 C 114 H 22 96/74 L 92 Laboratory Results Laboratory Results - last 24 hr 10/20/19 10/20/19 10/20/19 12:03 13:05 15:02 WBC RBC Hgb Hct MCV MCH MCHC RDW Std Deviation RDW Coeff of Beatrice Plt Count MPV Immature Gran % (Auto) Neut % (Auto) Lymph % (Auto) [place] % (Auto) Eos % (Auto) Baso % (Auto) Neut # (Auto) Lymph # (Auto) [place] # (Auto) Eos # (Auto) Baso # (Auto) Immature Gran # (Auto) PT INR Sodium Potassium Chloride Carbon Dioxide Anion Gap BUN Creatinine Est Cr Clr Drug Dosing Est GFR ( Amer) Est GFR (Non-Af Amer) BUN/Creatinine Ratio Glucose POC Glucose 216 H Estimat Average Glucose Hemoglobin A1c Calcium Magnesium 1.4 L Urine Color Yellow Urine Appearance Clear Urine pH 5.0 Ur Specific Irving 1.009 Urine Protein Negative Urine Glucose (UA) Negative Urine Ketones Negative Urine Blood Negative Urine Nitrite Negative Urine Bilirubin Negative Urine Urobilinogen Negative Ur Leukocyte Esterase Negative 10/20/19 10/20/19 10/21/19 16:25 20:08 06:21 WBC 4.28 L RBC 3.24 L Hgb 10.4 L Hct 30.3 L MCV 93.5 MCH 32.1 MCHC 34.3 RDW Std Deviation 54.4 H RDW Coeff of Beatrice 16.0 H Plt Count 132 MPV 9.9 Immature Gran % (Auto) 0.2 Neut % (Auto) 68.8 Lymph % (Auto) 20.3 [place] % (Auto) 7.7 Eos % (Auto) 2.8 Baso % (Auto) 0.2 Neut # (Auto) 2.94 Lymph # (Auto) 0.87 L [place] # (Auto) 0.33 Eos # (Auto) 0.12 Baso # (Auto) 0.01 Immature Gran # (Auto) 0.01 PT INR Sodium Potassium Chloride Carbon Dioxide Anion Gap BUN Creatinine Est Cr Clr Drug Dosing Est GFR ( Amer) Est GFR (Non-Af Amer) BUN/Creatinine Ratio Glucose POC Glucose 146 H 127 H Estimat Average Glucose Hemoglobin A1c Calcium Magnesium Urine Color Urine Appearance Urine pH Ur Specific Irving Urine Protein Urine Glucose (UA) Urine Ketones Urine Blood Urine Nitrite Urine Bilirubin Urine Urobilinogen Ur Leukocyte Esterase 10/21/19 10/21/19 10/21/19 06:21 06:21 06:21 WBC RBC Hgb Hct MCV MCH MCHC RDW Std Deviation RDW Coeff of Beatrice Plt Count MPV Immature Gran % (Auto) Neut % (Auto) Lymph % (Auto) [place] % (Auto) Eos % (Auto) Baso % (Auto) Neut # (Auto) Lymph # (Auto) [place] # (Auto) Eos # (Auto) Baso # (Auto) Immature Gran # (Auto) PT 21.9 H INR 2.2 H Sodium 137 Potassium 3.8 Chloride 105 Carbon Dioxide 24 Anion Gap 8.0 BUN 24 H Creatinine 1.09 Est Cr Clr Drug Dosing 62.4 Est GFR ( Amer) 56.3 Est GFR (Non-Af Amer) 48.6 BUN/Creatinine Ratio 22.2 H Glucose 146 H POC Glucose Estimat Average Glucose 192 Hemoglobin A1c 8.3 H Calcium 8.5 Magnesium 1.8 Urine Color Urine Appearance Urine pH Ur Specific Irving Urine Protein Urine Glucose (UA) Urine Ketones Urine Blood Urine Nitrite Urine Bilirubin Urine Urobilinogen Ur Leukocyte Esterase PG Care Time/CCT Total # of Minutes Spent Total Time Spent with Patient: Total time spent is greater than 50% in coordination of care (as documented) at patient's floor/unit and/or counseling patient: Coding Level of Care Code 23577 Subseq Hosp Care Lvl 3 Diagnoses Acute systolic (congestive) heart failure I50.21 Atrial fibrillation with rapid ventricular response I48.91 Type 2 diabetes mellitus E11.9 Diabetes mellitus longwall shearer operator insulin use: without skilled nursing use Diabetes mellitus complication status: without complication Endocarditis of mitral valve I05.8 CAD in [place] artery I25.10 Chronic kidney disease (CKD), stage III (moderate) N18.3 Morbid obesity E66.01 Abnormal echocardiogram R93.1 Chronic obstructive pulmonary disease J44.9 COPD type: unspecified COPD DVT prophylaxis Z29.9 (1) Chronic obstructive pulmonary disease COPD type: unspecified COPD Qualified Code(s): J44.9 - Chronic obstructive pulmonary disease, unspecified (2) Type 2 diabetes mellitus Diabetes mellitus longwall shearer operator insulin use: without longwall shearer operator use Diabetes mellitus complication status: without complication Qualified Code(s): E11.9 - Type 2 diabetes mellitus without complications
[2019-10-21] MEDS: NYSTATIN SUSP 500,000 U/5 ML UDC PO SCH ×3 (13:04→20:29)
--- NOTE | 2019-10-21 16:27 | XCELERA ---
[id number] \\[id number]
[2019-10-21] MEDS: WARFARIN SOD 5 MG TAB PO SCH (16:38)
[2019-10-21] MEDS ORDERED: FUROSEMIDE 40 MG in SYRINGE 0 ML IV ONE (17:45)
[2019-10-21] MEDS ORDERED: POTASSIUM CHLORIDE 20 MEQ TABCR PO ONE (17:45)
--- NOTE | 2019-10-21 19:25 | Electrocardiogram Report ---
Test Reason : Blood Pressure : / mmHG Vent. Rate : 108 BPM Atrial Rate : 000 BPM P-R Int : 000 ms QRS Dur : 084 ms QT Int : 298 ms P-R-T Axes : 000 006 036 degrees QTc Int : 399 ms Atrial fibrillation with rapid ventricular response with premature ventricular or aberrantly conducte d complexes Nonspecific ST abnormality Abnormal ECG When compared with ECG of 20-OCT-2019 07:30, No significant change was found Confirmed by Maxime Willis ([id number]) on 10/21/2019 7:24:42 PM Referred By: REFERRED SELF Confirmed By:Elliott Willis
[2019-10-21] MEDS: FERROUS SULFATE 325 MG TAB PO SCH (20:29)
[2019-10-22] MEDS: dilTIAZem HCL 125 MG in DEXTROSE 5% 100 ML IV SCH (03:37)
[2019-10-22 06:20] LABS: INR 2.1 (0.9-1.1); Prothrombin Time 21.4 Seconds (9.0-12.0)
[2019-10-22 06:47] LABS: BUN Creatinine Ratio 24.1 (10-20); Calcium 8.6 mg/dl (8.5-10.1); Creatinine Clr Calc Pharmacy 54.1 ml/min; Est GFR (African American) 47.7; Est GFR (Non-African American) 41.2; Magnesium 1.5 mg/dl (1.8-2.4); Potassium 3.7 mmol/L (3.5-5.1)
[2019-10-22] MEDS: INSULIN ASPART 100 UNITS/ML 3 ML PEN SC SCH ×4 (08:11→20:26)
[2019-10-22] MEDS: lisinopriL 5 MG TAB PO SCH (08:16)
[2019-10-22] MEDS: cephALEXin 500 MG CAP PO SCH ×2 (08:16→20:25)
[2019-10-22] MEDS: FLUTICASONE/VILANTEROL 200/25MCG 14 PUFFS/INHALER INH SCH (08:18)
[2019-10-22] MEDS: INSULIN GLARGINE SOLOSTAR 100 UNITS/ML 3 ML PEN SC SCH (08:19)
[2019-10-22] MEDS: FUROSEMIDE 40 MG in SYRINGE 0 ML IV SCH (08:24)
[2019-10-22] MEDS: UMECLIDINIUM BROMIDE 62.5MCG/BLISTER 7 PUFFS/INHALER INH SCH (08:25)
[2019-10-22] MEDS: NYSTATIN SUSP 500,000 U/5 ML UDC PO SCH ×4 (08:26→20:23)
[2019-10-22 08:51] LABS: Folate (Folic Acid) 20.6 ng/ml (>5.38)
--- NOTE | 2019-10-22 09:43 | Cardiology Consultation ---
Date of Consultation October 22, 2019 Assessment & Plan (1) Atrial fibrillation with rapid ventricular response: Shira Rocha is a 79-year-old female with a history of endocarditis in 2014 now complicated by mitral annular calcification, chronic atrial fibrillation, nonobstructive CAD, COPD, and chronic venous insufficiency who is consulted to the cardiology service primarily for changes noticed on an echocardiogram performed yesterday, 10/20, in the setting of an active (but resolving) episode of AFib w/ RVR alongside historical and physical exam findings consistent with an exacerbation of diastolic dysfunction. 1. Acute Diastolic Dysfunction - Clinically Improving - When reviewed to his echocardiogram in 2019, his new echo performed yesterday does not reveal any major changes suggestive of decompensated systolic left ventricular function. Her EF may be slightly reduced from last year (>60% to mid-50% range), but is still within normal limits. Additionally, although there may be some basal apical hypokinesis, the clinical relevance is unclear, as the surrounding territory appears to be functioning normally. When this is considered alongside with an otherwise unchanged EKG (with exception of resolved RVR) with no evidence of acute ST-T changes and the patient's history, an acute episode of ischemia seems less likely at this time. - The patient's physical examination and improvement of respiratory effort with diuresis does suggest there is likely some component of diastolic dysfunction contributing to her current state. The exact cause of this dysfunction, however, is unclear at this time. May have been d/t increased sodium intake from her regular soup consumption. Her atrial fibrillation with RVR is likely secondary to this process. - Advise heart-healthy diet / low-sodium diet - Recommend continuing furosemide 40mg IV daily at this time. If her clinical status does not show persistent improvement, another cause of her symptoms - such as a pulmonary etiology - should be explored more (- 4lb down since yesterday on Lasix 40mg IV daily) 2. Permanent Atrial Fibrillation, with Episode of Rapid Ventricular Rate -- Currently Rate Controlled - Continue metoprolol succinate 150mg PO b.i.d. - Recommend discontinuing diltiazem gtt at this time given persistently good rates in the 80s-90s. Present on Admission?: Yes (2) Abnormal echocardiogram: (3) Chronic obstructive pulmonary disease: (4) Endocarditis of mitral valve: (5) Chronic venous insufficiency: Supervising Physician Co-Signing Physician Notes I saw and examined the patient at the bedside with Dr. Quinteros. Briefly, the patient is known to have permanent atrial fibrillation and mild valvular heart disease. She developed progressive dyspnea recently and presented with what appeared to be an element of pulmonary edema as well as elevated ventricular rates. The etiology of her pulmonary edema is unclear. She did recently undergo a course of steroids and may have been eating more sodium by admission. I do not believe there was any inter seemed ischemic event. While the current echo report differs from 1 obtained previously, direct visualization of the images does not reveal any significant change in the LV systolic function, and wall motion abnormality described is not new. She has had notable improvement in her symptoms with an aggressive diuresis. Her renal function appears stable. I would advocate continued diuresis at the current dose, monitoring her electrolytes and renal function closely. Would expect near resolution of her symptoms with continued diuresis at the current rate. If she continues to have symptoms of dyspnea despite losing well over 5 L of fluid, I would be suspicious of an alternate etiology contributing to her shortness of breath. I would agree with discontinuing the diltiazem infusion. She can be continued on her outpatient dose of metoprolol. I think a rate control appears better now that she has diuresed. We may need some additional agents for rate control, but I think we have a better understanding of her heart rates over the next couple of days. History of Present Illness Reason for Consultation: echocardiogram changes Attending Physician: Iglesia Decker History of Present Illness Shira Rocha is a 79-year-old female with a history of chronic atrial fibrillation, endocarditis in 2013 now complicated by mitral annular calcification, nonobstructive CAD, COPD, and chronic venous insufficiency who is consulted to the cardiology service primarily for changes noticed on an echocard iogram performed yesterday, 10/20, in the setting of an active (but resolving) episode of AFib w/ RVR. Briefly regarding her past history, Ms. 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 She notes that she developed atrial fibrillation shortly after this time and has been in it ever since. She is followed by Dr. Aponte for her cardiology care. In the timeframe of April - June, Ms. Rocha notes that she noticed her legs began to swell and that she received 2x scans to evaluate for etiology. The majority of the swelling was thought to be d/t venous insufficiency. She also notes since this time, however, that baseline dyspnea has been worse than usual and that basic activities like walking in the house have gotten much harder and have left her winded. 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 She denies chest pain during any such events, but does not she'll occasionally get chest pressure when she's very short of breath. On 10/18, she then reported to [facility] via EMS for shortness of breath x 2-3 days that did not seem to be triggered by anything in specific from her standpoint - does endorse perhaps eating more soup lately. Of note, she did report having a cough in August for which she was placed on two courses of prednisone, with the last course being finished just shy of 2 weeks ago. Otherwise, she has not had any chest pain, illnesses, or new leg pain that have stuck out to her. Aside from the aforementioned prednisone, no new medications either. When she was picked up by EMS, she was found to be in AFib w/ RVR and given diltiazem 20mg IV x 1. In the ED, a CXR did reveal cardiomegaly with pulmonary vascular congestion -- alongside physical exam, was suggestive of pulmonary edema. She was given furosemide 40mg IV x 1. Aside from her AFib w/ RVR, EKGs were not significant for any new or acute changes, including evidence of ischemia. An echocardiogram was obtained yesterday which demonstrated left ventricular dilation and a low-normal function with an LV EF of 50-55%, which is decreased from an EF >60% a year ago. There is also evidence of new basal-inferior hypokinesis within the LV that was not seen on her echo in 2019. Her mitral annulus continues to demonstrate severe calcification and her left atrium is mildly dilated. Right heart function appears WNL. Since yesterday, Ms. Rocha has remained on telemetry with her rates remaining contained to the 80s - 90s on diltiazem gtt (5mg/hr). She has also demonstrated some clinical improvement in her volume status on lasix 40mg IV daily (gtt). Upon speaking with her this morning, she denies chest pain or pressure. She does endorse excessive shortness of breath with movement and demonstrates orthopnea - breathing better when leaned up compared to lying supine. Feels well overall. Allergies Allergy/AdvReac Type Severity Reaction Status Date / Time technetium-99m Allergy Severe ANAPHYLAXIS Verified 10/20/19 08:20 amoxicillin Allergy Intermediate RASH Verified 10/20/19 08:20 nitrofurantoin Allergy Intermediate HIVES Verified 10/20/19 08:20 iodine Allergy Unknown HIVES, Verified 10/20/19 08:20 WITH DYE 30 YRS AGO-HAS HAD SINCE W/O PROBLEM Home Medications Home Medications Medication Instructions Recorded Confirmed Type blood sugar diagnostic #100 ea 09/22/18 10/14/19 Rx lancets #100 ea 09/22/18 10/14/19 Rx blood sugar diagnostic #10 ea 09/29/18 10/14/19 History lancets 30 gauge #25 ea 09/29/18 10/14/19 History metformin 500 mg tablet,extended 500 mg PO BID #180 tab 12/15/18 10/20/19 Rx release 24 hr lisinopril 5 mg tablet 5 mg PO QAM #30 tab 12/16/18 10/20/19 Rx cephalexin 500 mg capsule See Rx Instructions .ROUTE 03/23/19 10/20/19 Rx .COMPLEX #60 each metoprolol succinate 100 mg 150 mg PO BID #270 tab 07/02/19 10/20/19 Rx tablet,extended release 24 hr albuterol sulfate 1.25 mg INHALATION Q6H PRN #180 ml 07/22/19 10/20/19 Rx tiotropium bromide 2.5 2 puff INHALATION QAM #4 gm 07/22/19 10/20/19 Rx mcg/actuation mist for inhalation allopurinol 300 mg tablet 300 mg PO QAM #90 tab 09/14/19 10/20/19 Rx mometasone-formoterol HFA 200 2 puff INH BID #3 inhaler 10/15/19 10/20/19 Rx mcg-5 mcg/actuation aerosol inhaler ferrous sulfate 324 mg PO HS 10/20/19 10/20/19 History warfarin 5 mg PO HS 10/20/19 10/20/19 History Patient History Medical History A-fib Alopecia Arthritis Asthma C. difficile colitis CAD in [place] artery Chronic kidney disease (CKD), stage III (moderate) Chronic obstructive pulmonary disease Diverticulitis Edema Endocarditis of mitral valve GI bleed Gout, joint HTN (hypertension) Hyperlipidemia FPC (current) use of anticoagulants Mitral regurgitation Obesity Panic attacks AND CLAUSTROPHOBIA Sepsis Shortness of breath Type 2 diabetes mellitus Surgical History History of anesthesia reaction SLOW TO WAKE UP History of arthroscopy of knee WITH DEBRIDEMENT R/L-[facility] [place] History of bladder surgery History of cataract surgery R/L History of colonoscopy History of total knee replacement R/L S/P IVC filter AND REMOVED Family History Unknown Diabetes Hypertension Mother Diabetes Cardiac disorder Grandfather Sinus disorder Social History Smoking Status: Former smoker Cigarettes Per Day: 50; Smoking End Date: 12/1992; Second Hand Exposure: No; Do You Dip or Chew Tobacco: No; Tobacco Cessation Education Requested by Patient: No Hx Alcohol Use: Yes Alcohol type: wine Hx Substance Use: No Preferred Language: Azeri Communication Ability: Effective 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 Rocha is sitting at the edge of her bed speaking to her nurse. Upon changing positions to lay back in her bed, she does demonstrate shortness of breath and orthopnea -- breathing better when the bed is tilted upwards. Once settled, she appears more comfortable and is speaking in full sentences. She appears well. Alert and NAD. Respiratory: See general impression. Upon getting settled, respiratory effort is perhaps slightly increased from a relaxed state, but not severely. No use of accessory muscles. Speaking in full sentences. Auscultation does reveal intermittent, end-expiratory wheezes most noticeable in the left and right lower lobes. No crackles. Cardiovascular: Given the patient's body habitus and respiratory status, clear auscultation of the heart was difficult. However, of what could be heard, patient's rate was normal and her rhythm was irregular. S1 and S2 were both present without any appreciable murmurs, rubs, or gallops. Radial pulses are 2+ b/l. There is appreciable 2+ pitting edema within both lower extremities extending into the feet, worse on the R compared to the L. Results & Data ([facility]) Vital Signs (Past 12 Hours) Vital Signs Temp Pulse Resp BP Pulse Ox 10/22/19 07:22 36.7 C 99 H 20 97/53 L 90 10/22/19 03:31 36.6 C 89 20 138/74 93 10/21/19 23:20 36.6 C 90 22 119/76 93 PG Care Time/CCT Total # of Minutes Spent Total Time Spent with Patient: Total time spent is greater than 50% in coordination of care (as documented) at patient's floor/unit and/or counseling patient: Coding Level of Care Code 60175 Initial Inpt Care Lvl 3 Diagnoses Atrial fibrillation with rapid ventricular response I48.91 Abnormal echocardiogram R93.1 Chronic obstructive pulmonary disease J44.9 COPD type: unspecified COPD Endocarditis of mitral valve I05.8 Chronic venous insufficiency I87.2 Resident Activity Tracking Resident Involvement: Resident Care Provided Care Provided: Adult Hospital Medicine (1) Chronic obstructive pulmonary disease COPD type: unspecified COPD Qualified Code(s): J44.9 - Chronic obstructive pulmonary disease, unspecified
[2019-10-22] MEDS: METOPROLOL SUCC 50MG EXT REL TAB PO SCH ×2 (11:57→20:24)
[2019-10-22] MEDS: MAGNESIUM SULFATE / D5W 1 GM/100 ML BAG IV SCH ×2 (12:02→13:50)
[2019-10-22] MEDS: CYANOCOBALAMIN 500 MCG TABLET (VITAMIN B-12) PO SCH (12:03)
--- NOTE | 2019-10-22 12:22 | Pharmacy Report ---
Pharmacy Glycemic Short Note 2 - Date of Service October 22, 2019 - Glycemic Short BSG Results (Last 24 hours): 10/21/19 10/21/19 10/21/19 12:45 16:29 20:23 Glucose POC Glucose 211 H 70 141 H 10/22/19 10/22/19 10/22/19 05:56 07:23 11:20 Glucose 138 H POC Glucose 153 H 133 H OUTPATIENT ANTIDIABETIC REGIMEN: * Metformin 500mg PO BID * A1c = 7.3% 07/09/19 ASSESSMENT: 10/21 * BSGs well controlled over last 24 hrs * Fasting BSG 138-153 this AM with 10 units Lantus on board. There is room to titrate dose upwards. * Post-prandial BSGs well controlled yesterday, however pre-dinner BSG did drop to 70 yesterday - will decrease Novolog doses today * May consider resuming Metformin in near future if improving clinically and renal fxn stable. 10/20 * Glycemic control has improved over last 24 hrs. 23 units SQ insulin administered yesterday * Fasting BSG 146 this AM with 10 units basal on board - slightly above goal - will continue 10 units once daily at this time rather than BID scaled dosing * Novolog CF/CR doses performed well yesterday - continue same today and monitor BSG pattern * A1c 8.3% this AM, up from 7.3% when last checked 07/09/19 - patient's glycemic control appears to have deteriorated over last several months 10/19 * Type 2 diabetic admitted w/ SOB, a fib w/ RVR, pulmonary edema * BSGs in the 190-216 range since admission * Plan to initiate basal/bolus regimen using "mild-moderate" stress level and adjusted body-weight. Metformin will be held at this time. PLAN FOR INPATIENT GLYCEMIC CONTROL: * Hold outpatient oral diabetes medications (metformin) * Basal insulin - increase * Lantus 14 units SQ Q AM * Bolus insulin - decrease * NovoLog per scale ACHS or Q6hrs while NPO * Goal Range: Low 110 mg/dL - High 150 mg/dL * Correction Factor: 30 mg/dL/unit * Nutritional / Prandial insulin per carb ratio of 1 unit per 10 grams CHO consumed PLAN FOR DISCHARGE: * Given more recent A1c of 8.3%, one might consider increasing metformin dosage and addition of a second agent to manage DM if the deterioration in glycemic control not due dietary indiscretion. Options for second agent include: empagliflozin (no dose adjustment if eGFR/eCrCl > 45) or canagliflozin (dose reduction required if eGFR/eCrCl < 60) due to benefits in CVD and CKD.
[2019-10-22] MEDS: WARFARIN SOD 5 MG TAB PO SCH (15:34)
[2019-10-22] MEDS ORDERED: POTASSIUM CHLORIDE 20 MEQ TABCR PO STA (16:26)
[2019-10-22] MEDS ORDERED: FUROSEMIDE 20 MG in SYRINGE 0 ML IV ONE (16:45)
--- NOTE | 2019-10-22 18:59 | Electrocardiogram Report ---
Test Reason : Blood Pressure : / mmHG Vent. Rate : 084 BPM Atrial Rate : 000 BPM P-R Int : 000 ms QRS Dur : 086 ms QT Int : 390 ms P-R-T Axes : 000 004 039 degrees QTc Int : 460 ms Atrial fibrillation with premature ventricular or aberrantly conducted complexes Nonspecific ST abnormality Abnormal ECG When compared with ECG of 21-OCT-2019 07:41, QT has lengthened Confirmed by Maxime Willis ([id number]) on 10/22/2019 6:58:44 PM Referred By: REFERRED SELF Confirmed By:Elliott Willis
--- NOTE | 2019-10-22 19:59 | Hospitalist Progress Note ---
Date of Service October 22, 2019 Assessment & Plan (1) Acute systolic (congestive) heart failure: clinically improved. cont IV lasix, shooting for net negative 2 liters/day. will again give additional dose of lasix this afternoon. repeat labs in am. echo findings 10/21/19 - EF now 50-55%, was >60% about 1 year ago. modest decrease in LV function could be tachy-arrhythmia induced vs ischemia (new wall motion abnormality on echo) vs other. [facility] cardiology consult appreciated - ischemia felt unlikely at this time. no plans for ischemic evaluation at this time. (2) Atrial fibrillation with rapid ventricular response: improved cont 150mg BID of toprol xl cont coumadin with daily INR INR remains therapeutic (3) Type 2 diabetes mellitus: pharmacy consult appreciated for glycemic management. control is excellent. 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 now on chronic keflex 500mg BID for prophylaxis. all of the above was in setting of what sounds like a TKR infection. (5) CAD in [place] artery: 2012 cath reviewed - had 20-30% RCA disease. this RCA lesion could be worse 8+ years later - unable to take chronic statin - but chances are low for such. cont BB, JESUS. consider low-dose aspirin. echo results noted. (6) Chronic kidney disease (CKD), stage III (moderate): fluctuating CrCL over the last 1-2 years CrCL often <60 depending on volume status CrCL today stable in 50s (7) Morbid obesity: BMI 47.9 (8) Chronic obstructive pulmonary disease: not in exacerbation at this time continue home meds pulmonary symptoms are cardiac in nature from pulm edema (9) Hypomagnesemia: replace with 2 grams mag sulfate then place on oral mag oxide for maintenance repeat mag level am (10) Thrombocytopenia: very mild with mild leukopenia as well b12 is low-normal; will supplement 1000mcg daily folate is wnl cont to trend no signs of an infectious process to explain the low platelets low wbc count is chronic (runs 5-6 chronically) (11) DVT prophylaxis: coumadin daily INR will order PT/OT left message for pt's son on 10/22/19 Admission and Anticipated Discharge Date Admission Date: October 20, 2019 Subjective patient feeling better. still with SADLER with ambulating to bathroom but dyspnea at rest resolved and no orthopnea. eating fine. no chest pain/tightness. tele overnight with rate controlled a.fib, rates <100. Review of Systems Constitutional: + fatigue; no fever, no chills and no anorexia Respiratory: + cough and + wheezing Cardiovascular: + edema; no chest pain, no orthopnea and no paroxysmal nocturnal dyspnea Gastrointestinal: no abdominal pain, no nausea and no vomiting Physical Exam Constitutional: + morbidly obese; no acute distress and no altered mental status laying flat in bed comfortably w/o orthopnea ENMT: external ear and nose normal, oropharynx normal Respiratory: Auscultation: + diminished lung sounds (Bases) and + wheezes (End-exp - scant today); no crackles Cardiovascular: Rate/Rhythm: regular rate and + irregularly irregular Heart Sounds: normal S1 and normal S2; no murmur Vessels: posterior tibial pulses present and dorsalis pedis pulses present; no JVD Extremities: + edema (Trace b/l ) Gastrointestinal (Abdomen): normal bowel sounds, soft, nontender, no hepatosplenomegaly Psychiatric: A+Ox3, euthymic affect Results & Data Results & Data ([facility]) Vital Signs (Past 12 Hours) Vital Signs Temp Pulse Pulse Resp BP BP Pulse Ox 10/22/19 16:00 94 H 10/22/19 15:28 36.6 C 96 H 19 126/65 95 10/22/19 12:00 10/22/19 11:32 36.6 C 79 20 119/80 91 Pulse Ox 10/22/19 16:00 10/22/19 15:28 10/22/19 12:00 94 10/22/19 11:32 Laboratory Results Laboratory Results - last 24 hr 10/21/19 10/22/19 10/22/19 20:23 05:56 05:56 PT 21.4 H INR 2.1 H Sodium 137 Potassium 3.7 Chloride 103 Carbon Dioxide 25 Anion Gap 9.0 BUN 30 H Creatinine 1.25 H Est Cr Clr Drug Dosing 54.1 Est GFR ( Amer) 47.7 Est GFR (Non-Af Amer) 41.2 BUN/Creatinine Ratio 24.1 H Glucose 138 H POC Glucose 141 H Calcium 8.6 Magnesium 1.5 L Vitamin B12 Folate 10/22/19 10/22/19 10/22/19 05:56 07:23 11:20 PT INR Sodium Potassium Chloride Carbon Dioxide Anion Gap BUN Creatinine Est Cr Clr Drug Dosing Est GFR ( Amer) Est GFR (Non-Af Amer) BUN/Creatinine Ratio Glucose POC Glucose 153 H 133 H Calcium Magnesium Vitamin B12 322 Folate 20.60 10/22/19 16:06 PT INR Sodium Potassium Chloride Carbon Dioxide Anion Gap BUN Creatinine Est Cr Clr Drug Dosing Est GFR ( Amer) Est GFR (Non-Af Amer) BUN/Creatinine Ratio Glucose POC Glucose 157 H Calcium Magnesium Vitamin B12 Folate PG Care Time/CCT Total # of Minutes Spent Total Time Spent with Patient: Total time spent is greater than 50% in coordination of care (as documented) at patient's floor/unit and/or counseling patient: Coding Level of Care Code 00546 Subseq Hosp Care Lvl 3 Diagnoses Acute systolic (congestive) heart failure I50.21 Atrial fibrillation with rapid ventricular response I48.91 Type 2 diabetes mellitus E11.9 Diabetes mellitus [employer] insulin use: without mcc use Diabetes mellitus complication status: without complication Endocarditis of mitral valve I05.8 CAD in [place] artery I25.10 Chronic kidney disease (CKD), stage III (moderate) N18.3 Morbid obesity E66.01 Chronic obstructive pulmonary disease J44.9 COPD type: unspecified COPD Hypomagnesemia E83.42 Thrombocytopenia D69.6 DVT prophylaxis Z29.9 (1) Type 2 diabetes mellitus Diabetes mellitus mcc insulin use: without [employer] use Diabetes mellitus complication status: without complication Qualified Code(s): E11.9 - Type 2 diabetes mellitus without complications (2) Chronic obstructive pulmonary disease COPD type: unspecified COPD Qualified Code(s): J44.9 - Chronic obstructive pulmonary disease, unspecified
[2019-10-22] MEDS: MAGNESIUM OXIDE 400 MG TAB PO SCH (20:23)
[2019-10-22] MEDS: FERROUS SULFATE 325 MG TAB PO SCH (20:24)
[2019-10-23 06:45] LABS: INR 2.2 (0.9-1.1); Prothrombin Time 21.8 Seconds (9.0-12.0)
[2019-10-23 06:59] LABS: BUN Creatinine Ratio 25.5 (10-20); Calcium 8.7 mg/dl (8.5-10.1); Creatinine Clr Calc Pharmacy 44.3 ml/min; Est GFR (Non-African American) 32.8; Magnesium 1.8 mg/dl (1.8-2.4); Potassium 4.1 mmol/L (3.5-5.1)
--- NOTE | 2019-10-23 08:34 | Cardiology Progress Note ---
Date of Service October 23, 2019 Assessment & Plan (1) Atrial fibrillation with rapid ventricular response: Shira Rocha is a 79-year-old female with a history of endocarditis in 2013 now complicated by mitral annular calcification, chronic atrial fibrillation, nonobstructive CAD, COPD, and chronic venous insufficiency who is consulted to the cardiology service primarily for changes noticed on an echocardiogram performed yesterday, 10/20, in the setting of an active (but resolving) episode of AFib w/ RVR alongside historical and physical exam findings consistent with an exacerbation of diastolic dysfunction. 1. Acute Diastolic Dysfunction - Clinically Improving - When reviewed to his echocardiogram in 2019, his new echo performed yesterday does not reveal any major changes suggestive of decompensated systolic left ventricular function. Her EF may be slightly reduced from last year (>60% to mid-50% range), but is still within normal limits. Additionally, although there may be some basal apical hypokinesis, the clinical relevance is unclear, as the surrounding territory appears to be functioning normally. When this is considered alongside with an otherwise unchanged EKG (with exception of resolved RVR) with no evidence of acute ST-T changes and the patient's history, an acute episode of ischemia seems unlikely at this time. - The patient's physical examination and improvement of respiratory effort with diuresis does suggest there is likely some component of diastolic dysfunction contributing to her current state. The exact cause of this dysfunction, however, is unclear at this time. May have been d/t increased sodium intake from her regu lar soup consumption. Her recent steroid courses (ending ~12 days ago) may also have been contributory. Her atrial fibrillation with RVR is likely secondary to this process. - Advise heart-healthy diet / low-sodium diet both in the inpatient and outpatient settings, staying < 2000mg of sodium daily - Volume status continues to improve day-by-day as patient diureses. Down this morning by ~3kg from yesterday AM with corollary I&Os. Respiratory status is much improved from previous days. Recommend continuing furosemide 40mg IV daily at this time while in the hospital. - Would advise continuing furosemide 20mg PO daily in the outpatient setting. 2. Permanent Atrial Fibrillation, with Episode of Rapid Ventricular Rate -- Currently Rate Controlled - Permanent atrial fibrillation, documented since 2013, in the known history of sepsis in 2013, complicated by mitral annular stenosis, and left atrial dilation - Recommend continuing metoprolol succinate 150mg PO b.i.d. -- well rate controlled on this - Diltiazem drip discontinued since yesterday (2) Chronic obstructive pulmonary disease: (3) Endocarditis of mitral valve: (4) Chronic venous insufficiency: Admission and Anticipated Discharge Date Admission Date: October 20, 2019 Supervising Physician Co-Signing Physician Notes I saw and examined the patient at the bedside with Dr. Quinteros. Clinically she is much better. She has affected a good diuresis with improvement in her symptoms. Her exam is benign. I think she can continue IV diuretics while an inpatient and be discharged on low-dose diuretic, 20 mg daily. She will require close follow-up in the clinic to monitor her volume status and renal function. Her overall rate control appears improved as well. I think she can be maintained on her outpatient regimen metoprolol succinate 150 mg twice daily. Continue systemic anticoagulation. Subjective NAEO. Feeling well this morning and reports sleeping well overall. Reports that her baseline respiratory status continues to get better day-by-day. No shortness of breath this morning. No chest pains or palpitations. Rates have remained in the 80-90s overnight without significant fluctuation. Review of Systems Review of Systems: as per HPI Physical Exam Constitutional: Well-appearing 79-year-old female who is relaxed in bed, speaking in full sentences, and does not appear in any acute distress. Respiratory: Good respiratory effort that continues to show improvement from previous days. Speaking in full sentences without difficulty. Lungs are clear to auscultation this morning. Cardiovascular: Normal rate with irregular rhythm. S1 and S2 are present without m/r/g. Upper extremity pulses are 2+ bilaterally. There is still 1+ pitting edema in the lower extremities bilaterally, in the presence of chronic venous insufficiency. Results & Data ([facility]) Vital Signs (Past 12 Hours) Vital Signs Temp Pulse Pulse Resp BP Pulse Ox 10/23/19 07:31 36.5 C 90 19 96/48 L 90 10/22/19 23:59 87 10/22/19 23:32 36.7 C 97 H 18 102/70 93 PG Care Time/CCT Total # of Minutes Spent Total Time Spent with Patient: Total time spent is greater than 50% in coordination of care (as documented) at patient's floor/unit and/or counseling patient: Coding Level of Care Code 82143 Subseq Hosp Care Lvl 2 Diagnoses Atrial fibrillation with rapid ventricular response I48.91 Chronic obstructive pulmonary disease J44.9 COPD type: unspecified COPD Endocarditis of mitral valve I05.8 Chronic venous insufficiency I87.2 Resident Activity Tracking Resident Involvement: Resident Care Provided Care Provided: Adult Hospital Medicine (1) Chronic obstructive pulmonary disease COPD type: unspecified COPD Qualified Code(s): J44.9 - Chronic obstructive pulmonary disease, unspecified
[2019-10-23] MEDS: MAGNESIUM OXIDE 400 MG TAB PO SCH (09:04)
[2019-10-23] MEDS: INSULIN ASPART 100 UNITS/ML 3 ML PEN SC SCH ×4 (09:10→16:46)
--- NOTE | 2019-10-23 09:42 | CT Scan Report ---
CT SCAN OF THE CHEST WITHOUT IV CONTRAST CLINICAL HISTORY: Dyspnea. COPD. Pulmonary nodule. COMPARISON STUDY: Chest CT scans dated 01/14/2019, 01/23/2018, and 05/31/2015. TECHNIQUE: CT scan of the thorax was performed from the thoracic inlet to the upper abdomen. Images are reviewed in the axial, sagittal, and coronal planes. IV contrast was not administered for this ex amination as per the referring clinician. A dose lowering technique was utilized adhering to the brina markples of [place]. CT DOSE: 943.18 mGy.cm FINDINGS: Thyroid: Imaged portions of the thyroid gland are normal in size and attenuation. A 2.0 cm low-attenu ation nodule is again seen in the right lobe. Smaller nodules are noted in the left lobe. Thoracic aorta: There is atherosclerotic calcification of the thoracic aorta, which is normal in tory lilian and demonstrates standard 3-vessel arch anatomy. Heart: The heart is mildly enlarged noting trace pericardial effusion. The coronary arteries and mitr al annulus are densely calcified. The pulmonary trunk is dilated, measuring up to 3.5 cm in diameter . This suggests pulmonary artery hypertension. Lungs and pleural spaces: Emphysematous change is noted. There is no lobar consolidation or pleural e ffusion. Scarring/atelectasis is noted at the lung bases. The trachea and central airways are clear. There are numerous groundglass (greater than 20) lesions scattered throughout both lungs. The largest lesion is in the right middle lobe seen on image #198 and measures 1.8 cm. A right lower lobe lesion on image #182 measures 1.4 cm, and a right upper lobe lesion on image #93 measures 1.2 cm. Addition al solid pulmonary nodules measure up to 5 mm (left lower lobe image #125, left lower lobe image #193 ). Mediastinum: There are scattered subcentimeter mediastinal lymph nodes. These are not pathologically enlarged by size criteria and are similar in appearance to prior studies. Karen: Not well assessed without IV contrast. Axillae: There is no axillary lymphadenopathy. Upper abdomen: There is a small hiatal hernia. The liver appears cirrhotic in morphology with nodular ity of the surface contour. A 1.8 cm cyst is again seen in the left lobe of the liver. Additional sub centimeter hepatic hypodensities also likely represent cysts but are too small for definitive charact erization. Skeletal structures: The skeletal structures are osteopenic. No lytic or blastic bony lesions are see n. Degenerative change is noted in the shoulders and thoracic spine. IMPRESSION: 1. Cardiomegaly and emphysema. 2. There is no airspace consolidation or pleural effusion. 3. Again seen are numerous groundglass pulmonary lesions scattered throughout both lungs. 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 4. Additional solid pulmonary nodules measure up to 5 mm. 5. There is no mediastinal adenopathy. 6. The appearance of the liver suggests early change of cirrhosis. Electronically signed by: Karel Palma M.D. 10/23/2019 9:40 AM
[2019-10-23] MEDS: FLUTICASONE/VILANTEROL 200/25MCG 14 PUFFS/INHALER INH SCH (11:34)
[2019-10-23] MEDS: UMECLIDINIUM BROMIDE 62.5MCG/BLISTER 7 PUFFS/INHALER INH SCH (11:35)
[2019-10-23] MEDS: cephALEXin 500 MG CAP PO SCH (11:36)
[2019-10-23] MEDS: NYSTATIN SUSP 500,000 U/5 ML UDC PO SCH ×2 (11:36→16:45)
[2019-10-23] MEDS: METOPROLOL SUCC 50MG EXT REL TAB PO SCH (11:37)
[2019-10-23] MEDS: lisinopriL 5 MG TAB PO SCH (11:38)
[2019-10-23] MEDS: CYANOCOBALAMIN 500 MCG TABLET (VITAMIN B-12) PO SCH (11:38)
[2019-10-23] MEDS: INSULIN GLARGINE SOLOSTAR 100 UNITS/ML 3 ML PEN SC SCH ×2 (11:44→15:08)
--- NOTE | 2019-10-23 12:16 | Pharmacy Report ---
Pharmacy Glycemic Short Note 2 - Date of Service October 23, 2019 - Glycemic Short BSG Results (Last 24 hours): 10/22/19 10/22/19 10/23/19 16:06 20:21 06:03 Glucose 133 H POC Glucose 157 H 155 H 10/23/19 10/23/19 07:29 11:27 Glucose POC Glucose 139 H 150 H OUTPATIENT ANTIDIABETIC REGIMEN: * Metformin 500mg PO BID * A1c = 7.3% 07/09/19 ASSESSMENT: 10/22 * BSGs again well controlled * Fasting BSG at upper end of goal with 10 units basal on board - plan to continue with increased dose of Lantus this AM * Post-prandial BSGs all at goal yesterday - no changes to Novolog doses 10/21 * BSGs well controlled over last 24 hrs * Fasting BSG 138-153 this AM with 10 units Lantus on board. There is room to titrate dose upwards. * Post-prandial BSGs well controlled yesterday, however pre-dinner BSG did drop to 70 yesterday - will decrease Novolog doses today * May consider resuming Metformin in near future if improving clinically and renal fxn stable. 10/20 * Glycemic control has improved over last 24 hrs. 23 units SQ insulin administered yesterday * Fasting BSG 146 this AM with 10 units basal on board - slightly above goal - will continue 10 units once daily at this time rather than BID scaled dosing * Novolog CF/CR doses performed well yesterday - continue same today and monitor BSG pattern * A1c 8.3% this AM, up from 7.3% when last checked 07/09/19 - patient's glycemic control appears to have deteriorated over last several months 10/19 * Type 2 diabetic admitted w/ SOB, a fib w/ RVR, pulmonary edema * BSGs in the 190-216 range since admission * Plan to initiate basal/bolus regimen using "mild-moderate" stress level and adjusted body-weight. Metformin will be held at this time. PLAN FOR INPATIENT GLYCEMIC CONTROL: * Hold outpatient oral diabetes medications (metformin) * Basal insulin - increase * Lantus 14 units SQ Q AM * Bolus insulin - no change * NovoLog per scale ACHS or Q6hrs while NPO * Goal Range: Low 110 mg/dL - High 150 mg/dL * Correction Factor: 30 mg/dL/unit * Nutritional / Prandial insulin per carb ratio of 1 unit per 10 grams CHO consumed PLAN FOR DISCHARGE: * Given more recent A1c of 8.3%, one might consider increasing metformin dosage and addition of a second agent to manage DM if the deterioration in glycemic control not due dietary indiscretion. Options for second agent include: empagliflozin (no dose adjustment if eGFR/eCrCl > 45) or canagliflozin (dose reduction required if eGFR/eCrCl < 60) due to benefits in CVD and CKD.
--- NOTE | 2019-10-23 16:07 | Discharge Summary ---
Date of Service date of admission - October 20, 2019 date of discharge - October 23, 2019 Admission HPI Per Admitting Provider Attending: Dr. Fan Acosta This is a 79-year-old female with a past medical history including permanent atrial fibrillation, chronic anticoagulation with warfarin, diabetes mellitus type 2 on metformin only, COPD, asthma, chronic venous insufficiency, gout, arthritis, history of endocarditis of mitral valve, mitral valve regurgitation, hypertension, chronic anemia on iron supplement, nonobstructive CAD, chronic kidney disease stage III, diverticulosis, endometrial polyp, GERD, hyperlipidemia, spondylolisthesis, history of umbilical hernia with repair, vitamin D deficiency. The patient states that for the last 2 or 3 days she has been having increasing shortness of breath. She has chronic atrial fibrillation and has noticed some variation in her heart rate over the last couple of days. Yesterday at 4:30 in the morning she awoke with a fast rate and felt lightheaded with shortness of breath. She denies any falls, syncope, presyncope. She has had a cough since August and has been on 2 course of prednisone with her last course completed 11 days ago. She has some chest tightness when laying flat but no specific chest pain. She has had nausea for about 2 weeks but no vomiting. She denies any fever or chills. She has no recent sick contacts. Rapid testing in the ED was COVID negative. She has no travel or contact with anyone that was COVID positive. She has no other acute complaints. Socially, the patient lives alone and has no pets. She has a son that lives in [facility]. She was a previous smoker but quit several years ago. She follows with Dr. Carter and Donna Wall PA-C on a regular basis for COPD and asthma.Most recent pulmonary function testing was completed 07/03/2011 and showed mild to moderate obstructive airway disease with slight improvement after inhaled bronchodilator. There was also mild reduction in the DLCO. FVC was 85% / 104%, FEV1 75% / 82%, FEV1/FVC 89% / 80%, TLC was 156%, DLCOunc was 66%. Most recent echocardiogram was 05/19/2018. Results showed mildly dilated left ventricle with normal systolic function with an EF of 60 to 65%. There is no evidence of wall motion abnormalities. There is moderate to severe mitral annular calcification of the posterior annulus. There is no hemodynamically significant valvular aortic stenosis or aortic regurgitation. Principal Diagnosis acute systolic CHF Discharge Exam Constitutional + morbidly obese; no acute distress and no altered mental status ENMT external ear and nose normal, oropharynx normal Respiratory no respiratory distress Auscultation: + diminished lung sounds (Bases, mild); no crackles and no wheezes Cardiovascular Rate/Rhythm: regular rate and + irregularly irregular Heart Sounds: normal S1 and normal S2; no murmur Vessels: posterior tibial pulses present and dorsalis pedis pulses present; no JVD Extremities: + edema (Trace b/l ) Gastrointestinal (Abdomen) normal bowel sounds, soft, nontender, no hepatosplenomegaly Psychiatric A+Ox3, euthymic affect Discharge Data Allergies Allergy/AdvReac Type Severity Reaction Status Date / Time technetium-99m Allergy Severe ANAPHYLAXIS Verified 10/20/19 08:20 amoxicillin Allergy Intermediate RASH Verified 10/20/19 08:20 nitrofurantoin Allergy Intermediate HIVES Verified 10/20/19 08:20 iodine Allergy Unknown HIVES, Verified 10/20/19 08:20 WITH DYE 30 YRS AGO-HAS HAD SINCE W/O PROBLEM [place] [facility] [place] Maxime Willis MD PT Ordered Studies 10/23/19 08:10 CT chest wo con - IMPRESSION: 1. Cardiomegaly and emphysema. 2. There is no airspace consolidation or pleural effusion. 3. Again seen are numerous groundglass pulmonary lesions scattered throughout both lungs. 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 4. Additional solid pulmonary nodules measure up to 5 mm. 5. There is no mediastinal adenopathy. 6. The appearance of the liver suggests early change of cirrhosis. Echocardiogram: * EF 50-55% * LV mildly dilated * basal inferior hypokinesis * normal valve function Two-step Oxygen test: no need for ambulatory oxygen; passed. Hospital Course (1) Acute systolic (congestive) heart failure: clinically improved with IV lasix during her stay. she lost at least between 10 and 15 pounds of fluid while here with discharge weight of 135.9 kg. etiology of decompensation was uncertain -- patient had had 2 rounds of prednisone in the weeks leading up to admission thus water retention from such could have contributed. Dietary factors may have played a role. Also, she has cirrhotic findings of the liver on CT and, if she indeed has cirrhosis, this will contribute to fluid retention as well. echo findings 10/21/19 - EF now 50-55%, was >60% about 1 year ago. modest decrease in LV function could be tachy-arrhythmia induced vs ischemia (new wall motion abnormality on echo) vs other. [facility] [place] completed while hospitalized and ischemia was felt unlikely at this time. ischemic evaluation was not undertaken while here. she will check daily weights at home and fluid/salt restrict. she will use lasix 20mg daily on a PRN basis for weight gains/edema. Beta andrea will be continued. follow-up with Dr Aponte or the CHF clinic advised shortly after discharge. (2) Atrial fibrillation with rapid ventricular response: Patient had a.fib with rvr upon admission. this required a brief period of cardizem infusion. toprol xl 150mg bid was continued. the cardizem was ultimately stopped and she continued on with monotherapy with her toprol xl. with walking HRs were 120 or elss. coumadin was continued while hospitalized with therapeutic INRs. (3) Type 2 diabetes mellitus: pharmacy provided glycemic management recommendations and control was excellent during the stay. HbA1c was 8.3%. 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 now on chronic keflex 500mg BID for prophylaxis. all of the above was in setting of what sounds like a TKR infection. (5) CAD in [place] artery: 2012 cath reviewed - had 20-30% RCA disease. this RCA lesion could be worse 8+ years later - unable to take chronic statin - but chances are low for such. cont BB, JESUS. consider low-dose aspirin. echo results noted. (6) Chronic kidney disease (CKD), stage III (moderate): fluctuating CrCL over the last 1-2 years CrCL often <60 depending on volume status CrCL stable in the 40s upon discharge (7) Morbid obesity: BMI 46.9 (8) Chronic obstructive pulmonary disease: not in exacerbation during the hospitalization continue home meds pulmonary symptoms were cardiac in nature from pulm edema (9) Hypomagnesemia: replaced and normal at discharge (10) Thrombocytopenia: very mild with mild leukopenia as well b12 level was low-normal; will supplement 1000mcg daily folate was wnl no signs of an infectious process to explain the low platelets low wbc count is chronic (runs 5-6 chronically) 2nd to cirrhosis? (11) Candidiasis of mouth and esophagus: nystatin solution x 10 days (12) Ground glass opacity present on imaging of lung: numerous opacities and nodules seen on chest CT this admission. most are stable in size / appearance. there are also solid nodules. she follows with Dr Bc Carter from pulmonary I have asked her to follow-up with Dr Carter re: these findings (13) Cirrhosis: incidentally the liver appeared cirrhotic on CT imaging. if present suspect the cirrhosis is from PENA/fatty liver given her morbid obesity. she already has an established relationship with Dr Velázquez from [facility]. I asked her to f/u with Dr Velázquez to work up this issue further. Total Time Total Time Spent Total Time Spent (In Minutes): 50 Total Time Includes: Examination of the Patient, Discharge Planning, Medication Reconciliation and Communication With Other Providers Discharge Plan Discharge Items Patient Disposition: Home - Home Health Services Reason For Visit: Rapid a.fib; shortness of breath Discharge Diagnosis: 1. a.fib - heart rates improved/controlled. 2. shortness of breath due to fluid build-up in the lungs (congestive heart failure) - resolved. 3. thrush (yeast infection in mouth) - improving. Likely due to recent pred nisone. 4. nodules in both lungs - follow-up with Dr Carter needed. 5. question of early cirrhosis? follow-up with Dr Velázquez needed. Condition on Discharge: Good Activity: As commented below Activity Comment: gradually increase your activities over the next few days Non-emergency contact: Primary Care Provider and Saw Handle Assembler Call non-emergency contact if: you have any medication questions, your symptoms worsen and you have a fever Follow-up/Referrals: Bc Carter MD [Primary Care Provider] - 10/28/19 1:00 pm (see Dr Carter within 5 days ) Lg Aponte MD [Physician] - 10/26/19 1:30 pm (see Dr Aponte within 1 week ) Rachel Armas PA-C [Physician Soaker Helper] - 10/30/19 9:00 am (Congestive Heart Failure Program Appointment Information Early follow up is essential to managing your heart failure. An appointment has been scheduled for you with the [facility] Heart Failure Program within 7 days of discharge. Anticipate this visit to be 30-60 minutes long. Please expect a degreasing wheel operator phone call from one of our nurses approximately 48 hours from discharge. They will also be placing an order for lab work to be completed 1-2 days prior to your heart failure follow up appointment. Please be sure to have this done so we can go over the results when you come in. Office Location The cardiology office building is located in front of the hospital at [address]. Bring the following with you to your follow-up doctor appointments: Please bring your daily weight log any discharge paperwork all of your medication bottles with you to this visit. ) Diet: Carb Consistent or DM2 and Heart Healthy Fluids: 1800ml (7 cups) Addtl Attending Provider Instructions: You were admitted to the hospital for the problems listed above in "discharge diagnoses." Your a.fib improved with medications, your water retention in the lungs improved with IV diuretics ("water pills"), and your breathing returned to near-normal. You lost over 15 pounds of water weight while hospitalized. Your discharge weight was about 298/299 pounds. We also treated you for thrush (yeast infection) of the mouth. On the day of discharge we performed a CAT scan of the lungs. This showed no residual water in the lungs or any pneumonia. There are multiple lung nodules in both lungs - Dr Carter has followed these for some time. Please be sure to speak with Dr Carter at your follow-up appointment regarding the scan. Incidentally the radiologist commented that the liver appeared to have features of mild cirrhosis. This will need follow-up with Dr Velázquez. If there is cirrhosis it could have developed from a condition called "fatty liver." Recommendations -- 1. check your weight EVERY MORNING on the same scale. When you wake up be sure to empty your bladder, then check your weight. Write your weights down in a notebook to keep track. If you gain more than 2-3 pounds in 1-2 days this is likely fluid weight. 2. if you notice fluid weight gain please START YOUR FUROSEMIDE WATER PILL. Take it daily until your weight is back down to your "dry weight." Be sure to take a potassium and magnesium supplement with the furosemide. Once you are back down to your dry weight you can stop the furosemide/potassium/magnesium. 3. if you gain fluid weight and you are not improving despite the furosemide -- please contact the Cardiology office right away. Most times we can prevent hospitalizations by adjusting your diuretic water pills by phone or thru an office visit. 4. take nystatin solution 5cc 4 times a day for 10 days. Swish and spit. 5. ask Dr Carter for a referral to Dr Velázquez for the ?cirrhosis. 6. follow-up with Dr Carter about the lung nodules. 7. follow-up appointments -- see separate section. 8. continue to practice social distancing, wear a mask at all times when you leave your home, and please be sure to get your flu shot this fall. 9. take an [id number] vitamin B12 supplement, 1000mcg daily, for about 12 months. Your vitamin B12 level was low-normal. Return to [facility] if -- * you have fever over 100 degrees * you have worsening shortness of breath * you have severe cough or wheezing * you have chest pain * any other concerns Addtl Reaming Machine Operator For Plastic Provider Instructions: [employer] is a free service in [facility]. If you decide that you would benefit from their services, their phone number is . If you have a smart phone, many grocery stores will deliver groceries to your car or your home. There is also an Bruce called [employer], which allows someone to go grocery shopping for you for a small fee. You can download the bruce or go to website www.[employer] Congestive Heart Failure Instructions: Call 911 and go to the Emergency Room if: * You have tightness or pain in your chest that does not go away with rest or Nitroglycerin * You are very short of breath even with rest Call your doctor if any of the following symptoms or problems start or get worse: * Shortness of breath or difficulty breathing * Wake up at night short of breath * Chest pain * Cough * Swelling of your hands, fee, or legs * More fatigued or tired with your normal activity * Palpitations - sudden fast heart beats WEIGHT * Weigh yourself every morning after using the bathroom. * Use the same scale. * Wear the same amount of clothing. * Write your weight down on your chart. * Call your doctor if you gain more than 2-3 pounds in 1-2 days. This is typically a sign of fluid weight gain. MEDICATIONS * Use this discharge instruction sheet for instructions. * Take your medications at the time your doctor ordered. * Do not skip a dose of your medicines. * If you miss a dose of medicine, take as soon as possible, but DO NOT DOUBLE A DOSE. * Read your medicine information when you get home. * Know all of the side effects of your medicine. * Call your doctor's office if you have any side effects. * Be sure all of your doctors know what medicine and herbs you take (including cold, flu, and herbal medicine). * Pain Medicine: If you do not get relief from your pain, please call your doctor for help. Take the following with you to your follow-up doctor appointments: * Weight Chart * Medication List * List of questions Do not drink excessive alcohol, beer or wine. Pending Studies at Discharge: No Stand-Alone Forms: My [facility] [employer], Smoking Cessation Medications and DC Order Prescriptions: New nystatin 100,000 unit/mL Suspension 5 ml PO QID 10 Days Qty: 200 RF: 0 furosemide [Lasix] 20 mg tablet 20 mg PO DAILY PRN (Reason: edema/weight gain ) Qty: 30 RF: 1 potassium chloride 20 mEq tablet extended release 20 meq PO DAILY PRN (Reason: when you take your furosemide) Qty: 30 RF: 1 magnesium oxide 400 mg (241.3 mg magnesium) tablet 400 mg PO DAILY PRN (Reason: when you take your furosemide) Qty: 30 RF: 1 cyanocobalamin (vitamin B-12) 1,000 mcg capsule 1,000 mcg PO DAILY Qty: 90 RF: 3 Continued (DME) blood sugar diagnostic strip See Dose Instructions .ROUTE .MEDSUPPLY Qty: 100 RF: 3 (DME) lancets misc See Dose Instructions .ROUTE .MEDSUPPLY Qty: 100 RF: 3 metformin 500 mg tablet extended release 24 hr 500 mg PO BID Qty: 180 RF: 3 cephalexin 500 mg capsule See Rx Instructions .ROUTE .COMPLEX Qty: 60 RF: 11 metoprolol succinate [Toprol XL] 100 mg tablet extended release 24 hr 150 mg PO BID Qty: 270 RF: 3 Spiriva Respimat 2.5 mcg/actuation mist 2 puff INHALATION QAM Qty: 4 RF: 5 albuterol sulfate 2.5 mg /3 mL (0.083 %) solution for nebulization 1.25 mg INHALATION Q6H PRN (Reason: Wheezing) Qty: 180 RF: 5 allopurinol 300 mg tablet 300 mg PO QAM Qty: 90 RF: 3 Dulera 200-5 mcg/actuation HFA aerosol inhaler 2 puff INH BID Qty: 3 RF: 3 lisinopril 5 mg tablet 5 mg PO QAM Qty: 30 RF: 5 (DME) lancets [OneTouch Delica Lancets] 30 gauge misc See Dose Instructions .ROUTE .MEDSUPPLY Qty: 25 RF: 0 (DME) OneTouch Ultra Blue Test Strip strip See Dose Instructions .ROUTE .MEDSUPPLY Qty: 10 RF: 0 warfarin 5 mg tablet 5 mg PO HS RF: 0 ferrous sulfate 324 mg (65 mg iron) tablet,delayed release (DR/EC) 324 mg PO HS RF: 0 Discharge Orders: Discharge Order (Routine); Ordered 10/23/19 Ordered By: Iglesia Rivera/Other Patient Handouts: Managing Type 2 Diabetes Admission Data Admit Date/Time: 10/20/19 11:07 Attending Provider: Iglesia Decker Admit Provider: Fan Acosta Primary Care Provider: Bc Carter Other Providers: Fan Acosta ; Lg Aponte ; [facility],Home Healthcare Other Interventions: Discharge Summary Assessment (RN) Last Done: 10/23/19 16:00 Coding Level of Care Code D/C Day Management >30 mins Diagnoses Acute systolic (congestive) heart failure I50.21 Atrial fibrillation with rapid ventricular response I48.91 Type 2 diabetes mellitus E11.9 Diabetes mellitus complication status: without complication Diabetes mellitus balance staff inspector insulin use: without senior care use Endocarditis of mitral valve I05.8 CAD in [place] artery I25.10 Chronic kidney disease (CKD), stage III (moderate) N18.3 Morbid obesity E66.01 Chronic obstructive pulmonary disease J44.9 COPD type: unspecified COPD Hypomagnesemia E83.42 Thrombocytopenia D69.6 Candidiasis of mouth and esophagus B37.81; B37.0 Ground glass opacity present on imaging of lung R91.8 Cirrhosis K74.60
[2019-10-23] MEDS: WARFARIN SOD 5 MG TAB PO SCH (16:46)
== END 2019-10-23 17:27 | disposition home health service (06) | DRG 308 ==
LOC: ED 07:21 → SUATTDRO 11:07 → 2E 11:07

== ENCOUNTER 2021-02-06 12:08 | Inpatient (IN) ==
--- NOTE | 2021-02-06 12:25 | Emergency Department Note ---
Impression & Plan Hypoxemia, A-fib, Anemia, CHF (congestive heart failure), COVID-19 ED Provider Note NAME: KINJAL DAVIS AGE: 80 SEX: F : 1940 ARRIVES VIA: Ambulance INFORMANT: Patient, ED PROVIDER(S): Tomas Shah MD Chief Complaint: Shortness of breath, cough HPI: Patient does present with the above symptoms he EMS due to concern for shortness of breath and cough. Patient states that her symptoms began last Saturday did notice a 4 pound weight gain with increasing lower extremity edema. The patient did eat Arlene ham and states that she did begin taking her diuretic but the patient has had a productive yellow sputum cough. The patient is a former smoker last working 20 years ago. The patient does have orthopnea and SADLER. Patient is down a pound and a half since her 4 pound weight gain was noticed. The patient was noted to be 90% on room air which increases to about 95% on 3 L per EMS. No other interventions prior to arrival. Patient denies any fevers or chills. The patient denies any chest pains. Patient denies any abdominal pain nausea vomiting. Patient is vaccinated for COVID-19 but without booster. The patient did receive her flu vaccine. Patient does follow with Dr. Aponte with cardiology. ROS: See HPI for pertinent positives and negatives. A total of 10 systems were revie wed and otherwise negative. Past medical history: See below Surgical history: See below Social history: See below Physical Exam: GENERAL: Mildly ill in appearance, wearing a mask, nasal cannula in place, wearing glasses. EYE EXAM: Normal conjunctiva. PERRL, no anisocoria and EOM's grossly intact w/o pain. OROPHARYNX: Moist mucus membranes. Grossly normal dentition. NECK: Supple, no nuchal rigidity, no adenopathy, non-tender. No signs of meningismus. LUNGS: Scant wheezes throughout with decreased breath sounds bilateral bases. Normal chest wall mechanics. Conversational dyspnea noted. HEART: Irregularly irregular, no MRG. ABDOMEN: Abdomen soft, non-tender, normo-active bowel sounds, no masses, no rebound or guarding. BACK: No CVA TTP. SKIN: No rashes and no bruising. UPPER EXTREMITIES: Upper extremities are grossly normal. LOWER EXTREMITIES: Grossly normal, 1+ symmetric bilateral lower extremity edema. NEURO EXAM: A&O x3, cranial nerves II-XII grossly intact, normal speech, moves all 4 extremities on command w/o issue. Differential diagnoses: Reactive airway disease, pneumonia, pneumothorax, COPD, CHF, infections, cardiac ischemia, pulmonary embolism, musculoskeletal, gas trointestinal, as well as other pathologies. Course: Patient was seen and evaluated the bedside. Full history physical exam was performed. EKG interpreted by me Caren torres, rate of 100, normal QRS, normal axis, no significant change from comparison EKG October 22, 2019. Imaging Studies: See Below Cardiac monitoring: An order was placed for continuous cardiac monitoring. The monitor shows a rate of 95 with irregular irregular rhythm. MDM: Was seen due to concern for shortness of breath and was seen in the ambulance receiving area hallway as the patient did not have a bed to be placed initially. Patient does have wheezing on exam. Blood work was obtained along with a BNP and troponin. Covid flu and RSV swabs ordered. The patient did receive a DuoNeb treatment as well as 40 of Lasix. Patient was continued on supplemental oxygen for low 90s goal. Chest x-ray also obtained. Patient was reassessed several times and did have improvement in symptoms. The patient was noted to have Covid. The patient was ordered dexamethasone. I did speak with the on-call hospitalist and the patient was admitted by Dr. Edmonds. Patient has leukopenia with slight anemia hemoglobin of 10.9. Patient's platelet count is unremarkable. Kidney function at baseline with a creat of 1.3. Magnesium 1.3. BNP was elevated. Troponin not detectable. Urinalysis did not show obvious infection. Flu and RSV negative. Chest x-ray showed pulmonary edema bilateral pleural effusions and associated cardiomegaly. Patient was reassessed again the patient was stating that she was doing quite well. The patient was conversing on the phone and seem to be much improved compared to when the patient had presented as she had had conversational dyspnea. Critical Care: I have personally spent 46 minutes of critical care time in direct management of this patient. This includes bedside care, interpretation of diagnostic studies, and testing, discussion with consultants, patient, and family members, and other require inpatient management activities. This 46 minutes is in excess of all separately billable procedures. Past Med/Surg History Medical History A-fib Alopecia Arthritis Asthma Atrial fibrillation with rapid ventricular response C. 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 Chronic diastolic CHF (congestive heart failure) Chronic kidney disease (CKD), stage III (moderate) Chronic low back pain Diverticulitis Diverticulosis Edema GI bleed HTN (hypertension) Hyperlipidemia residential (current) use of anticoagulants Mitral regurgitation Obesity Panic attacks AND CLAUSTROPHOBIA Sepsis Shortness of breath Surgical History History of anesthesia reaction SLOW TO WAKE UP History of arthroscopy of knee WITH DEBRIDEMENT R/L-[facility] [place] History of bladder surgery History of cataract surgery R/L History of colonoscopy History of total knee replacement R/L S/P IVC filter AND REMOVED Family History Unknown Diabetes Hypertension Mother Diabetes Cardiac disorder Grandfather Sinus disorder Social History Smoking Status: Former smoker Tobacco Type: Cigarettes Second Hand Exposure: No; Hx Alcohol Use: Yes Alcohol type: wine Hx Substance Use: No Preferred Language: Telugu Communication Ability: Effective Visual Impairment: Blindness C[place]age [place] Required: No Beliefs That Will Affect Care: None marital status: Unknown Current Living Situation: Alone Feels Safe at Home: Yes Assistive Devices: Walker Allergies Allergies Allergy/AdvReac Type Severity Reaction Status Date / Time [id number] Allergy Severe ANAPHYLAXIS Verified 02/06/21 14:18 amoxicillin Allergy Intermediate RASH Verified 02/06/21 14:18 nitrofurantoin Allergy Intermediate HIVES Verified 02/06/21 14:18 iodine Allergy Unknown HIVES, Verified 02/06/21 14:18 WITH DYE 30 YRS AGO-HAS HAD SINCE W/O PROBLEM Home Meds Home Medications Medication Instructions Recorded Confirmed acetaminophen 650 mg 650 mg PO Q8H 02/15/20 02/06/21 tablet,extended release (Tylenol Arthritis Pain) mometasone-formoterol HFA 200 2 puff INH DAILY 02/06/21 02/06/21 mcg-5 mcg/actuation aerosol inhaler (Dulera) Previous Rx's Medication Instructions Recorded albuterol sulfate 1.25 mg INHALATION Q6H PRN #180 ml 07/22/19 cyanocobalamin (vitamin B-12) 1,000 mcg PO DAILY #90 cap 10/23/19 1,000 mcg capsule magnesium oxide 400 mg (241.3 mg 400 mg PO DAILY PRN #30 tab 10/23/19 magnesium) tablet potassium chloride 20 mEq 20 meq PO DAILY PRN #30 tab 10/23/19 tablet,extended release nystatin 100,000 unit/gram topical See Rx Instructions TOPICAL BID 10/27/19 powder #60 g furosemide 20 mg tablet (Lasix) 20 mg PO DAILY PRN #30 tab 10/30/19 lancets #100 ea 12/30/19 blood sugar diagnostic #100 ea 01/28/20 allopurinol 300 mg tablet 300 mg PO QAM #90 tab 03/10/20 lisinopril 5 mg tablet 5 mg PO QAM #90 tab 03/10/20 metformin 500 mg tablet,extended 500 mg PO BID #180 tab 03/10/20 release 24 hr metoprolol succinate 100 mg 150 mg PO BID #270 tab 03/18/20 tablet,extended release 24 hr (Toprol XL) warfarin 5 mg tablet 5 mg PO .COMPLEX #90 tab 05/09/20 cephalexin 500 mg capsule See Rx Instructions .ROUTE 09/27/20 .COMPLEX #60 each diazepam 5 mg tablet 5 mg PO .COMPLEX #2 tab 11/03/20 lancing device with lancets kit #100 ea 01/16/21 ([employer] Delica Lanc Device) tiotropium bromide 2.5 2 puff INHALATION QAM #3 inhaler 01/16/21 mcg/actuation mist for inhalation (Spiriva Respimat) blood sugar diagnostic #10 ea 01/30/21 Results & Data (ED) Vital Signs Vital Signs - 24 hr 02/06/21 12:38 02/06/21 12:48 02/06/21 12:50 Temperature 37.6 C H Temperature Source Oral Pulse Rate 102 H Pulse Rate [Apical] Respiratory Rate 34 H Respiratory Effort / Characteristics Spontaneous SOB on Exertion Spontaneous Respiratory Depth Normal Respiratory Pattern Regular Blood Pressure 133/56 L Blood Pressure [Right Arm] Blood Pressure Mean 81 Blood Pressure Mean [Right Arm] Blood Pressure Position [Right Arm] Pulse Oximetry 93 93 Oxygen Delivery Method Room Air Room Air Room Air Oxygen Flow Rate Sepsis Recent Fever Within 48 Hours No Sepsis New/Unexplained Change in Mental Status N/A Sepsis Action Taken by Nursing No Action Required 02/06/21 13:16 02/06/21 15:00 Temperature Temperature Source Pulse Rate Pulse Rate [Apical] 94 H 92 H Respiratory Rate 20 20 Respiratory Effort / Characteristics Respiratory Depth Respiratory Pattern Blood Pressure Blood Pressure [Right Arm] 133/56 L Blood Pressure Mean Blood Pressure Mean [Right Arm] 81 Blood Pressure Position [Right Arm] Sitting Pulse Oximetry 96 95 Oxygen Delivery Method Nasal Cannula Nasal Cannula Oxygen Flow Rate 3 2 Sepsis Recent Fever Within 48 Hours Sepsis New/Unexplained Change in Mental Status Sepsis Action Taken by Long Term Medications Current Medication List: was personally reviewed by me Laboratory Data Attestation: I reviewed the patient's lab results. Result diagrams: 02/06/21 12:45 02/06/21 12:45 Lab Results 02/06/21 02/06/21 02/06/21 Range/Units 12:45 12:45 12:45 WBC 3.35 L (4.8-10.8) K/uL RBC 3.43 L (4.2-5.4) M/uL Hgb 10.9 L (12.0-16.0) g/dL Hct 34.1 L (37-47) % MCV 99.4 (80-100) fL MCH 31.8 (25-34) pg MCHC 32.0 (32-36) g/dL RDW Std Deviation 56.7 H (36.4-46.3) fL RDW Coeff of Beatrice 15.6 H (11.5-14.5) % Plt Count 148 (130-400) K/uL MPV 9.9 (7.4-10.4) fL Immature Gran % (Auto) 0.3 % Neut % (Auto) 68.9 % Lymph % (Auto) 20.0 % [place] % (Auto) 9.6 % Eos % (Auto) 0.6 % Baso % (Auto) 0.6 % Neut # (Auto) 2.31 (1.4-6.5) K/uL Lymph # (Auto) 0.67 L (1.2-3.4) K/uL [place] # (Auto) 0.32 (0.11-0.59) K/uL Eos # (Auto) 0.02 (0-0.5) K/uL Baso # (Auto) 0.02 (0-0.2) K/uL Immature Gran # (Auto) 0.01 (0.00-0.02) K/uL PT 13.5 H (9.0-12.0) Seconds INR 1.4 H (0.9-1.1) APTT 39.4 H (21.0-31.0) Seconds PTT Ratio 1.5 Sodium 136 (136-145) mmol/L Potassium 4.1 (3.5-5.1) mmol/L Chloride 104 (98-107) mmol/L Carbon Dioxide 25 (21-32) mmol/L Anion Gap 7.0 (3-11) BUN 26 H (7-18) mg/dl Creatinine 1.31 H (0.6-1.2) mg/dl Est Cr Clr Drug Dosing 49.4 ml/min Est GFR ( Amer) 44.8 ml/min Est GFR (Non-Af Amer) 38.6 ml/min BUN/Creatinine Ratio 20.0 (10-20) Glucose 182 H (70-99) mg/dl Calcium 9.1 (8.5-10.1) mg/dl Magnesium 1.3 L (1.8-2.4) mg/dl Ferritin 170.1 (8-388) ng/ml Total Bilirubin 0.8 (0.2-1) mg/dl AST 16 (15-37) U/L ALT 22 (12-78) Alkaline Phosphatase 59 (45-117) U/L Troponin I < 0.015 (0-0.045) ng/ml C-Reactive Protein 4.42 H (0-0.29) mg/dl NT-Pro-B Natriuret Pep 8003 H (0-1800) pg/ml Total Protein 6.7 (6.4-8.2) gm/dl Albumin 3.2 L (3.4-5.0) gm/dl Globulin 3.5 (2.5-4.0) gm/dl Albumin/Globulin Ratio 0.9 (0.9-2) Procalcitonin (0-0.5) ng/ml Urine Color Urine Appearance (Clear) Urine pH (4.5-7.5) Ur Specific [place] (1.000-1.030) Urine Protein (Negative) Urine Glucose (UA) (Negative) Urine Ketones (Negative) Urine Blood (Negative) Urine Nitrite (Negative) Urine Bilirubin (Negative) Urine Urobilinogen (Negative) Ur Leukocyte Esterase (Negative) SARS-CoV-2 (PCR) (Negative) Influenza Type A (PCR) (Neg) Influenza Type B (PCR) (Neg) RSV (RT-PCR) (Neg) 02/06/21 02/06/21 02/06/21 Range/Units 12:45 13:19 13:37 WBC (4.8-10.8) K/uL RBC (4.2-5.4) M/uL Hgb (12.0-16.0) g/dL Hct (37-47) % MCV (80-100) fL MCH (25-34) pg MCHC (32-36) g/dL RDW Std Deviation (36.4-46.3) fL RDW Coeff of Beatrice (11.5-14.5) % Plt Count (130-400) K/uL MPV (7.4-10.4) fL Immature Gran % (Auto) % Neut % (Auto) % Lymph % (Auto) % [place] % (Auto) % Eos % (Auto) % Baso % (Auto) % Neut # (Auto) (1.4-6.5) K/uL Lymph # (Auto) (1.2-3.4) K/uL [place] # (Auto) (0.11-0.59) K/uL Eos # (Auto) (0-0.5) K/uL Baso # (Auto) (0-0.2) K/uL Immature Gran # (Auto) (0.00-0.02) K/uL PT (9.0-12.0) Seconds INR (0.9-1.1) APTT (21.0-31.0) Seconds PTT Ratio Sodium (136-145) mmol/L Potassium (3.5-5.1) mmol/L Chloride (98-107) mmol/L Carbon Dioxide (21-32) mmol/L Anion Gap (3-11) BUN (7-18) mg/dl Creatinine (0.6-1.2) mg/dl Est Cr Clr Drug Dosing ml/min Est GFR ( Amer) ml/min Est GFR (Non-Af Amer) ml/min BUN/Creatinine Ratio (10-20) Glucose (70-99) mg/dl Calcium (8.5-10.1) mg/dl Magnesium (1.8-2.4) mg/dl Ferritin (8-388) ng/ml Total Bilirubin (0.2-1) mg/dl AST (15-37) U/L ALT (12-78) Alkaline Phosphatase (45-117) U/L Troponin I (0-0.045) ng/ml C-Reactive Protein (0-0.29) mg/dl NT-Pro-B Natriuret Pep (0-1800) pg/ml Total Protein (6.4-8.2) gm/dl Albumin (3.4-5.0) gm/dl Globulin (2.5-4.0) gm/dl Albumin/Globulin Ratio (0.9-2) Procalcitonin < 0.05 (0-0.5) ng/ml Urine Color Yellow Urine Appearance Clear (Clear) Urine pH 5.0 (4.5-7.5) Ur Specific [place] 1.010 (1.000-1.030) Urine Protein Negative (Negative) Urine Glucose (UA) Negative (Negative) Urine Ketones Negative (Negative) Urine Blood Negative (Negative) Urine Nitrite Negative (Negative) Urine Bilirubin Negative (Negative) Urine Urobilinogen Negative (Negative) Ur Leukocyte Esterase Negative (Negative) SARS-CoV-2 (PCR) POSITIVE A* (Negative) Influenza Type A (PCR) Negative (Neg) Influenza Type B (PCR) Negative (Neg) RSV (RT-PCR) Negative (Neg) Administered Medications Discontinued Medications Acetaminophen (Acetaminophen 500 Mg Tab) 1,000 mg PO NOW STA Stop: 02/06/21 12:55 Last Admin: 02/06/21 14:11 Dose: 1,000 mg Documented by: [id number] Albuterol (Albut/Ipratrop 3mg/0.5mg Neb 3 Ml Vial) 3 ml INH NOW STA Stop: 02/06/21 12:33 Last Admin: 02/06/21 12:42 Dose: 3 ml Documented by: [id number] Dexamethasone Sodium Phosphate (DexamethasonePf 10 Mg/Ml Vial) 6 mg IV NOW ONE Stop: 02/06/21 14:20 Last Admin: 02/06/21 15:06 Dose: 6 mg Documented by: [id number] Furosemide (Furosemide 40 Mg/4 Ml Vial) 40 mg IV NOW STA Stop: 02/06/21 12:33 Last Admin: 02/06/21 12:42 Dose: 40 mg Documented by: [id number] Remdesivir 200 mg/ Sodium (Chloride) 250 mls @ 125 mls/hr IV ONE STA; Protocol Stop: 02/06/21 17:21 Last Admin: 02/06/21 17:31 Dose: 125 mls/hr Documented by: [id number] Imaging Data Radiologist's Impression: Chest X-Ray 02/06/21 12:33 XR chest 1V portable HISTORY: Dyspnea, cough, wheeze, h/o CHF weight gain COMPARISON: Chest 10/21/2019. FINDINGS: No pneumothorax. Trace bilateral pleural effusions. The cardiac silhouette remains mildly enlarged. There is diffuse interstitial/vascular thickening likely represent mild pulmonary edema. This has slightly progressed. There are patchy right basilar densities. IMPRESSION: 1. Interval progression of the mild interstitial pulmonary edema and trace bilateral pleural effusions. 2. Cardiomegaly is again noted. 3. Patchy right basilar densities may represent an alveolar component of the pulmonary edema. A superimposed pneumonia could also have a similar appearance. ACT 112: Negative or not required by law. Electronically signed by: Maciel Modi M.D. 02/06/2021 1:23 PM Discharge Plan Visit Data Chief Complaint: Shortness of Breath/Dyspnea ED Provider: Tomas Shah Discharge Problem: Hypoxemia, A-fib, Anemia, CHF (congestive heart failure), COVID-19 Discharge Instructions Interventions: ED Discharge Assessment Last Done: 02/06/21 16:14
[2021-02-06] MEDS ORDERED: ALBUT/IPRATROP 3MG/0.5MG NEB 3 ML VIAL INH STA (12:32)
[2021-02-06] MEDS ORDERED: FUROSEMIDE 40 MG/4 ML VIAL IV STA (12:32)
[2021-02-06] MEDS ORDERED: ACETAMINOPHEN 500 MG TAB PO STA (12:54)
[2021-02-06 13:01] LABS: Basophils # (auto) 0.02 K/uL (0-0.2); Basophils % (auto) 0.6 %; Eosinophils # (auto) 0.02 K/uL (0-0.5); Eosinophils % (auto) 0.6 %; Hematocrit (blood only) 34.1 % (37-47); Hemoglobin 10.9 g/dL (12.0-16.0); Immature Granulocytes # (auto) 0.01 K/uL (0.00-0.02); Immature Granulocytes % (auto) 0.3 %; Lymphocytes # (auto) 0.67 K/uL (1.2-3.4); Mean Corpuscular Hemoglobin 31.8 pg (25-34); Mean Corpuscular Volume 99.4 fL (80-100); Mean Platelet Volume 9.9 fL (7.4-10.4); Monocytes # (auto) 0.32 K/uL (0.11-0.59); Monocytes % (auto) 9.6 %; Neutrophils # (auto) 2.31 K/uL (1.4-6.5); Neutrophils % (auto) 68.9 %; Platelet Count 148 K/uL (130-400); RDW Coefficient of Variation 15.6 % (11.5-14.5); RDW Standard Deviation 56.7 fL (36.4-46.3); Red Blood Count 3.43 M/uL (4.2-5.4); White Blood Count 3.35 K/uL (4.8-10.8)
[2021-02-06 13:20] LABS: INR 1.4 (0.9-1.1); Partial Thromboplastin Ratio 1.5; Partial Thromboplastin Time 39.4 Seconds (21.0-31.0); Prothrombin Time 13.5 Seconds (9.0-12.0)
[2021-02-06 13:21] LABS: Alanine Aminotransferase 22 (12-78); Albumin Level 3.2 gm/dl (3.4-5.0); Aspartate Aminotransferase 16 U/L (15-37); Blood Urea Nitrogen 26 mg/dl (7-18); Calcium 9.1 mg/dl (8.5-10.1); Carbon Dioxide 25 mmol/L (21-32); Chloride 104 mmol/L (98-107); Creatinine Clr Calc Pharmacy 49.4 ml/min; Est GFR (African American) 44.8 ml/min; Est GFR (Non-African American) 38.6 ml/min; Glucose 182 mg/dl (70-99); Magnesium 1.3 mg/dl (1.8-2.4); Potassium 4.1 mmol/L (3.5-5.1); Sodium 136 mmol/L (136-145)
--- NOTE | 2021-02-06 13:24 | XRay Report ---
XR chest 1V portable HISTORY: Dyspnea, cough, wheeze, h/o CHF weight gain COMPARISON: Chest 10/21/2019. FINDINGS: No pneumothorax. Trace bilateral pleural effusions. The cardiac silhouette remains mildly e nlarged. There is diffuse interstitial/vascular thickening likely represent mild pulmonary edema. Thi s has slightly progressed. There are patchy right basilar densities. IMPRESSION: 1. Interval progression of the mild interstitial pulmonary edema and trace bilateral pleural effusion s. 2. Cardiomegaly is again noted. 3. Patchy right basilar densities may represent an alveolar component of the pulmonary edema. A super imposed pneumonia could also have a similar appearance. ACT 112: Negative or not required by law. Electronically signed by: Maciel Modi M.D. 02/06/2021 1:23 PM
[2021-02-06 13:26] LABS: Albumin Globulin Ratio 0.9 (0.9-2); Alkaline Phosphatase 59 U/L (45-117); Bilirubin,Total 0.8 mg/dl (0.2-1); Globulin 3.5 gm/dl (2.5-4.0); NT Pro B Type Natriuretic Pept 8003 pg/ml (0-1800); Total Protein 6.7 gm/dl (6.4-8.2); Troponin I < 0.015 ng/ml (0-0.045)
[2021-02-06 13:46] LABS: Appearance Urine Clear (Clear); Bilirubin Urine Negative (Negative); Blood Urine Negative (Negative); Color Urine Yellow; Glucose Urine UA Negative (Negative); Ketones Urine Negative (Negative); Leukocyte Esterase Urine Negative (Negative); Nitrite Urine Negative (Negative); Protein Urine Negative (Negative); Urobilinogen Urine Negative (Negative)
--- NOTE | 2021-02-06 13:52 | Electrocardiogram Report ---
Test Reason : Blood Pressure : / mmHG Vent. Rate : 100 BPM Atrial Rate : 340 BPM P-R Int : 000 ms QRS Dur : 092 ms QT Int : 336 ms P-R-T Axes : 000 021 045 degrees QTc Int : 433 ms Atrial fibrillation Low voltage QRS Nonspecific ST abnormality Abnormal ECG When compared with ECG of 22-OCT-2019 06:42, No significant change was found Confirmed by Maxime Willis ([id number]) on 02/06/2021 1:52:34 PM Referred By: Confirmed By:Elliott Willis
[2021-02-06 14:06] LABS: Influenza A virus by PCR Negative (Neg); Influenza B virus by PCR Negative (Neg); RSV by PCR Negative (Neg)
[2021-02-06 14:09] LABS: SARS CoV2 RNA(COVID-19) InHosp POSITIVE (Negative)
[2021-02-06] MEDS ORDERED: dexAMETHasone**PF** 10 MG/ML VIAL IV ONE (14:19)
[2021-02-06] MEDS ORDERED: REMDESIVIR 200 MG in SODIUM CHLORIDE 0.9% 210 ML IV STA (15:22)
--- NOTE | 2021-02-06 15:34 | History & Physical Report ---
Date of Service February 06, 2021 Assessment & Plan (1) COVID-19: Plan: COVID 19- vaccinated without booster - Patient is ~ day 6 of illness with hypoxia - Start Remdisivir for 5 days - Continue Decadron 6mg IV daily - CRP 4.42- on 2LNC - Fibrinogen- 412 - Ferritin 170 - LDH-197 - BNP 8003 - Continue with Lasix 40mg IV q6 hours x2 - PCT <0.05- will hold on ABX - Self rotation therapy discussed with patient to perform (2) Hypoxia: Plan: Hypoxia without respiratory failure- secondary to multifactorial acute on chronic CHF and COVID 19 - As above - Supportive care- NC/HFNC/CPAP/BIPAP/INTUBATION (3) Chronic diastolic CHF (congestive heart failure): Plan: Acute on chronic HFpEF exacerbation - secondary to acute illness and dietary indiscretion - Diurese as above - Continue JESUS, BB, Diuretic (4) Subtherapeutic anticoagulation: Plan: On Coumadin for her AFIB- Subtherapeutic today at 1.4 - Lovenox therapeutic 1mg/kg BID and increase Coumadin to 7.5mg daily - bridge until therapeutic (5) CKD (chronic kidney disease), stage III: Plan: CKD III - Follow renal function as above - 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 at 1.31 (6) Afib: Plan: As above with INR Continue Diltiazem Continue with Metoprolol (7) DMII (diabetes mellitus, type 2): Plan: Hold Metformin - Place on basal Lantus 30 units subq BID - with acute illness and steroid therapy - Sliding scale aspart CF 20 with ratio 1:10 - Follow for hypoglycemia (8) Lumbar disc disease: Plan: Chronic receives steroid injections periodically (9) Chronic obstructive pulmonary disease: Plan: Continue with CHAI/LABA/ICS (10) HTN (hypertension): Plan: As above (11) Hyperlipidemia: Plan: Continue statin (12) Mitral regurgitation: Plan: Diurese as above History of Present Illness Chief Complaint: fatigue Primary Care Provider: Bc Carter MD 80 YOF with past medical history of: infective endocarditis, afib (on Coumadin), HFpEF, Mitral Regurge, HLD, HTN, Neurogenic claudication secondary to lumbar stenosis, COPD, DMII. Patient comes to the EMD today for complaints of increased dyspnea and use of her inhalers at home. Patient states that symptoms started las Saturday. Her symptoms were nasal congestion and chest congestion with 1 day of diarrhea Last . She originally thought it was related to her CHF as she also had a 4 pound weight gain at that time, so she instituted her home Lasix dosing for 2 days. She stopped this on Saturday and also had some dietary indiscretion over the weekend with Yorkshire ham and other foods with higher sodium concentrations. This did not improve her symptoms and notes her weight is only down 1LB from the original 4LB gain and she remains dyspneic/orthopneic. In the EMD she had routine labs drawn to include BNP,INR, and COVID testing. She was noted to be COVID (+) as well as have elevated BNP, and require 2 L of oxygen to maintain spo2 >90%. She was also give n 40mg IV Lasix x1 with 2 voids since being in the EMD. She feels that her breathing has improved with that and feels less chest congestion. Patient will be admitted for her hypoxia which is multifactorial and likely related more to her acute on chronic heart failure than COVID, continue to diurese patient with 40mg IV Lasix x 2 more doses and re-evaluate in the morning. Will start patient on Remdisivir as she is ~ day 6 of her illness, continue Decadron. For her low INR will place on therapeutic Lovenox BID and increase her Coumadin to 7.5 mg PO daily until INR > 2.0. WIll need to follow her renal function closely with her Remdisiver and Lovenox. Patient is vaccinated without booster and her COVID test on admission is: POSITIVE Allergies Allergy/AdvReac Type Severity Reaction Status Date / Time technetium-99m Allergy Severe ANAPHYLAXIS Verified 02/06/21 14:18 amoxicillin Allergy Intermediate RASH Verified 02/06/21 14:18 nitrofurantoin Allergy Intermediate HIVES Verified 02/06/21 14:18 iodine Allergy Unknown HIVES, Verified 02/06/21 14:18 WITH DYE 30 YRS AGO-HAS HAD SINCE W/O PROBLEM Home Medications Medication Instructions Recorded Confirmed Type albuterol sulfate 1.25 mg INHALATION Q6H PRN #180 ml 07/22/19 02/06/21 Rx cyanocobalamin (vitamin B-12) 1,000 mcg PO DAILY #90 cap 10/23/19 02/06/21 Rx 1,000 mcg capsule magnesium oxide 400 mg (241.3 mg 400 mg PO DAILY PRN #30 tab 10/23/19 02/06/21 Rx magnesium) tablet potassium chloride 20 mEq 20 meq PO DAILY PRN #30 tab 10/23/19 02/06/21 Rx tablet,extended release nystatin 100,000 unit/gram topical See Rx Instructions TOPICAL BID 10/27/19 02/06/21 Rx powder #60 g furosemide 20 mg tablet (Lasix) 20 mg PO DAILY PRN #30 tab 10/30/19 02/06/21 Rx lancets #100 ea 12/30/19 01/16/21 Rx blood sugar diagnostic #100 ea 01/28/20 01/16/21 Rx acetaminophen 650 mg 650 mg PO Q8H 02/15/20 02/06/21 History tablet,extended release (Tylenol Arthritis Pain) allopurinol 300 mg tablet 300 mg PO QAM #90 tab 03/10/20 02/06/21 Rx lisinopril 5 mg tablet 5 mg PO QAM #90 tab 03/10/20 02/06/21 Rx metformin 500 mg tablet,extended 500 mg PO BID #180 tab 03/10/20 02/06/21 Rx release 24 hr metoprolol succinate 100 mg 150 mg PO BID #270 tab 03/18/20 02/06/21 Rx tablet,extended release 24 hr (Toprol XL) warfarin 5 mg tablet 5 mg PO .COMPLEX #90 tab 05/09/20 02/06/21 Rx cephalexin 500 mg capsule See Rx Instructions .ROUTE 09/27/20 02/06/21 Rx .COMPLEX #60 each diazepam 5 mg tablet 5 mg PO .COMPLEX #2 tab 11/03/20 02/06/21 Rx lancing device with lancets kit #100 ea 01/16/21 01/16/21 Rx (OneTouch Delica Lanc Device) tiotropium bromide 2.5 2 puff INHALATION QAM #3 inhaler 01/16/21 02/06/21 Rx mcg/actuation mist for inhalation (Spiriva Respimat) blood sugar diagnostic #10 ea 01/30/21 Rx mometasone-formoterol HFA 200 2 puff INH DAILY 02/06/21 02/06/21 History mcg-5 mcg/actuation aerosol inhaler (Dulera) Past Med/Surg History Medical History A-fib Alopecia Arthritis Asthma Atrial fibrillation with rapid ventricular response C. difficile colitis CAD in [place] artery Chronic diastolic CHF (congestive heart failure) Chronic kidney disease (CKD), stage III (moderate) Chronic low back pain Diverticulitis Diverticulosis Edema GI bleed HTN (hypertension) Hyperlipidemia skilled nursing (current) use of anticoagulants Mitral regurgitation Obesity Panic attacks AND CLAUSTROPHOBIA Sepsis Shortness of breath Surgical History History of anesthesia reaction SLOW TO WAKE UP History of arthroscopy of knee WITH DEBRIDEMENT R/L-[facility] History of bladder surgery History of cataract surgery R/L History of colonoscopy History of total knee replacement R/L S/P IVC filter AND REMOVED Family History Unknown Diabetes Hypertension Mother Diabetes Cardiac disorder Grandfather Sinus disorder Social History Smoking Status: Former smoker Tobacco Type: Cigarettes Second Hand Exposure: No; Do You Dip or Chew Tobacco: No; Hx Alcohol Use: Yes Alcohol type: wine Hx Substance Use: No Preferred Language: Prydeinig Communication Ability: Effective Visual Impairment: Blindness Gut Snatcher Required: No Beliefs That Will Affect Care: None marital status: Unknown Current Living Situation: Alone Other Information That Helps Us Care for You: No Feels Safe at Home: Yes Safety Concerns: Feels Safe At This Time Assistive Devices: Glasses, Oxygen - Continuous and Walker Review of Systems Review of Systems: REVIEW OF SYSTEMS: Constitutional: No fever, sweats or chills Eyes: No diplopia, no worsening or blurred vision ENT: normal hearing, no trouble swallowing Respiratory: (+) cough, sputum, dyspnea at rest or on exertion Cardiovascular: No chest pain, tightness or palpitations Abdomen: No pain, nausea, vomiting, diarrhea or constipation Musculoskeletal: (+) chronic low back pain, No calf pain, swelling Neurologic: No weakness, numbness/tingling, or balance problems Psychiatric: No anxiety or depression Skin: No rash or itch Physical Exam Physical Exam: PHYSICAL EXAM: General: awake, alert, no apparent distress Head: Normocephalic, atraumatic ENT: PERRL, EOMI, no pharyngeal exudate, mucous membranes moist Neuro: AAO x 3, speech clear and appropriate, strength intact bilaterally 5/5, sensation intact and equal all extremities and dermatomes, no pronator drift Chest: equal rise and fall of the chest, no accessory muscle use, no heaves or thrills, scattered crackles throughout, on 2LNC, Cardiac: Regular rate and rhythm, telemetry reviewed- afib, skin warm dry, cap refill <3 seconds, peripheral pulses +2 no JVD, no murmur, trace lower extremity edema GI: NABS x 4 quadrants, soft, nontender to palpation, no rebound, guarding or tenderness : Spontaneously voiding, no pain, no CVA tenderness, Extremities: Normal inspection, no peripheral edema or erythema, calfs nontender to palpation Psych: Normal mood and affect Skin: no rash or erythema Results & Data Results & Data ([facility]) Vital Signs (Past 12 Hours) Vital Signs Temp Pulse Pulse Resp BP BP Pulse Ox 02/06/21 15:00 92 H 20 95 02/06/21 13:16 94 H 20 133/56 L 96 02/06/21 12:50 93 02/06/21 12:38 37.6 C H 102 H 34 H 133/56 L 93 Laboratory Results Abnormal lab results 02/06/21 02/06/21 02/06/21 Range/Units 12:45 12:45 12:45 WBC 3.35 L (4.8-10.8) K/uL RBC 3.43 L (4.2-5.4) M/uL Hgb 10.9 L (12.0-16.0) g/dL Hct 34.1 L (37-47) % RDW Std Deviation 56.7 H (36.4-46.3) fL RDW Coeff of Beatrice 15.6 H (11.5-14.5) % Lymph # (Auto) 0.67 L (1.2-3.4) K/uL PT 13.5 H (9.0-12.0) Seconds INR 1.4 H (0.9-1.1) APTT 39.4 H (21.0-31.0) Seconds BUN 26 H (7-18) mg/dl Creatinine 1.31 H (0.6-1.2) mg/dl Glucose 182 H (70-99) mg/dl Magnesium 1.3 L (1.8-2.4) mg/dl NT-Pro-B Natriuret Pep 8003 H (0-1800) pg/ml Albumin 3.2 L (3.4-5.0) gm/dl SARS-CoV-2 (PCR) (Negative) 02/06/21 Range/Units 13:19 WBC (4.8-10.8) K/uL RBC (4.2-5.4) M/uL Hgb (12.0-16.0) g/dL Hct (37-47) % RDW Std Deviation (36.4-46.3) fL RDW Coeff of Beatrice (11.5-14.5) % Lymph # (Auto) (1.2-3.4) K/uL PT (9.0-12.0) Seconds INR (0.9-1.1) APTT (21.0-31.0) Seconds BUN (7-18) mg/dl Creatinine (0.6-1.2) mg/dl Glucose (70-99) mg/dl Magnesium (1.8-2.4) mg/dl NT-Pro-B Natriuret Pep (0-1800) pg/ml Albumin (3.4-5.0) gm/dl SARS-CoV-2 (PCR) POSITIVE A* (Negative) Diagnostic Findings Chest X-Ray 02/06/21 12:33 XR chest 1V portable HISTORY: Dyspnea, cough, wheeze, h/o CHF weight gain COMPARISON: Chest 10/21/2019. FINDINGS: No pneumothorax. Trace bilateral pleural effusions. The cardiac silhouette remains mildly enlarged. There is diffuse interstitial/vascular thickening likely represent mild pulmonary edema. This has slightly progressed. There are patchy right basilar densities. IMPRESSION: 1. Interval progression of the mild interstitial pulmonary edema and trace bilateral pleural effusions. 2. Cardiomegaly is again noted. 3. Patchy right basilar densities may represent an alveolar component of the pulmonary edema. A superimposed pneumonia could also have a similar appearance. ACT 112: Negative or not required by law. Electronically signed by: Maciel Modi M.D. 02/06/2021 1:23 PM Medications Administered Home Medications albuterol sulfate 1.25 mg INHALATION Q6H PRN #180 ml 06/10/20 [Rx Confirmed 02/06/21] cyanocobalamin (vitamin B-12) 1,000 mcg capsule 1,000 mcg PO DAILY #90 cap 10/23/19 [Rx Confirmed 02/06/21] magnesium oxide 400 mg (241.3 mg magnesium) tablet 400 mg PO DAILY PRN #30 tab 10/23/19 [Rx Confirmed 02/06/21] potassium chloride 20 mEq tablet,extended release 20 meq PO DAILY PRN #30 tab 10/23/19 [Rx Confirmed 02/06/21] nystatin 100,000 unit/gram topical powder See Rx Instructions TOPICAL BID #60 g 10/27/19 [Rx Confirmed 02/06/21] furosemide 20 mg tablet (Lasix) 20 mg PO DAILY PRN #30 tab 10/30/19 [Rx Confirmed 02/06/21] lancets #100 ea 12/30/19 [Rx Confirmed 01/16/21] blood sugar diagnostic #100 ea 01/28/20 [Rx Confirmed 01/16/21] acetaminophen 650 mg tablet,extended release (Tylenol Arthritis Pain) 650 mg PO Q8H 02/15/20 [History Confirmed 02/06/21] allopurinol 300 mg tablet 300 mg PO QAM #90 tab 03/10/20 [Rx Confirmed 02/06/21] lisinopril 5 mg tablet 5 mg PO QAM #90 tab 03/10/20 [Rx Confirmed 02/06/21] metformin 500 mg tablet,extended release 24 hr 500 mg PO BID #180 tab 03/10/20 [Rx Confirmed 02/06/21] metoprolol succinate 100 mg tablet,extended release 24 hr (Toprol XL) 150 mg PO BID #270 tab 03/18/20 [Rx Confirmed 02/06/21] warfarin 5 mg tablet 5 mg PO .COMPLEX #90 tab 05/09/20 [Rx Confirmed 02/06/21] cephalexin 500 mg capsule See Rx Instructions .ROUTE .COMPLEX #60 each 09/27/20 [Rx Confirmed 02/06/21] diazepam 5 mg tablet 5 mg PO .COMPLEX #2 tab 11/03/20 [Rx Confirmed 02/06/21] lancing device with lancets kit (KickAss Candy Lanc Device) #100 ea 01/16/21 [Rx Confirmed 01/16/21] tiotropium bromide 2.5 mcg/actuation mist for inhalation (Spiriva Respimat) 2 puff INHALATION QAM #3 inhaler 01/16/21 [Rx Confirmed 02/06/21] blood sugar diagnostic #10 ea 01/30/21 [Rx] mometasone-formoterol HFA 200 mcg-5 mcg/actuation aerosol inhaler (Dulera) 2 puff INH DAILY 02/06/21 [History Confirmed 02/06/21] Active Medications Remdesivir 200 mg/ Sodium (Chloride) 250 mls @ 125 mls/hr IV ONE STA; Protocol Stop: 02/06/21 17:21 Magnesium Sulfate/Dextrose (Magnesium Sulfate / D5w) 1 gm in 100 mls @ 50 mls/hr IV Q2H NEELA Stop: 02/06/21 21:35 ECG Additional Comments: DICTATED BY:Maxime Willis MD Test Reason : Vent. Rate : 100 BPM Atrial Rate : 340 BPM P-R Int : 000 ms QRS Dur : 092 ms QT Int : 336 ms P-R-T Axes : 000 021 045 degrees QTc Int : 433 ms Atrial fibrillation Low voltage QRS Nonspecific ST abnormality Abnormal ECG When compared with ECG of 22-OCT-2019 06:42, No significant change was found Confirmed by Maxime Willis ([id number]) on 02/06/2021 1:52:34 PM Code Status & VTE Plan Code Status CODE: FULL VTE: SCDs, Lovenox therapuetic, Warfarin VTE Prophylaxis Plan VTE Prophylaxis will be ordered: Yes Supervising Physician Co-Signing Physician Notes Patient was seen and examined at bedside. During face to face encounter, obtained a history and physical examination. Discussed with APC Bharathi plan of care. Patient will be admitted for COVID 19. Currently she does require low oxygen supplementation, and will place on remdesevir. May consider discharge in 48 hours, if her oxygen requirements do not worsen. I agree with above plan. PG Care Time/CCT Total # of Minutes Spent Total Time Spent with Patient: Total time spent is greater than 50% in coordination of care (as documented) at patient's floor/unit and/or counseling patient: Coding Level of Care Code 31183 Initial Inpt Care Lvl 3 Diagnoses COVID-19 U07.1 Chronic diastolic CHF (congestive heart failure) I50.32 Lumbar disc disease M51.9 Chronic obstructive pulmonary disease J44.9 HTN (hypertension) I10 Hyperlipidemia E78.5 Mitral regurgitation I34.0 Hypoxia R09.02 Subtherapeutic anticoagulation Z51.81; Z79.01 Afib I48.91 CKD (chronic kidney disease), stage III N18.30 DMII (diabetes mellitus, type 2) E11.9
[2021-02-06 15:52] LABS: C Reactive Protein 4.42 mg/dl (0-0.29); Ferritin 170.1 ng/ml (8-388)
[2021-02-06 16:00] LABS: Fibrinogen 412 mg/dl (184-400)
[2021-02-06] MEDS ORDERED: ALBUTEROL 0.083% NEBU SOLN 3 ML VIAL INH PRN (17:07)
[2021-02-06] MEDS ORDERED: GLUCOSE 40% GEL 15 GM TUBE PO PRN (17:07)
[2021-02-06] MEDS ORDERED: POLYETHYLENE (MIRALAX) 17 GM PACK PO PRN (17:07)
[2021-02-06] MEDS ORDERED: CARBOHYDRATES FOR HYPOGLYCEMIA PO PRN (17:07)
[2021-02-06] MEDS ORDERED: ENOXAPARIN 1 MG/KG SQ SCH (17:07)
[2021-02-06] MEDS ORDERED: ACETAMINOPHEN 325 MG TAB PO PRN (17:07)
[2021-02-06] MEDS ORDERED: GLUCAGON FOR INJ 1 MG VIAL SQ PRN (17:07)
[2021-02-06] MEDS ORDERED: GLUCOSE 10 TABS/TUBE PO PRN (17:07)
[2021-02-06] MEDS ORDERED: DEXTROSE 50% 50 ML SYRINGE IV PRN (17:07)
[2021-02-06] MEDS: WARFARIN SOD 7.5 MG TAB PO SCH (18:02)
[2021-02-06] MEDS: ENOXAPARIN 150 MG/ML SYR SQ SCH (18:03)
[2021-02-06] MEDS: FUROSEMIDE 40 MG/4 ML VIAL IV SCH (18:04)
[2021-02-06] MEDS: MAGNESIUM SULFATE / D5W 1 GM/100 ML BAG IV SCH ×3 (18:18→22:30)
[2021-02-06] MEDS: INSULIN ASPART PER UNIT SC SCH ×2 (18:21→20:44)
[2021-02-06] MEDS: METOPROLOL SUCC 50MG EXT REL TAB PO SCH (20:20)
[2021-02-06] MEDS: INSULIN GLARGINE SOLOSTAR 100 UNITS/ML 3 ML PEN SC SCH (22:12)
[2021-02-07] MEDS: FUROSEMIDE 40 MG/4 ML VIAL IV SCH (00:34)
[2021-02-07] MEDS: ENOXAPARIN 150 MG/ML SYR SQ SCH ×2 (04:26→18:08)
[2021-02-07 06:27] LABS: Bilirubin Direct 0.2 mg/dl (0-0.2); Bilirubin,Total 0.6 mg/dl (0.2-1); Total Protein 6.4 gm/dl (6.4-8.2)
[2021-02-07] MEDS: METOPROLOL SUCC 50MG EXT REL TAB PO SCH ×2 (09:26→19:50)
[2021-02-07] MEDS: allopurinoL 300 MG TAB PO SCH (09:26)
[2021-02-07] MEDS: dexAMETHasone 6 MG in SYRINGE 0 ML IV SCH (09:26)
[2021-02-07] MEDS: INSULIN GLARGINE SOLOSTAR 100 UNITS/ML 3 ML PEN SC SCH ×2 (09:28→21:26)
[2021-02-07] MEDS: UMECLIDINIUM BROMIDE 62.5MCG/BLISTER 7 PUFFS/INHALER INH SCH (09:28)
[2021-02-07] MEDS: lisinopril 5 MG TAB PO SCH (09:28)
[2021-02-07] MEDS: FLUTICASONE/VILANTEROL 200/25MCG 14 PUFFS/INHALER INH SCH (09:29)
[2021-02-07 09:31] LABS: Hematocrit (blood only) 35.3 % (37-47); Hemoglobin 11.7 g/dL (12.0-16.0); Mean Corpuscular Hemoglobin 32.6 pg (25-34); Mean Corpuscular Hgb Conc 33.1 g/dL (32-36); Mean Corpuscular Volume 98.3 fL (80-100); Mean Platelet Volume 10.4 fL (7.4-10.4); Platelet Count 168 K/uL (130-400); RDW Standard Deviation 53.7 fL (36.4-46.3); Red Blood Count 3.59 M/uL (4.2-5.4); White Blood Count 2.42 K/uL (4.8-10.8)
[2021-02-07] MEDS: INSULIN ASPART PER UNIT SC SCH ×4 (09:42→20:37)
[2021-02-07 09:44] LABS: INR 1.4 (0.9-1.1); Prothrombin Time 13.7 Seconds (9.0-12.0)
[2021-02-07 10:04] LABS: Albumin Level 3.4 gm/dl (3.4-5.0); BUN Creatinine Ratio 26.4 (10-20); Calcium 9.5 mg/dl (8.5-10.1); Creatinine Clr Calc Pharmacy 22.6 ml/min; Est GFR (African American) 39.6 ml/min; Est GFR (Non-African American) 34.2 ml/min; Potassium 3.8 mmol/L (3.5-5.1)
[2021-02-07 10:07] LABS: Albumin Globulin Ratio 0.9 (0.9-2); Bilirubin,Total 0.7 mg/dl (0.2-1); Globulin 3.7 gm/dl (2.5-4.0); Total Protein 7.1 gm/dl (6.4-8.2)
[2021-02-07] MEDS: REMDESIVIR 100 MG in SODIUM CHLORIDE 0.9% 230 ML IV SCH (11:49)
[2021-02-07 12:45] LABS: INR 1.5 (0.9-1.1); Prothrombin Time 14.5 Seconds (9.0-12.0)
[2021-02-07] MEDS: SODIUM CHLORIDE 0.9% 10ML FLUSH IV SCH (12:56)
[2021-02-07] MEDS: WARFARIN SOD 7.5 MG TAB PO SCH (15:55)
--- NOTE | 2021-02-07 18:28 | Hospitalist Progress Note ---
Date of Service February 07, 2021 Assessment & Plan (1) COVID-19: Plan: COVID 19- vaccinated without booster - Patient is ~ day 6 of illness with hypoxia - Started Remdisivir for 5 days - Continue Decadron 6mg IV daily - Will monitor; can consider Lasix again tomorrow, but Cr rising today. - PCT <0.05- will hold on ABX - Self rotation therapy discussed with patient to perform (2) Hypoxia: Plan: Hypoxia without respiratory failure- secondary to multifactorial acute on chronic CHF and COVID 19 - As above (3) Chronic diastolic CHF (congestive heart failure): Plan: Acute on chronic HFpEF exacerbation - Secondary to acute illness and dietary indiscretion - Diurese as above - Continue ACEi, BB, Diuretic (4) Subtherapeutic anticoagulation: Plan: On Coumadin for her AFIB- Subtherapeutic today at 1.4 - No bridge needed. - Monitor INR (5) CKD (chronic kidney disease), stage III: Plan: CKD III, baseline Cr 1.3 - 1.5. - Follow renal function as above (6) Afib: Plan: As above with INR Continue Diltiazem Continue with Metoprolol (7) DMII (diabetes mellitus, type 2): Plan: Hold Metformin. A1c was 6.5% in 12/2020. - Place on basal Lantus 30 units subq BID - with acute illness and steroid therapy - Sliding scale aspart CF 20 with ratio 1:10 - Follow for hypoglycemia (8) Lumbar disc disease: Plan: Chronic receives steroid injections periodically (9) Chronic obstructive pulmonary disease: Plan: Continue with CHAI/LABA/ICS (10) HTN (hypertension): Plan: As above (11) Hyperlipidemia: Plan: Continue statin (12) Mitral regurgitation: Plan: Diurese as above Admission and Anticipated Discharge Date Admission Date: February 06, 2021 Subjective Doing well today. No major issues. Back on room air. Reports no fevers/chills, chest pain, shortness of breath, abdominal pain, nausea, or vomiting. Physical Exam Constitutional: WD/WN, vitals as above Eyes: EOM intact bilaterally; no conjunctival abnormality ENMT: external ear and nose normal, oropharynx normal Neck: trachea midline, no thyromegaly normal visual inspection Respiratory: normal respiratory effort, lungs clear to auscultation no respiratory distress Cardiovascular: RRR, no murmur, no edema Gastrointestinal (Abdomen): Inspection/Auscultation: abdomen normal to inspection; abdomen not distended Musculoskeletal: no cyanosis or clubbing, extremities motor strength 5/5 Skin: no rashes, warm and dry Neurologic: moves all extremities and awake Psychiatric: Orientation: alert, oriented to person and cooperative Results & Data Results & Data ([facility]) Vital Signs (Past 12 Hours) Vital Signs Temp Pulse Pulse Resp BP Pulse Ox 02/07/21 16:38 36.7 C 96 H 20 148/83 H 92 02/07/21 12:00 36.7 C 85 20 142/73 H 96 02/07/21 07:41 36.6 C 104 H 18 161/85 H 93 PG Care Time/CCT Total # of Minutes Spent Total Time Spent with Patient: Total time spent is greater than 50% in coordination of care (as documented) at patient's floor/unit and/or counseling patient: Coding Level of Care Code 55550 Subseq Hosp Care Lvl 2 Diagnoses COVID-19 U07.1 Hypoxia R09.02 Chronic diastolic CHF (congestive heart failure) I50.32 Subtherapeutic anticoagulation Z51.81; Z79.01 CKD (chronic kidney disease), stage III N18.30 Afib I48.91 Atrial fibrillation type: unspecified DMII (diabetes mellitus, type 2) E11.9 Lumbar disc disease M51.9 Chronic obstructive pulmonary disease J44.9 HTN (hypertension) I10 Hyperlipidemia E78.5 Mitral regurgitation I34.0 (1) Afib Atrial fibrillation type: unspecified Qualified Code(s): I48.91 - Unspecified atrial fibrillation
[2021-02-07] MEDS: cephALEXin 250 MG CAP PO SCH (21:25)
[2021-02-08] MEDS: ENOXAPARIN 150 MG/ML SYR SQ SCH ×2 (05:47→15:23)
[2021-02-08 06:56] LABS: Hematocrit (blood only) 33.2 % (37-47); Hemoglobin 10.9 g/dL (12.0-16.0); Mean Corpuscular Hemoglobin 32.2 pg (25-34); Mean Corpuscular Hgb Conc 32.8 g/dL (32-36); Mean Corpuscular Volume 98.2 fL (80-100); Mean Platelet Volume 10.3 fL (7.4-10.4); Platelet Count 165 K/uL (130-400); RDW Coefficient of Variation 15.2 % (11.5-14.5); RDW Standard Deviation 54.4 fL (36.4-46.3); Red Blood Count 3.38 M/uL (4.2-5.4); White Blood Count 3.37 K/uL (4.8-10.8)
[2021-02-08 07:05] LABS: INR 1.5 (0.9-1.1); Prothrombin Time 15.2 Seconds (9.0-12.0)
[2021-02-08 07:26] LABS: BUN Creatinine Ratio 35.9 (10-20); Bilirubin Direct 0.1 mg/dl (0-0.2); Calcium 8.8 mg/dl (8.5-10.1); Creatinine Clr Calc Pharmacy 46.3 ml/min; Est GFR (African American) 42.8 ml/min; Est GFR (Non-African American) 36.9 ml/min; Magnesium 1.8 mg/dl (1.8-2.4); Potassium 3.6 mmol/L (3.5-5.1)
[2021-02-08 07:28] LABS: Bilirubin,Total 0.5 mg/dl (0.2-1); Total Protein 6.1 gm/dl (6.4-8.2)
[2021-02-08] MEDS: dexAMETHasone 6 MG in SYRINGE 0 ML IV SCH (07:29)
[2021-02-08] MEDS: cephALEXin 250 MG CAP PO SCH (07:30)
[2021-02-08] MEDS: lisinopril 5 MG TAB PO SCH (07:30)
[2021-02-08] MEDS: UMECLIDINIUM BROMIDE 62.5MCG/BLISTER 7 PUFFS/INHALER INH SCH (07:31)
[2021-02-08] MEDS: METOPROLOL SUCC 50MG EXT REL TAB PO SCH ×2 (07:31→20:44)
[2021-02-08] MEDS: allopurinoL 300 MG TAB PO SCH (07:31)
[2021-02-08] MEDS: FLUTICASONE/VILANTEROL 200/25MCG 14 PUFFS/INHALER INH SCH (07:32)
[2021-02-08] MEDS: INSULIN GLARGINE SOLOSTAR 100 UNITS/ML 3 ML PEN SC SCH ×2 (08:27→20:43)
[2021-02-08] MEDS: INSULIN ASPART PER UNIT SC SCH ×4 (08:27→20:42)
[2021-02-08] MEDS: REMDESIVIR 100 MG in SODIUM CHLORIDE 0.9% 230 ML IV SCH (10:36)
[2021-02-08] MEDS: SODIUM CHLORIDE 0.9% 10ML FLUSH IV SCH (11:53)
[2021-02-08] MEDS: WARFARIN SOD 7.5 MG TAB PO SCH (15:23)
--- NOTE | 2021-02-08 17:02 | Hospitalist Progress Note ---
Date of Service February 08, 2021 Assessment & Plan (1) COVID-19: Plan: First symptoms: 02/01/2021 First tested: 02/06/2021 Vaccinated: Yes Admission date: 02/06/2021 Admission O2 requirement: 2L NC Admission CRP: 4.4 Dexamethasone course started: 02/06/2021; End date: 02/15/2021 Remdesivir started: 02/06/2021 Tocilizumab/baricitinib contraindication: Low O2 need Antibiotics: Chronic Keflex 500 mg PO BID for her prior joint infections DVT ppx: Warfarin - INR presently 1.5. Breathing treatments: Albuterol PRN, proning Presently requiring room air. (2) Hypoxia: Plan: Hypoxia without respiratory failure- secondary to multifactorial acute on chronic CHF and COVID 19 - As above (3) Chronic diastolic CHF (congestive heart failure): Plan: Acute on chronic HFpEF exacerbation - Secondary to acute illness and dietary indiscretion - Continue ACEi, beta-andrea - Monitor volume status (4) Subtherapeutic anticoagulation: Plan: On Coumadin for her AFIB- Subtherapeutic today at 1.5. - No bridge needed. - Monitor INR -> Will increase warfarin modestly for 1-2 doses to get her therapeutic again. (5) CKD (chronic kidney disease), stage III: Plan: CKD III, baseline Cr 1.3 - 1.5. - Follow renal function as above (6) Afib: Plan: As above with INR - Continue Diltiazem & metoprolol (7) DMII (diabetes mellitus, type 2): Plan: Hold Metformin. A1c was 6.5% in 12/2020. - Place on basal Lantus 30 units subq BID - with acute illness and steroid therapy - Sliding scale aspart CF 20 with ratio 1:10 - Follow for hypoglycemia (8) Lumbar disc disease: Plan: Chronic receives steroid injections periodically. (9) Chronic obstructive pulmonary disease: Plan: Continue with CHAI/LABA/ICS (10) HTN (hypertension): Plan: BP presently 120/80. - As above: calcium channel andrea & beta-andrea - Continue lisinopril (11) Hyperlipidemia: Plan: - Continue statin (12) Mitral regurgitation: Plan: As above Admission and Anticipated Discharge Date Admission Date: February 06, 2021 Subjective Doing well today, but worried about how well she'll do at home. Reports no fevers/chills, chest pain, shortness of breath, abdominal pain, nausea, or vomiting. Physical Exam Constitutional: WD/WN, vitals as above Eyes: EOM intact bilaterally; no conjunctival abnormality ENMT: external ear and nose normal, oropharynx normal Neck: trachea midline, no thyromegaly normal visual inspection Respiratory: normal respiratory effort, lungs clear to auscultation no respiratory distress Cardiovascular: RRR, no murmur, no edema Gastrointestinal (Abdomen): Inspection/Auscultation: abdomen normal to inspection; abdomen not distended Musculoskeletal: no cyanosis or clubbing, extremities motor strength 5/5 Skin: no rashes, warm and dry Neurologic: moves all extremities and awake Psychiatric: Orientation: alert, oriented to person and cooperative Results & Data Results & Data ([facility]) Vital Signs (Past 12 Hours) Vital Signs Temp Pulse Pulse Resp BP Pulse Ox 02/08/21 15:37 36.6 C 85 19 121/80 91 02/08/21 15:01 71 02/08/21 12:34 36.5 C 71 19 124/80 90 02/08/21 09:34 36.6 C 80 19 138/83 91 02/08/21 08:10 83 PG Care Time/CCT Total # of Minutes Spent Total Time Spent with Patient: Total time spent is greater than 50% in coordination of care (as documented) at patient's floor/unit and/or counseling patient: Coding Level of Care Code 85228 Subseq Hosp Care Lvl 3 Diagnoses COVID-19 U07.1 Hypoxia R09.02 Chronic diastolic CHF (congestive heart failure) I50.32 Subtherapeutic anticoagulation Z51.81; Z79.01 CKD (chronic kidney disease), stage III N18.30 Afib I48.91 Atrial fibrillation type: unspecified DMII (diabetes mellitus, type 2) E11.9 Lumbar disc disease M51.9 Chronic obstructive pulmonary disease J44.9 HTN (hypertension) I10 Hyperlipidemia E78.5 Mitral regurgitation I34.0 (1) Afib Atrial fibrillation type: unspecified Qualified Code(s): I48.91 - Unspecified atrial fibrillation
[2021-02-08] MEDS ORDERED: WARFARIN SOD 2.5 MG TAB PO STA (17:26)
[2021-02-08] MEDS: cephALEXin 500 MG CAP PO SCH (20:43)
[2021-02-09] MEDS ORDERED: NYSTATIN POWDER 15GM BTL EXT PRN (03:14)
[2021-02-09 06:48] LABS: Hematocrit (blood only) 35.3 % (37-47); Hemoglobin 11.5 g/dL (12.0-16.0); Mean Corpuscular Hemoglobin 31.8 pg (25-34); Mean Corpuscular Hgb Conc 32.6 g/dL (32-36); Mean Corpuscular Volume 97.5 fL (80-100); Mean Platelet Volume 10.6 fL (7.4-10.4); Platelet Count 196 K/uL (130-400); RDW Standard Deviation 53.9 fL (36.4-46.3); Red Blood Count 3.62 M/uL (4.2-5.4); White Blood Count 5.12 K/uL (4.8-10.8)
[2021-02-09 06:54] LABS: INR 1.9 (0.9-1.1); Prothrombin Time 18.1 Seconds (9.0-12.0)
[2021-02-09] MEDS: METOPROLOL SUCC 50MG EXT REL TAB PO SCH ×2 (07:22→21:17)
[2021-02-09 07:23] LABS: Alanine Aminotransferase 27 (12-78); Albumin Level 3.1 gm/dl (3.4-5.0); Aspartate Aminotransferase 25 U/L (15-37); BUN Creatinine Ratio 39.5 (10-20); Bilirubin Direct < 0.1 mg/dl (0-0.2); Blood Urea Nitrogen 55 mg/dl (7-18); Calcium 8.7 mg/dl (8.5-10.1); Carbon Dioxide 24 mmol/L (21-32); Chloride 104 mmol/L (98-107); Creatinine Clr Calc Pharmacy 45.6 ml/min; Est GFR (African American) 41.7 ml/min; Glucose 80 mg/dl (70-99); Potassium 3.6 mmol/L (3.5-5.1); Sodium 135 mmol/L (136-145)
[2021-02-09] MEDS: dexAMETHasone 6 MG in SYRINGE 0 ML IV SCH (07:23)
[2021-02-09] MEDS: cephALEXin 500 MG CAP PO SCH ×2 (07:23→21:16)
[2021-02-09] MEDS: lisinopril 5 MG TAB PO SCH (07:23)
[2021-02-09] MEDS: allopurinoL 300 MG TAB PO SCH (07:23)
[2021-02-09] MEDS: UMECLIDINIUM BROMIDE 62.5MCG/BLISTER 7 PUFFS/INHALER INH SCH (07:24)
[2021-02-09] MEDS: FLUTICASONE/VILANTEROL 200/25MCG 14 PUFFS/INHALER INH SCH (07:24)
[2021-02-09 07:26] LABS: Alkaline Phosphatase 52 U/L (45-117); Bilirubin,Total 0.3 mg/dl (0.2-1); Total Protein 6.2 gm/dl (6.4-8.2)
[2021-02-09] MEDS: INSULIN ASPART PER UNIT SC SCH ×4 (08:20→21:18)
[2021-02-09] MEDS: INSULIN GLARGINE SOLOSTAR 100 UNITS/ML 3 ML PEN SC SCH (08:20)
[2021-02-09] MEDS: REMDESIVIR 100 MG in SODIUM CHLORIDE 0.9% 230 ML IV SCH (11:34)
[2021-02-09] MEDS: SODIUM CHLORIDE 0.9% 10ML FLUSH IV SCH (12:48)
[2021-02-09] MEDS ORDERED: WARFARIN SOD 2.5 MG TAB PO STA (15:12)
[2021-02-09] MEDS: WARFARIN SOD 7.5 MG TAB PO SCH (15:50)
--- NOTE | 2021-02-09 17:07 | Hospitalist Progress Note ---
Date of Service February 09, 2021 Assessment & Plan (1) COVID-19: Plan: First symptoms: 02/01/2021 First tested: 02/06/2021 Vaccinated: Yes Admission date: 02/06/2021 Admission O2 requirement: 2L NC Admission CRP: 4.4 Dexamethasone course started: 02/06/2021; End date: 02/09/2021 (Course abbreviated for improvement and no O2 need.) Remdesivir started: 02/06/2021; Ended on 02/09/2021 for improvement. Tocilizumab/baricitinib contraindication: Low O2 need Antibiotics: Chronic Keflex 500 mg PO BID for her prior joint infections DVT ppx: Warfarin - INR presently 1.9. Breathing treatments: Albuterol PRN, proning Presently requiring room air. Did 2-step without any O2 need. (2) Hypoxia: Plan: Hypoxia without respiratory failure- secondary to multifactorial acute on chronic CHF and COVID 19 - As above (3) Chronic diastolic CHF (congestive heart failure): Plan: Acute on chronic HFpEF exacerbation - Secondary to acute illness and dietary indiscretion - Continue ACEi, beta-andrea - Monitor volume status -> Presently appears euvolemic. (4) Subtherapeutic anticoagulation: Plan: On Coumadin for her AFIB- Subtherapeutic today at 1.9. - No bridge needed. - Monitor INR -> Increased warfarin modestly for 2 doses to get her therapeutic again. (5) CKD (chronic kidney disease), stage III: Plan: CKD III, baseline Cr 1.3 - 1.5. - Follow renal function as above (6) Afib: Plan: As above with INR - Continue Diltiazem & metoprolol (7) DMII (diabetes mellitus, type 2): Plan: Hold Metformin. A1c was 6.5% in 12/2020. - Sliding scale aspart CF 20 with ratio 1:10 - Follow for hypoglycemia (8) Lumbar disc disease: Plan: Chronic receives steroid injections periodically. (9) Chronic obstructive pulmonary disease: Plan: Continue with CHAI/LABA/ICS (10) HTN (hypertension): Plan: BP presently 145/80. - As above: calcium channel andrea & beta-andrea - Continue lisinopril (11) Hyperlipidemia: Plan: - Continue statin (12) Mitral regurgitation: Plan: As above Admission and Anticipated Discharge Date Admission Date: February 06, 2021 Subjective Doing well today. Up and around with OT. Feeling well. Reports no fevers/chills, chest pain, shortness of breath, abdominal pain, nausea, or vomiting. Physical Exam Constitutional: WD/WN, vitals as above Eyes: EOM intact bilaterally; no conjunctival abnormality ENMT: external ear and nose normal, oropharynx normal Neck: trachea midline, no thyromegaly normal visual inspection Respiratory: normal respiratory effort, lungs clear to auscultation no respiratory distress Cardiovascular: RRR, no murmur, no edema Gastrointestinal (Abdomen): Inspection/Auscultation: abdomen normal to inspection; abdomen not distended Musculoskeletal: no cyanosis or clubbing, extremities motor strength 5/5 Skin: no rashes, warm and dry Neurologic: moves all extremities and awake Psychiatric: Orientation: alert, oriented to person and cooperative Results & Data Results & Data ([facility]) Vital Signs (Past 12 Hours) Vital Signs Temp Pulse Pulse Pulse Pulse Pulse Resp 02/09/21 15:05 76 02/09/21 15:00 36.3 C L 87 22 02/09/21 14:11 90 82 80 02/09/21 13:45 02/09/21 11:28 36.6 C 68 20 02/09/21 08:35 36.5 C 77 19 Resp Resp Resp BP BP Pulse Ox Pulse Ox 02/09/21 15:05 02/09/21 15:00 144/85 H 93 02/09/21 14:11 20 20 20 90 02/09/21 13:45 92 02/09/21 11:28 143/82 H 91 02/09/21 08:35 130/70 90 Pulse Ox Pulse Ox 02/09/21 15:05 02/09/21 15:00 02/09/21 14:11 94 94 02/09/21 13:45 02/09/21 11:28 02/09/21 08:35 PG Care Time/CCT Total # of Minutes Spent Total Time Spent with Patient: Total time spent is greater than 50% in coordination of care (as documented) at patient's floor/unit and/or counseling patient: Coding Level of Care Code 14045 Subseq Hosp Care Lvl 2 Diagnoses COVID-19 U07.1 Hypoxia R09.02 Chronic diastolic CHF (congestive heart failure) I50.32 Subtherapeutic anticoagulation Z51.81; Z79.01 CKD (chronic kidney disease), stage III N18.30 Afib I48.91 Atrial fibrillation type: unspecified DMII (diabetes mellitus, type 2) E11.9 Lumbar disc disease M51.9 Chronic obstructive pulmonary disease J44.9 HTN (hypertension) I10 Hyperlipidemia E78.5 Mitral regurgitation I34.0 (1) Afib Atrial fibrillation type: unspecified Qualified Code(s): I48.91 - Unspecified atrial fibrillation
[2021-02-10 06:32] LABS: Hematocrit (blood only) 37.3 % (37-47); Hemoglobin 12.4 g/dL (12.0-16.0); Mean Corpuscular Hemoglobin 32.2 pg (25-34); Mean Corpuscular Hgb Conc 33.2 g/dL (32-36); Mean Corpuscular Volume 96.9 fL (80-100); Mean Platelet Volume 10.6 fL (7.4-10.4); Platelet Count 203 K/uL (130-400); RDW Standard Deviation 53.1 fL (36.4-46.3); Red Blood Count 3.85 M/uL (4.2-5.4); White Blood Count 7.01 K/uL (4.8-10.8)
[2021-02-10 06:49] LABS: INR 2.2 (0.9-1.1); Prothrombin Time 20.9 Seconds (9.0-12.0)
[2021-02-10 07:07] LABS: Alanine Aminotransferase 32 (12-78); Albumin Level 3.1 gm/dl (3.4-5.0); Aspartate Aminotransferase 28 U/L (15-37); BUN Creatinine Ratio 37.8 (10-20); Bilirubin Direct < 0.1 mg/dl (0-0.2); Blood Urea Nitrogen 50 mg/dl (7-18); Carbon Dioxide 24 mmol/L (21-32); Chloride 106 mmol/L (98-107); Creatinine Clr Calc Pharmacy 47.7 ml/min; Est GFR (African American) 44.4 ml/min; Est GFR (Non-African American) 38.3 ml/min; Glucose 77 mg/dl (70-99); Potassium 3.6 mmol/L (3.5-5.1); Sodium 136 mmol/L (136-145)
[2021-02-10 07:09] LABS: Alkaline Phosphatase 52 U/L (45-117); Bilirubin,Total 0.4 mg/dl (0.2-1); Total Protein 6.4 gm/dl (6.4-8.2)
[2021-02-10] MEDS: allopurinoL 300 MG TAB PO SCH (08:37)
[2021-02-10] MEDS: lisinopril 5 MG TAB PO SCH (08:38)
[2021-02-10] MEDS: UMECLIDINIUM BROMIDE 62.5MCG/BLISTER 7 PUFFS/INHALER INH SCH (08:38)
[2021-02-10] MEDS: METOPROLOL SUCC 50MG EXT REL TAB PO SCH (08:38)
[2021-02-10] MEDS: FLUTICASONE/VILANTEROL 200/25MCG 14 PUFFS/INHALER INH SCH (08:38)
[2021-02-10] MEDS: cephALEXin 500 MG CAP PO SCH (08:38)
[2021-02-10] MEDS: INSULIN ASPART PER UNIT SC SCH ×2 (08:42→12:12)
--- NOTE | 2021-02-10 17:29 | Discharge Summary ---
Date of Service February 10, 2021 Admission HPI Per Admitting Provider 80 YOF with past medical history of: infective endocarditis, afib (on Coumadin), HFpEF, Mitral Regurge, HLD, HTN, Neurogenic claudication secondary to lumbar stenosis, COPD, DMII. Patient comes to the EMD today for complaints of increased dyspnea and use of her inhalers at home. Patient states that symptoms started las SaturdayC21. Her symptoms were nasal congestion and chest congestion with 1 day of diarrhea Last . She originally thought it was related to her CHF as she also had a 4 pound weight gain at that time, so she instituted her home Lasix dosing for 2 days. She stopped this on Saturday and also had some dietary indiscretion over the weekend with [place] ham and other foods with higher sodium concentrations. This did not improve her symptoms and notes her weight is only down 1LB from the original 4LB gain and she remains dyspneic/orthopneic. In the EMD she had routine labs drawn to include BNP,INR, and COVID testing. She was noted to be COVID (+) as well as have elevated BNP, and require 2 L of oxygen to maintain spo2 >90%. She was also give n 40mg IV Lasix x1 with 2 voids since being in the EMD. She feels that her breathing has improved with that and feels less chest congestion. Patient will be admitted for her hypoxia which is multifactorial and likely related more to her acute on chronic heart failure than COVID, continue to diurese patient with 40mg IV Lasix x 2 more doses and re-evaluate in the morning. Will start patient on Remdisivir as she is ~ day 6 of her illness, continue Decadron. For her low INR will place on therapeutic Lovenox BID and increase her Coumadin to 7.5 mg PO daily until INR > 2.0. WIll need to follow her renal function closely with her Remdisiver and Lovenox. Patient is vaccinated without booster and her COVID test on admission is: POSITIVE Principal Diagnosis Covid-19 pneumonia Discharge Exam Constitutional WD/WN, vitals as above Eyes EOM intact bilaterally; no conjunctival abnormality ENMT external ear and nose normal, oropharynx normal Neck trachea midline, no thyromegaly normal visual inspection Respiratory normal respiratory effort, lungs clear to auscultation no respiratory distress Cardiovascular Rate/Rhythm: + irregularly irregular Extremities: no edema Gastrointestinal (Abdomen) Inspection/Auscultation: abdomen normal to inspection; abdomen not distended Musculoskeletal no cyanosis or clubbing, extremities motor strength 5/5 Skin no rashes, warm and dry Neurologic moves all extremities and awake Psychiatric Orientation: alert, oriented to person and cooperative Discharge Data Allergies Allergy/AdvReac Type Severity Reaction Status Date / Time [id number]-99m Allergy Severe ANAPHYLAXIS Verified 02/06/21 14:18 amoxicillin Allergy Intermediate RASH Verified 02/06/21 14:18 nitrofurantoin Allergy Intermediate HIVES Verified 02/06/21 14:18 iodine Allergy Unknown HIVES, Verified 02/06/21 14:18 WITH DYE 30 YRS AGO-HAS HAD SINCE W/O PROBLEM Consultations 02/06/21 13:40 ED Decision to Admit Stat Hospital Course (1) COVID-19: First symptoms: 02/01/2021 First tested: 02/06/2021 Vaccinated: Yes Admission date: 02/06/2021 Admission O2 requirement: 2L NC Admission CRP: 4.4 Dexamethasone course started: 02/06/2021; End date: 02/09/2021 (Course abbreviated for improvement and no O2 need.) Remdesivir started: 02/06/2021; Ended on 02/09/2021 for improvement. Tocilizumab/baricitinib contraindication: Low O2 need Antibiotics: Chronic Keflex 500 mg PO BID for her prior joint infections DVT ppx: Warfarin - INR presently 2.2. Breathing treatments: Albuterol PRN, proning Presently requiring room air. Did 2-step without any O2 need. Recovered. (2) Hypoxia: Hypoxia without respiratory failure- secondary to multifactorial acute on chronic CHF and COVID 19 - As above (3) Chronic diastolic CHF (congestive heart failure): Acute on chronic HFpEF exacerbation - Secondary to acute illness and dietary indiscretion - Continue ACEi, beta-andrea - Monitor volume status -> Presently appears euvolemic without any lung crackles or any swelling in the LEs. Will see Rachel Armas next week. (4) Subtherapeutic anticoagulation: On Coumadin for her AFIB. - Monitor INR -> Was on warfarin 7.5 mg for 3 days, then 10 mg for two days. INR gradually increased to 2.2 on discharge. On discharge, instructed to take 7.5 mg Saturday, Saturday, Saturday. Check INR at home on Saturday prior to warfarin dose to determine next dosing steps. (5) CKD (chronic kidney disease), stage III: CKD III, baseline Cr 1.3 - 1.5. - Follow renal function as above (6) Afib: As above with INR - Continue home metoprolol (7) DMII (diabetes mellitus, type 2): Held Metformin. A1c was 6.5% in 12/2020. - Sliding scale aspart CF 20 with ratio 1:10 -> Return to metformin on discharge. (8) Lumbar disc disease: Chronic receives steroid injections periodically. (9) Chronic obstructive pulmonary disease: Continue with CHAI/LABA/ICS (10) HTN (hypertension): BP presently 145/80. - As above: beta-andrea - Continue lisinopril (11) Hyperlipidemia: - Continue statin (12) Mitral regurgitation: As above Total Time Total Time Spent Total Time Spent (In Minutes): 35 Discharge Plan Discharge Items Patient Disposition: Home - Self-Care Reason For Visit: COVID, DYSPNEA, CHF Discharge Diagnosis: Covid-19 pneumonia Activity: Resume your previous activity Non-emergency contact: Primary Care Provider and Director Of Sales And Marketing Call non-emergency contact if: your symptoms worsen Follow-up/Referrals: Bc Carter MD [Primary Care Provider] - (PLEASE CALL YOUR PRIMARY CARE PROVIDER TO SCHEDULE A DISCHARGE FOLLOW-UP APPOINTMENT WITHIN 7-10 DAYS.) Rachel Armas PA-C [Physician [employer]oe Builder] - 02/17/21 9:30 am (Congestive Heart Failure Program Appointment Information Early follow up is essential to managing your heart failure. An appointment has been scheduled for you with the [facility] Program within 7 days of discharge. Anticipate this visit to be 30-60 minutes long. Please expect a utilization review specialist phone call from one of our nurses approximately 48 hours from discharge. They will also be placing an order for lab work to be completed 1-2 days prior to your heart failure follow up appointment. Please be sure to have this done so we can go over the results when you come in. Office Location The cardiology office building is located in front of the hospital at [address] [facility] [facility]. Bring the following with you to your follow-up doctor appointments: Please bring your daily weight log any discharge paperwork all of your medication bottles with you to this visit. ) Diet: Carb Consistent or DM2 and Heart Healthy Addtl Attending Provider Instructions: Ms. Rocha, You were admitted to the hospital with Covid-19 pneumonia. Luckily with some steroids, remdesivir, and a short course of antibiotics, you are feeling better. You are on room air and don't need oxygen with exertion either. Both of these are terrific! Your labs have looked good here with no issues with your kidney, liver, or other organs. We have worked to get your INR up over 2 with some extra warfarin, and today your INR is 2.2. As we discussed, please take warfarin 7.5 mg once per day for today (Saturday), Saturday, and Saturday. On Saturday (before you take your warfarin), please check your INR at home and call the usual company to have it adjusted if needed and figure out the plan from there. Please note, I did not change that recommendation on your medication list because I'm not sure you'll need to take 7.5 mg every day from now on (ie forever). But just for the next 3 days. After that, as your health issues return to normal, you may need to go on a lower dose. 7.5 mg is a pretty big jump from your usual 2.5 and 5 mg doses, but you've been on it for the 5 days with a slow, but steady climb. So, I think it is a safe dosage for the next 3 days, but probably won't need to be that high forever. Pending Studies at Discharge: No Stand-Alone Forms: My [facility] [employer] Smoking Cessation Medications and DC Order Prescriptions: Continued diazepam 5 mg tablet 5 mg PO .COMPLEX Qty: 2 RF: 0 albuterol sulfate 2.5 mg /3 mL (0.083 %) solution for nebulization 1.25 mg INHALATION Q6H PRN (Reason: Wheezing) Qty: 180 RF: 5 nystatin 100,000 unit/gram powder See Rx Instructions topical BID Qty: 60 RF: 8 (DME) lancets Misc See Dose Instructions .ROUTE .MEDSUPPLY Qty: 100 RF: 3 (DME) blood sugar diagnostic Strip See Dose Instructions .ROUTE .MEDSUPPLY Qty: 100 RF: 3 allopurinol 300 mg tablet 300 mg PO QAM Qty: 90 RF: 3 metformin 500 mg tablet extended release 24 hr 500 mg PO BID Qty: 180 RF: 3 lisinopril 5 mg tablet 5 mg PO QAM Qty: 90 RF: 3 metoprolol succinate [Toprol XL] 100 mg tablet extended release 24 hr 150 mg PO BID Qty: 270 RF: 3 warfarin 5 mg tablet 5 mg PO .COMPLEX Qty: 90 RF: 3 cephalexin 500 mg capsule See Rx Instructions .ROUTE .COMPLEX Qty: 60 RF: 11 (DME) blood sugar diagnostic Strip See Dose Instructions .ROUTE .MEDSUPPLY Qty: 10 RF: 3 acetaminophen [Tylenol Arthritis Pain] 650 mg tablet extended release 650 mg PO Q8H RF: 0 Spiriva Respimat 2.5 mcg/actuation mist 2 puff INHALATION QAM Qty: 3 RF: 3 (DME) lancing device with lancets [[employer] Lanc Device] Kit See Rx Instructions .Route Qty: 100 RF: 0 furosemide [Lasix] 20 mg tablet 20 mg PO DAILY PRN (Reason: edema/weight gain ) Qty: 30 RF: 5 potassium chloride 20 mEq tablet extended release 20 meq PO DAILY PRN (Reason: when you take your furosemide) Qty: 30 RF: 1 magnesium oxide 400 mg (241.3 mg magnesium) tablet 400 mg PO DAILY PRN (Reason: when you take your furosemide) Qty: 30 RF: 1 cyanocobalamin (vitamin B-12) 1,000 mcg capsule 1,000 mcg PO DAILY Qty: 90 RF: 3 Dulera 200-5 mcg/actuation HFA aerosol inhaler 2 puff INH DAILY RF: 0 Discharge Orders: Discharge Order (Routine); Ordered 02/10/21 Ordered By: Fan Acosta Admission Data Admit Date/Time: 02/06/21 15:22 Attending Provider: Fan Acosta Admit Provider: Killian Edmonds Primary Care Provider: Bc Carter Other Providers: Fan Acosta Other Interventions: Discharge Summary Assessment (RN) Last Done: 02/10/21 13:04 Coding Level of Care Code D/C DAY MANAGEMENT >30 MINS Diagnoses COVID-19 U07.1 Hypoxia R09.02 Chronic diastolic CHF (congestive heart failure) I50.32 Subtherapeutic anticoagulation Z51.81; Z79.01 CKD (chronic kidney disease), stage III N18.30 Afib I48.91 Atrial fibrillation type: unspecified DMII (diabetes mellitus, type 2) E11.9 Lumbar disc disease M51.9 Chronic obstructive pulmonary disease J44.9 HTN (hypertension) I10 Hyperlipidemia E78.5 Mitral regurgitation I34.0
== END 2021-02-10 14:53 | disposition home or self-care (01) | DRG 177 ==
LOC: ED 12:08 → SUATTDRO 15:22 → 2W 15:22

== ENCOUNTER 2022-11-19 08:33 | Inpatient (IN) ==
--- NOTE | 2022-11-19 08:46 | Emergency Department Note ---
Impression & Plan Shortness of breath, Pulmonary edema, Acute on chronic diastolic CHF (congestive heart failure), Elevated brain natriuretic peptide (BNP) level, Hypomagnesemia ED Provider Note HISTORY OF PRESENT ILLNESS: Patient is an 82-year-old female presenting with shortness of breath. Patient reports she has been having progressively worsening shortness of breath since she was discharged from the hospital few weeks ago. States in the last 48 to 72 hours her shortness of breath has gotten significantly worse. She states for the last 2 days she has been unable to stand up or even take a few steps before becoming significantly winded. She is on her baseline 2 L nasal cannula for sup plemental oxygen since discharge from the hospital few weeks ago. Denies any fevers. She has had a cough productive of some white, and what she thinks is blood-tinged, sputum. She is on Coumadin. Denies any DVT or PE history. Denies any history of cardiac stents. She denies any recent sick contact exposures. Denies any lower extremity edema. Denies any significant chest pain, but reports this morning she has had generalized chest discomfort from all of her coughing. She took a breathing treatment this morning and still had significant shortness of breath, so she called 911. On EMS arrival, the patient was given 125 mg of IV Solu-Medrol and a breathing treatment. ROS: as above PHYSICAL EXAM: Constitutional: Patient appears in no acute distress. HENT: Head: Normocephalic and atraumatic. Eyes: EOMI, PERRL Mouth/Throat: Mucous membranes moist. Neck: Trachea midline. Neck supple. Cardiovascular: Regular rate with irregular rhythm. No murmurs, rubs or gallops. Intact distal pulses. Pulmonary/Chest: Patient is tachypneic. No significant wheezes or rales. She is conversationally dyspneic. Abdominal: Abdomen soft, no tenderness, rebound or guarding. Musculoskeletal: No edema, tenderness or deformity noted. Skin: Warm and dry. No rash, erythema, pallor or cyanosis Psychiatric: Appropriate mood and affect for situation. Neurological: Alert and keenly responsive. CN II-XII grossly intact, moving all extremities equally and fully. MDM: - Vitals signs stable. - History obtained via patient. Patient presents with shortness of breath. Patient reports she is been having grossly worsening shortness of breath over the last few weeks since discharge from the hospital. She reports in the last 2 to 3 days she has been significantly more short of breath than normal. She wears 2 L nasal cannula at baseline. Reports a cough productive of white sputum. Denies any fevers. Denies any chest pain. She is on Coumadin. - Chronic conditions affecting care: Afib; CKD; diastolic CHF; HTN; HLD; DM-2 - Differential diagnoses include, but are not limited to: Congestive heart failure; acute coronary syndrome; COPD/asthma exacerbation; pulmonary edema; pulmonary embolism; pneumonia; pneumothorax; viral syndrome - Order placed for continuous cardiac monitoring. At this time, monitor showed rate of 72 bpm with irregular rhythm, per my interpretation. - External medical records reviewed. Discharge summary from 10/17/2022 was rachael obrien. Patient had presented with pain under her breastbone and was found to have choledocholithiasis. She was deemed to not be a good surgical candidate. She also noted to have acute on chronic diastolic CHF. It was noted that the patient had not been compliant with her Lasix dosing. - EMS run sheet reviewed. Patient given 125 mg IV solumedrol and a duoneb breathing treatment pre-hospital. - EKG reviewed by myself showed atrial fibrillation. Rate 70 bpm. QTc 427. No acute ischemic changes. Noted to have a poor baseline, secondary to patient's tachypnea. - Laboratory workup interpreted by myself showed normal WBC; chronic anemia (Hgb 9.6); stable electrolytes other than slight hypomagnesemia (Mg 1.6); normal troponin; elevated BNP (894); normal procalcitonin - On discussion with patient, she reports she only takes her Lasix once a week. She does weigh herself daily and reports that last week she gained 2 pounds and she took an extra dose of her Lasix. She states "I do not take it when I go out because I have to pee every 45 minutes." - CXR showed pulmonary edema, per my interpretation. - Patient given 80 mg IV lasix. - VBG shows acidosis (pH 7.29) - Biofire negative - Sepsis order set was initially ordered and blood cultures were obtained. However, I do not think the patient's shortness of breath is secondary to an infectious etiology at this time. I believe it secondary to her profound fluid overload. - Discussion was had with social worker clinical about patient's case and need for admission - Hospitalist consulted for admission - Patient admitted to [facility] for further evaluation and management. ASSESSMENT AND PLAN: Diagnosis: Shortness of breath; pulmonary edema; hypomagnesemia; elevated BNP; acute on chronic diastolic CHF exacerbation Plan: Admit Past Med/Surg History Medical History Alopecia Arthritis Asthma Atrial fibrillation with rapid ventricular response Bacterial endocarditis C. 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 Lumbar spondylosis Mitral regurgitation Morbid obesity Obesity Panic attacks Sepsis Shortness of breath Type 2 diabetes mellitus Surgical History History of anesthesia reaction History of arthroscopy of knee History of bladder surgery History of cataract surgery History of colonoscopy History of total knee replacement S/P IVC filter Family History Unknown Diabetes Hypertension Mother Diabetes Cardiac disorder Grandfather Sinus disorder Social History Smoking Status: Never smoker Tobacco Type: Cigarettes Cigarettes Per Day: 2PPD; Second Hand Exposure: No; Do You Dip or Chew Tobacco: No; Hx Alcohol Use: Yes Alcohol type: wine Hx Substance Use: No Preferred Language: Albanian Communication Ability: Effective Visual Impairment: Blindness Deputy Jailer Required: No Beliefs That Will Affect Care: None marital status: Unknown Current Living Situation: Alone Feels Safe at Home: Yes Assistive Devices: Walker Allergies Allergies Allergy/AdvReac Type Severity Reaction Status Date / Time [id number]-99m Allergy Severe ANAPHYLAXIS Verified 10/22/22 09:02 amoxicillin Allergy Intermediate RASH Verified 10/22/22 09:02 nitrofurantoin Allergy Intermediate HIVES Verified 10/22/22 09:02 iodine Allergy Unknown HIVES, Verified 10/22/22 09:02 WITH DYE 30 YRS AGO-HAS HAD SINCE W/O PROBLEM Home Meds Home Medications Medication Instructions Recorded Confirmed diltiazem HCl 120 mg 120 mg PO QAM 10/14/22 10/22/22 capsule,extended release 24 hr Previous Rx's Medication Instructions Recorded lancing device with lancets kit #100 ea 01/16/21 ([employer] Lancing Device kit) blood sugar diagnostic #10 ea 01/30/21 albuterol sulfate 2.5 mg/3 mL 2.5 mg (3 mL) inhalation .COMPLEX 03/13/21 (0.083 %) solution for nebulization PRN shortness of breath or wheezing #1,620 mL blood sugar diagnostic ([employer] #100 strips 02/21/22 Ultra Test strips) allopurinol 300 mg tablet 300 mg PO QAM #90 tabs 03/20/22 metformin 500 mg tablet,extended 500 mg PO BID #180 tabs 03/20/22 release 24 hr lisinopril 5 mg tablet 5 mg PO QAM #90 tabs 03/21/22 metoprolol succinate 100 mg 150 mg PO BID #270 tabs 03/21/22 tablet,extended release 24 hr (Toprol XL) tiotropium bromide 2.5 See Rx Instructions .Route 04/09/22 mcg/actuation mist for inhalation .COMPLEX #12 grams (Spiriva Respimat) warfarin 5 mg tablet 5 mg PO .COMPLEX #90 tabs 04/20/22 furosemide 20 mg tablet (Lasix) 20 mg PO DAILY PRN edema/weight 04/25/22 gain #30 tabs magnesium oxide 400 mg (241.3 mg 400 mg PO DAILY PRN when you take 04/25/22 magnesium) tablet your furosemide #30 tabs potassium chloride 20 mEq 20 meq PO DAILY PRN when you take 04/25/22 tablet,extended release your furosemide #30 tabs lancets 33 gauge ([employer] DelVasSol #100 ea 06/06/22 Plus Lancet) mometasone-formoterol HFA 200 See Rx Instructions .Route 10/19/22 mcg-5 mcg/actuation aerosol .COMPLEX #39 grams inhaler (Dulera) cephalexin 500 mg capsule See Rx Instructions .Route 10/22/22 .COMPLEX #180 caps Results & Data (ED) Vital Signs Vital Signs - 24 hr 11/19/22 08:44 11/19/22 08:44 11/19/22 08:44 Pulse Rate 75 Respiratory Rate 24 Respiratory Effort / Characteristics Labored Labored Respiratory Depth Normal Blood Pressure 130/95 Blood Pressure Mean 106 Pulse Oximetry 99 Oxygen Delivery Method Nasal Cannula Nasal Cannula Oxygen Flow Rate 4 2 Sepsis Recent Fever Within 48 Hours No Sepsis New/Unexplained Change in Mental Status No Sepsis Action Taken by Nursing No Action Required Pulse Oximetry Post Tiitration 99 11/19/22 09:20 Pulse Rate 74 Respiratory Rate Respiratory Effort / Characteristics Respiratory Depth Blood Pressure Blood Pressure Mean Pulse Oximetry Oxygen Delivery Method Oxygen Flow Rate Sepsis Recent Fever Within 48 Hours Sepsis New/Unexplained Change in Mental Status Sepsis Action Taken by Nursing Pulse Oximetry Post Tiitration Laboratory Data 11/19/22 08:50 11/19/22 08:50 Lab Results 11/19/22 11/19/22 11/19/22 Range/Units 08:50 08:50 08:50 WBC 5.20 (4.8-10.8) K/ul RBC 3.09 L (4.20-5.40) M/uL Hgb 9.6 L (12.0-16.0) g/dl Hct 30.7 L (37.0-47.0) % MCV 99.4 (80.0-100.0) fL MCH 31.1 (25.0-34.0) pg MCHC 31.3 L (32.0-36.0) g/dL RDW Std Deviation 63.3 H (36.4-46.3) fL RDW Coeff of Beatrice 17.6 H (11.5-14.5) % Plt Count 172 (130-400) K/uL MPV 10.6 (9.4-12.4) fL Immature Gran % (Auto) 0.2 % Neut % (Auto) 68.9 % Lymph % (Auto) 19.6 % Gates % (Auto) 6.5 % Eos % (Auto) 4.2 % Baso % (Auto) 0.6 % Neut # (Auto) 3.58 (1.40-6.50) K/uL Lymph # (Auto) 1.02 L (1.20-3.40) K/uL Gates # (Auto) 0.34 (0.11-0.59) K/uL Eos # (Auto) 0.22 (0.00-0.50) K/uL Baso # (Auto) 0.03 (0.00-0.20) K/uL Immature Gran # (Auto) 0.01 (0.01-0.20) K/uL VBG pH (7.36-7.41) VBG pCO2 (38-50) mmHg VBG pO2 mmHg VBG HCO3 mmol/L VBG O2 Saturation % VBG Base Excess mEq/L Sodium Cancelled Potassium Cancelled Chloride Cancelled Carbon Dioxide Cancelled Anion Gap Cancelled BUN Cancelled Creatinine Cancelled Est Cr Clr Drug Dosing Cancelled Est GFR ( Amer) Cancelled Est GFR (Non-Af Amer) Cancelled BUN/Creatinine Ratio Cancelled Glucose Cancelled Lactate 1.2 (0.4-2.0) mmol/L Calcium Cancelled Magnesium Cancelled Total Bilirubin Cancelled Direct Bilirubin Cancelled AST Cancelled ALT Cancelled Alkaline Phosphatase Cancelled Troponin I High Sens (0-14) pg/ml B-Natriuretic Peptide (0-100) pg/ml Total Protein Cancelled Albumin Cancelled Procalcitonin (0-0.5) ng/ml Adenovirus (PCR) (NotDetected) B. pertussis DNA (PCR) (NotDetected) B.parapertussis DNA PCR (NotDetected) C. pneumoniae DNA (PCR) (NotDetected) Coronavirus OC43 (PCR) (NotDetected) Coronavirus HKU1 (PCR) (NotDetected) Coronavirus 229E (PCR) (NotDetected) SARS-CoV-2 (PCR) (NotDetected) Coronavirus NL63 (PCR) (NotDetected) Human Metapneumovir PCR (NotDetected) Influenza Type A (PCR) (NotDetected) Influenza Type B (PCR) (NotDetected) M. pneumoniae (PCR) (NotDetected) Parainfluenza 1 (PCR) (NotDetected) Parainfluenza 2 (PCR) (NotDetected) Parainfluenza 3 (PCR) (NotDetected) Parainfluenza 4 (PCR) (NotDetected) RSV (PCR) (NotDetected) Entero/Rhino (PCR) (NotDetected) 11/19/22 11/19/22 11/19/22 Range/Units 08:50 08:50 08:50 WBC (4.8-10.8) K/ul RBC (4.20-5.40) M/uL Hgb (12.0-16.0) g/dl Hct (37.0-47.0) % MCV (80.0-100.0) fL MCH (25.0-34.0) pg MCHC (32.0-36.0) g/dL RDW Std Deviation (36.4-46.3) fL RDW Coeff of Beatrice (11.5-14.5) % Plt Count (130-400) K/uL MPV (9.4-12.4) fL Immature Gran % (Auto) % Neut % (Auto) % Lymph % (Auto) % Gates % (Auto) % Eos % (Auto) % Baso % (Auto) % Neut # (Auto) (1.40-6.50) K/uL Lymph # (Auto) (1.20-3.40) K/uL Gates # (Auto) (0.11-0.59) K/uL Eos # (Auto) (0.00-0.50) K/uL Baso # (Auto) (0.00-0.20) K/uL Immature Gran # (Auto) (0.01-0.20) K/uL VBG pH (7.36-7.41) VBG pCO2 (38-50) mmHg VBG pO2 mmHg VBG HCO3 mmol/L VBG O2 Saturation % VBG Base Excess mEq/L Sodium 136 Potassium 4.5 Chloride 107 Carbon Dioxide 23 Anion Gap 6 BUN 52 H Creatinine 1.15 Est Cr Clr Drug Dosing 46.4 Est GFR ( Amer) 51.7 Est GFR (Non-Af Amer) 44.6 BUN/Creatinine Ratio 45.2 H Glucose 157 H Lactate (0.4-2.0) mmol/L Calcium 8.9 Magnesium 1.6 L Total Bilirubin 1.1 H Direct Bilirubin 0.3 H AST 20 ALT 19 Alkaline Phosphatase 70 Troponin I High Sens 8.9 (0-14) pg/ml B-Natriuretic Peptide 894 H (0-100) pg/ml Total Protein 6.2 Albumin 3.8 Procalcitonin 0.06 (0-0.5) ng/ml Adenovirus (PCR) (NotDetected) B. pertussis DNA (PCR) (NotDetected) B.parapertussis DNA PCR (NotDetected) C. pneumoniae DNA (PCR) (NotDetected) Coronavirus OC43 (PCR) (NotDetected) Coronavirus HKU1 (PCR) (NotDetected) Coronavirus 229E (PCR) (NotDetected) SARS-CoV-2 (PCR) (NotDetected) Coronavirus NL63 (PCR) (NotDetected) Human Metapneumovir PCR (NotDetected) Influenza Type A (PCR) (NotDetected) Influenza Type B (PCR) (NotDetected) M. pneumoniae (PCR) (NotDetected) Parainfluenza 1 (PCR) (NotDetected) Parainfluenza 2 (PCR) (NotDetected) Parainfluenza 3 (PCR) (NotDetected) Parainfluenza 4 (PCR) (NotDetected) RSV (PCR) (NotDetected) Entero/Rhino (PCR) (NotDetected) 11/19/22 11/19/22 Range/Units 08:57 09:29 WBC (4.8-10.8) K/ul RBC (4.20-5.40) M/uL Hgb (12.0-16.0) g/dl Hct (37.0-47.0) % MCV (80.0-100.0) fL MCH (25.0-34.0) pg MCHC (32.0-36.0) g/dL RDW Std Deviation (36.4-46.3) fL RDW Coeff of Beatrice (11.5-14.5) % Plt Count (130-400) K/uL MPV (9.4-12.4) fL Immature Gran % (Auto) % Neut % (Auto) % Lymph % (Auto) % Gates % (Auto) % Eos % (Auto) % Baso % (Auto) % Neut # (Auto) (1.40-6.50) K/uL Lymph # (Auto) (1.20-3.40) K/uL Gates # (Auto) (0.11-0.59) K/uL Eos # (Auto) (0.00-0.50) K/uL Baso # (Auto) (0.00-0.20) K/uL Immature Gran # (Auto) (0.01-0.20) K/uL VBG pH 7.29 L (7.36-7.41) VBG pCO2 47 (38-50) mmHg VBG pO2 23 mmHg VBG HCO3 23 mmol/L VBG O2 Saturation < 60.0 % VBG Base Excess -4.2 mEq/L Sodium Potassium Chloride Carbon Dioxide Anion Gap BUN Creatinine Est Cr Clr Drug Dosing Est GFR ( Amer) Est GFR (Non-Af Amer) BUN/Creatinine Ratio Glucose Lactate (0.4-2.0) mmol/L Calcium Magnesium Total Bilirubin Direct Bilirubin AST ALT Alkaline Phosphatase Troponin I High Sens (0-14) pg/ml B-Natriuretic Peptide (0-100) pg/ml Total Protein Albumin Procalcitonin (0-0.5) ng/ml Adenovirus (PCR) Not Detected (NotDetected) B. pertussis DNA (PCR) Not Detected (NotDetected) B.parapertussis DNA PCR Not Detected (NotDetected) C. pneumoniae DNA (PCR) Not Detected (NotDetected) Coronavirus OC43 (PCR) Not Detected (NotDetected) Coronavirus HKU1 (PCR) Not Detected (NotDetected) Coronavirus 229E (PCR) Not Detected (NotDetected) SARS-CoV-2 (PCR) Not Detected (NotDetected) Coronavirus NL63 (PCR) Not Detected (NotDetected) Human Metapneumovir PCR Not Detected (NotDetected) Influenza Type A (PCR) Not Detected (NotDetected) Influenza Type B (PCR) Not Detected (NotDetected) M. pneumoniae (PCR) Not Detected (NotDetected) Parainfluenza 1 (PCR) Not Detected (NotDetected) Parainfluenza 2 (PCR) Not Detected (NotDetected) Parainfluenza 3 (PCR) Not Detected (NotDetected) Parainfluenza 4 (PCR) Not Detected (NotDetected) RSV (PCR) Not Detected (NotDetected) Entero/Rhino (PCR) Not Detected (NotDetected) Imaging Data Radiologist's Impression: Chest X-Ray 11/19/22 08:42 XR chest 1V portable HISTORY: 82 years-old Female Sepsis acute sepsis COMPARISON: 10/14/2022 TECHNIQUE: AP view of the chest FINDINGS: Cardiac silhouette is enlarged. Atherosclerosis of the aorta. Pulmonary vascular congestion with interstitial coarsening. Probable small pleural effusions. No pneumothorax. Mild bibasilar opacities. Emphysema. Degenerative changes of the shoulders and spine. Right shoulder rotator cuff calcific tendinosis. IMPRESSION: 1. Cardiomegaly with pulmonary edema. 2. Small pleural effusions with mild bibasilar opacities. ACT 112: Negative or not required by law. The above report was generated using voice recognition software. It may contain grammatical, syntax or spelling errors. Electronically signed by: Hernandez Naylor M.D. 11/19/2022 9:12 AM Discharge Plan Visit Data Chief Complaint: Shortness of Breath/Dyspnea Stated Complaint: SOB ED Provider: Rosie Witt Discharge Problem: Shortness of breath, Pulmonary edema, Acute on chronic diastolic CHF (congestive heart failure), Elevated brain natriuretic peptide (BNP) level, Hypomagnesemia Forms Stand Alone Forms: [facility] [employer] Prescriptions Prescriptions: No Action (DME) blood sugar diagnostic Strip See Dose Instructions .ROUTE .MEDSUPPLY Qty: 10 3RF Rx Instructions: As directed albuterol sulfate 2.5 mg /3 mL (0.083 %) solution for nebulization 2.5 mg inhalation .COMPLEX PRN (Reason: shortness of breath or wheezing) Qty: 1620 3RF Rx Instructions: 2.5 mg inhalation every 4-6 hours via nebulizer PRN; (DME) OneTouch Ultra Test Strip See Rx Instructions .ROUTE .COMPLEX Qty: 100 3RF Dose Instruction: DIRECTED Rx Instructions: DIRECTED allopurinol 300 mg tablet 300 mg PO QAM Qty: 90 3RF metformin 500 mg tablet extended release 24 hr 500 mg PO BID Qty: 180 3RF lisinopril 5 mg tablet 5 mg PO QAM Qty: 90 3RF metoprolol succinate [Toprol XL] 100 mg tablet extended release 24 hr 150 mg PO BID Qty: 270 3RF Spiriva Respimat 2.5 mcg/actuation mist See Rx Instructions .ROUTE .COMPLEX Qty: 12 11RF Dose Instruction: INHALE TWO PUFFS BY MOUTH EVERY MORNING Rx Instructions: INHALE TWO PUFFS BY MOUTH EVERY MORNING warfarin 5 mg tablet 5 mg PO .COMPLEX Qty: 90 3RF Protocol: Dose Management Condition: Saturday Dose/Route: 5 mg Instruction: 1 x 5 mg tablet Condition: Saturday Dose/Route: 2.5 mg Instruction: 0.5 x 5 mg tablets Condition: Saturday Dose/Route: 5 mg Instruction: 1 x 5 mg tablet Condition: Saturday Dose/Route: 5 mg Instruction: 1 x 5 mg tablet Condition: Dose/Route: 5 mg Instruction: 1 x 5 mg tablet Condition: Saturday Dose/Route: 5 mg Instruction: 1 x 5 mg tablet Condition: Saturday Dose/Route: 5 mg Instruction: 1 x 5 mg tablet Protocol Text: Adjustment Start Date: Saturday10/08/22 INR Value: 3.6 INR Date: 10/08/22 Rx Instructions: Saturday- takes 2.5mg , needed to retest on saturday but she couldnt, run out of testing strips 5 mg PO DAILY PER INR CLINIC changes weekly 2.5mg to 5 mg daily furosemide [Lasix] 20 mg tablet 20 mg PO DAILY PRN (Reason: edema/weight gain ) Qty: 30 5RF Rx Instructions: 2 lbs or more magnesium oxide 400 mg (241.3 mg magnesium) tablet 400 mg PO DAILY PRN (Reason: when you take your furosemide) Qty: 30 5RF potassium chloride 20 mEq tablet extended release 20 meq PO DAILY PRN (Reason: when you take your furosemide) Qty: 30 5RF (DME) lancets [OneTouch Delica Plus Lancet] 33 gauge misc See Rx Instructions .ROUTE .COMPLEX Qty: 100 3RF Dose Instruction: DIRECTED Rx Instructions: DIRECTED Dulera 200-5 mcg/actuation HFA aerosol inhaler See Rx Instructions .ROUTE .COMPLEX Qty: 39 3RF Dose Instruction: INHALE 2 PUFFS ORALLY TWICE DAILY RINSE MOUTH AFTER USE Rx Instructions: INHALE 2 PUFFS ORALLY TWICE DAILY RINSE MOUTH AFTER USE cephalexin 500 mg capsule See Rx Instructions .ROUTE .COMPLEX Qty: 180 3RF Dose Instruction: TAKE ONE CAPSULE BY MOUTH TWICE A DAY Rx Instructions: TAKE ONE CAPSULE BY MOUTH TWICE A DAY (DME) lancing device with lancets [OneTouch Delica Lanc Device] Kit See Rx Instructions .Route Qty: 100 0RF Rx Instructions: As directed diltiazem HCl 120 mg capsule,extended release 24hr 120 mg PO QAM Referrals Referrals: Bc Carter MD [Primary Care Provider] -
--- NOTE | 2022-11-19 09:13 | XRay Report ---
XR chest 1V portable HISTORY: 82 years-old Female Sepsis acute sepsis COMPARISON: 10/14/2022 TECHNIQUE: AP view of the chest FINDINGS: Cardiac silhouette is enlarged. Atherosclerosis of the aorta. Pulmonary vascular congestion with inte rstitial coarsening. Probable small pleural effusions. No pneumothorax. Mild bibasilar opacities. Emp hysema. Degenerative changes of the shoulders and spine. Right shoulder rotator cuff calcific tendino sis. IMPRESSION: 1. Cardiomegaly with pulmonary edema. 2. Small pleural effusions with mild bibasilar opacities. ACT 112: Negative or not required by law. The above report was generated using voice recognition software. It may contain grammatical, syntax o r spelling errors. Electronically signed by: Hernandez Naylor M.D. 11/19/2022 9:12 AM
[2022-11-19 09:20] LABS: Basophils # (auto) 0.03 K/uL (0.00-0.20); Basophils % (auto) 0.6 %; Eosinophils # (auto) 0.22 K/uL (0.00-0.50); Eosinophils % (auto) 4.2 %; Hematocrit (blood only) 30.7 % (37.0-47.0); Hemoglobin 9.6 g/dl (12.0-16.0); Immature Granulocytes # (auto) 0.01 K/uL (0.01-0.20); Immature Granulocytes % (auto) 0.2 %; Lymphocytes # (auto) 1.02 K/uL (1.20-3.40); Lymphocytes % (auto) 19.6 %; Mean Corpuscular Hemoglobin 31.1 pg (25.0-34.0); Mean Corpuscular Hgb Conc 31.3 g/dL (32.0-36.0); Mean Corpuscular Volume 99.4 fL (80.0-100.0); Mean Platelet Volume 10.6 fL (9.4-12.4); Monocytes # (auto) 0.34 K/uL (0.11-0.59); Monocytes % (auto) 6.5 %; Neutrophils # (auto) 3.58 K/uL (1.40-6.50); Neutrophils % (auto) 68.9 %; Platelet Count 172 K/uL (130-400); RDW Coefficient of Variation 17.6 % (11.5-14.5); RDW Standard Deviation 63.3 fL (36.4-46.3); Red Blood Count 3.09 M/uL (4.20-5.40)
[2022-11-19 09:34] LABS: Albumin Level 3.8 gm/dl (3.4-5.0); BUN Creatinine Ratio 45.2 (10-20); Bilirubin Direct 0.3 mg/dl (0-0.2); Bilirubin,Total 1.1 mg/dl (0.2-1.0); Calcium 8.9 mg/dl (8.6-10.3); Creatinine Clr Calc Pharmacy 46.4 ml/min; Est GFR (African American) 51.7 ml/min; Est GFR (Non-African American) 44.6 ml/min; Magnesium 1.6 mg/dl (1.7-2.4); Potassium 4.5 mmol/L (3.5-5.1); Total Protein 6.2 gm/dl (6.0-8.3)
[2022-11-19] MEDS ORDERED: FUROSEMIDE 40 MG/4 ML VIAL IV ONE (09:37)
[2022-11-19 09:40] LABS: Troponin I High Sensitivity 8.9 pg/ml (0-14)
[2022-11-19 09:42] LABS: Base Excess VBG -4.2 mEq/L; HCO3 VBG 23 mmol/L; Oxygen Saturation VBG < 60.0 %; PCO2 VBG 47 mmHg (38-50); PO2 VBG 23 mmHg; pH VBG 7.29 (7.36-7.41)
[2022-11-19] MEDS ORDERED: MAGNESIUM SULFATE / D5W 1 GM/100 ML BAG IV STA (09:57)
[2022-11-19 10:12] LABS: Adenovirus PCR Not Detected (NotDetected); Bordetella parapertussis PCR Not Detected (NotDetected); Bordetella pertussis PCR Not Detected (NotDetected); Chlamydia pneumoniae PCR Not Detected (NotDetected); Coronavirus 229E PCR Not Detected (NotDetected); Coronavirus CoV-2 (COVID19)PCR Not Detected (NotDetected); Coronavirus HKU1 PCR Not Detected (NotDetected); Coronavirus NL63 PCR Not Detected (NotDetected); Coronavirus OC43PCR Not Detected (NotDetected); Human Metapneumovirus PCR Not Detected (NotDetected); Influenza A PCR Not Detected (NotDetected); Influenza B PCR Not Detected (NotDetected); Mycoplasma pneumoniae PCR Not Detected (NotDetected); Parainfluenza Virus 1 PCR Not Detected (NotDetected); Parainfluenza Virus 2 PCR Not Detected (NotDetected); Parainfluenza Virus 3 PCR Not Detected (NotDetected); Parainfluenza Virus 4 PCR Not Detected (NotDetected); Respiratory Syncytial VirusPCR Not Detected (NotDetected); Rhinovirus/Enterovirus PCR Not Detected (NotDetected)
--- NOTE | 2022-11-19 10:33 | History & Physical Report ---
Date of Service November 19, 2022 Assessment & Plan (1) Shortness of breath: Plan: Suspect multifactorial, combination of not using home lasix/weight up/noncompliance with meds, COPD Biofire negative EKG w/ Afib, low voltage QRS, nonspec ST abn. No change compared to prior. Trop 8.9 on high sensitivity testing CXR w/ congestion/pulmonary edema, with BNP elevation 894, mag 1.6 Admit to telemetry Given lasix 80mg IV in ER -- monitor response, schedule 40mg IV daily for morning/adjustment as needed pending response Obtain blood cultures given her hx endocarditis (2013)/shortness of breath, chronic back pain/weakness. is on chronic Keflex therapy Will check CT chest to r/o PE as well as underlying malignancy given smoking hx/hemoptysis, prior nodules suspicious for underlying adenocarcinoma INR checked as was overdue x 3 weeks, is wnl at present Consider consult w/ pulm pending imaging results Checking CTAP given prior concerns for torey, abdominal discomfort, TB elevation (noting hx cirrhosis, no alcohol use) Check anemia labs/peripheral smear given ongoing lymphopenia per review to r/o other causes contributing Mag replacement ordered Consider repeat echo Will consult CHF clinic Monitor daily weights, I&Os Supplemental O2 to maintain sats -- currently on 2L Monitor labs in AM (2) Pulmonary edema: Plan: on imaging ?uncontrolled afib at home/rates? underlying malignancy consider underlying untreated sleep apnea as well checking further imaging as above, monitor response to diuretics ?underlying untreated sleep apnea (3) Acute on chronic diastolic CHF (congestive heart failure): Plan: volume overloaded on exam, however do not suspect this is the only contributing factor for her shortness of breath sparing use by patient for her prn 20mg lasix at home, last dose last Saturday for weight 274/276lb 80mg IV lasix ordered by ER, will hold off further for now Monitor output w/ such Further dosing tomorrow TBD, will continue her lisinopril, metoprolol. Not on statin/intolerant in past. On coumadin for hx afib, but no ASA/plavix given her hx GI bleeding. Trop 8.9 on admit. EKG w/o acute abn CHF clinic consulted Monitor weights/intake & output consider repeating echo Monitor Also w/ hx CAD, nonobstructive per [facility] cards notes, Dr Aponte No angina reported. Not on ASA due to GI bleeding, is on coumadin for stroke risk reduction given her afib Mild nonobs CAD in 2012 Remains on BB as above, intolerant to statin therapy (4) Chronic obstructive pulmonary disease: Plan: hx smoking 30 yrs ago, known lung nodules susp for underlying malignancy hypoxic on admit upper 80s, improved and stable on 2L at present 98% Continue home meds, duonebs prn Pulmonary toilet Supplemental O2 to maintain sats Continue home meds Checking CT chest as above to r/o PE, further evaluation. Consider pulm consult pending imaging *Of note, listed allergy iodine, but reporting able to have had imaging in past w/o need for pre-med (5) Anemia: Plan: Hgb 9.6 on admit, ?volume overload/dilutional. MCV borderline 99 Monitor response w/ lasix Check B12/iron/folate w/ labs Hx cirrhosis, GI bleeding in the past requiring transfusion -- no bleeding reported at present On coumadin, continued/checking INR Fecal occult ordered for completeness Monitor CBC (6) Elevated brain natriuretic peptide (BNP) level: Plan: as above (7) Hypomagnesemia: Plan: replacement ordered, will give additional 1gm IV Monitor labs in AM, keep ~2 (8) Atrial fibrillation, permanent: Plan: on Coumadin, checking INR Continue metoprolol 150mg BID, Cardizem 120mg daily Keep k/mag replete monitor on telemetry (9) Bacterial endocarditis: Plan: Hx of such, 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 on keflex for chronic immunosuppressive therapy +murmur on exam, but recent echo earlier this year. Trop negative could consider repeating limited if needing (10) DMII (diabetes mellitus, type 2): Plan: A1c 6.6 in July Only on metformin 500mg BID, will hold while inpatient and utilize SSI Monitor BSGs (11) CKD (chronic kidney disease), stage III: Plan: Cr appears improved from priors, monitor BMP in AM w/ large dose IV lasix Renal dose meds/avoid nephrotoxins as able (12) PAD (peripheral artery disease): Plan: s/p bilateral GSV ablation with Venaseal: Has followed with vascular Medicine. (13) Lumbar disc disease: Plan: noted hx pt/ot evals while inpatient (14) Mitral regurgitation: Plan: noted on prior echo, hx endocarditis, on suppressive therapy Plan DVT proph: INR therapeutic on check, will continue coumadin for now History of Present Illness Chief Complaint: shortness of breath Primary Care Provider: Bc Carter MD 82yo female with PMHx significant for Afib, , CHF, COPD, DM II, PAD, Cirrhosis (no alcohol use/hepatitis hx), HTN, anticoagulation on coumadin, cdiff colitis, bacterial endocarditis (on chronic keflex for suppressive therapy) presented for shortness of breath, progressively worsened since discharge from the hospital in October, worse in the past 2-3 days. Dry weight 270lb (123kg -- however heart failure clinic notes dry weight 183lb), taking lasix once weekly at home. Spo2 86% on room air, currently 99% on 2L. Weight gain recently, weight 274.6lb reported last week when she took her lasix at that time 20mg PO Does report shortness of breath, difficulty laying flat as well. Denies hx FELICIANO/CPAP use at baseline. In October, she received 3 doses of IV lasix during last admission, transitioned back to her usual 20mg prn dosing at discharge given rise in creatinine. No BNP during that admission, was suspected to have passed gallst one. At that time imaging noting no acute torey but MRCP did note mild GB wall thickening in patient with ongoing abdominal discomfort. She reports most of pain to her epigastric region/back pain. No significant RUQ discomfort. +cough this morning, shown in room, possible blood tinge sputum. Reporting some yellowish sputum at times. Hx smoking but quit ~30 years ago. She has been compliant with her coumadin for her hx AFIB (also hx DVT) but reports she is 3 weeks overdue for INR check. She takes 5mg daily and 1/2 tablet on Mondays. She does have baseline incontinence issues. Purewick being utilized by ER staff in room, placement momentarily as she reports discomfort last admission w/ placement of velasquez. Hx GI bleeding, but denied any blood in stool/urine at baseline. Baseline ambulatory dysfunction, not worse at present. LE w/ edema, hx PAD s/p intervention w/ vascular. ALso has fungal appearance under bilateral breasts, using a paste at home No chest pain at present. No recent fever/chills. ER Course: CBC 5.2, hgb 9.6, plt 172. VBG pH 7.29, pCO2 47. Na 136, K 4.5. BUN/Cr 52/1.15, glu 157,. Lactic 1.2, mag 1.6. TB 1.1, DB 0.3, AST/ALT/ALP wnl. Procal 0.06 Biofire testing negative CXR w/ cardiomegaly and pulmonary edema, small pleural effusions with mild bibasilar opacities. Given Lasix 80mg IV x 1, mag 1gm IV. Of note, CTAP in May noting lungs w/ 2 groundglass lesions again in right lung base, suspicious for low grade adenocarcinoma. Of note, outpatient notes son w/ pancreatic mass per Dr Romo outpt note in April, completed therapy w/ no tumor found after treatment. Repeating CTAP w/ IV contrast (reported tolerance w/o need for pre-medication but gets anxious), also CT chest to r/o PE and f/u underlying lung disease. Allergies Allergy/AdvReac Type Severity Reaction Status Date / Time technetium-99m Allergy Severe ANAPHYLAXIS Verified 10/22/22 09:02 amoxicillin Allergy Intermediate RASH Verified 10/22/22 09:02 nitrofurantoin Allergy Intermediate HIVES Verified 11/19/22 15:06 iodine Allergy Unknown HIVES, Verified 10/22/22 09:02 WITH DYE 30 YRS AGO-HAS HAD SINCE W/O PROBLEM Home Medications Medication Instructions Recorded Confirmed Type lancing device with lancets kit #100 ea 01/16/21 10/22/22 Rx (Baccaratuch Delica Lancing Device kit) blood sugar diagnostic #10 ea 01/30/21 10/22/22 Rx albuterol sulfate 2.5 mg/3 mL 2.5 mg (3 mL) inhalation .COMPLEX 03/13/21 0 10/22/22 Rx (0.083 %) solution for nebulization PRN shortness of breath or wheezing #1,620 mL blood sugar diagnostic (Baccaratuch #100 strips 02/21/22 10/22/22 Rx Ultra Test strips) allopurinol 300 mg tablet 300 mg PO QAM #90 tabs 03/20/22 11/19/22 Rx metformin 500 mg tablet,extended 500 mg PO BID #180 tabs 03/20/22 11/19/22 Rx release 24 hr lisinopril 5 mg tablet 5 mg PO QAM #90 tabs 03/21/22 11/19/22 Rx metoprolol succinate 100 mg 150 mg PO BID #270 tabs 03/21/22 11/19/22 Rx tablet,extended release 24 hr (Toprol XL) warfarin 5 mg tablet 5 mg PO .COMPLEX #90 tabs 04/20/22 11/19/22 Rx furosemide 20 mg tablet (Lasix) 20 mg PO DAILY PRN edema/weight 04/25/22 10/22/22 Rx gain #30 tabs magnesium oxide 400 mg (241.3 mg 400 mg PO DAILY PRN when you take 04/25/22 10/22/22 Rx magnesium) tablet your furosemide #30 tabs potassium chloride 20 mEq 20 meq PO DAILY PRN when you take 04/25/22 10/22/22 Rx tablet,extended release your furosemide #30 tabs lancets 33 gauge (OneTouch Delica #100 ea 06/06/22 10/22/22 Rx Plus Lancet) diltiazem HCl 120 mg 120 mg PO QAM 10/14/22 11/19/22 History capsule,extended release 24 hr cephalexin 500 mg capsule 500 mg PO BID 11/19/22 11/19/22 History mometasone-formoterol HFA 200 2 puff inhalation BID 11/19/22 11/19/22 History mcg-5 mcg/actuation aerosol inhaler (Dulera) tiotropium bromide 2.5 2 puff inhalation QAM 11/19/22 11/19/22 History mcg/actuation mist for inhalation (Spiriva Respimat) Past Med/Surg History Medical History Alopecia Arthritis Asthma Atrial fibrillation with rapid ventricular response Bacterial endocarditis C. 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 Lumbar spondylosis Mitral regurgitation Morbid obesity Obesity Panic attacks AND CLAUSTROPHOBIA Sepsis Shortness of breath Type 2 diabetes mellitus Surgical History History of anesthesia reaction SLOW TO WAKE UP [place] of [place]rosc[place] [place] of bladder surgery History of cataract surgery R/L History of colonoscopy History of total knee replacement R/L S/P IVC filter AND REMOVED Family History Unknown Diabetes Hypertension Mother Diabetes Cardiac disorder Grandfather Sinus disorder Social History Smoking Status: Former smoker Tobacco Type: Cigarettes Second Hand Exposure: No; Hx Alcohol Use: Yes Alcohol type: wine Hx Substance Use: No Preferred Language: Pry[place]in[place] Communication Ability: Effective Visual Impairment: Blindness Customer Service Advisor Required: No Beliefs That Will Affect Care: None marital status: Unknown Current Living Situation: Alone Other Information That Helps Us Care for You: No Feels Safe at Home: Yes Safety Concerns: Feels Safe At This Time Assistive Devices: Glasses, Oxygen - Continuous and Walker Physical Exam Physical Exam: General: morbidly obese female, sitting up in bed, NAD but reporting need to urinate, +general pallor HEENT: head normocephalic, atraumatic, mmm, trachea midline , +JVD Chest: b/l erythema to breast folds Resp: diminished in the bases, +wheezing bilaterally/coarse breath sounds, RR 22, +cough, on 2L NC to maintain sats CV: irregularly irregulay, +systolic murmur, +b/l LE edema to thighs/lyphedema, calves nontender GI: +BS, +epigastric tenderness (no RUQ tenderness), +enlarged/nodular liver, +obese, no warmth/rigidity MSK/Neuro: answering questions appropriately, no slurred speech, following commands, generalized weakness but no focal deficit Psych: alert, oriented to person/place/time, cooperative with exam Results & Data Results & Data Vital Signs (Past 12 Hours) Vital Signs Pulse Resp BP Pulse Ox O2 Del Method O2 Flow Rate 11/19/22 09:20 74 11/19/22 08:44 Nasal Cannula 2 11/19/22 08:44 75 24 130/95 99 Nasal Cannula 4 Laboratory Results 11/19/22 11/19/22 11/19/22 Range/Units 09:29 08:57 08:50 WBC (4.8-10.8) K/ul RBC (4.20-5.40) M/uL Hgb (12.0-16.0) g/dl Hct (37.0-47.0) % MCV (80.0-100.0) fL MCH (25.0-34.0) pg MCHC (32.0-36.0) g/dL RDW Std Deviation (36.4-46.3) fL RDW Coeff of Beatrice (11.5-14.5) % Plt Count (130-400) K/uL MPV (9.4-12.4) fL Immature Gran % (Auto) % Neut % (Auto) % Lymph % (Auto) % [place] % (Auto) % Eos % (Auto) % Baso % (Auto) % Neut # (Auto) (1.40-6.50) K/uL Lymph # (Auto) (1.20-3.40) K/uL [place] # (Auto) (0.11-0.59) K/uL Eos # (Auto) (0.00-0.50) K/uL Baso # (Auto) (0.00-0.20) K/uL Immature Gran # (Auto) (0.01-0.20) K/uL VBG pH 7.29 L (7.36-7.41) VBG pCO2 47 (38-50) mmHg VBG pO2 23 mmHg VBG HCO3 23 mmol/L VBG O2 Saturation < 60.0 % VBG Base Excess -4.2 mEq/L Sodium 136 Potassium 4.5 Chloride 107 Carbon Dioxide 23 Anion Gap 6 BUN 52 H Creatinine 1.15 Est Cr Clr Drug Dosing 46.4 Est GFR ( Amer) 51.7 Est GFR (Non-Af Amer) 44.6 BUN/Creatinine Ratio 45.2 H Glucose 157 H Lactate (0.4-2.0) mmol/L Calcium 8.9 Magnesium 1.6 L Total Bilirubin 1.1 H Direct Bilirubin 0.3 H AST 20 ALT 19 Alkaline Phosphatase 70 Troponin I High Sens 8.9 (0-14) pg/ml B-Natriuretic Peptide (0-100) pg/ml Total Protein 6.2 Albumin 3.8 Procalcitonin (0-0.5) ng/ml Adenovirus (PCR) Not Detected (NotDetected) B. pertussis DNA (PCR) Not Detected (NotDetected) B.parapertussis DNA PCR Not Detected (NotDetected) C. pneumoniae DNA (PCR) Not Detected (NotDetected) Coronavirus OC43 (PCR) Not Detected (NotDetected) Coronavirus HKU1 (PCR) Not Detected (NotDetected) Coronavirus 229E (PCR) Not Detected (NotDetected) SARS-CoV-2 (PCR) Not Detected (NotDetected) Coronavirus NL63 (PCR) Not Detected (NotDetected) Human Metapneumovir PCR Not Detected (NotDetected) Influenza Type A (PCR) Not Detected (NotDetected) Influenza Type B (PCR) Not Detected (NotDetected) M. pneumoniae (PCR) Not Detected (NotDetected) Parainfluenza 1 (PCR) Not Detected (NotDetected) Parainfluenza 2 (PCR) Not Detected (NotDetected) Parainfluenza 3 (PCR) Not Detected (NotDetected) Parainfluenza 4 (PCR) Not Detected (NotDetected) RSV (PCR) Not Detected (NotDetected) Entero/Rhino (PCR) Not Detected (NotDetected) 11/19/22 11/19/22 11/19/22 Range/Units 08:50 08:50 08:50 WBC (4.8-10.8) K/ul RBC (4.20-5.40) M/uL Hgb (12.0-16.0) g/dl Hct (37.0-47.0) % MCV (80.0-100.0) fL MCH (25.0-34.0) pg MCHC (32.0-36.0) g/dL RDW Std Deviation (36.4-46.3) fL RDW Coeff of Beatrice (11.5-14.5) % Plt Count (130-400) K/uL MPV (9.4-12.4) fL Immature Gran % (Auto) % Neut % (Auto) % Lymph % (Auto) % [place] % (Auto) % Eos % (Auto) % Baso % (Auto) % Neut # (Auto) (1.40-6.50) K/uL Lymph # (Auto) (1.20-3.40) K/uL [place] # (Auto) (0.11-0.59) K/uL Eos # (Auto) (0.00-0.50) K/uL Baso # (Auto) (0.00-0.20) K/uL Immature Gran # (Auto) (0.01-0.20) K/uL VBG pH (7.36-7.41) VBG pCO2 (38-50) mmHg VBG pO2 mmHg VBG HCO3 mmol/L VBG O2 Saturation % VBG Base Excess mEq/L Sodium Potassium Chloride Carbon Dioxide Anion Gap BUN Creatinine Est Cr Clr Drug Dosing Est GFR ( Amer) Est GFR (Non-Af Amer) BUN/Creatinine Ratio Glucose Lactate 1.2 (0.4-2.0) mmol/L Calcium Magnesium Total Bilirubin Direct Bilirubin AST ALT Alkaline Phosphatase Troponin I High Sens (0-14) pg/ml B-Natriuretic Peptide 894 H (0-100) pg/ml Total Protein Albumin Procalcitonin 0.06 (0-0.5) ng/ml Adenovirus (PCR) (NotDetected) B. pertussis DNA (PCR) (NotDetected) B.parapertussis DNA PCR (NotDetected) C. pneumoniae DNA (PCR) (NotDetected) Coronavirus OC43 (PCR) (NotDetected) Coronavirus HKU1 (PCR) (NotDetected) Coronavirus 229E (PCR) (NotDetected) SARS-CoV-2 (PCR) (NotDetected) Coronavirus NL63 (PCR) (NotDetected) Human Metapneumovir PCR (NotDetected) Influenza Type A (PCR) (NotDetected) Influenza Type B (PCR) (NotDetected) M. pneumoniae (PCR) (NotDetected) Parainfluenza 1 (PCR) (NotDetected) Parainfluenza 2 (PCR) (NotDetected) Parainfluenza 3 (PCR) (NotDetected) Parainfluenza 4 (PCR) (NotDetected) RSV (PCR) (NotDetected) Entero/Rhino (PCR) (NotDetected) 11/19/22 11/19/22 Range/Units 08:50 08:50 WBC 5.20 (4.8-10.8) K/ul RBC 3.09 L (4.20-5.40) M/uL Hgb 9.6 L (12.0-16.0) g/dl Hct 30.7 L (37.0-47.0) % MCV 99.4 (80.0-100.0) fL MCH 31.1 (25.0-34.0) pg MCHC 31.3 L (32.0-36.0) g/dL RDW Std Deviation 63.3 H (36.4-46.3) fL RDW Coeff of Beatrice 17.6 H (11.5-14.5) % Plt Count 172 (130-400) K/uL MPV 10.6 (9.4-12.4) fL Immature Gran % (Auto) 0.2 % Neut % (Auto) 68.9 % Lymph % (Auto) 19.6 % [place] % (Auto) 6.5 % Eos % (Auto) 4.2 % Baso % (Auto) 0.6 % Neut # (Auto) 3.58 (1.40-6.50) K/uL Lymph # (Auto) 1.02 L (1.20-3.40) K/uL [place] # (Auto) 0.34 (0.11-0.59) K/uL Eos # (Auto) 0.22 (0.00-0.50) K/uL Baso # (Auto) 0.03 (0.00-0.20) K/uL Immature Gran # (Auto) 0.01 (0.01-0.20) K/uL VBG pH (7.36-7.41) VBG pCO2 (38-50) mmHg VBG pO2 mmHg VBG HCO3 mmol/L VBG O2 Saturation % VBG Base Excess mEq/L Sodium Cancelled Potassium Cancelled Chloride Cancelled Carbon Dioxide Cancelled Anion Gap Cancelled BUN Cancelled Creatinine Cancelled Est Cr Clr Drug Dosing Cancelled Est GFR ( Amer) Cancelled Est GFR (Non-Af Amer) Cancelled BUN/Creatinine Ratio Cancelled Glucose Cancelled Lactate (0.4-2.0) mmol/L Calcium Cancelled Magnesium Cancelled Total Bilirubin Cancelled Direct Bilirubin Cancelled AST Cancelled ALT Cancelled Alkaline Phosphatase Cancelled Troponin I High Sens (0-14) pg/ml B-Natriuretic Peptide (0-100) pg/ml Total Protein Cancelled Albumin Cancelled Procalcitonin (0-0.5) ng/ml Adenovirus (PCR) (NotDetected) B. pertussis DNA (PCR) (NotDetected) B.parapertussis DNA PCR (NotDetected) C. pneumoniae DNA (PCR) (NotDetected) Coronavirus OC43 (PCR) (NotDetected) Coronavirus HKU1 (PCR) (NotDetected) Coronavirus 229E (PCR) (NotDetected) SARS-CoV-2 (PCR) (NotDetected) Coronavirus NL63 (PCR) (NotDetected) Human Metapneumovir PCR (NotDetected) Influenza Type A (PCR) (NotDetected) Influenza Type B (PCR) (NotDetected) M. pneumoniae (PCR) (NotDetected) Parainfluenza 1 (PCR) (NotDetected) Parainfluenza 2 (PCR) (NotDetected) Parainfluenza 3 (PCR) (NotDetected) Parainfluenza 4 (PCR) (NotDetected) RSV (PCR) (NotDetected) Entero/Rhino (PCR) (NotDetected) Diagnostic Findings Chest X-Ray 11/19/22 08:42 XR chest 1V portable HISTORY: 82 years-old Female Sepsis acute sepsis COMPARISON: 10/14/2022 TECHNIQUE: AP view of the chest FINDINGS: Cardiac silhouette is enlarged. Atherosclerosis of the aorta. Pulmonary vascular congestion with interstitial coarsening. Probable small pleural effusions. No pneumothorax. Mild bibasilar opacities. Emphysema. Degenerative changes of the shoulders and spine. Right shoulder rotator cuff calcific tendinosis. IMPRESSION: 1. Cardiomegaly with pulmonary edema. 2. Small pleural effusions with mild bibasilar opacities. ACT 112: Negative or not required by law. The above report was generated using voice recognition software. It may contain grammatical, syntax or spelling errors. Electronically signed by: Hernandez Naylor M.D. 11/19/2022 9:12 AM Supervising Physician Co-Signing Physician Notes I personally saw and examined the patient. I verified all mercer points and agree with Mariana Acuna PA-C with the following exceptions and/or additions: 82 year old female presents to the ER with shortness of breath. Progressive since last admission. Associated cough and worsening leg swelling. No chest pain fever or chills. O/E A&Ox3, irregular heart rhythm, regular rate, KJ, b/l leg edema 1+, Chest bibasal crackles, mild expiratory wheezing, Abdo SNT A/P Acute on chronic diastolic heart failure - suspect liver cirrhosis also contributing towards hypervolemic status (only small amount of ascites present). Of note she received Lasix 40mg IV x3 last admission with bump in Cr and subsequently Lasix was discontinued. However other than this all signs/symptoms point towards hypervolemic state. No BNP from last time to compare. Suspect she may need to tolerate a small increase in her creatinine to obtain adequate diuresis. ?alternative cause last time for her Cr bump. Consult cardiology and HF clinic to assist in diuresis. I&Os, daily weights. No current abdominal pain on my exam and normal LFTs. Do not suspect acute cholecytitis at this time. PG Care Time/CCT Total # of Minutes Spent Total Time Spent with Patient: Total time spent is greater than 50% in coordination of care (as documented) at patient's floor/unit and/or counseling patient: Coding Level of Care Code 01815 INT INP/OBS CARE 75MIN Diagnoses Shortness of breath R06.02 Pulmonary edema J81.1 Acute on chronic diastolic CHF (congestive heart failure) I50.33 Chronic obstructive pulmonary disease J44.9 Anemia D64.9 Anemia type: unspecified type Elevated brain natriuretic peptide (BNP) level R79.89 Hypomagnesemia E83.42 Atrial fibrillation, permanent I48.21 Bacterial endocarditis I33.0 DMII (diabetes mellitus, type 2) E11.9 CKD (chronic kidney disease), stage III N18.30 PAD (peripheral artery disease) I73.9 Lumbar disc disease M51.9 Mitral regurgitation I34.0 (5) Anemia Anemia type: unspecified type Qualified Code(s): D64.9 - Anemia, unspecified
[2022-11-19 11:00] LABS: INR 2.5 (0.9-1.1); Prothrombin Time 25.5 Seconds (9.0-12.0)
[2022-11-19] MEDS ORDERED: diphenhydrAMINE 50 MG/ML VIAL IV STA (12:01)
[2022-11-19 12:07] LABS: Ferritin 56.7 ng/ml (8-388)
--- NOTE | 2022-11-19 12:39 | Electrocardiogram Report ---
Test Reason : Blood Pressure : / mmHG Vent. Rate : 070 BPM Atrial Rate : 000 BPM P-R Int : 000 ms QRS Dur : 088 ms QT Int : 396 ms P-R-T Axes : 000 008 064 degrees QTc Int : 427 ms Atrial fibrillation Low voltage QRS Nonspecific ST abnormality Abnormal ECG When compared with ECG of 14-OCT-2022 07:34, No significant change was found Confirmed by Leif Calvert ([id number]) on 11/19/2022 12:39:18 PM Referred By: Confirmed By:Leif Calvert
[2022-11-19 12:47] LABS: Ovalocytes 1+; Tear Drop Cells 1+
[2022-11-19] MEDS ORDERED: OPTIRAY 320 500ml IV ONE (12:58)
[2022-11-19 13:05] LABS: Appearance Urine Clear (Clear); Bilirubin Urine Negative (Negative); Blood Urine Negative (Negative); Color Urine Yellow; Glucose Urine UA Negative (Negative); Ketones Urine Negative (Negative); Leukocyte Esterase Urine Negative (Negative); Nitrite Urine Negative (Negative); Protein Urine Negative (Negative); Specific Gravity Urine 1.009 (1.000-1.030); Urobilinogen Urine Negative (Negative)
[2022-11-19 13:09] LABS: Folate (Folic Acid),Ser orPlas 12.88 ng/ml (>5.38)
--- NOTE | 2022-11-19 13:17 | CT Scan Report ---
CT ANGIOGRAPHY OF THE CHEST, PULMONARY EMBOLUS PROTOCOL CLINICAL HISTORY: Shortness of breath. Evaluate for pulmonary embolus. COMPARISON STUDY: Chest CT December 18, 2021. Chest radiograph performed earlier today. TECHNIQUE: Following IV administration of 115 mL of Optiray, helical axial images of the chest were o btained utilizing the pulmonary embolus protocol. Maximal intensity projections and sagittal and cor onal reformats were viewed on an independent 3D workstation. IV contrast was administered without co mplication. Automated exposure control was utilized for the study. A dose lowering technique was ut ilized adhering to the principles of ALARA. CT DOSE: 2284.81 mGy.cm FINDINGS: No pulmonary emboli are identified. There is no pericardial effusion. Moderate cardiomegal y is noted. Prominent mediastinal and bilateral hilar lymph nodes may be related to pulmonary edema. There is no pneumothorax. Moderate right and small left pleural effusions are present. Subpleural opa cities within the lower lobes contain numerous tiny radiodensities. Moderate interstitial pulmonary e cristo with interlobular septal thickening is present. Numerous groundglass nodules measuring up to 1.7 [address] similar to CT of December 18, 2021. Abdomen and pelvis CT will be reported separately. IMPRESSION: 1. No pulmonary emboli identified. 2. Moderate interstitial pulmonary edema. Moderate right and small left pleural effusions. 3. Subpleural bilateral lower lobe air space opacities. These may reflect atelectasis however aspirat ion pneumonitis cannot be excluded given tiny associated radiodensities. 4. No significant change in numerous groundglass nodules since chest CT of December 18, 2021. 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 ACT 112: Negative or not required by law. Electronically signed by: Eduin Castanon M.D. 11/19/2022 1:16 PM
--- NOTE | 2022-11-19 13:49 | CT Scan Report ---
CT OF THE ABDOMEN AND PELVIS WITH CONTRAST CLINICAL HISTORY: abdominal pain, recent passed stone COMPARISON STUDY: CT of the abdomen and pelvis May 14, 2022. Right upper quadrant ultrasound Septem 2022. MRCP October 16, 2022. TECHNIQUE: Following IV administration of 115 mL of Optiray, axial images of the abdomen and pelvis w ere obtained from the lung bases to the proximal femurs. Images were reviewed in the axial, sagittal, and coronal planes. IV contrast was administered without complication. Automated exposure control w as utilized for the study. A dose lowering technique was utilized adhering to the principles of ALARadha Gomez. FINDINGS: Please note that the chest CT will be reported separately. Moderate right and small left pl eural effusions are present. Subpleural opacities containing radiodensities are noted. There is inter lobular septal thickening. Groundglass lesions within the lungs are similar to prior CT. There is car diomegaly. The IVC and hepatic veins are mildly dilated. There is lobulated liver contour. Periportal edema is noted. There is stranding within the octavio hepatis. There is also mild gallbladder wall thi ckening. There are gallstones within the gallbladder. However, the gallbladder is not distended. Ther e is no biliary or pancreatic ductal dilatation. Multiple hypodense hepatic lesions are noted. The la rger lesions reflect cysts. Smaller lesions are too small to characterize. Mild splenomegaly is uncha nged. Adrenal glands, kidneys and pancreas are unremarkable with exception of moderate bilateral lilia l cortical thinning. There is no hydronephrosis. No ureteral calculi are present. There is extensive plaque within the abdominal aorta and moderate plaque within the branch vessels. Colonic diverticulos is is present. No evidence for acute diverticulitis. The bladder is distended. A 4.1 cm water attenua tion left adnexal lesion is similar to prior exams. This exam is compromised by motion artifact. Smal l amount of perihepatic ascites is present. IMPRESSION: 1. Cholelithiasis. Mild gallbladder wall thickening which is likely due to volume overload/right hear t dysfunction given periportal edema, small amount of perihepatic ascites, bilateral pleural effusion s and evidence for pulmonary edema. These findings do not strongly suggest acute cholecystitis. No bi liary ductal dilatation. 2. No bowel obstruction. No bowel wall thickening. Colonic diverticulosis without evidence for acute diverticulitis. 3. No urinary calculi. No hydronephrosis. Distended bladder. 4. Multiple findings within the chest which are better depicted on the chest CT. Please see that repo rt for further description. 5. Suspected cirrhosis. Stable mild splenomegaly. ACT 112: Negative or not required by law. Electronically signed by: Eduin Castanon M.D. 11/19/2022 1:46 PM
[2022-11-19] MEDS ORDERED: MAGNESIUM OXIDE 400 MG TAB PO PRN (15:07)
[2022-11-19] MEDS ORDERED: GLUCOSE 40% GEL 15 GM TUBE PO PRN (15:07)
[2022-11-19] MEDS ORDERED: DEXTROSE 50% 50 ML SYRINGE IV PRN (15:07)
[2022-11-19] MEDS ORDERED: ONDANSETRON INJ 2 MG/ML 2 ML VIAL IV PRN (15:07)
[2022-11-19] MEDS ORDERED: GLUCAGON FOR INJ 1 MG VIAL SQ PRN (15:07)
[2022-11-19] MEDS ORDERED: MAGNESIUM SULFATE / D5W 1 GM/100 ML BAG IV ONE (15:07)
[2022-11-19] MEDS ORDERED: ACETAMINOPHEN 325 MG TAB PO PRN (15:07)
[2022-11-19] MEDS ORDERED: CARBOHYDRATES FOR HYPOGLYCEMIA PO PRN (15:07)
[2022-11-19] MEDS ORDERED: GLUCOSE 10 TAB/TUBE PO PRN (15:07)
[2022-11-19] MEDS ORDERED: WARFARIN SOD 2.5 MG TAB PO SCH (16:00)
[2022-11-19] MEDS: ALBUT/IPRATROP 3MG/0.5MG NEB 3 ML VIAL NEB SCH ×3 (16:25→23:04)
[2022-11-19] MEDS: FAMOTIDINE 20 MG in SYRINGE 3 ML IV SCH (16:25)
[2022-11-19] MEDS: INSULIN ASPART PER UNIT CHARGE SC SCH ×3 (17:52→21:00)
[2022-11-19] MEDS: cephALEXin 500 MG CAP PO SCH (21:02)
[2022-11-19] MEDS: METOPROLOL SUCC 50MG EXT REL TAB PO SCH (21:03)
[2022-11-19] MEDS: FLUTICASONE FUROATE 100MCG 14 PUFFS/INHALER INH SCH (21:04)
[2022-11-19] MEDS: MICONAZOLE NITRATE POWDER 85 GM EXT SCH (21:05)
[2022-11-20] MEDS: ALBUT/IPRATROP 3MG/0.5MG NEB 3 ML VIAL NEB SCH ×6 (03:12→23:10)
[2022-11-20 06:50] LABS: Hematocrit (blood only) 27.5 % (37.0-47.0); Immature Granulocytes # (auto) 0.03 K/uL (0.01-0.20); Immature Granulocytes % (auto) 0.6 %; Lymphocytes # (auto) 0.36 K/uL (1.20-3.40); Lymphocytes % (auto) 6.6 %; Mean Corpuscular Hemoglobin 31.1 pg (25.0-34.0); Mean Corpuscular Hgb Conc 32.7 g/dL (32.0-36.0); Mean Corpuscular Volume 95.2 fL (80.0-100.0); Mean Platelet Volume 10.2 fL (9.4-12.4); Monocytes # (auto) 0.16 K/uL (0.11-0.59); Monocytes % (auto) 2.9 %; Neutrophils % (auto) 89.9 %; Platelet Count 167 K/uL (130-400); RDW Coefficient of Variation 17.4 % (11.5-14.5); RDW Standard Deviation 60.3 fL (36.4-46.3); Red Blood Count 2.89 M/uL (4.20-5.40); White Blood Count 5.45 K/ul (4.8-10.8)
[2022-11-20 07:23] LABS: Albumin Globulin Ratio 1.5 (0.9-2); Albumin Level 3.7 gm/dl (3.4-5.0); BUN Creatinine Ratio 43.4 (10-20); Calcium 9.2 mg/dl (8.6-10.3); Creatinine Clr Calc Pharmacy 42.2 ml/min; Est GFR (Non-African American) 38.8 ml/min; Globulin 2.4 gm/dl (2.5-4.0); Magnesium 1.8 mg/dl (1.7-2.4); Potassium 4.1 mmol/L (3.5-5.1); Total Protein 6.1 gm/dl (6.0-8.3)
[2022-11-20 07:35] LABS: Thyroid Stimulating Hormone 0.71 uIu/ml (0.300-4.500)
[2022-11-20 07:46] LABS: Estimated Average Glucose 126 mg/dl
[2022-11-20] MEDS: cephALEXin 500 MG CAP PO SCH ×2 (08:16→20:37)
[2022-11-20] MEDS: FUROSEMIDE 40 MG/4 ML VIAL IV SCH (08:16)
[2022-11-20] MEDS: lisinopril 5 MG TAB PO SCH (08:16)
[2022-11-20] MEDS: METOPROLOL SUCC 50MG EXT REL TAB PO SCH ×2 (08:16→20:39)
[2022-11-20] MEDS: allopurinoL 300 MG TAB PO SCH (08:16)
[2022-11-20] MEDS: UMECLIDINIUM BROMIDE 62.5MCG/BLISTER 7 PUFFS/INHALER INH SCH (08:17)
[2022-11-20] MEDS: MICONAZOLE NITRATE POWDER 85 GM EXT SCH ×2 (08:17→20:40)
[2022-11-20] MEDS: FAMOTIDINE 20 MG in SYRINGE 3 ML IV SCH (08:21)
[2022-11-20] MEDS: INSULIN ASPART PER UNIT CHARGE SC SCH ×4 (08:21→21:29)
[2022-11-20] MEDS ORDERED: dilTIAZem HCL 120 MG CAPCR PO SCH (09:00)
--- NOTE | 2022-11-20 09:54 | Cardiology Consultation ---
Date of Consultation November 20, 2022 Assessment & Plan (1) Acute on chronic diastolic CHF (congestive heart failure): (2) Elevated brain natriuretic peptide (BNP) level: Ms. Rocha is an 82-year-old female with a history of Mitral Valve Endocarditis, Permanent Atrial Fibrillation (rate controlled and on anticoagulation), Diastolic CHF, Non-obstructive CAD, Dyslipidemia, Hypertension, GI Bleed requiring blood transfusion, Prior Pulmonary Emboli, Type 2 Diabetes Mellitus, Hypertension, Dyslipidemia, Asthma/COPD, Obesity, PAD., Chronic Venous Insufficiency, Stage 3 CKD, Anemia, Pulmonary Nodules, and Statin Intolerance (including Pravastatin, Crestor, Zocor) who was admitted on 11/19/22 with Acute on Chronic Diastolic CHF. Patient was hospitalized from 10/14/22 through 10/17/22 with what was suspected to be passage of gallstones. Following that hospitalization she was having trouble keeping her oxygen saturations up, and was placed on home supplemental oxygen. Patient has been having progressively worsening SOB/SADLER since she was discharged from that hospitalization. In the preceding 48 to 72 hours before coming to the ER yesterday her shortness of breath had gotten significantly worse. Over the last 2 days before presentation she was unable to stand up or even take a few steps before becoming significantly short of breath. On the morning of admission, just sitting up on the edge of her bed produced significant dyspnea. This is what prompted her to call 911. She has had a cough productive of some white, and what she thinks is blood-tinged, sputum. She is on Coumadin. She denies any history of DVT or PE. She denies any lower extremity edema although she has noticed some swelling from time to time. She has had generalized chest discomfort from all of her coughing. She took a breathing treatment on the morning of admission and still had significant shortness of breath, so she called 911. On EMS arrival, the patient was given IV Solu-Medrol 125 mg and a breathing treatment. Her high sensitivity troponin I is unremarkable, her BNP is elevated, and she is anemic with hemoglobin of 9.0 g/dL. playground monitor shows rate controlled atrial fibrillation. Chest imaging consistent with pulmonary edema. Patient is being treated with IV Lasix and has a negative fluid balance of 970 mL. Her shortness of breath has definitely improved, but she still appears to be volume overloaded. Patient has not had any angina pectoris or anginal equivalent symptoms, nor does she have any symptoms attributable to her atrial fibrillation. We reviewed her Echocardiogram from May 2022 showing an LVEF of 50-55% with hypokinesis of the inferior base, mildly dilated RV with normal RV systolic function and mild mitral regurgitation. She was counseled on the importance of taking her diuretic as directed prevent future hospitalizations. Recommend the followin. 2 g low-sodium diet. 2. Monitor daily I&Os and daily body weights. 3. Continue Toprol XL 150 mg b.i.d.. 4. Increase Diltiazem CD to 180 mg daily. 5. Continue IV Lasix 40 mg daily. 6. Monitor daily BMP. 7. Continue potassium supplement. (3) Atrial fibrillation, permanent: Rate controlled and asymptomatic. -- Continue Toprol XL 150 mg b.i.d.. -- Increase Diltiazem CD to 180 mg daily. -- Continue Coumadin. (4) HTN (hypertension): Blood pressures have been normal to mildly elevated. -- Continue Toprol XL 150 mg b.i.d.. -- Increase Diltiazem CD to 180 mg daily. -- Continue Lisinopril 5 mg daily. We will continue to follow her low while hospitalized and will arrange for her to follow-up with Dr. Aponte after she is discharged from the hospital. Patient agrees with this plan. History of Present Illness Reason for Consultation: HFpEF Attending Physician: Amei Marquez MD History of Present Illness Ms. Rocha is an 82-year-old female with a history of Mitral Valve Endocarditis, Permanent Atrial Fibrillation (rate controlled and on anticoagulation), Diastolic CHF, Non-obstructive CAD, Dyslipidemia, Hypertension, GI Bleed requiring blood transfusion, Prior Pulmonary Emboli, Type 2 Diabetes Mellitus, Hypertension, Dyslipidemia, Asthma/COPD, Obesity, PAD., Chronic Venous Insufficiency, Stage 3 CKD, Anemia, Pulmonary Nodules, and Statin Intolerance (including Pravastatin, Crestor, Zocor) who was admitted on 11/19/22 with Acute on Chronic Diastolic CHF. Patient was hospitalized from 10/14/22 through 10/17/22 with what was suspected to be passage of gallstones. Following that hospitalization she was having trouble keeping her oxygen saturations up, and was placed on home supplemental oxygen. Patient has been having progressively worsening SOB/SADLER since she was discharged from that hospitalization. In the preceding 48 to 72 hours before coming to the ER yesterday her shortness of breath had gotten significantly worse. Over the last 2 days before presentation she was unable to stand up or even take a few steps before becoming significantly short of breath. On the morning of admission, just sitting up on the edge of her bed produced significant dyspnea. This is what prompted her to call 911. She has had a cough productive of some white, and what she thinks is blood-tinged, sputum. She is on Coumadin. She denies any history of DVT or PE. She denies any lower extremity edema although she has noticed some swelling from time to time. Patient specifically denies any exertional chest pain, heaviness, tightness, pressure, or discomfort. She denies any exertional neck, jaw, back, or arm pain. She has not had any ronnie orthopnea or PND. She denies any palpitations, syncope, or near-syncope. She has had generalized chest discomfort from all of her coughing. She took a breathing treatment on the morning of admission and still had significant shortness of breath, so she called 911. On EMS arrival, the patient was given IV Solu-Medrol 125 mg and a breathing treatment. Her high sensitivity troponin I is unremarkable, her BNP is elevated, and she is anemic with hemoglobin of 9.0 g/dL. playground monitor shows rate controlled atrial fibrillation. Chest imaging consistent with pulmonary edema. Patient is being treated with IV Lasix and has a negative fluid balance of 970 mL. Please note that the patient has oral Lasix available at home, but she rarely takes it due to urinary incontinence. Additionally, her son has pancreatic cancer and short-term memory loss so she likes to take him out to get coffee approximately 4 days per week, so she does not like to take her Lasix when she is going places. Patient denies any recent changes in her dietary salt intake. ECHOCARDIOGRAM 06/06/22: -- LVEF 50% to 55%, with hypokinesis of the inferior base. -- Mildly dilated right ventricle with normal RV systolic function. -- Mild biatrial dilatation. -- Mild MR. -- Rhythm was rate controlled atrial fibrillation during this study. She has had the following studies/procedures: 1. Echo 11/2010: RV dilation with preserved function. LV was normal in size and systolic function without regional wall motion abnormalities; mild LVH; Mild MR; mild pulmonary hypertension. 2. Dobutamine Nuclear Perfusion 07/13/11: Suggested moderate size area of RCA ischemia. Normal EF. Negative Dobutamine EKG > 85% MPHR. 3. Cardiac Catheterization 07/16/11: Dominant RCA with 20%-30% stenosis in mid RCA. LAD and circumflex without visualized CAD. LVEDP 25 mmHg. 4. Echo 04/24/13: Normal LV size and systolic function. EF 60%. Mild to moderate RV dilation. No significant valvular abnormality. 5. [place] April 2013 at [facility] [place]: Mitral valve endocarditis. 6. Echo 07/01/13: Normal LV size, wall motion, systolic function. EF 60%. Mild biatrial dilation. Mild MR. Severe calcification of posterior mitral leaflet with possible mobile component. RVSP 34 mmHg. 7. Holter 07/01/13: Sinus rhythm. Average heart rate 74 bpm. Occasional PVCs. Occasional PVCs. Rare paroxysmal atrial tachycardia with the longest episode consisting of 14 beats. 8. Echo 11/18/2014: Normal LV size and systolic function. EF 55-60%. Base to mid inferior wall appears hypokinetic. Mild biatrial dilation. No significant valvular abnormalities. 9. Holter 06/27/2015: Sinus rhythm. Average heart rate 73 bpm. Occasional PACs and PVCs. One episode of SVT, lasting 15 beats. Shortness of breath correlated with ectopy. 10. Echo 09/07/2015: Mildly dilated LV with normal systolic function. EF 55%. Possible hypokinesis inferior base. Inferolateral basal segment not well vis ualized. Mild LVH. Type 1 diastolic dysfunction. Mildly dilated RV with normal systolic function. Trace to mild MR. 11. Carotid Duplex 03/07/2016: No hemodynamically significant stenosis. 12. Echo 05/19/2018: Mildly dilated LV with normal systolic function. EF 60%- 65%. Normal wall motion. Mild LVH. Mild biatrial dilation. Moderate to severe MAC involving posterior annulus. 13. Holter 10/01/2018: AFib average heart rate 95 bpm, ranging 62-144. No significant pauses. Occasional PVCs. Five beat run of ventricular tachycardia. Back pain and shortness of breath occurred during A-Fib and PVCs. 14. Right GSV ablation with VenaSeal 08/12/19. 15. Left GSV ablation with VenaSeal 09/09/19. 16. Echo 10/21/2019 [facility]: Mildly dilated LV with low-normal systolic function. EF 50%-55%. Hypokinesis of the basal inferior wall. Mild left atrial dilation. Moderate to severe MAC. Mild MR. Normal RVSP. HISTORICAL BACKGROUND: On 04/23/13 she was admitted to [facility] and found to have group B strep septicemia, atrial fibrillation with RVR, and endophthalmitis. She was transferred to [facility] for further care. There she was hospitalized for approximately 3 weeks and underwent multiple procedures to her eyes, right shoulder surgery for a septic joint, and 2 left knee surgeries for infected hardware. A transesophageal echo demonstrated mitral valve endocarditis. She was treated with 6 weeks of IV ceftriaxone. A rate control strategy was implemented for her atrial fibrillation and she was discharged on Coumadin. 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 On 11/18/2014, she presented to [facility] with profound anemia with a hemoglobin of 6.2 and peak troponin of 0.231. She had acute GI bleed and eventually was evaluated by colorectal surgery at [facility] for recurrent diverticulitis. She was hospitalized in October of 2019 with diastolic CHF exacerbation following 2 courses of steroids and diet high in sodium content. She was hospitalized in January 2021 with COVID-19. She was treated with Remdesivir and Dexamethasone. Allergies Allergy/AdvReac Type Severity Reaction Status Date / Time technetium-99m Allergy Severe ANAPHYLAXIS Verified 10/22/22 09:02 amoxicillin Allergy Intermediate RASH Verified 10/22/22 09:02 nitrofurantoin Allergy Intermediate HIVES Verified 11/19/22 15:06 iodine Allergy Unknown HIVES, Verified 10/22/22 09:02 WITH DYE 30 YRS AGO-HAS HAD SINCE W/O PROBLEM Home Medications Medication Instructions Recorded Confirmed Type lancing device with lancets kit #100 ea 01/16/21 10/22/22 Rx (OneTouch Delica Lancing Device kit) blood sugar diagnostic #10 ea 01/30/21 10/22/22 Rx albuterol sulfate 2.5 mg/3 mL 2.5 mg (3 mL) inhalation .COMPLEX 03/13/21 10/22/22 Rx (0.083 %) solution for nebulization PRN shortness of breath or wheezing #1,297 mL blood sugar diagnostic (TwentyFour6Touch #100 strips 02/21/22 10/22/22 Rx Ultra Test strips) allopurinol 300 mg tablet 300 mg PO QAM #90 tabs 03/20/22 11/19/22 Rx metformin 500 mg tablet,extended 500 mg PO BID #180 tabs 03/20/22 11/19/22 Rx release 24 hr lisinopril 5 mg tablet 5 mg PO QAM #90 tabs 03/21/22 11/19/22 Rx metoprolol succinate 100 mg 150 mg PO BID #270 tabs 03/21/22 11/19/22 Rx tablet,extended release 24 hr (Toprol XL) warfarin 5 mg tablet 5 mg PO .COMPLEX #90 tabs 04/20/22 11/19/22 Rx furosemide 20 mg tablet (Lasix) 20 mg PO DAILY PRN edema/weight 04/25/22 10/22/22 Rx gain #30 tabs magnesium oxide 400 mg (241.3 mg 400 mg PO DAILY PRN when you take 04/25/22 10/22/22 Rx magnesium) tablet your furosemide #30 tabs potassium chloride 20 mEq 20 meq PO DAILY PRN when you take 04/25/22 10/22/22 Rx tablet,extended release your furosemide #30 tabs lancets 33 gauge (TwentyFour6Touch Delica #100 ea 06/06/22 10/22/22 Rx Plus Lancet) diltiazem HCl 120 mg 120 mg PO QAM 10/14/22 11/19/22 History capsule,extended release 24 hr cephalexin 500 mg capsule 500 mg PO BID 11/19/22 11/19/22 History mometasone-formoterol HFA 200 2 puff inhalation BID 11/19/22 11/19/22 History mcg-5 mcg/actuation aerosol inhaler (Dulera) tiotropium bromide 2.5 2 puff inhalation QAM 11/19/22 11/19/22 History mcg/actuation mist for inhalation (Spiriva Respimat) Patient History Medical History Alopecia Arthritis Asthma Atrial fibrillation with rapid ventricular response Bacterial endocarditis C. difficile colitis CAD in [place] artery Chronic diastolic CHF (congestive heart failure) Chronic kidney disease (CKD), stage III (moderate) Chronic venous insufficiency COVID-19 Diverticulitis Diverticulosis Edema Endocarditis of mitral valve GI bleed HTN (hypertension) Hyperlipidemia shelter (current) use of anticoagulants Lumbar spondylosis Mitral regurgitation Morbid obesity Obesity Panic attacks AND CLAUSTROPHOBIA Sepsis Shortness of breath Type 2 diabetes mellitus Surgical History History of anesthesia reaction SLOW TO WAKE UP History of arthroscopy of knee WITH DEBRIDEMENT R/[place]-[facility] [place] History of bladder surgery History of cataract surgery R/L History of colonoscopy History of total knee replacement R/L S/P IVC filter AND REMOVED Family History Unknown Diabetes Hypertension Mother Diabetes Cardiac disorder Grandfather Sinus disorder Social History Smoking Status: Former smoker Tobacco Type: Cigarettes Second Hand Exposure: No; Hx Alcohol Use: Yes Alcohol type: wine Hx Substance Use: No Preferred Language: Chilean Communication Ability: Effective Visual Impairment: Blindness Collar Starcher Required: No Beliefs That Will Affect Care: None marital status: Unknown Current Living Situation: Alone Feels Safe at Home: Yes Assistive Devices: Oxygen - Continuous, Walker and Other Review of Systems Review of Systems: -- 10 point ROS completed and is negative with the exception of what is mentioned in the HPI. Physical Exam Physical Exam: Blood pressure is 134/78. Pulse 82 and irregularly irregular. SpO2 95% on O2 at 2 liters/minutes via nasal cannula. GENERAL: Patient in no acute distress. HEENT: Head is atraumatic, normocephalic. EOM's intact. Facies symmetric. No perioral cyanosis. NECK: JVP is elevated. Carotid upstrokes are + 2 bilaterally without obvious bruits. CHEST/LUNGS: Crackles are present in bilateral bases. CVS: S1 and S2 are irregularly irregular without murmurs, gallops, or rubs. PMI is nonpalpable. No lifts, heaves, or thrills. No abdominal aortic or renal bruits. ABDOMINAL EXAM: Bowel sounds are present. No masses, organomegaly, or tenderness. EXTREMITIES: No clubbing or cyanosis. Trace bipedal edema. Intact posterior tibial and radial pulses bilaterally. NEUROLOGIC EXAM: Patient is awake, alert, and oriented. Pleasant and cooperative. Answers questions appropriately. Speech is clear. Computer Networker: -- Rate controlled atrial fibrillation with V rates in the 80s and low 90s. EKG 11/19/22: -- Rate controlled atrial fibrillation at 70 bpm, low-voltage QRS, and nonspecific ST abnormality. -- No change when compared to 10/14/2022 tracing. Results & Data Vital Signs (Past 12 Hours) Vital Signs Temp Pulse Pulse Resp BP Pulse Ox O2 Del Method 11/20/22 09:21 Nasal Cannula 11/20/22 07:35 36.4 C L 83 18 134/78 95 Nasal Cannula 11/20/22 07:36 78 11/20/22 07:17 91 H 18 94 Nasal Cannula 11/20/22 03:41 36.4 C L 76 18 152/74 H 92 Nasal Cannula 11/20/22 03:14 97 H 20 90 Nasal Cannula 11/20/22 00:14 97 H 11/20/22 00:09 36.4 C L 90 20 136/78 94 Nasal Cannula 11/19/22 23:05 20 Nasal Cannula O2 Flow Rate 11/20/22 09:21 3 11/20/22 07:35 3 11/20/22 07:36 11/20/22 07:17 3 11/20/22 03:41 3 11/20/22 03:14 3 11/20/22 00:14 11/20/22 00:09 3 11/19/22 23:05 2 Laboratory Results Laboratory Results - last 24 hr 11/19/22 11/19/22 11/19/22 08:50 08:50 08:50 WBC RBC Hgb Hct MCV MCH MCHC RDW Std Deviation RDW Coeff of Beatrice Plt Count MPV Immature Gran % (Auto) Neut % (Auto) Lymph % (Auto) [place] % (Auto) Eos % (Auto) Baso % (Auto) Neut # (Auto) Lymph # (Auto) [place] # (Auto) Eos # (Auto) Baso # (Auto) Immature Gran # (Auto) Tear Drop Cells 1+ Ovalocytes 1+ Peripher Smr Path Cons PT 25.5 H INR 2.5 H Sodium Potassium Chloride Carbon Dioxide Anion Gap BUN Creatinine Est Cr Clr Drug Dosing Est GFR ( Amer) Est GFR (Non-Af Amer) BUN/Creatinine Ratio Glucose POC Glucose Estimat Average Glucose Hemoglobin A1c Calcium Magnesium Iron 70 TIBC 375 Unsaturated IBC 305 Transferrin % Sat 19 Ferritin 56.7 Total Bilirubin AST ALT Alkaline Phosphatase Total Protein Albumin Globulin Albumin/Globulin Ratio Lipase 57 Vitamin B12 Folate TSH Urine Color Urine Appearance Urine pH Ur Specific [place] Urine Protein Urine Glucose (UA) Urine Ketones Urine Blood Urine Nitrite Urine Bilirubin Urine Urobilinogen Ur Leukocyte Esterase Adenovirus (PCR) B. pertussis DNA (PCR) B.parapertussis DNA PCR C. pneumoniae DNA (PCR) Coronavirus OC43 (PCR) Coronavirus HKU1 (PCR) Coronavirus 229E (PCR) SARS-CoV-2 (PCR) Coronavirus NL63 (PCR) Human Metapneumovir PCR Influenza Type A (PCR) Influenza Type B (PCR) M. pneumoniae (PCR) Parainfluenza 1 (PCR) Parainfluenza 2 (PCR) Parainfluenza 3 (PCR) Parainfluenza 4 (PCR) RSV (PCR) Entero/Rhino (PCR) 11/19/22 11/19/22 11/19/22 08:50 08:57 10:44 WBC RBC Hgb Hct MCV MCH MCHC RDW Std Deviation RDW Coeff of Beatrice Plt Count MPV Immature Gran % (Auto) Neut % (Auto) Lymph % (Auto) [place] % (Auto) Eos % (Auto) Baso % (Auto) Neut # (Auto) Lymph # (Auto) [place] # (Auto) Eos # (Auto) Baso # (Auto) Immature Gran # (Auto) Tear Drop Cells Ovalocytes Peripher Smr Path Cons Cancelled PT INR Sodium Potassium Chloride Carbon Dioxide Anion Gap BUN Creatinine Est Cr Clr Drug Dosing Est GFR ( Amer) Est GFR (Non-Af Amer) BUN/Creatinine Ratio Glucose POC Glucose Estimat Average Glucose Hemoglobin A1c Calcium Magnesium Iron TIBC Unsaturated IBC Transferrin % Sat Ferritin Total Bilirubin AST ALT Alkaline Phosphatase Total Protein Albumin Globulin Albumin/Globulin Ratio Lipase Vitamin B12 365 Folate 12.88 TSH Urine Color Urine Appearance Urine pH Ur Specific [place] Urine Protein Urine Glucose (UA) Urine Ketones Urine Blood Urine Nitrite Urine Bilirubin Urine Urobilinogen Ur Leukocyte Esterase Adenovirus (PCR) Not Detected B. pertussis DNA (PCR) Not Detected B.parapertussis DNA PCR Not Detected C. pneumoniae DNA (PCR) Not Detected Coronavirus OC43 (PCR) Not Detected Coronavirus HKU1 (PCR) Not Detected Coronavirus 229E (PCR) Not Detected SARS-CoV-2 (PCR) Not Detected Coronavirus NL63 (PCR) Not Detected Human Metapneumovir PCR Not Detected Influenza Type A (PCR) Not Detected Influenza Type B (PCR) Not Detected M. pneumoniae (PCR) Not Detected Parainfluenza 1 (PCR) Not Detected Parainfluenza 2 (PCR) Not Detected Parainfluenza 3 (PCR) Not Detected Parainfluenza 4 (PCR) Not Detected RSV (PCR) Not Detected Entero/Rhino (PCR) Not Detected 11/19/22 11/19/22 11/19/22 12:30 17:16 20:12 WBC RBC Hgb Hct MCV MCH MCHC RDW Std Deviation RDW Coeff of Beatrice Plt Count MPV Immature Gran % (Auto) Neut % (Auto) Lymph % (Auto) [place] % (Auto) Eos % (Auto) Baso % (Auto) Neut # (Auto) Lymph # (Auto) [place] # (Auto) Eos # (Auto) Baso # (Auto) Immature Gran # (Auto) Tear Drop Cells Ovalocytes Peripher Smr Path Cons PT INR Sodium Potassium Chloride Carbon Dioxide Anion Gap BUN Creatinine Est Cr Clr Drug Dosing Est GFR ( Amer) Est GFR (Non-Af Amer) BUN/Creatinine Ratio Glucose POC Glucose 265 H 285 H Estimat Average Glucose Hemoglobin A1c Calcium Magnesium Iron TIBC Unsaturated IBC Transferrin % Sat Ferritin Total Bilirubin AST ALT Alkaline Phosphatase Total Protein Albumin Globulin Albumin/Globulin Ratio Lipase Vitamin B12 Folate TSH Urine Color Yellow Urine Appearance Clear Urine pH 5.0 Ur Specific [place] 1.009 Urine Protein Negative Urine Glucose (UA) Negative Urine Ketones Negative Urine Blood Negative Urine Nitrite Negative Urine Bilirubin Negative Urine Urobilinogen Negative Ur Leukocyte Esterase Negative Adenovirus (PCR) B. pertussis DNA (PCR) B.parapertussis DNA PCR C. pneumoniae DNA (PCR) Coronavirus OC43 (PCR) Coronavirus HKU1 (PCR) Coronavirus 229E (PCR) SARS-CoV-2 (PCR) Coronavirus NL63 (PCR) Human Metapneumovir PCR Influenza Type A (PCR) Influenza Type B (PCR) M. pneumoniae (PCR) Parainfluenza 1 (PCR) Parainfluenza 2 (PCR) Parainfluenza 3 (PCR) Parainfluenza 4 (PCR) RSV (PCR) Entero/Rhino (PCR) 11/20/22 11/20/22 11/20/22 06:13 06:13 06:13 WBC 5.45 RBC 2.89 L Hgb 9.0 L Hct 27.5 L MCV 95.2 MCH 31.1 MCHC 32.7 RDW Std Deviation 60.3 H RDW Coeff of Beatrice 17.4 H Plt Count 167 MPV 10.2 Immature Gran % (Auto) 0.6 Neut % (Auto) 89.9 Lymph % (Auto) 6.6 [place] % (Auto) 2.9 Eos % (Auto) 0.0 Baso % (Auto) 0.0 Neut # (Auto) 4.90 Lymph # (Auto) 0.36 L [place] # (Auto) 0.16 Eos # (Auto) 0.00 Baso # (Auto) 0.00 Immature Gran # (Auto) 0.03 Tear Drop Cells Ovalocytes Peripher Smr Path Cons PT INR Sodium 135 L Potassium 4.1 Chloride 103 Carbon Dioxide 22 Anion Gap 10 BUN 56 H Creatinine 1.29 H Est Cr Clr Drug Dosing 42.2 Est GFR ( Amer) 45.0 Est GFR (Non-Af Amer) 38.8 BUN/Creatinine Ratio 43.4 H Glucose 241 H POC Glucose Estimat Average Glucose 126 Hemoglobin A1c 6.0 H Calcium 9.2 Magnesium 1.8 Iron TIBC Unsaturated IBC Transferrin % Sat Ferritin Total Bilirubin 1.0 AST 15 ALT 16 Alkaline Phosphatase 63 Total Protein 6.1 Albumin 3.7 Globulin 2.4 L Albumin/Globulin Ratio 1.5 Lipase Vitamin B12 Folate TSH 0.710 Urine Color Urine Appearance Urine pH Ur Specific [place] Urine Protein Urine Glucose (UA) Urine Ketones Urine Blood Urine Nitrite Urine Bilirubin Urine Urobilinogen Ur Leukocyte Esterase Adenovirus (PCR) B. pertussis DNA (PCR) B.parapertussis DNA PCR C. pneumoniae DNA (PCR) Coronavirus OC43 (PCR) Coronavirus HKU1 (PCR) Coronavirus 229E (PCR) SARS-CoV-2 (PCR) Coronavirus NL63 (PCR) Human Metapneumovir PCR Influenza Type A (PCR) Influenza Type B (PCR) M. pneumoniae (PCR) Parainfluenza 1 (PCR) Parainfluenza 2 (PCR) Parainfluenza 3 (PCR) Parainfluenza 4 (PCR) RSV (PCR) Entero/Rhino (PCR) 11/20/22 07:37 WBC RBC Hgb Hct MCV MCH MCHC RDW Std Deviation RDW Coeff of Beatrice Plt Count MPV Immature Gran % (Auto) Neut % (Auto) Lymph % (Auto) [place] % (Auto) Eos % (Auto) Baso % (Auto) Neut # (Auto) Lymph # (Auto) [place] # (Auto) Eos # (Auto) Baso # (Auto) Immature Gran # (Auto) Tear Drop Cells Ovalocytes Peripher Smr Path Cons PT INR Sodium Potassium Chloride Carbon Dioxide Anion Gap BUN Creatinine Est Cr Clr Drug Dosing Est GFR ( Amer) Est GFR (Non-Af Amer) BUN/Creatinine Ratio Glucose POC Glucose 251 H Estimat Average Glucose Hemoglobin A1c Calcium Magnesium Iron TIBC Unsaturated IBC Transferrin % Sat Ferritin Total Bilirubin AST ALT Alkaline Phosphatase Total Protein Albumin Globulin Albumin/Globulin Ratio Lipase Vitamin B12 Folate TSH Urine Color Urine Appearance Urine pH Ur Specific [place] Urine Protein Urine Glucose (UA) Urine Ketones Urine Blood Urine Nitrite Urine Bilirubin Urine Urobilinogen Ur Leukocyte Esterase Adenovirus (PCR) B. pertussis DNA (PCR) B.parapertussis DNA PCR C. pneumoniae DNA (PCR) Coronavirus OC43 (PCR) Coronavirus HKU1 (PCR) Coronavirus 229E (PCR) SARS-CoV-2 (PCR) Coronavirus NL63 (PCR) Human Metapneumovir PCR Influenza Type A (PCR) Influenza Type B (PCR) M. pneumoniae (PCR) Parainfluenza 1 (PCR) Parainfluenza 2 (PCR) Parainfluenza 3 (PCR) Parainfluenza 4 (PCR) RSV (PCR) Entero/Rhino (PCR) Diagnostic Findings CXR 11/19/22: Cardiac silhouette is enlarged. Atherosclerosis of the aorta. Pulmonary vascular congestion with interstitial coarsening. Probable small pleural effusions. No pneumothorax. Mild bibasilar opacities. Emphysema. Degenerative changes of the shoulders and spine. Right shoulder rotator cuff calcific tendinosis. IMPRESSION: 1. Cardiomegaly with pulmonary edema. 2. Small pleural effusions with mild bibasilar opacities. CTA CHEST 11/19/22: No pulmonary emboli are identified. There is no pericardial effusion. Moderate cardiomegaly is noted. Prominent mediastinal and bilateral hilar lymph nodes may be related to pulmonary edema. There is no pneumothorax. Moderate right and small left pleural effusions are present. Subpleural opacities within the lower lobes contain numerous tiny radiodensities. Moderate interstitial pulmonary edema with interlobular septal thickening is present. Numerous groundglass n odules measuring up to 1.7 cm are similar to CT of December 18, 2021. Abdomen and pelvis CT will be reported separately. IMPRESSION: 1. No pulmonary emboli identified. 2. Moderate interstitial pulmonary edema. Moderate right and small left pleural effusions. 3. Subpleural bilateral lower lobe air space opacities. These may reflect atelectasis however aspiration pneumonitis cannot be excluded given tiny associated radiodensities. 4. No significant change in numerous groundglass nodules since chest CT of December 18, 2021. These may reflect multifocal low-grade adenocarcinomas/adenomatous lesions. Medications Administered Medication List Albuterol (Albut/Ipratrop 3mg/0.5mg Neb 3 Ml Vial) 3 ml NEB Q4R [facility]; Protocol Stop: 12/19/22 15:06 Last Admin: 11/20/22 07:17 Dose: 3 ml Documented By: Admin: 11/20/22 03:12 Dose: 3 ml Documented By: Admin: 11/19/22 23:04 Dose: 3 ml Documented By: Admin: 11/19/22 19:47 Dose: 3 ml Documented By: Admin: 11/19/22 16:25 Dose: 3 ml Documented By: PAOLA Allopurinol (Allopurinol 300 Mg Tab) [facility] [place] Stop: 12/20/22 08:59 Last Admin: 11/20/22 08:16 Dose: 300 mg Documented By: SANGITA Cephalexin HCl (Cephalexin 500 Mg Cap) 500 mg PO BID [facility]; Protocol Stop: 12/19/22 20:59 Last Admin: 11/20/22 08:16 Dose: 500 mg Documented By: Admin: 11/19/22 21:02 Dose: 500 mg Documented By: BIIB Diltiazem HCl (Diltiazem Hcl 120 Mg Capcr) 120 mg PO QAM [facility] Stop: 12/20/22 08:59 Last Admin: 11/20/22 08:16 Dose: 120 mg Documented By: SANGITA Fluticasone Furoate (Fluticasone Furoate 100mcg 14 Puffs/Inhaler) 1 puffs INH PM [facility]; Protocol Stop: 12/19/22 20:59 Last Admin: 11/19/22 21:04 Dose: 1 puffs Documented By: BIBI Furosemide (Furosemide 40 Mg/4 Ml Vial) [facility] [place] Stop: 12/20/22 08:59 Last Admin: 11/20/22 08:16 Dose: 40 mg Documented By: SANGITA Famotidine 20 mg/ Syringe 5 mls @ 2.5 mls/min [facility] [place] Stop: 12/19/22 15:06 Last Admin: 11/20/22 08:21 Dose: 2.5 mls/min Documented By: Admin: 11/19/22 16:25 Dose: 2.5 mls/min Documented By: PAOLA Insulin Aspart (Insulin Aspart Per Unit Charge) 0 units SC ACHS [facility] Stop: 12/19/22 15:06 Last Admin: 11/20/22 08:21 Dose: 3 units Documented By: SANGITA Co-signed By: HOMERO Admin: 11/19/22 21:00 Dose: 4 units Documented By: BIBI Co-signed By: JENNA Admin: 11/19/22 17:54 Dose: Not Given Documented By: Admin: 11/19/22 17:52 Dose: 3 units Documented By: Co-signed By: SANDI Lisinopril (Lisinopril 5 Mg Tab) 5 mg PO [facility] Stop: 12/20/22 08:59 Last Admin: 11/20/22 08:16 Dose: 5 mg Documented By: SANGITA Metoprolol Succinate (Metoprolol Succ 50mg Ext Rel Tab) 150 mg PO BID [facility] Stop: 12/19/22 20:59 Last Admin: 11/20/22 08:16 Dose: 150 mg Documented By: Admin: 11/19/22 21:03 Dose: 150 mg Documented By: BIBI Miconazole Nitrate (Miconazole Nitrate Powder 85 Gm) 1 appln EXT BID [facility] Stop: 12/19/22 20:59 Last Admin: 11/20/22 08:17 Dose: 1 appln Documented By: Admin: 11/19/22 21:05 Dose: Not Given Documented By: BIBI Umeclidinium Achille (Umeclidinium Achille 62.5mcg/Blister 7 Puffs/Inhaler) 1 puffs INH [facility]; Protocol Stop: 12/20/22 08:59 Last Admin: 11/20/22 08:17 Dose: 1 puffs Documented By: SANGITA Warfarin Sodium (Warfarin Sod 2.5 Mg Tab) 2.5 mg PO Mo@1600 [facility] Stop: 12/19/22 15:59 Last Admin: 11/19/22 17:51 Dose: 2.5 mg Documented By: MS Discontinued Medications Diphenhydramine HCl (Diphenhydramine 50 Mg/Ml Vial) 12.5 mg IV NOW STA Stop: 11/19/22 12:02 Last Admin: 11/19/22 12:07 Dose: 12.5 mg Documented By: Furosemide (Furosemide 40 Mg/4 Ml Vial) 80 mg IV ONE ONE Stop: 11/19/22 09:38 Last Admin: 11/19/22 10:28 Dose: 80 mg Documented By: PAOLA Magnesium Sulfate/Dextrose (Magnesium Sulfate / D5w) 1 gm in 100 mls @ 100 mls/hr IV NOW STA Stop: 11/19/22 10:56 Last Infusion: 11/19/22 11:42 Dose: 0 mls/hr Documented By: Admin: 11/19/22 10:29 Dose: 100 mls/hr Documented By: PAOLA Magnesium Sulfate/Dextrose (Magnesium Sulfate / D5w) 1 gm in 100 mls @ 50 mls/hr IV ONE ONE Stop: 11/19/22 17:06 Last Infusion: 11/19/22 18:28 Dose: 0 mls/hr Documented By: Admin: 11/19/22 16:26 Dose: 50 mls/hr Documented By: PAOLA Ioversol (Optiray 320 500ml) 115 ml IV ONCE ONE Stop: 11/19/22 12:59 Last Admin: 11/19/22 12:54 Dose: 115 ml Documented By: LAMIN Methylprednisolone (Methylprednisolone 40 Mg/Ml Vial) 40 mg IV NOW STA Stop: 11/19/22 12:53 Last Admin: 11/19/22 13:00 Dose: 40 mg Documented By: PAOLA PG Care Time/CCT Total # of Minutes Spent Total Time Spent with Patient: Total time spent is greater than 50% in coordination of care (as documented) at patient's floor/unit and/or counseling patient:52 Coding [place] [address] INT INP/OBS CARE 2/55MIN Patient Type Established History Detailed Exam Detailed Medical Decision Making Moderate Complexity Diagnoses Acute on chronic diastolic CHF (congestive heart failure) I50.33 Elevated brain natriuretic peptide (BNP) level R79.89 Atrial fibrillation, permanent I48.21 HTN (hypertension) I10 Time Spent (min) 68
--- NOTE | 2022-11-20 12:51 | Heart Failure Consultation ---
Date of Consultation November 20, 2022 Assessment & Plan (1) Acute on chronic diastolic CHF (congestive heart failure): History of Present Illness Attending Physician: Amie Marquez MD History of Present Illness Meet with patient in their hospital room. We discussed the nature of heart failure and the goals of the heart failure program. Patient is agreeable to ongoing participation and is already well known to the [facility] heart failure program. Patient advised to weigh themselves daily on their home scale. Notify the office if 2+ lb weight gain overnight or 5+ lb in 1 week. Low sodium diet recommended on discharge. Contact information provided. Patient will have scheduled outpatient follow up within 7 days of discharge. Please see full cardiology consult for additional recommendations and formal plan of care. Allergies Allergy/AdvReac Type Severity Reaction Status Date / Time technetium-99m Allergy Severe ANAPHYLAXIS Verified 10/22/22 09:02 amoxicillin Allergy Intermediate RASH Verified 10/22/22 09:02 nitrofurantoin Allergy Intermediate HIVES Verified 11/19/22 15:06 iodine Allergy Unknown HIVES, Verified 10/22/22 09:02 WITH DYE 30 YRS AGO-HAS HAD SINCE W/O PROBLEM Home Medications Medication Instructions Recorded Confirmed Type lancing device with lancets kit #100 ea 01/16/21 10/22/22 Rx (FreePriceAlertsTouch Delica Lancing Device kit) blood sugar diagnostic #10 ea 01/30/21 10/22/22 Rx albuterol sulfate 2.5 mg/3 mL 2.5 mg (3 mL) inhalation .COMPLEX 03/13/21 10/22/22 Rx (0.083 %) solution for nebulization PRN shortness of breath or wheezing #1,620 mL blood sugar diagnostic (OneTouch #100 strips 02/21/22 10/22/22 Rx Ultra Test strips) allopurinol 300 mg tablet 300 mg PO QAM #90 tabs 03/20/22 11/19/22 Rx metformin 500 mg tablet,extended 500 mg PO BID #180 tabs 03/20/22 11/19/22 Rx release 24 hr lisinopril 5 mg tablet 5 mg PO QAM #90 tabs 03/21/22 11/19/22 Rx metoprolol succinate 100 mg 150 mg PO BID #270 tabs 03/21/22 11/19/22 Rx tablet,extended release 24 hr (Toprol XL) warfarin 5 mg tablet 5 mg PO .COMPLEX #90 tabs 04/20/22 11/19/22 Rx furosemide 20 mg tablet (Lasix) 20 mg PO DAILY PRN edema/weight 04/25/22 10/22/22 Rx gain #30 tabs magnesium oxide 400 mg (241.3 mg 400 mg PO DAILY PRN when you take 04/25/22 10/22/22 Rx magnesium) tablet your furosemide #30 tabs potassium chloride 20 mEq 20 meq PO DAILY PRN when you take 04/25/22 10/22/22 Rx tablet,extended release your furosemide #30 tabs lancets 33 gauge (OneTouch Delica #100 ea 06/06/22 10/22/22 Rx Plus Lancet) diltiazem HCl 120 mg 120 mg PO QAM 10/14/22 11/19/22 History capsule,extended release 24 hr cephalexin 500 mg capsule 500 mg PO BID 11/19/22 11/19/22 History mometasone-formoterol HFA 200 2 puff inhalation BID 11/19/22 11/19/22 History mcg-5 mcg/actuation aerosol inhaler (Dulera) tiotropium bromide 2.5 2 puff inhalation QAM 11/19/22 11/19/22 History mcg/actuation mist for inhalation (Spiriva Respimat) Patient History Medical History Alopecia Arthritis Asthma Atrial fibrillation with rapid ventricular response Bacterial endocarditis C. difficile colitis CAD in [place] artery Chronic diastolic CHF (congestive heart failure) Chronic kidney disease (CKD), stage III (moderate) Chronic venous insufficiency COVID-19 Diverticulitis Diverticulosis Edema Endocarditis of mitral valve GI bleed HTN (hypertension) Hyperlipidemia halfway (current) use of anticoagulants Lumbar spondylosis Mitral regurgitation Morbid obesity Obesity Panic attacks AND CLAUSTROPHOBIA Sepsis Shortness of breath Type 2 diabetes mellitus Surgical History History of anesthesia reaction SLOW TO WAKE UP History of arthroscopy of knee WITH DEBRIDEMENT R/L-C History of bladder surgery History of cataract surgery R/L History of colonoscopy History of total knee replacement R/L S/P IVC filter AND REMOVED Family History Unknown Diabetes Hypertension Mother Diabetes Cardiac disorder Grandfather Sinus disorder Social History Smoking Status: Former smoker Tobacco Type: Cigarettes Second Hand Exposure: No; Hx Alcohol Use: Yes Alcohol type: wine Hx Substance Use: No Preferred Language: Latvian Communication Ability: Effective Visual Impairment: Blindness Building Analyst/Supervisor Required: No Beliefs That Will Affect Care: None marital status: Unknown Current Living Situation: Alone Other Information That Helps Us Care for You: No Feels Safe at Home: Yes Safety Concerns: Feels Safe At This Time Assistive Devices: Glasses, Oxygen - Continuous and Walker Results & Data Vital Signs (Past 12 Hours) Vital Signs Temp Pulse Pulse Resp BP Pulse Ox O2 Del Method 11/20/22 10:59 97.5 F L 83 16 147/71 H 94 Room Air 11/20/22 11:29 85 18 97 Nasal Cannula 11/20/22 09:21 Nasal Cannula 11/20/22 07:35 97.5 F L 83 18 134/78 95 Nasal Cannula 11/20/22 07:36 78 11/20/22 07:17 91 H 18 94 Nasal Cannula 11/20/22 03:41 97.5 F L 76 18 152/74 H 92 Nasal Cannula 11/20/22 03:14 97 H 20 90 Nasal Cannula O2 Flow Rate 11/20/22 10:59 3 11/20/22 11:29 3 11/20/22 09:21 3 11/20/22 07:35 3 11/20/22 07:36 11/20/22 07:17 3 11/20/22 03:41 3 11/20/22 03:14 3 Heart Failure Data/Metrics Heart Failure Type: HFpEF (EF > 50%) Ejection Fraction: 50-55% Coding Diagnoses Acute on chronic diastolic CHF (congestive heart failure) I50.33
--- NOTE | 2022-11-20 15:20 | Hospitalist Progress Note ---
Date of Service November 20, 2022 Assessment & Plan (1) Shortness of breath: Plan: Suspect multifactorial, combination of not using home lasix/weight up/noncompliance with meds, COPD Biofire negative EKG w/ Afib, low voltage QRS, nonspec ST abn. No change compared to prior. Trop 8.9 on high sensitivity testing CXR w/ congestion/pulmonary edema, with BNP elevation 894, mag 1.6 patient is getting Lasix 40 mg IV every morning Obtain blood cultures given her hx endocarditis (2013)/shortness of breath, chronic back pain/weakness. is on chronic Keflex therapy CT chest negative for PE Echo ordered CHF clinic involved Monitor daily weights, I&Os Supplemental O2 to maintain sats -- currently on 2L Monitor labs in AM (2) Pulmonary edema: Plan: on imaging ?uncontrolled afib at home/rates? underlying malignancy consider underlying untreated sleep apnea as well checking further imaging as above, monitor response to diuretics ?underlying untreated sleep apnea (3) Acute on chronic diastolic CHF (congestive heart failure): Plan: volume overloaded on exam, sparing use by patient for her prn 20mg lasix at home, last dose last Saturday for weight 274/276lb currently on Lasix 40 mg IV every morning CHF clinic consulted Monitor weights/intake & output consider repeating echo Monitor Also w/ hx CAD, nonobstructive per [facility] cards notes, Dr Aponte No angina reported. Not on ASA due to GI bleeding, is on coumadin for stroke risk reduction given her afib Mild nonobs CAD in 2011 Remains on BB as above, intolerant to statin therapy (4) Chronic obstructive pulmonary disease: Plan: hx smoking 30 yrs ago, known lung nodules susp for underlying malignancy hypoxic on admit upper 80s, improved and stable on 2L at present 98% Continue home meds, duonebs prn Pulmonary toilet Supplemental O2 to maintain sats Continue home meds was given 1 dose of Solu-Medrol in the emergency room. I am not convinced that this is a COPD exacerbation. We will hold off on further steroid doses. (5) Anemia: Plan: Hgb 9.6 on admit, ?volume overload/dilutional. MCV borderline 99 Monitor response w/ lasix Check B12/iron/folate w/ labs Hx cirrhosis, GI bleeding in the past requiring transfusion -- no bleeding reported at present On coumadin, continued/checking INR Fecal occult ordered for completeness Monitor CBC (6) Elevated brain natriuretic peptide (BNP) level: Plan: as above (7) Hypomagnesemia: Plan: replacement ordered, will give additional 1gm IV Monitor labs in AM, keep ~2 (8) Atrial fibrillation, permanent: Plan: on Coumadin, checking INR Continue metoprolol 150mg BID, Cardizem 120mg daily Keep k/mag replete monitor on telemetry (9) Bacterial endocarditis: Plan: Hx of such, 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 on keflex for chronic immunosuppressive therapy +murmur on exam, but recent echo earlier this year. Trop negative could consider repeating limited if needing (10) DMII (diabetes mellitus, type 2): Plan: A1c 6.6 in July Only on metformin 500mg BID, will hold while inpatient and utilize SSI Monitor BSGs (11) CKD (chronic kidney disease), stage III: Plan: Cr appears improved from priors, monitor BMP in AM w/ large dose IV lasix Renal dose meds/avoid nephrotoxins as able (12) PAD (peripheral artery disease): Plan: s/p bilateral GSV ablation with Venaseal: Has followed with vascular Medicine. (13) Lumbar disc disease: Plan: noted hx pt/ot evals while inpatient (14) Mitral regurgitation: Plan: noted on prior echo, hx endocarditis, on suppressive therapy Plan DVT proph: INR therapeutic on check, will continue coumadin for now Admission and Anticipated Discharge Date Admission Date: November 19, 2022 Subjective patient feels better overall. Says that she has been urinating quite a bit. Her leg swelling is improved. Her breathing is better. Review of Systems Review of Systems: All systems reviewed & are unremarkable except as noted in Subjective Physical Exam Physical Exam: General: Awake, conversant, obese Heart: S1, S2/regular rate and rhythm, no murmur rubs or gallops Lungs: bibasilar crackles. Normal effort Abdomen: Soft/nontender/nondistended. No hepatosplenomegaly Extremities: No clubbing/cyanosis. 1+ pitting bilateral edema, improved since yesterday Behavior: Appropriate, cooperative Results & Data Results & Data Vital Signs (Past 12 Hours) Vital Signs Temp Pulse Pulse Resp BP Pulse Ox O2 Del Method 11/20/22 14:58 36.6 C 74 20 125/75 99 Nasal Cannula 11/20/22 14:14 36.4 C L 77 16 123/76 94 Room Air 11/20/22 14:45 88 18 96 Nasal Cannula 11/20/22 10:59 36.4 C L 83 16 147/71 H 94 Room Air 11/20/22 11:29 85 18 97 Nasal Cannula 11/20/22 09:21 Nasal Cannula 11/20/22 07:35 36.4 C L 83 18 134/78 95 Nasal Cannula 11/20/22 07:36 78 11/20/22 07:17 91 H 18 94 Nasal Cannula 11/20/22 03:41 36.4 C L 76 18 152/74 H 92 Nasal Cannula O2 Flow Rate 11/20/22 14:58 2 11/20/22 14:14 11/20/22 14:45 3 11/20/22 10:59 3 11/20/22 11:29 3 11/20/22 09:21 3 11/20/22 07:35 3 11/20/22 07:36 11/20/22 07:17 3 11/20/22 03:41 3 Laboratory Results Abnormal lab results 11/19/22 11/19/22 11/20/22 Range/Units 17:16 20:12 06:13 RBC 2.89 L (4.20-5.40) M/uL Hgb 9.0 L (12.0-16.0) g/dl Hct 27.5 L (37.0-47.0) % RDW Std Deviation 60.3 H (36.4-46.3) fL RDW Coeff of Beatrice 17.4 H (11.5-14.5) % Lymph # (Auto) 0.36 L (1.20-3.40) K/uL Sodium (136-145) mmol/L BUN (6-23) mg/dl Creatinine (0.6-1.2) mg/dl BUN/Creatinine Ratio (10-20) Glucose (70-99(Fasting)) mg/dl POC Glucose 265 H 285 H (70-99) mg/dl Hemoglobin A1c (4.5-5.6) % Globulin (2.5-4.0) gm/dl 11/20/22 11/20/22 11/20/22 Range/Units 06:13 06:13 07:37 RBC (4.20-5.40) M/uL Hgb (12.0-16.0) g/dl Hct (37.0-47.0) % RDW Std Deviation (36.4-46.3) fL RDW Coeff of Beatrice (11.5-14.5) % Lymph # (Auto) (1.20-3.40) K/uL Sodium 135 L (136-145) mmol/L BUN 56 H (6-23) mg/dl Creatinine 1.29 H (0.6-1.2) mg/dl BUN/Creatinine Ratio 43.4 H (10-20) Glucose 241 H (70-99(Fasting)) mg/dl POC Glucose 251 H (70-99) mg/dl Hemoglobin A1c 6.0 H (4.5-5.6) % Globulin 2.4 L (2.5-4.0) gm/dl 11/20/22 Range/Units 11:17 RBC (4.20-5.40) M/uL Hgb (12.0-16.0) g/dl Hct (37.0-47.0) % RDW Std Deviation (36.4-46.3) fL RDW Coeff of Beatrice (11.5-14.5) % Lymph # (Auto) (1.20-3.40) K/uL Sodium (136-145) mmol/L BUN (6-23) mg/dl Creatinine (0.6-1.2) mg/dl BUN/Creatinine Ratio (10-20) Glucose (70-99(Fasting)) mg/dl POC Glucose 207 H (70-99) mg/dl Hemoglobin A1c (4.5-5.6) % Globulin (2.5-4.0) gm/dl PG Care Time/CCT Total # of Minutes Spent Total Time Spent with Patient: Total time spent is greater than 50% in coordination of care (as documented) at patient's floor/unit and/or counseling patient: Coding Level of Care Code 70460 SUB INP/OBS CARE 2/35MIN Diagnoses Shortness of breath R06.02 Pulmonary edema J81.1 Acute on chronic diastolic CHF (congestive heart failure) I50.33 Chronic obstructive pulmonary disease J44.9 Anemia D64.9 Anemia type: unspecified type Elevated brain natriuretic peptide (BNP) level R79.89 Hypomagnesemia E83.42 Atrial fibrillation, permanent I48.21 Bacterial endocarditis I33.0 DMII (diabetes mellitus, type 2) E11.9 CKD (chronic kidney disease), stage III N18.30 PAD (peripheral artery disease) I73.9 Lumbar disc disease M51.9 Mitral regurgitation I34.0 (5) Anemia Anemia type: unspecified type Qualified Code(s): D64.9 - Anemia, unspecified
[2022-11-20] MEDS: WARFARIN SOD 5 MG TAB PO SCH (16:57)
[2022-11-20] MEDS: FLUTICASONE FUROATE 100MCG 14 PUFFS/INHALER INH SCH (20:37)
[2022-11-21] MEDS: ALBUT/IPRATROP 3MG/0.5MG NEB 3 ML VIAL NEB SCH ×6 (03:00→22:17)
[2022-11-21 06:49] LABS: Hematocrit (blood only) 27.3 % (37.0-47.0); Hemoglobin 8.7 g/dl (12.0-16.0); Mean Corpuscular Hemoglobin 30.9 pg (25.0-34.0); Mean Corpuscular Hgb Conc 31.9 g/dL (32.0-36.0); Mean Corpuscular Volume 96.8 fL (80.0-100.0); Mean Platelet Volume 10.3 fL (9.4-12.4); Platelet Count 152 K/uL (130-400); RDW Coefficient of Variation 17.4 % (11.5-14.5); RDW Standard Deviation 61.7 fL (36.4-46.3); Red Blood Count 2.82 M/uL (4.20-5.40); White Blood Count 5.31 K/ul (4.8-10.8)
[2022-11-21 07:22] LABS: BUN Creatinine Ratio 43.4 (10-20); Calcium 9.2 mg/dl (8.6-10.3); Creatinine Clr Calc Pharmacy 36.9 ml/min; Est GFR (African American) 34.9 ml/min; Est GFR (Non-African American) 30.1 ml/min
[2022-11-21] MEDS: INSULIN ASPART PER UNIT CHARGE SC SCH ×4 (08:05→20:38)
[2022-11-21] MEDS: FUROSEMIDE 40 MG/4 ML VIAL IV SCH (08:07)
[2022-11-21] MEDS: lisinopril 5 MG TAB PO SCH (08:07)
[2022-11-21] MEDS: cephALEXin 500 MG CAP PO SCH ×2 (08:08→20:36)
[2022-11-21] MEDS: FAMOTIDINE 20 MG TAB PO SCH (08:08)
[2022-11-21] MEDS: allopurinoL 300 MG TAB PO SCH (08:08)
[2022-11-21] MEDS: METOPROLOL SUCC 50MG EXT REL TAB PO SCH ×2 (08:08→20:36)
[2022-11-21] MEDS: dilTIAZem HCL 180 MG CAPCR PO SCH (08:08)
[2022-11-21] MEDS: MICONAZOLE NITRATE POWDER 85 GM EXT SCH ×2 (08:09→20:45)
[2022-11-21] MEDS: UMECLIDINIUM BROMIDE 62.5MCG/BLISTER 7 PUFFS/INHALER INH SCH (08:10)
[2022-11-21 09:37] LABS: Appearance Urine Clear (Clear); Bacteria Urine Automated Negative (Negative); Bilirubin Urine Negative (Negative); Blood Urine 1+ (Negative); Color Urine Yellow; Glucose Urine UA Negative (Negative); Ketones Urine Negative (Negative); Leukocyte Esterase Urine 1+ (Negative); Nitrite Urine Negative (Negative); Protein Urine Negative (Negative); Specific Gravity Urine 1.016 (1.000-1.030); Urobilinogen Urine Negative (Negative); pH Urine 5.5 (4.5-7.5)
--- NOTE | 2022-11-21 13:40 | Hospitalist Progress Note ---
Date of Service November 21, 2022 Assessment & Plan (1) Shortness of breath: Plan: Suspect multifactorial, combination of not using home lasix/weight up/noncompliance with meds, COPD Biofire negative EKG w/ Afib, low voltage QRS, nonspec ST abn. No change compared to prior. Trop 8.9 on high sensitivity testing CXR w/ congestion/pulmonary edema, with BNP elevation 894, mag 1.6 patient is getting Lasix 40 mg IV every morning Clinically improving We will switch to p.o. Lasix 40 mg starting tomorrow Sputum culture growing gram-negative will, awaiting sensitivities Obtain blood cultures given her hx endocarditis (2013)/shortness of breath, chronic back pain/weakness. is on chronic Keflex therapy . Continue CT chest negative for PE Echo ordered CHF clinic involved Monitor daily weights, I&Os Supplemental O2 to maintain sats -- currently on 2L Monitor labs in AM (2) Pulmonary edema: Plan: on imaging ?uncontrolled afib at home/rates? underlying malignancy consider underlying untreated sleep apnea as well checking further imaging as above, monitor response to diuretics ?underlying untreated sleep apnea (3) Acute on chronic diastolic CHF (congestive heart failure): Plan: volume overloaded on exam, sparing use by patient for her prn 20mg lasix at home, last dose last Saturday for weight 274/276lb currently on Lasix 40 mg IV every morning. Switch to p.o. 40 mg Lasix starting tomorrow CHF clinic consulted Monitor weights/intake & output Monitor Also w/ hx CAD, nonobstructive per [facility] cards notes, Dr Aponte No angina reported. Not on ASA due to GI bleeding, is on coumadin for stroke risk reduction given her afib Mild nonobs CAD in 2011 Remains on BB as above, intolerant to statin therapy (4) Chronic obstructive pulmonary disease: Plan: hx smoking 30 yrs ago, known lung nodules susp for underlying malignancy hypoxic on admit upper 80s, improved and stable on 2L at present 98% Continue home meds, duonebs prn Pulmonary toilet Supplemental O2 to maintain sats Continue home meds was given 1 dose of Solu-Medrol in the emergency room. I am not convinced that this is a COPD exacerbation. We will hold off on further steroid doses. (5) Anemia: Plan: Hgb 9.6 on admit, ?volume overload/dilutional. MCV borderline 99 Monitor response w/ lasix Check B12/iron/folate w/ labs Hx cirrhosis, GI bleeding in the past requiring transfusion -- no bleeding r eported at present On coumadin, continued/checking INR Fecal occult ordered for completeness Monitor CBC (6) Elevated brain natriuretic peptide (BNP) level: Plan: as above (7) Hypomagnesemia: Plan: replacement ordered, will give additional 1gm IV Monitor labs in AM, keep ~2 (8) Atrial fibrillation, permanent: Plan: on Coumadin, checking INR Continue metoprolol 150mg BID, Cardizem 120mg daily Keep k/mag replete monitor on telemetry (9) Bacterial endocarditis: Plan: Hx of such, 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 on keflex for chronic immunosuppressive therapy +murmur on exam, but recent echo earlier this year. Trop negative (10) DMII (diabetes mellitus, type 2): Plan: A1c 6.6 in July Only on metformin 500mg BID, will hold while inpatient and utilize SSI Monitor BSGs (11) CKD (chronic kidney disease), stage III: Plan: Cr appears improved from priors, monitor BMP in AM w/ large dose IV lasix Renal dose meds/avoid nephrotoxins as able (12) PAD (peripheral artery disease): Plan: s/p bilateral GSV ablation with Venaseal: Has followed with vascular Medicine. (13) Lumbar disc disease: Plan: noted hx pt/ot evals while inpatient (14) Mitral regurgitation: Plan: noted on prior echo, hx endocarditis, on suppressive therapy Plan DVT proph: INR therapeutic on check, will continue coumadin for now Admission and Anticipated Discharge Date Admission Date: November 19, 2022 Subjective Patient feels well. Overnight, she had an episode of confusion but it seems to have resolved. She says that she has had this in the past when she was hospitalized. Her legs are not swollen as much anymore. Review of Systems Review of Systems: All systems reviewed & are unremarkable except as noted in Subjective Physical Exam Physical Exam: General: Awake, conversant, obese Heart: S1, S2/regular rate and rhythm, no murmur rubs or gallops Lungs: few bibasilar crackles. Normal effort Abdomen: Soft/nontender/nondistended. No hepatosplenomegaly Extremities: No clubbing/cyanosis. Trace bilateral edema Behavior: Appropriate, cooperative Results & Data Results & Data Vital Signs (Past 12 Hours) Vital Signs Temp Pulse Resp BP Pulse Ox O2 Del Method O2 Flow Rate 11/21/22 11:32 36.5 C 73 18 144/70 H 94 Nasal Cannula 2 11/21/22 10:12 76 16 95 Nasal Cannula 2 11/21/22 08:00 Nasal Cannula 2 11/21/22 07:19 86 16 97 Nasal Cannula 2 11/21/22 07:10 36.8 C 84 19 127/80 95 Nasal Cannula 2 11/21/22 03:24 37.1 C 80 18 139/80 90 Nasal Cannula 2 11/21/22 03:02 78 18 96 Nasal Cannula 2 Laboratory Results Abnormal lab results 11/20/22 11/20/22 11/21/22 Range/Units 16:34 20:03 01:59 RBC (4.20-5.40) M/uL Hgb (12.0-16.0) g/dl Hct (37.0-47.0) % MCHC (32.0-36.0) g/dL RDW Std Deviation (36.4-46.3) fL RDW Coeff of Beatrice (11.5-14.5) % BUN (6-23) mg/dl Creatinine (0.6-1.2) mg/dl BUN/Creatinine Ratio (10-20) Glucose (70-99(Fasting)) mg/dl POC Glucose 179 H 175 H 187 H (70-99) mg/dl B-Natriuretic Peptide (0-100) pg/ml Urine Blood (Negative) Ur Leukocyte Esterase (Negative) Urine WBC (Auto) (0-5) /hpf Urine RBC (Auto) (0-4) /hpf U Epithel Cells (Auto) (0-5) /lpf 11/21/22 11/21/22 11/21/22 Range/Units 05:52 05:52 05:52 RBC 2.82 L (4.20-5.40) M/uL Hgb 8.7 L (12.0-16.0) g/dl Hct 27.3 L (37.0-47.0) % MCHC 31.9 L (32.0-36.0) g/dL RDW Std Deviation 61.7 H (36.4-46.3) fL RDW Coeff of Beatrice 17.4 H (11.5-14.5) % BUN 69 H (6-23) mg/dl Creatinine 1.59 H D (0.6-1.2) mg/dl BUN/Creatinine Ratio 43.4 H (10-20) Glucose 156 H (70-99(Fasting)) mg/dl POC Glucose (70-99) mg/dl B-Natriuretic Peptide 644 H (0-100) pg/ml Urine Blood (Negative) Ur Leukocyte Esterase (Negative) Urine WBC (Auto) (0-5) /hpf Urine RBC (Auto) (0-4) /hpf U Epithel Cells (Auto) (0-5) /lpf 11/21/22 11/21/22 11/21/22 Range/Units 07:09 08:35 11:28 RBC (4.20-5.40) M/uL Hgb (12.0-16.0) g/dl Hct (37.0-47.0) % MCHC (32.0-36.0) g/dL RDW Std Deviation (36.4-46.3) fL RDW Coeff of Beatrice (11.5-14.5) % BUN (6-23) mg/dl Creatinine (0.6-1.2) mg/dl BUN/Creatinine Ratio (10-20) Glucose (70-99(Fasting)) mg/dl POC Glucose 160 H 186 H (70-99) mg/dl B-Natriuretic Peptide (0-100) pg/ml Urine Blood 1+ H (Negative) Ur Leukocyte Esterase 1+ H (Negative) Urine WBC (Auto) 5-10 H (0-5) /hpf Urine RBC (Auto) 5-10 H (0-4) /hpf U Epithel Cells (Auto) 10-20 H (0-5) /lpf PG Care Time/CCT Total # of Minutes Spent Total Time Spent with Patient: Total time spent is greater than 50% in coordination of care (as documented) at patient's floor/unit and/or counseling patient: Coding Level of Care Code 02486 SUB INP/OBS CARE 2/35MIN Diagnoses Shortness of breath R06.02 Pulmonary edema J81.1 Acute on chronic diastolic CHF (congestive heart failure) I50.33 Chronic obstructive pulmonary disease J44.9 Anemia D64.9 Anemia type: unspecified type Elevated brain natriuretic peptide (BNP) level R79.89 Hypomagnesemia E83.42 Atrial fibrillation, permanent I48.21 Bacterial endocarditis I33.0 DMII (diabetes mellitus, type 2) E11.9 CKD (chronic kidney disease), stage III N18.30 PAD (peripheral artery disease) I73.9 Lumbar disc disease M51.9 Mitral regurgitation I34.0 (5) Anemia Anemia type: unspecified type Qualified Code(s): D64.9 - Anemia, unspecified
[2022-11-21] MEDS: WARFARIN SOD 5 MG TAB PO SCH (16:56)
[2022-11-21] MEDS: FLUTICASONE FUROATE 100MCG 14 PUFFS/INHALER INH SCH (20:37)
[2022-11-22] MEDS: ALBUT/IPRATROP 3MG/0.5MG NEB 3 ML VIAL NEB SCH ×2 (02:05→07:08)
[2022-11-22 06:22] LABS: Hematocrit (blood only) 25.9 % (37.0-47.0); Hemoglobin 8.3 g/dl (12.0-16.0); Mean Corpuscular Hemoglobin 31.2 pg (25.0-34.0); Mean Corpuscular Volume 97.4 fL (80.0-100.0); Mean Platelet Volume 9.9 fL (9.4-12.4); Platelet Count 126 K/uL (130-400); RDW Coefficient of Variation 17.2 % (11.5-14.5); RDW Standard Deviation 60.9 fL (36.4-46.3); Red Blood Count 2.66 M/uL (4.20-5.40); White Blood Count 3.78 K/ul (4.8-10.8)
[2022-11-22 06:49] LABS: BUN Creatinine Ratio 40.2 (10-20); Calcium 8.9 mg/dl (8.6-10.3); Creatinine Clr Calc Pharmacy 34.3 ml/min; Est GFR (African American) 32.4 ml/min; Potassium 3.9 mmol/L (3.5-5.1)
[2022-11-22 06:57] LABS: INR 2.5 (0.9-1.1); Prothrombin Time 25.4 Seconds (9.0-12.0)
[2022-11-22] MEDS: INSULIN ASPART PER UNIT CHARGE SC SCH ×4 (08:07→20:50)
[2022-11-22] MEDS: cephALEXin 500 MG CAP PO SCH (08:10)
[2022-11-22] MEDS: lisinopril 5 MG TAB PO SCH (08:10)
[2022-11-22] MEDS: FUROSEMIDE 40 MG TAB PO SCH (08:10)
[2022-11-22] MEDS: METOPROLOL SUCC 50MG EXT REL TAB PO SCH ×2 (08:10→20:02)
[2022-11-22] MEDS: FAMOTIDINE 20 MG TAB PO SCH (08:11)
[2022-11-22] MEDS: MICONAZOLE NITRATE POWDER 85 GM EXT SCH ×2 (08:11→20:04)
[2022-11-22] MEDS: UMECLIDINIUM BROMIDE 62.5MCG/BLISTER 7 PUFFS/INHALER INH SCH (08:11)
[2022-11-22] MEDS: allopurinoL 300 MG TAB PO SCH (08:11)
[2022-11-22] MEDS: dilTIAZem HCL 180 MG CAPCR PO SCH (08:11)
[2022-11-22] MEDS ORDERED: POLYETHYLENE (MIRALAX) 17 GM PACK PO PRN (10:25)
[2022-11-22] MEDS ORDERED: ALBUT/IPRATROP 3MG/0.5MG NEB 3 ML VIAL NEB PRN (10:34)
[2022-11-22] MEDS: DOCUSATE SODIUM 100 MG CAP PO SCH ×2 (11:05→20:00)
[2022-11-22] MEDS: CEFEPIME 2,000 MG in SYRINGE 0 ML IV SCH ×2 (11:06→20:47)
--- NOTE | 2022-11-22 11:41 | Heart Failure Progress Note ---
Date of Service November 22, 2022 Assessment & Plan (1) Acute on chronic diastolic CHF (congestive heart failure): (2) Elevated brain natriuretic peptide (BNP) level: (3) Atrial fibrillation, permanent: (4) HTN (hypertension): Plan 1. Acute on chronic HFpEF: Patient is near euvolemic. Bun/creatinine trending up. She was converted to Lasix 40 mg PO this am. Anticipate discharge this afternoon on this dose. Recommend daily standing weights. Dry weight 260-265 lb. Plan to check BMP/magnesium next week for close outpatient monitoring. Notify HF program for 2+ lb weight gain overnight or 5+ lb in 1 week. Recommend less than 2000 mg of sodium intake per day. Continue heart failure program. 2. Mitral valve endocarditis/mitral regurgitation: This was found in the setting of group B strep bacteremia in 2013. In the past, she had completed 6 weeks of intravenous antibiotic therapy. Transthoracic echo without definite vegetation, but possible healed vegetation. Echo findings have been stable, without significant mitral regurgitation. She remains asymptomatic from this issue. Can monitor over time. 3. Atrial fibrillation: Appears permanent. Heart rate well controlled. No significant symptoms. Continue diltiazem and metoprolol. Diltiazem increased to 180 mg. Elevated CHADs and CHADs-VASC. She did have GI bleed requiring blood transfusion in the past. Overall, her GI bleeding has improved and she has been back on her anticoagulation therapy. DOAC has been recommended in the past but she remains on warfarin. INR goal 2-3. 4. Nonobstructive CAD: No angina. She is not on aspirin as she has had GI bleeding in the past and is on Coumadin for stroke risk reduction as above. She had very mild nonobstructive CAD in 2011. Continue beta-andrea therapy. She does not tolerate statin therapy. 5. Dyslipidemia: Ideally, high intensity statin therapy would be recommended, however she has not tolerated statins or Zetia in the past. PCSK9 inhibitor suggested but declined. Exercise as able. Mediterranean diet. Weight loss. 6. Hypertension: Acceptable. Continue medical therapy. 7. Venous insufficiency s/p bilateral GSV ablation with Venaseal: Has followed with vascular Medicine. 9. Goals of care: Overall patient prefers a more conservative approach to treatment. Disposition: Anticipated discharge today. Follow up with the heart failure program within 7 days- 11/27/22 at 2:00pm. Admission and Anticipated Discharge Date Admission Date: November 19, 2022 Subjective Patient reports feeling significantly improved from admission. She remains on supplemental O2 at 2L. Her lower extremity edema is improving. She denies chest pain, cough, palpitations. She is net negative 3.5 L. Weight is trending down per standing scale. Results & Data Vital Signs (Past 12 Hours) Vital Signs Temp Pulse Resp BP Pulse Ox O2 Del Method O2 Flow Rate 11/22/22 11:04 97.7 F 78 18 145/75 H 98 Nasal Cannula 2 11/22/22 08:00 Nasal Cannula 2 11/22/22 08:00 97.5 F L 82 18 128/71 96 Nasal Cannula 2 11/22/22 07:08 94 H 16 97 Room Air 11/22/22 03:27 97.7 F 81 16 119/63 93 Nasal Cannula 2 11/22/22 02:05 95 H 18 92 Nasal Cannula 2 PG Care Time/CCT Total # of Minutes Spent Total Time Spent with Patient: Total time spent is greater than 50% in coordination of care (as documented) at patient's floor/unit and/or counseling patient: Coding Level of Care Code 67355 SUB INP/OBS CARE 3/50MIN Diagnoses Acute on chronic diastolic CHF (congestive heart failure) I50.33 Elevated brain natriuretic peptide (BNP) level R79.89 Atrial fibrillation, permanent I48.21 HTN (hypertension) I10
--- NOTE | 2022-11-22 16:18 | Hospitalist Progress Note ---
Date of Service November 22, 2022 Assessment & Plan (1) Shortness of breath: Plan: Suspect multifactorial, combination of not using home lasix/weight up/noncompliance with meds, COPD Biofire negative EKG w/ Afib, low voltage QRS, nonspec ST abn. No change compared to prior. Trop 8.9 on high sensitivity testing CXR w/ congestion/pulmonary edema, with BNP elevation 894, mag 1.6 patient is getting Lasix 40 mg IV every morning Clinically improving We will switch to p.o. Lasix 40 mg starting tomorrow Sputum culture grew Pseudomonas sensitive to IV antibiotics. Patient was started on IV cefepime today. chronic suppressive Keflex was discontinued since the patient was started on IV cefepime. The patient had presented with shortness of breath and cough with green sputum. Bronchitis versus pneumonia. Blood cultures negative. hx endocarditis (2013)/shortness of breath, chronic back pain/weakness. is on chronic Keflex therapy . Keflex discontinued as switched to IV cefepime for the time being CT chest negative for PE Echo reviewed. No significant changes compared to prior CHF clinic involved Monitor daily weights, I&Os Supplemental O2 to maintain sats -- currently on 2L Monitor labs in AM (2) Pulmonary edema: Plan: on imaging ?uncontrolled afib at home/rates? underlying malignancy consider underlying untreated sleep apnea as well checking further imaging as above, monitor response to diuretics ?underlying untreated sleep apnea (3) Acute on chronic diastolic CHF (congestive heart failure): Plan: volume overloaded on exam, sparing use by patient for her prn 20mg lasix at home, last dose last Saturday for weight 274/276lb currently on Lasix 40 mg IV every morning. Switch to p.o. 40 mg Lasix starting tomorrow CHF clinic consulted Monitor weights/intake & output Monitor Also w/ hx CAD, nonobstructive per [facility] cards notes, Dr Aponte No angina reported. Not on ASA due to GI bleeding, is on coumadin for stroke risk reduction given her afib Mild nonobs CAD in 2011 Remains on BB as above, intolerant to statin therapy (4) Chronic obstructive pulmonary disease: Plan: hx smoking 30 yrs ago, known lung nodules susp for underlying malignancy hypoxic on admit upper 80s, improved and stable on 2L at present 98% Continue home meds, duonebs prn Pulmonary toilet Supplemental O2 to maintain sats Continue home meds was given 1 dose of Solu-Medrol in the emergency room. I am not convinced that this is a COPD exacerbation. We will hold off on further steroid doses. Sputum culture grew Pseudomonas sensitive to IV cefepime. Patient was started on IV cefepime. (5) Anemia: Plan: Hgb 9.6 on admit, ?volume overload/dilutional. MCV borderline 99 Monitor response w/ lasix Check B12/iron/folate w/ labs Hx cirrhosis, GI bleeding in the past requiring transfusion -- no bleeding reported at present On coumadin, continued/checking INR Fecal occult ordered for completeness Monitor CBC (6) Elevated brain natriuretic peptide (BNP) level: Plan: as above (7) Hypomagnesemia: Plan: replacement ordered, will give additional 1gm IV Monitor labs in AM, keep ~2 (8) Atrial fibrillation, permanent: Plan: on Coumadin, checking INR Continue metoprolol 150mg BID, Cardizem 120mg daily Keep k/mag replete monitor on telemetry (9) Bacterial endocarditis: Plan: Hx of such, , completed treatment. on keflex for chronic immunosuppressive therapy. Switch to IV cefepime today for Pseudomonas in sputum. +murmur on exam, but recent echo earlier this year. Trop negative (10) DMII (diabetes mellitus, type 2): Plan: A1c 6.6 in July Only on metformin 500mg BID, will hold while inpatient and utilize SSI Monitor BSGs (11) CKD (chronic kidney disease), stage III: Plan: Cr appears Stable. Monitor BMP with diuretics. Renal dose meds/avoid nephrotoxins as able (12) PAD (peripheral artery disease): Plan: s/p bilateral GSV ablation with Venaseal: Has followed with vascular Medicine. (13) Lumbar disc disease: Plan: noted hx pt/ot evals while inpatient (14) Mitral regurgitation: Plan: noted on prior echo, hx endocarditis, on suppressive therapy Plan DVT proph: INR therapeutic on check, will continue coumadin for now Admission and Anticipated Discharge Date Admission Date: November 19, 2022 Subjective patient feels better overall. Leg swelling is down. Sputum culture growing Pseudomonas sensitive to IV antibiotics only. Review of Systems Review of Systems: All systems reviewed & are unremarkable except as noted in Subjective Physical Exam Physical Exam: General: Awake, conversant, obese Heart: S1, S2/regular rate and rhythm, no murmur rubs or gallops Lungs: few bibasilar crackles. Normal effort Abdomen: Soft/nontender/nondistended. No hepatosplenomegaly Extremities: No clubbing/cyanosis. No edema Behavior: Appropriate, cooperative Results & Data Results & Data Vital Signs (Past 12 Hours) Vital Signs Temp Pulse Resp BP Pulse Ox O2 Del Method O2 Flow Rate 11/22/22 15:08 36.4 C L 69 18 135/78 97 Nasal Cannula 2 11/22/22 11:04 36.5 C 78 18 145/75 H 98 Nasal Cannula 2 11/22/22 08:00 Nasal Cannula 2 11/22/22 08:00 36.4 C L 82 18 128/71 96 Nasal Cannula 2 11/22/22 07:08 94 H 16 97 Room Air Laboratory Results Abnormal lab results 11/21/22 11/21/22 11/22/22 Range/Units 16:33 20:20 06:07 WBC 3.78 L (4.8-10.8) K/ul RBC 2.66 L (4.20-5.40) M/uL Hgb 8.3 L (12.0-16.0) g/dl Hct 25.9 L (37.0-47.0) % RDW Std Deviation 60.9 H (36.4-46.3) fL RDW Coeff of Beatrice 17.2 H (11.5-14.5) % Plt Count 126 L (130-400) K/uL PT (9.0-12.0) Seconds INR (0.9-1.1) BUN (6-23) mg/dl Creatinine (0.6-1.2) mg/dl BUN/Creatinine Ratio (10-20) Glucose (70-99(Fasting)) mg/dl POC Glucose 170 H 232 H (70-99) mg/dl 11/22/22 11/22/22 11/22/22 Range/Units 06:07 06:07 07:20 WBC (4.8-10.8) K/ul RBC (4.20-5.40) M/uL Hgb (12.0-16.0) g/dl Hct (37.0-47.0) % RDW Std Deviation (36.4-46.3) fL RDW Coeff of Beatrice (11.5-14.5) % Plt Count (130-400) K/uL PT 25.4 H (9.0-12.0) Seconds INR 2.5 H (0.9-1.1) BUN 68 H (6-23) mg/dl Creatinine 1.69 H (0.6-1.2) mg/dl BUN/Creatinine Ratio 40.2 H (10-20) Glucose 151 H (70-99(Fasting)) mg/dl POC Glucose 156 H (70-99) mg/dl 11/22/22 Range/Units 11:09 WBC (4.8-10.8) K/ul RBC (4.20-5.40) M/uL Hgb (12.0-16.0) g/dl Hct (37.0-47.0) % RDW Std Deviation (36.4-46.3) fL RDW Coeff of Beatrice (11.5-14.5) % Plt Count (130-400) K/uL PT (9.0-12.0) Seconds INR (0.9-1.1) BUN (6-23) mg/dl Creatinine (0.6-1.2) mg/dl BUN/Creatinine Ratio (10-20) Glucose (70-99(Fasting)) mg/dl POC Glucose 176 H (70-99) mg/dl PG Care Time/CCT Total # of Minutes Spent Total Time Spent with Patient: Total time spent is greater than 50% in coordination of care (as documented) at patient's floor/unit and/or counseling patient: Coding Level of Care Code 78642 SUB INP/OBS CARE 2/35MIN Diagnoses Shortness of breath R06.02 Pulmonary edema J81.1 Acute on chronic diastolic CHF (congestive heart failure) I50.33 Chronic obstructive pulmonary disease J44.9 Anemia D64.9 Anemia type: unspecified type Elevated brain natriuretic peptide (BNP) level R79.89 Hypomagnesemia E83.42 Atrial fibrillation, permanent I48.21 Bacterial endocarditis I33.0 DMII (diabetes mellitus, type 2) E11.9 CKD (chronic kidney disease), stage III N18.30 PAD (peripheral artery disease) I73.9 Lumbar disc disease M51.9 Mitral regurgitation I34.0 (5) Anemia Anemia type: unspecified type Qualified Code(s): D64.9 - Anemia, unspecified
[2022-11-22] MEDS: WARFARIN SOD 5 MG TAB PO SCH (16:55)
[2022-11-22] MEDS: FLUTICASONE FUROATE 100MCG 14 PUFFS/INHALER INH SCH (20:01)
[2022-11-23 06:47] LABS: Hematocrit (blood only) 30.4 % (37.0-47.0); Hemoglobin 9.9 g/dl (12.0-16.0); Mean Corpuscular Hgb Conc 32.6 g/dL (32.0-36.0); Mean Corpuscular Volume 95.3 fL (80.0-100.0); Mean Platelet Volume 10.1 fL (9.4-12.4); Platelet Count 166 K/uL (130-400); RDW Coefficient of Variation 16.7 % (11.5-14.5); Red Blood Count 3.19 M/uL (4.20-5.40); White Blood Count 4.92 K/ul (4.8-10.8)
[2022-11-23 07:16] LABS: BUN Creatinine Ratio 38.6 (10-20); Calcium 9.5 mg/dl (8.6-10.3); Creatinine Clr Calc Pharmacy 34.6 ml/min; Est GFR (African American) 33.2 ml/min; Est GFR (Non-African American) 28.6 ml/min; Potassium 3.9 mmol/L (3.5-5.1)
[2022-11-23 07:28] LABS: INR 2.2 (0.9-1.1)
[2022-11-23] MEDS: INSULIN ASPART PER UNIT CHARGE SC SCH ×4 (08:45→21:23)
[2022-11-23] MEDS: CEFEPIME 2,000 MG in SYRINGE 0 ML IV SCH ×2 (08:46→21:01)
[2022-11-23] MEDS: allopurinoL 300 MG TAB PO SCH (08:46)
[2022-11-23] MEDS: METOPROLOL SUCC 50MG EXT REL TAB PO SCH ×2 (08:47→21:12)
[2022-11-23] MEDS: dilTIAZem HCL 180 MG CAPCR PO SCH (08:47)
[2022-11-23] MEDS: FUROSEMIDE 40 MG TAB PO SCH (08:47)
[2022-11-23] MEDS: DOCUSATE SODIUM 100 MG CAP PO SCH ×2 (08:47→21:12)
[2022-11-23] MEDS: lisinopril 5 MG TAB PO SCH (08:47)
[2022-11-23] MEDS: FAMOTIDINE 20 MG TAB PO SCH (08:47)
[2022-11-23] MEDS: UMECLIDINIUM BROMIDE 62.5MCG/BLISTER 7 PUFFS/INHALER INH SCH (08:48)
[2022-11-23] MEDS: MICONAZOLE NITRATE POWDER 85 GM EXT SCH ×2 (08:48→21:13)
[2022-11-23] MEDS: WARFARIN SOD 5 MG TAB PO SCH (17:00)
--- NOTE | 2022-11-23 18:18 | Hospitalist Progress Note ---
Date of Service November 23, 2022 Assessment & Plan (1) Shortness of breath: Plan: Suspect the conditioning COPD heart failure preserved ejection fraction and medical compliance issues Biofire negative CXR w/ congestion/pulmonary edema, elevation of BNP improved with Lasix therapy changed to p.o. Sputum culture grew Pseudomonas sensitive to IV antibiotics. With history of COPD and structural lung disease patient was started on IV cefepime 11/22/2022 chronic suppressive Keflex for chronic joint infection with history of endocarditis also. Pseudomonas in sputum likely consistent with bronchitis which may have been part of her shortness of breath episode on presentation CT chest negative for PE Echo reviewed. Heart failure preserved ejection fraction no significant changes compared to prior CHF clinic involved (2) Acute on chronic diastolic CHF (congestive heart failure): Plan: volume overloaded on exam, sparing use by patient for her prn 20mg lasix at home, last dose last Saturday for weight 274/276lb currently on Lasix 40 mg IV every morning. Switch to p.o. 40 mg Lasix CHF clinic consulted intolerant to statin therapy (3) Chronic obstructive pulmonary disease: Plan: hx smoking 30 yrs ago, known lung nodules susp for underlying malignancy Supplemental O2 to maintain sats Continue home meds Sputum culture grew Pseudomonas sensitive to IV cefepime. Patient was started on IV cefepime. (4) Anemia: Plan: Hgb 9.6 on admit, iron B12 and folic acid were checked November and were found all be in normal range Hx cirrhosis, GI bleeding in the past requiring transfusion -- no bleeding reported at present On coumadin, INR is therapeutic fecal occult has been negative (5) Hypomagnesemia: Plan: Replete (6) Atrial fibrillation, permanent: Plan: on Coumadin, embolic prevention with Coumadin therapy Continue metoprolol 150mg BID, Cardizem 120mg daily (7) Bacterial endocarditis: Plan: Hx of such, 2003, completed treatment. on keflex for chronic immunosuppressive therapy. Switch to IV cefepime today for Pseudomonas in sputum. +murmur on exam, but recent echo earlier this year. Trop negative (8) DMII (diabetes mellitus, type 2): Plan: A1c 6.6 in July Only on metformin 500mg BID, will hold while inpatient and utilize SSI Monitor BSGs (9) CKD (chronic kidney disease), stage III: Plan: Cr appears Stable. Monitor BMP with diuretics. Renal dose meds/avoid nephrotoxins as able (10) PAD (peripheral artery disease): Plan: s/p bilateral GSV ablation with Venaseal: Has followed with vascular Medicine. (11) Lumbar disc disease: Plan: noted hx pt/ot evals while inpatient (12) Mitral regurgitation: Plan: noted on prior echo, hx endocarditis, on suppressive therapy Plan DVT proph: INR therapeutic on check, will continue coumadin for now Admission and Anticipated Discharge Date Admission Date: November 19, 2022 Subjective patient feels better overall. Leg swelling is down. Sputum culture growing Pseudomonas sensitive to IV antibiotics only discussed the possibility of home antibiotic care versus staying in the hospital for additional days. Patient is arranging home antibiotic care with family support. Physical Exam Physical Exam: Awake and alert appropriate lungs are clear Results & Data Results & Data Vital Signs (Past 12 Hours) Vital Signs Temp Pulse Pulse Resp BP Pulse Ox O2 Del Method 11/23/22 15:53 97.7 F 77 18 136/82 99 Nasal Cannula 11/23/22 11:37 98.1 F 81 18 116/72 98 Nasal Cannula 11/23/22 10:42 Nasal Cannula 11/23/22 08:00 73 11/23/22 07:06 97.5 F L 71 18 134/80 96 Nasal Cannula O2 Flow Rate FiO2 11/23/22 15:53 2 11/23/22 11:37 2 11/23/22 10:42 2 11/23/22 08:00 11/23/22 07:06 2 Laboratory Results Reviewed CBC reviewed chemistry reviewed coagulation reviewed [id number] glucose reviewed Hemoccult stool negative PG Care Time/CCT Total # of Minutes Spent Total Time Spent with Patient: Total time spent is greater than 50% in coordination of care (as documented) at patient's floor/unit and/or counseling patient: Coding Level of Care Code 76518 SUB INP/OBS CARE 3/50MIN Diagnoses Shortness of breath R06.02 Acute on chronic diastolic CHF (congestive heart failure) I50.33 Chronic obstructive pulmonary disease J44.9 Anemia D64.9 Anemia type: unspecified type Hypomagnesemia E83.42 Atrial fibrillation, permanent I48.21 Bacterial endocarditis I33.0 DMII (diabetes mellitus, type 2) E11.9 CKD (chronic kidney disease), stage III N18.30 PAD (peripheral artery disease) I73.9 Lumbar disc disease M51.9 Mitral regurgitation I34.0 (4) Anemia Anemia type: unspecified type Qualified Code(s): D64.9 - Anemia, unspecified
[2022-11-23] MEDS: FLUTICASONE FUROATE 100MCG 14 PUFFS/INHALER INH SCH (21:10)
[2022-11-24 06:58] LABS: Hematocrit (blood only) 28.9 % (37.0-47.0); Hemoglobin 9.5 g/dl (12.0-16.0); Mean Corpuscular Hgb Conc 32.9 g/dL (32.0-36.0); Mean Corpuscular Volume 94.4 fL (80.0-100.0); Mean Platelet Volume 10.9 fL (9.4-12.4); Platelet Count 151 K/uL (130-400); RDW Coefficient of Variation 16.4 % (11.5-14.5); RDW Standard Deviation 56.8 fL (36.4-46.3); Red Blood Count 3.06 M/uL (4.20-5.40)
[2022-11-24 07:23] LABS: BUN Creatinine Ratio 40.1 (10-20); Calcium 9.3 mg/dl (8.6-10.3); Est GFR (African American) 32.9 ml/min; Est GFR (Non-African American) 28.4 ml/min; Potassium 3.9 mmol/L (3.5-5.1)
[2022-11-24 08:08] LABS: INR 2.1 (0.9-1.1); Prothrombin Time 21.7 Seconds (9.0-12.0)
[2022-11-24] MEDS: INSULIN ASPART PER UNIT CHARGE SC SCH ×3 (08:34→16:56)
[2022-11-24] MEDS: DOCUSATE SODIUM 100 MG CAP PO SCH (08:35)
[2022-11-24] MEDS: FAMOTIDINE 20 MG TAB PO SCH (08:35)
[2022-11-24] MEDS: FUROSEMIDE 40 MG TAB PO SCH (08:35)
[2022-11-24] MEDS: allopurinoL 300 MG TAB PO SCH (08:35)
[2022-11-24] MEDS: METOPROLOL SUCC 50MG EXT REL TAB PO SCH (08:35)
[2022-11-24] MEDS: dilTIAZem HCL 180 MG CAPCR PO SCH (08:36)
[2022-11-24] MEDS: lisinopril 5 MG TAB PO SCH (08:36)
[2022-11-24] MEDS: UMECLIDINIUM BROMIDE 62.5MCG/BLISTER 7 PUFFS/INHALER INH SCH (08:37)
[2022-11-24] MEDS: MICONAZOLE NITRATE POWDER 85 GM EXT SCH (08:37)
[2022-11-24] MEDS ORDERED: CEFEPIME 2,000 MG in SYRINGE 0 ML IV SCH (09:00)
[2022-11-24] MEDS: WARFARIN SOD 5 MG TAB PO SCH (16:52)
--- NOTE | 2022-11-24 17:07 | Discharge Summary ---
Date of Service November 24, 2022 Admission HPI Per Admitting Provider 82yo female with PMHx significant for Afib, , CHF, COPD, DM II, PAD, Cirrhosis (no alcohol use/hepatitis hx), HTN, anticoagulation on coumadin, cdiff colitis, bacterial endocarditis (on chronic keflex for suppressive therapy) presented for shortness of breath, progressively worsened since discharge from the hospital in October, worse in the past 2-3 days. Dry weight 270lb (123kg -- however heart failure clinic notes dry weight 183lb), taking lasix once weekly at home. Spo2 86% on room air, currently 99% on 2L. Weight gain recently, weight 274.6lb reported last week when she took her lasix at that time 20mg PO Does report shortness of breath, difficulty laying flat as well. Denies hx FELICIANO/CPAP use at baseline. In October, she received 3 doses of IV lasix during last admission, transitioned back to her usual 20mg prn dosing at discharge given rise in creatinine. No BNP during that admission, was suspected to have passed gallstone. At that time imaging noting no acute bibiana but MRCP did note mild GB wall thickening in patient with ongoing abdominal discomfort. She reports most of pain to her epigastric region/back pain. No significant RUQ discomfort. +cough this morning, shown in room, possible blood tinge sputum. Reporting some yellowish sputum at times. Hx smoking but quit ~30 years ago. She has been compliant with her coumadin for her hx AFIB (also hx DVT) but reports she is 3 weeks overdue for INR check. She takes 5mg daily and 1/2 tablet on Mondays. She does have baseline incontinence issues. Purewick being utilized by ER staff in room, placement momentarily as she reports discomfort last admission w/ placement of velasquez. Hx GI bleeding, but denied any blood in stool/urine at baseline. Baseline ambulatory dysfunction, not worse at present. LE w/ edema, hx PAD s/p intervention w/ vascular. ALso has fungal appearance under bilateral breasts, using a paste at home No chest pain at present. No recent fever/chills. ER Course: CBC 5.2, hgb 9.6, plt 172. VBG pH 7.29, pCO2 47. Na 136, K 4.5. BUN/Cr 52/1.15, glu 157,. Lactic 1.2, mag 1.6. TB 1.1, DB 0.3, AST/ALT/ALP wnl. Procal 0.06 Biofire testing negative CXR w/ cardiomegaly and pulmonary edema, small pleural effusions with mild bibasilar opacities. Given Lasix 80mg IV x 1, mag 1gm IV. Of note, CTAP in May noting lungs w/ 2 groundglass lesions again in right lung base, suspicious for low grade adenocarcinoma. Of note, outpatient notes son w/ pancreatic mass per Dr Romo outpt note in April, completed therapy w/ no tumor found after treatment. Repeating CTAP w/ IV contrast (reported tolerance w/o need for pre-medication but gets anxious), also CT chest to r/o PE and f/u underlying lung disease. Principal Diagnosis Acute on chronic respiratory failure with hypoxiaCOPD exacerbation Pseudomonas bronchitis discharged on IV antibiotics Discharge Exam Patient having intermittent intermittent confusion and is tearful. She however has no respiratory distress and does have home arrangements for both home nursing and family support Lung exam lungs are coarse but clear Discharge Data Allergies Allergy/AdvReac Type Severity Reaction Status Date / Time technetium-99m Allergy Severe ANAPHYLAXIS Verified 10/22/22 09:02 amoxicillin Allergy Intermediate RASH Verified 10/22/22 09:02 nitrofurantoin Allergy Intermediate HIVES Verified 11/19/22 15:06 iodine Allergy Unknown HIVES, Verified 10/22/22 09:02 WITH DYE 30 YRS AGO-HAS HAD SINCE W/O PROBLEM Consultations 11/19/22 10:25 ED Decision to Admit Stat 11/19/22 15:07 [facility] [place] [facility] [place] Referral Routine 11/19/22 22:17 Consult Cardiology Routine Ordered Studies 11/19/22 11:09 CT abd pelvis IV con only Stat CT angio chest PE protocol Stat Hospital Course (1) Shortness of breath: Suspect the acute on chronic respiratory failure/COPD exacerbation and heart failure preserved ejection fraction and medical compliance issues Biofire negative CXR w/ congestion/pulmonary edema, elevation of BNP improved with Lasix therapy changed to p.o. Sputum culture grew Pseudomonas resistant to most p.o. antibiotics but sensitive to IV antibiotics. With history of COPD and structural lung disease patient was started on IV cefepime complete additional 5 days outpatient for 7- day course Pseudomonas in sputum likely consistent with bronchitis which may have been part of her shortness of breath episode on presentation chronic suppressive Keflex for chronic joint infection with history of endocarditis also. hx smoking 30 yrs ago, known lung nodules susp for underlying malignancy CT chest negative for PE/pneumonia Echo reviewed. Heart failure preserved ejection fraction no significant changes compared to prior CHF clinic involved (2) Acute on chronic diastolic CHF (congestive heart failure): volume overloaded on presentation now resolved Lasix dose increased at time of discharge to 40 daily CHF clinic consulted Previously intolerant to statin therapy (3) Anemia: Hgb 9.6 on admit, iron B12 and folic acid were checked November and were found all be in normal range Hx cirrhosis, GI bleeding in the past requiring transfusion -- no bleeding reported at present On coumadin, INR is therapeutic fecal occult has been negative (4) Hypomagnesemia: Replete (5) Atrial fibrillation, permanent: on Coumadin, embolic prevention with Coumadin therapy Continue metoprolol 150mg BID, Cardizem 120mg daily (6) Bacterial endocarditis: Hx of such, 2003, completed treatment. on keflex for chronic immunosuppressive therapy. Switch to IV cefepime today for Pseudomonas in sputum. +murmur on exam, but recent echo earlier this year. Trop negative (7) DMII (diabetes mellitus, type 2): A1c 6.6 in July Only on metformin 500mg BID, (8) CKD (chronic kidney disease), stage III: Cr appears Stable. (9) PAD (peripheral artery disease): s/p bilateral GSV ablation with Venaseal: Has followed with vascular Medicine. (10) Lumbar disc disease: noted hx (11) Mitral regurgitation: noted on prior echo, hx endocarditis, on suppressive therapy Total Time Total Time Spent Total Time Spent (In Minutes): It required greater than 30 minutes to prepare this patient for discharge Discharge Plan Discharge Items Patient Disposition: Home - Self-Care Reason For Visit: SHORTNESS OF BREATH, ABD PAIN, ?CHF?PE?BIBIANA Discharge Diagnosis: acute on chronic diastolic heart faliure pseudomonas sputum culture Activity: Resume your previous activity Non-emergency contact: Primary Care Provider Call non-emergency contact if: you have any medication questions and your symptoms worsen Follow-up/Referrals: Bc Carter MD [Primary Care Provider] - Rachel Armas PAJhC [Physician Information Assoc] - 11/27/22 2:00 pm Diet: Carb Consistent or DM2, Heart Healthy and Low Sodium (2gm) Addtl Attending Provider Instructions: complete 5 days of outpt antibiotics Advised to follow-up with PCP in 1 week Advised to follow-up with CHF clinic Pending Studies at Discharge: No Stand-Alone Forms: My [facility] Medications and DC Order Prescriptions: New cefepime 2 gram recon soln 2 g IV Q12H Qty: 10 0RF Rx Instructions: pseudomonas bronchitis diltiazem HCl 180 mg Capsule,Extended Release 24hr 180 mg PO QAM Qty: 30 3RF Continued (DME) blood sugar diagnostic Strip See Dose Instructions .ROUTE .MEDSUPPLY Qty: 10 3RF Rx Instructions: As directed albuterol sulfate 2.5 mg /3 mL (0.083 %) solution for nebulization 2.5 mg inhalation .COMPLEX PRN (Reason: shortness of breath or wheezing) Qty: 1620 3RF Rx Instructions: 2.5 mg inhalation every 4-6 hours via nebulizer PRN; (DME) OneTouch Ultra Test Strip See Rx Instructions .ROUTE .COMPLEX Qty: 100 3RF Dose Instruction: DIRECTED Rx Instructions: DIRECTED allopurinol 300 mg tablet 300 mg PO QAM Qty: 90 3RF metformin 500 mg tablet extended release 24 hr 500 mg PO BID Qty: 180 3RF lisinopril 5 mg tablet 5 mg PO QAM Qty: 90 3RF metoprolol succinate [Toprol XL] 100 mg tablet extended release 24 hr 150 mg PO BID Qty: 270 3RF warfarin 5 mg tablet 5 mg PO .COMPLEX Qty: 90 3RF Protocol: Dose Management Condition: Saturday Dose/Route: 5 mg Instruction: 1 x 5 mg tablet Condition: Saturday Dose/Route: 2.5 mg Instruction: 0.5 x 5 mg tablets Condition: Saturday Dose/Route: 5 mg Instruction: 1 x 5 mg tablet Condition: Saturday Dose/Route: 5 mg Instruction: 1 x 5 mg tablet Condition: Dose/Route: 5 mg Instruction: 1 x 5 mg tablet Condition: Saturday Dose/Route: 5 mg Instruction: 1 x 5 mg tablet Condition: Saturday Dose/Route: 5 mg Instruction: 1 x 5 mg tablet Protocol Text: Adjustment Start Date: Saturday10/08/22 INR Value: 3.6 INR Date: 10/08/22 Rx Instructions: Saturday- takes 2.5mg , needed to retest on saturday but she couldnt, run out of testing strips 5 mg PO DAILY PER INR CLINIC changes weekly 2.5mg to 5 mg daily magnesium oxide 400 mg (241.3 mg magnesium) tablet 400 mg PO DAILY PRN (Reason: when you take your furosemide) Qty: 30 5RF potassium chloride 20 mEq tablet extended release 20 meq PO DAILY PRN (Reason: when you take your furosemide) Qty: 30 5RF (DME) lancets [OneTouch Delica Plus Lancet] 33 gauge misc See Rx Instructions .ROUTE .COMPLEX Qty: 100 3RF Dose Instruction: DIRECTED Rx Instructions: DIRECTED (DME) lancing device with lancets [OneTouch Delica Lanc Device] Kit See Rx Instructions .Route Qty: 100 0RF Rx Instructions: As directed cephalexin 500 mg capsule 500 mg PO BID Dulera 200-5 mcg/actuation HFA aerosol inhaler 2 puff inhalation BID Rx Instructions: INHALE 2 PUFFS ORALLY TWICE DAILY RINSE MOUTH AFTER USE Spiriva Respimat 2.5 mcg/actuation mist 2 puff inhalation QAM Rx Instructions: INHALE TWO PUFFS BY MOUTH EVERY MORNING Changed furosemide 40 mg tablet 40 mg PO DAILY Qty: 30 4RF Discontinued diltiazem HCl 120 mg capsule,extended release 24hr 120 mg PO QAM Discharge Orders: Discharge Order (Routine); Ordered 11/24/22 Ordered By: Subhash Scruggs Admission Data Admit Date/Time: 11/19/22 11:37 Attending Provider: Subhash Scruggs Admit Provider: Iglesia Valencia Primary Care Provider: Bc Carter Other Providers: Iglesia Valencia ; Rachel Armas ; Lg Aponte ; [facility],Home Healthcare ; [facility],Referral Center Coding Level of Care Code 13998 INP/OBS DISCH >30 MIN Diagnoses Shortness of breath R06.02 Acute on chronic diastolic CHF (congestive heart failure) I50.33 Anemia D64.9 Anemia type: unspecified type Hypomagnesemia E83.42 Atrial fibrillation, permanent I48.21 Bacterial endocarditis I33.0 DMII (diabetes mellitus, type 2) E11.9 CKD (chronic kidney disease), stage III N18.30 PAD (peripheral artery disease) I73.9 Lumbar disc disease M51.9 Mitral regurgitation I34.0
[2022-11-24] MEDS ORDERED: CEFEPIME 2,000 MG in SYRINGE 0 ML IV ONE (19:00)
== END 2022-11-24 19:58 | disposition home health service (06) | DRG 291 ==
LOC: ED 08:33 → EDINP 11:37 → SUATTDRO 11:37 → 2S 15:04

== ENCOUNTER 2024-09-07 08:30 | Inpatient (IN) ==
--- NOTE | 2024-09-07 08:34 | Emergency Department Note ---
Impression & Plan Acute exacerbation of CHF (congestive heart failure), Hypoxia, COPD (chronic obstructive pulmonary disease) ED Provider Note NAME: KINJAL DAVIS AGE: 84 SEX: F : 1940 ARRIVES VIA: Ambulance INFORMANT: Patient, ED PROVIDER(S): Tomas Shah MD CHIEF COMPLAINT: Shortness of breath MEDICAL DECISION MAKING: Patient presents due to concern for shortness of breath with SADLER and associated orthopnea. IV was established and blood work was obtained along with a Pro-Ruben BNP. Patient with increased butyrin production and history of COPD with some coarse breath sounds the patient was ordered methylprednisolone Xopenex as well as 500 mg of azithromycin p.o. Weight noted from PCP visit last week is 115 kg. Today noted to be 122. Initial [id number] creatinine noted to be 1.5 with a K of 4. Patient was ordered 40 of IV Lasix. Patient was hypoxic and placed on 2 L nasal cannula. I did speak with the on- call hospitalist service Dr. Shane and the patient was admitted to the medicine service. Critical Care: I have personally spent 41 minutes of critical care time in direct management of this patient. This includes bedside care, interpretation of diagnostic studies, and testing, discussion with consultants, patient, and family members, and other require inpatient management activities. This 41 minutes is in excess of all separately billable procedures. Discussion w/ other healthcare providers: Dr. Shane inpatient medicine service Prior /Outside records reviewed: I reviewed part of a primary care visit from September 01, [address] TRINIDAD. Patient was seen for shortness of breath that time concerning for volume overload in setting of increased sodium intake patient was to double her Lasix for the next 2 to 3 days. Patient scheduled to see dermatology for skin lesion on back in October. I did review part of her heart failure visit from Rachel Armas from August 24. Patient with known history of A-fib mitral recharge PAD and chronic diastolic dysfunction. Patient currently on Eliquis as well as diltiazem and metoprolol for A-fib. Differential diagnosis: Reactive airway disease, pneumonia, pneumothorax, COPD, CHF, ACS, pulmonary embolism, musculoskeletal, GERD as well as other pathologies were considered. Diagnostics, as interpreted by me: ECG: Possible accelerated junctional rhythm versus A-fib RVR ventricular rate of 106, normal QRS duration normal QTc, normal axis no obvious STEMI. Cardiac monitoring: An order was placed for continuous cardiac monitoring. The monitor shows a rate of 105 with tachycardic and irregularly irregular rhythm. Patient was placed on pulse oximetry Medical decision rules: None Imaging studies: I informally interpreted the patient's chest x-ray does show pulmonary edema with formal report to follow. HPI: Patient presents due to concern for shortness of breath. Ongoing the last several days but worsening with associated activity with associated orthopnea. Patient states that she currently cannot tolerate laying flat. The patient was seen at her PCP office on Saturday was advised to take an increase in her Lasix was taking 40 mg instead of 20 for 4 days but did resume the 20. The patient states that when she presented to her PCP office she noted increased leg swelling and does think that it improved a bit with the increase in Lasix but has returned to be more pronounced. Patient denies any chest pains. She has a cough with productive discolored sputum. No history of COPD. Patient denies any falls or trauma. Patient did not take a daily weight. She does admit to eating a [place] mikes sub-3 days ago which may have had an increase in salt. PAST MEDICAL HISTORY: See Below PAST SURGICAL HISTORY: See Below SOCIAL HISTORY: See Below HOME MEDICATIONS: See Below ALLERGIES: See Below VITALS: See Below PHYSICAL EXAMINATION: GENERAL: NAD, non-toxic. Wearing glasses. EYE EXAM: Normal conjunctiva. PERRL, no anisocoria and EOM's grossly intact w/o pain. OROPHARYNX: Moist mucus membranes, grossly normal dentition. NECK: Trachea midline, no stridor. LUNGS: Coarse sounds in the chest with some associated crackles at the bases. Normal chest wall mechanics. HEART: NSR, no MRG. ABDOMEN: Abdomen soft, non-tender, no masses, no rebound or guarding. BACK: No CVA TTP. SKIN: No rashes and no bruising. UPPER EXTREMITIES: Upper extremities are grossly normal. LOWER EXTREMITIES: Grossly normal, 2-3+ symmetric lower extremity edema without calf pain or erythema. NEURO EXAM: Awake and alert, follows commands, no obvious facial asymmetry, normal speech, moves all 4 extremities. Past Med/Surg History Problem List (Updated 09/07/24 @ 16:58 by Tomas Shah MD) COPD (chronic obstructive pulmonary disease) (Acute) Hypoxia (Acute) Acute exacerbation of CHF (congestive heart failure) (Acute) Multiple thyroid nodules Cerebral aneurysm 6mm LUIS aneurysm and 2.5mm at the junction of the ACOM and left LUIS Right upper lobe consolidation Varicose vein of leg Stress incontinence Urge incontinence Venous stasis Neurogenic claudication due to lumbar spinal stenosis Vitamin D deficiency (Chronic) Umbilical hernia (Chronic) Prolapse of vaginal cooper (Chronic) Ovarian cyst (Chronic) Endometrial polyp (Chronic) Medical History On home oxygen therapy 2 lpm via n/c PRN (rare use) Mass of upper lobe of right lung Atrial fibrillation, permanent Follows with [facility] cardio Obesity Urinary incontinence Hx of malignant melanoma (08/2022) with excision Varicose vein of leg PAD (peripheral artery disease) Mitral regurgitation Pulmonary nodule Lumbar spondylosis Lumbar disc disease History of COVID-19 01/2022- hospitalized for 5 days at [facility] Hyperlipidemia Hypertension GERD (gastroesophageal reflux disease) "Mild" Hx of bacterial endocarditis Hx noted per remote records, patient unaware Cirrhosis Non-alcoholic "Stable" per patient History of anemia Chronic obstructive pulmonary disease Asthma History of GI bleed Per records, patient unaware Hx of diverticulitis of colon Blindness of left eye (2013) s/p sepsis History of claustrophobia History of panic attacks Chronic diastolic CHF (congestive heart failure) Morbid obesity Chronic venous insufficiency Type 2 diabetes mellitus NIDDM Edema Chronic, RLE Chronic kidney disease (CKD), stage III (moderate) CAD in [place] artery Non-obstructive per cardio records Arthritis Alopecia Surgical History Hx of melanoma excision (08/2022) from the top of the head History of colonoscopy S/P IVC filter and since removed History of total knee replacement R/L History of anesthesia reaction Slow to wake History of arthroscopy of knee with debridement Right[place] [facility] [place] of bladder surgery History of cataract surgery R/L Family History Unknown Diabetes Hypertension Mother Diabetes Cardiac disorder Grandfather Sinus disorder Other No family history of adverse response to anesthesia Social History Smoking Status: Former smoker Tobacco Type: Cigarettes Age Started Using Tobacco: 19; Age Quit Using Tobacco: 52; packs per day: 2.5; Second Hand Exposure: No; Do You Dip or Chew Tobacco: No; Hx Alcohol Use: Yes Alcohol type: wine Hx Substance Use: No Preferred Language: [place] Communication Ability: Effective Visual Impairment: Blindness Bee Breeder Required: No Beliefs That Will Affect Care: None marital status: Unknown Current Living Situation: Alone Feels Safe at Home: Yes Assistive Devices: Glasses and Nebulizer Allergies Allergies Allergy/AdvReac Type Severity Reaction Status Date / Time [id number] Allergy Severe Anaphylaxis Verified 09/07/24 10:52 amoxicillin Allergy Intermediate Hives Verified 09/07/24 10:52 iodine Allergy Intermediate Hives Verified 09/07/24 10:52 (with dye 30 yrs ago-no issue w/subsequent use per pt) nitrofurantoin Allergy Intermediate Hives Verified 09/07/24 10:52 Home Meds Home Medications Medication Instructions Recorded Confirmed cephalexin 500 mg capsule 500 mg PO BID preventative 12/24/23 09/07/24 albuterol sulfate 2.5 mg/3 mL 2.5 mg inhalation DIRECTED PRN 07/24/24 09/07/24 (0.083 %) solution for nebulization shortness of breath or wheezing Previous Rx's Medication Instructions Recorded lancing device with lancets kit #100 ea 01/16/21 (EventSneaker Lancing Device kit) blood sugar diagnostic #10 ea 01/30/21 lancets 33 gauge (PATHEOSuch Delica #100 ea 06/06/22 Plus Lancet) tiotropium bromide 2.5 2 puff inhalation QAM #12 grams 06/17/23 mcg/actuation mist for inhalation (Spiriva Respimat) albuterol sulfate 90 mcg/actuation 2 puff inhalation QID PRN 09/17/23 aerosol inhaler shortness of breath or wheezing #8.5 grams Wheeled Walker #1 ea 10/04/23 nystatin 100,000 unit/gram topical 1 applic topical TID #60 grams 12/13/23 powder diltiazem HCl 180 mg 180 mg PO QAM #90 caps 01/28/24 capsule,extended release 24 hr apixaban 2.5 mg tablet (Eliquis) 2.5 mg PO BID #180 tabs 02/13/24 metoprolol succinate 100 mg 150 mg (1.5 x 100 mg) PO BID #270 04/03/24 tablet,extended release 24 hr tabs (Toprol XL) metformin 500 mg tablet,extended 500 mg PO BID #180 tabs 04/10/24 release 24 hr empagliflozin 25 mg tablet 25 mg PO DAILY #90 tabs 06/09/24 (Jardiance) allopurinol 300 mg tablet 300 mg PO QAM #90 tabs 07/15/24 magnesium oxide 400 mg (241.3 mg 400 mg PO QAM #90 tabs 07/15/24 magnesium) tablet furosemide 20 mg tablet 20 mg PO QAM #90 tabs 07/29/24 blood sugar diagnostic (OneTouch #100 strips 08/27/24 Ultra Test strips) meclizine 25 mg tablet 25 mg PO TID PRN dizziness #30 tabs 08/27/24 mometasone-formoterol HFA 200 2 puff inhalation BID #3 Inhalers 08/27/24 mcg-5 mcg/actuation aerosol inhaler (Dulera) pantoprazole 40 mg tablet,delayed 40 mg PO QAM #7 tabs 09/07/24 release prednisone 20 mg tablet 40 mg (2 x 20 mg) PO DAILY #5 tabs 09/07/24 Results & Data (ED) Vital Signs Vital Signs - 24 hr 09/07/24 08:37 09/07/24 08:39 09/07/24 08:39 Temperature 36.8 C Temperature Source Oral Pulse Rate 83 103 H 99 H Pulse Rate [Apical] Pulse Rate from SpO2 Sensor 109 H Respiratory Rate 22 18 Respiratory Effort / Characteristics Non-Labored Spontaneous Respiratory Depth Normal Respiratory Pattern Regular Blood Pressure 140/84 Blood Pressure [Right Arm] Blood Pressure Mean 102 Blood Pressure Mean [Right Arm] Blood Pressure Position [Right Arm] Pulse Oximetry 95 95 Oxygen Delivery Method Nasal Cannula Nasal Cannula Oxygen Flow Rate 2 2 Sepsis Recent Fever Within 48 Hours No Sepsis New/Unexplained Change in Mental Status No Sepsis Action Taken by Nursing No Action Required Oxygen Flow Rate - Titration Pulse Oximetry Post Tiitration 09/07/24 09:02 09/07/24 09:06 09/07/24 09:48 Temperature Temperature Source Pulse Rate 88 94 H Pulse Rate [Apical] Pulse Rate from SpO2 Sensor 94 H 91 H Respiratory Rate 16 21 Respiratory Effort / Characteristics Respiratory Depth Respiratory Pattern Blood Pressure Blood Pressure [Right Arm] Blood Pressure Mean Blood Pressure Mean [Right Arm] Blood Pressure Position [Right Arm] Pulse Oximetry 88 L 100 98 Oxygen Delivery Method Nasal Cannula Nasal Cannula Nasal Cannula Oxygen Flow Rate 0 2 2 Sepsis Recent Fever Within 48 Hours Sepsis New/Unexplained Change in Mental Status Sepsis Action Taken by Nursing Oxygen Flow Rate - Titration 2 Pulse Oximetry Post Tiitration 95 09/07/24 09:54 09/07/24 09:55 09/07/24 10:00 Temperature Temperature Source Pulse Rate Pulse Rate [Apical] 99 H Pulse Rate from SpO2 Sensor Respiratory Rate 18 Respiratory Effort / Characteristics Non-Labored Spontaneous Respiratory Depth Normal Respiratory Pattern Regular Blood Pressure 163/99 H 156/82 H Blood Pressure [Right Arm] 163/99 H Blood Pressure Mean 114 119 Blood Pressure Mean [Right Arm] 120 Blood Pressure Position [Right Arm] Lying Pulse Oximetry 97 Oxygen Delivery Method Nasal Cannula Oxygen Flow Rate 2 Sepsis Recent Fever Within 48 Hours Sepsis New/Unexplained Change in Mental Status Sepsis Action Taken by Nursing Oxygen Flow Rate - Titration Pulse Oximetry Post Tiitration 09/07/24 10:06 09/07/24 10:39 Temperature Temperature Source Pulse Rate 91 H 66 Pulse Rate [Apical] Pulse Rate from SpO2 Sensor 91 H 91 H Respiratory Rate 22 19 Respiratory Effort / Characteristics Respiratory Depth Respiratory Pattern Blood Pressure Blood Pressure [Right Arm] Blood Pressure Mean Blood Pressure Mean [Right Arm] Blood Pressure Position [Right Arm] Pulse Oximetry 96 96 Oxygen Delivery Method Nasal Cannula Nasal Cannula Oxygen Flow Rate 2 2 Sepsis Recent Fever Within 48 Hours Sepsis New/Unexplained Change in Mental Status Sepsis Action Taken by Nursing Oxygen Flow Rate - Titration Pulse Oximetry Post Tiitration Home Medications Current Medication List: was personally reviewed by me Laboratory Data Attestation: I reviewed the patient's lab results. 09/07/24 08:47 09/07/24 08:47 Lab Results 09/07/24 09/07/24 Range/Units 08:47 08:51 WBC 4.72 L (4.8-10.8) K/ul RBC 3.02 L (4.20-5.40) M/uL Hgb 9.2 L (12.0-16.0) g/dl POC Hgb 9.2 L (12.0-16.0) g/dl Hct 29.2 L (37.0-47.0) % POC Hct 27 L (37-47) % MCV 96.7 (80.0-100.0) fL MCH 30.5 (25.0-34.0) pg MCHC 31.5 L (32.0-36.0) g/dL RDW Std Deviation 66.1 H (36.4-46.3) fL RDW Coeff of Beatrice 19.0 H (11.5-14.5) % Plt Count 187 (130-400) K/uL MPV 9.9 (9.4-12.4) fL Immature Gran % (Auto) 0.4 % Neut % (Auto) 74.8 % Lymph % (Auto) 14.6 % [place] % (Auto) 6.6 % Eos % (Auto) 2.8 % Baso % (Auto) 0.8 % Neut # (Auto) 3.53 (1.40-6.50) K/uL Lymph # (Auto) 0.69 L (1.20-3.40) K/uL [place] # (Auto) 0.31 (0.11-0.59) K/uL Eos # (Auto) 0.13 (0.00-0.50) K/uL Baso # (Auto) 0.04 (0.00-0.20) K/uL Immature Gran # (Auto) 0.02 (0.01-0.20) K/uL PT 11.5 (9.0-12.0) Seconds INR 1.1 (0.9-1.1) APTT 36 H (21-31) Seconds PTT Ratio 1.3 POC Sodium 137 (135-144) mmol/L Sodium 136 (136-145) mmol/L POC Potassium 4.0 (3.3-5.0) mmol/L Potassium 4.0 (3.5-5.1) mmol/L POC Chloride 102 (101-112) mmol/L Chloride 103 (98-107) mmol/L Carbon Dioxide 25 (21-32) mmol/L POC Total CO2 22 L (24-31) mmol/L Anion Gap 8 (3-11) POC Anion Gap 17.0 (16-25) mmol/L POC BUN 37 H (7-18) mg/dl BUN 43 H (6-23) mg/dl Creatinine 1.36 H (0.6-1.2) mg/dl POC Creatinine 1.5 H (0.6-1.3) mg/dl Est Cr Clr Drug Dosing 42.5 ml/min eGFR 38.65 BUN/Creatinine Ratio 31.6 H (10-20) Glucose 237 H (70-99(Fasting)) mg/dl POC Glucose (other) 233 H (70-99) mg/dl Calcium 9.1 (8.6-10.3) mg/dl POC Ioniz Calcium Ayaz 1.19 (1.12-1.32) mmol/l Magnesium 1.9 (1.7-2.4) mg/dl Total Bilirubin 0.8 (0.2-1.0) mg/dl AST 13 (13-39) U/L ALT 12 (7-52) U/L Alkaline Phosphatase 69 (34-104) U/L Troponin I High Sens 9.6 (0-14) pg/ml B-Natriuretic Peptide 911 H (0-100) pg/ml Total Protein 6.3 (6.0-8.3) gm/dl Albumin 3.6 (3.4-5.0) gm/dl Globulin 2.7 (2.5-4.0) gm/dl Albumin/Globulin Ratio 1.3 (0.9-2) Procalcitonin 0.08 (0-0.5) ng/ml Adenovirus (PCR) Not Detected (NotDetected) B. pertussis DNA (PCR) Not Detected (NotDetected) B.parapertussis DNA PCR Not Detected (NotDetected) C. pneumoniae DNA (PCR) Not Detected (NotDetected) Coronavirus OC43 (PCR) Not Detected (NotDetected) Coronavirus HKU1 (PCR) Not Detected (NotDetected) Coronavirus 229E (PCR) Not Detected (NotDetected) SARS-CoV-2 (PCR) Not Detected (NotDetected) Coronavirus NL63 (PCR) Not Detected (NotDetected) Human Metapneumovir PCR Not Detected (NotDetected) Influenza Type A (PCR) Not Detected (NotDetected) Influenza Type B (PCR) Not Detected (NotDetected) M. pneumoniae (PCR) Not Detected (NotDetected) Parainfluenza 1 (PCR) Not Detected (NotDetected) Parainfluenza 2 (PCR) Not Detected (NotDetected) Parainfluenza 3 (PCR) Not Detected (NotDetected) Parainfluenza 4 (PCR) Not Detected (NotDetected) RSV (PCR) Not Detected (NotDetected) Entero/Rhino (PCR) Not Detected (NotDetected) Administered Medications Insulin Aspart (Insulin Aspart Per Unit Charge) 0 units SC ACHS NEELA Stop: 10/07/24 11:44 Last Admin: 09/07/24 12:26 Dose: 8 units Documented By: CAP Co-signed By: ANT Discontinued Medications Azithromycin (Azithromycin 250 Mg Tab) 500 mg PO NOW ONE Stop: 09/07/24 08:44 Last Admin: 09/07/24 08:56 Dose: 500 mg Documented By: CAP Furosemide (Furosemide 40 Mg/4 Ml Vial) 40 mg IV ONE ONE Stop: 09/07/24 09:36 Last Admin: 09/07/24 09:53 Dose: 40 mg Documented By: CAP Insulin Glargine (Lantus Per Unit Charge) 30 units SC ONE ONE Stop: 09/07/24 11:46 Last Admin: 09/07/24 12:26 Dose: 30 units Documented By: CAP Co-signed By: ANT Levalbuterol HCl (Levalbuterol 1.25 Mg/3 Ml Neb) 1.25 mg NEB NOW STA Stop: 09/07/24 08:45 Last Admin: 09/07/24 08:56 Dose: 1.25 mg Documented By: CAP Methylprednisolone (Methylprednisolone 125 Mg/2 Ml Vial) 125 mg IV NOW STA Stop: 09/07/24 08:44 Last Admin: 09/07/24 08:56 Dose: 125 mg Documented By: CAP Imaging Data Radiologist's Impression: Chest X-Ray 09/07/24 08:43 XR chest 1V portable CLINICAL HISTORY: Dyspnea COMPARISON STUDY: 09/01/2024 FINDINGS: There is stable prominent cardiomegaly with mildly increased pulmonary vascular congestion. There is stable minimal blunting of the costophrenic angles. There is mild pulmonary interstitial prominence. No pneumothorax. IMPRESSION: Increased CHF. ACT 112: Negative or not required by law. Electronically signed by: Terrance Reyes M.D. 09/07/2024 9:31 AM Discharge Plan Visit Data Chief Complaint: Shortness of Breath/Dyspnea Stated Complaint: SOB ED Provider: Tomas Shah Discharge Problem: Acute exacerbation of CHF (congestive heart failure), Hypoxia, COPD (chronic obstructive pulmonary disease) Patient Disposition: Admitted As Inpatient Condition: Good Discharge Instructions Interventions: ED Discharge Assessment Last Done: 09/07/24 13:57 Discharge Problem: Acute exacerbation of CHF (congestive heart failure) Qualifiers: Heart failure type: unspecified Qualified Code(s): I50.9 - Heart failure, unspecified COPD (chronic obstructive pulmonary disease) Qualifiers: COPD type: COPD with acute exacerbation Qualified Code(s): J44.1 - Chronic obstructive pulmonary disease with (acute) exacerbation
[2024-09-07] MEDS: AZITHROMYCIN 250 MG TAB PO ONE (08:56)
[2024-09-07] MEDS: LEVALBUTEROL 1.25 MG/3 ML NEB NEB STA (08:56)
[2024-09-07 09:10] LABS: Hematocrit (blood only) 29.2 % (37.0-47.0); Hemoglobin 9.2 g/dl (12.0-16.0); Immature Granulocytes # (auto) 0.02 K/uL (0.01-0.20); Immature Granulocytes % (auto) 0.4 %; Mean Corpuscular Hemoglobin 30.5 pg (25.0-34.0); Mean Corpuscular Volume 96.7 fL (80.0-100.0); Platelet Count 187 K/uL (130-400); RDW Standard Deviation 66.1 fL (36.4-46.3); Red Blood Count 3.02 M/uL (4.20-5.40); White Blood Count 4.72 K/ul (4.8-10.8)
--- NOTE | 2024-09-07 09:32 | XRay Report ---
XR chest 1V portable CLINICAL HISTORY: Dyspnea COMPARISON STUDY: 09/01/2024 FINDINGS: There is stable prominent cardiomegaly with mildly increased pulmonary vascular congestion. There is stable minimal blunting of the costophrenic angles. There is mild pulmonary interstitial pr ominence. No pneumothorax. IMPRESSION: Increased CHF. ACT 112: Negative or not required by law. Electronically signed by: Terrance Reyes M.D. 09/07/2024 9:31 AM
[2024-09-07 09:33] LABS: Alanine Aminotransferase 12.0 U/L (7-52); Albumin Globulin Ratio 1.3 (0.9-2); Alkaline Phosphatase 69.0 U/L (34-104); Anion Gap 8.0 (3-11); Bilirubin,Total 0.8 mg/dl (0.2-1.0); Blood Urea Nitrogen 43.0 mg/dl (6-23); Calcium 9.1 mg/dl (8.6-10.3); Carbon Dioxide 25.0 mmol/L (21-32); Chloride 103.0 mmol/L (98-107); Creatinine Clr Calc Pharmacy 42.5 ml/min; Globulin 2.7 gm/dl (2.5-4.0); Glucose 237.0 mg/dl (70-99(Fasting)); Magnesium 1.9 mg/dl (1.7-2.4); Potassium 4.0 mmol/L (3.5-5.1); Sodium 136.0 mmol/L (136-145); Total Protein 6.3 gm/dl (6.0-8.3)
[2024-09-07 09:34] LABS: INR 1.1 (0.9-1.1); Partial Thromboplastin Time 36 Seconds (21-31); Prothrombin Time 11.5 Seconds (9.0-12.0)
[2024-09-07] MEDS: FUROSEMIDE 40 MG/4 ML VIAL IV ONE (09:53)
[2024-09-07 10:26] LABS: Chlamydia pneumoniae PCR Not Detected (NotDetected); Coronavirus 229E PCR Not Detected (NotDetected); Coronavirus CoV-2 (COVID19)PCR Not Detected (NotDetected); Coronavirus HKU1 PCR Not Detected (NotDetected); Coronavirus NL63 PCR Not Detected (NotDetected); Coronavirus OC43PCR Not Detected (NotDetected); Human Metapneumovirus PCR Not Detected (NotDetected); Parainfluenza Virus 1 PCR Not Detected (NotDetected); Parainfluenza Virus 2 PCR Not Detected (NotDetected); Parainfluenza Virus 3 PCR Not Detected (NotDetected); Parainfluenza Virus 4 PCR Not Detected (NotDetected); Respiratory Syncytial VirusPCR Not Detected (NotDetected); Rhinovirus/Enterovirus PCR Not Detected (NotDetected)
--- NOTE | 2024-09-07 11:09 | History & Physical Report ---
Date of Service September 07, 2024 Assessment & Plan (1) Cerebral aneurysm: (2) Neurogenic claudication due to lumbar spinal stenosis: (3) Atrial fibrillation, permanent: (4) Obesity: (5) Hyperlipidemia: (6) Hypertension: (7) Chronic obstructive pulmonary disease: (8) Chronic diastolic CHF (congestive heart failure): Plan 84 female history of COPD not on oxygen, diastolic CHF A-fib PAD Diabetes hypertension hyperlipidemia chronic kidney disease Nonalcoholic cirrhosis cerebral aneurysm venous insufficiency lumbar spinal stenosis with claudication pain Who presents with worsening shortness of breath weight gain Lower extremity edema orthopnea over the past week. Acute on chronic diastolic heart failure CHF protocol orders TTE IV Lasix GDMT Questionable COPD exacerbation Steroids taper as tolerated bronchodilators Acute hypoxic respiratory failure secondary to above Wean O2 sat goal 88-94 Diabetes type 2 Short and long-acting insulin Hold oral hypoglycemics A-fib Eliquis beta-andrea calcium channel andrea CKD Avoid nephrotoxic meds Deconditioning PT OT GI steroid prophylaxis DVT prophylaxis DNR/DNI Disposition Admit to telemetry History of Present Illness Chief Complaint: Dyspnea Primary Care Provider: Subhash Esparza, DO 84 female history of COPD not on oxygen, diastolic CHF A-fib PAD Diabetes hypertension hyperlipidemia chronic kidney disease Nonalcoholic cirrhosis cerebral aneurysm venous insufficiency lumbar spinal stenosis with claudication pain Who presents with worsening shortness of breath weight gain Lower extremity edema orthopnea over the past week. No pleuritic or other chest pain fevers or chills. No cough over her chronic baseline cough from COPD. Discussed the case with ED physician who feels this is CHF exacerbation can possibly COPD exacerbation although less likely Confirmed she is a DNR/DNI Discussed with RN In the ED Allergies Allergy/AdvReac Type Severity Reaction Status Date / Time technetium-99m Allergy Severe Anaphylaxis Verified 09/07/24 10:52 amoxicillin Allergy Intermediate Hives Verified 09/07/24 10:52 iodine Allergy Intermediate Hives Verified 09/07/24 10:52 (with dye 30 yrs ago-no issue w/subsequent use per pt) nitrofurantoin Allergy Intermediate Hives Verified 09/07/24 10:52 Home Medications Medication Instructions Recorded Confirmed Type lancing device with lancets kit #100 ea 01/16/21 09/01/24 Rx (HOMETRAX Lancing Device kit) blood sugar diagnostic #10 ea 01/30/21 09/01/24 Rx lancets 33 gauge (OneTouch Delica #100 ea 06/06/22 09/01/24 Rx Plus Lancet) tiotropium bromide 2.5 2 puff inhalation QAM #12 grams 06/17/23 09/07/24 Rx mcg/actuation mist for inhalation (Spiriva Respimat) albuterol sulfate 90 mcg/actuation 2 puff inhalation QID PRN 09/17/23 09/07/24 Rx aerosol inhaler shortness of breath or wheezing #8.5 grams Wheeled Walker #1 ea 10/04/23 09/01/24 Rx nystatin 100,000 unit/gram topical 1 applic topical TID #60 grams 12/13/23 09/07/24 Rx powder cephalexin 500 mg capsule 500 mg PO BID preventative 12/24/23 09/07/24 History diltiazem HCl 180 mg 180 mg PO QAM #90 caps 01/28/24 09/07/24 Rx capsule,extended release 24 hr apixaban 2.5 mg tablet (Eliquis) 2.5 mg PO BID #180 tabs 02/13/24 09/07/24 Rx metoprolol succinate 100 mg 150 mg (1.5 x 100 mg) PO BID #270 04/03/24 09/07/24 Rx tablet,extended release 24 hr tabs (Toprol XL) metformin 500 mg tablet,extended 500 mg PO BID #180 tabs 04/10/24 09/07/24 Rx release 24 hr empagliflozin 25 mg tablet 25 mg PO DAILY #90 tabs 06/09/24 09/07/24 Rx (Jardiance) allopurinol 300 mg tablet 300 mg PO QAM #90 tabs 07/15/24 09/07/24 Rx magnesium oxide 400 mg (241.3 mg 400 mg PO QAM #90 tabs 07/15/24 09/07/24 Rx magnesium) tablet albuterol sulfate 2.5 mg/3 mL 2.5 mg inhalation DIRECTED PRN 07/24/24 09/07/24 History (0.083 %) solution for nebulization shortness of breath or wheezing furosemide 20 mg tablet 20 mg PO QAM #90 tabs 07/29/24 09/07/24 Rx blood sugar diagnostic (SogouTouch #100 strips 08/27/24 09/01/24 Rx Ultra Test strips) meclizine 25 mg tablet 25 mg PO TID PRN dizziness #30 tabs 08/27/24 09/07/24 Rx mometasone-formoterol HFA 200 2 puff inhalation BID #3 Inhalers 08/27/24 09/07/24 Rx mcg-5 mcg/actuation aerosol inhaler (Dulera) Past Med/Surg History Problem List (Updated 08/26/24 @ 08:56 by Fely Elliott PA-C) Multiple thyroid nodules Cerebral aneurysm 6mm LUIS aneurysm and 2.5mm at the junction of the ACOM and left LUIS Right upper lobe consolidation Varicose vein of leg Stress incontinence Urge incontinence Venous stasis Neurogenic claudication due to lumbar spinal stenosis Vitamin D deficiency (Chronic) Umbilical hernia (Chronic) Prolapse of vaginal cooper (Chronic) Ovarian cyst (Chronic) Endometrial polyp (Chronic) Medical History (Updated 08/26/24 @ 08:56 by Fely Elliott PA-C) On home oxygen therapy 2 lpm via n/c PRN (rare use) Mass of upper lobe of right lung Atrial fibrillation, permanent Follows with [facility] cardio Obesity Urinary incontinence Hx of malignant melanoma (08/2022) with excision Varicose vein of leg PAD (peripheral artery disease) Mitral regurgitation Pulmonary nodule Lumbar spondylosis Lumbar disc disease History of COVID-19 01/2022- hospitalized for 5 days at [facility] Hyperlipidemia Hypertension GERD (gastroesophageal reflux disease) "Mild" Hx of bacterial endocarditis Hx noted per remote records, patient unaware Cirrhosis Non-alcoholic "Stable" per patient History of anemia Chronic obstructive pulmonary disease Asthma History of GI bleed Per records, patient unaware Hx of diverticulitis of colon Blindness of left eye (2013) s/p sepsis History of claustrophobia History of panic attacks Chronic diastolic CHF (congestive heart failure) Morbid obesity Chronic venous insufficiency Type 2 diabetes mellitus NIDDM Edema Chronic, RLE Chronic kidney disease (CKD), stage III (moderate) CAD in [place] artery Non-obstructive per cardio records Arthritis Alopecia Surgical History Hx of melanoma excision (08/2022) from the top of the head History of colonoscopy S/P IVC filter and since removed History of total knee replacement R/L History of anesthesia reaction Slow to wake History of arthroscopy of knee with debridement Right/Leg - [facility] [place] History of bladder surgery History of cataract surgery R/L Family History Unknown Diabetes Hypertension Mother Diabetes Cardiac disorder Grandfather Sinus disorder Other No family history of adverse response to anesthesia Social History Smoking Status: Former smoker Tobacco Type: Cigarettes Age Started Using Tobacco: 19; Age Quit Using Tobacco: 52; packs per day: 2.5; Second Hand Exposure: No; Do You Dip or Chew Tobacco: No; Hx Alcohol Use: Yes Alcohol type: wine Hx Substance Use: No Preferred Language: Malagasy Communication Ability: Effective Visual Impairment: Blindness Acquisition Associate Required: No Beliefs That Will Affect Care: None marital status: Unknown Current Living Situation: Alone Feels Safe at Home: Yes Assistive Devices: Glasses and Nebulizer Review of Systems Review of Systems: All systems reviewed & are unremarkable except as noted in Subjective Physical Exam Physical Exam: General: Alert and oriented, No acute distress. HENT: Normocephalic, Oral mucosa is moist, No pharyngeal erythema. Tympanic Membranes normal on L, R not visible due to cerumen. Respiratory: Lungs are clear to auscultation. There are some crackles in the lower lobes b/l Cardiovascular: Irregular rate and rhythm, Roughly 1-2+ LE Edema b/l Gastrointestinal: Soft, Non-tender, Non-distended, Normal bowel sounds. Integumentary: There is a dark brown almost black irregularly shaped lesion roughly 0.5cm in diameter on the mid L back. Non raised. Neurological: Alert, Oriented, Normal sensory. Cognition and Speech: Oriented, Speech clear and coherent. Psychiatric: Cooperative, Appropriate mood & affect. Results & Data Results & Data Vital Signs (Past 12 Hours) Vital Signs Temp Pulse Pulse Resp BP BP Pulse Ox 09/07/24 09:54 99 H 18 163/99 H 97 09/07/24 09:02 88 L 09/07/24 08:39 103 H 09/07/24 08:37 36.8 C 83 22 140/84 95 O2 Del Method O2 Flow Rate 09/07/24 09:54 Nasal Cannula 2 09/07/24 09:02 Nasal Cannula 0 09/07/24 08:39 09/07/24 08:37 Nasal Cannula 2 Laboratory Results Abnormal Labs 09/07/24 09/07/24 08:47 08:51 WBC 4.72 L RBC 3.02 L Hgb 9.2 L POC Hgb 9.2 L Hct 29.2 L POC Hct 27 L MCHC 31.5 L RDW Std Deviation 66.1 H RDW Coeff of Beatrice 19.0 H Lymph # (Auto) 0.69 L APTT 36 H POC Total CO2 22 L POC BUN 37 H BUN 43 H Creatinine 1.36 H POC Creatinine 1.5 H BUN/Creatinine Ratio 31.6 H Glucose 237 H POC Glucose (other) 233 H B-Natriuretic Peptide 911 H Diagnostic Findings Chest X-Ray 09/07/24 08:43 XR chest 1V portable CLINICAL HISTORY: Dyspnea COMPARISON STUDY: 09/01/2024 FINDINGS: There is stable prominent cardiomegaly with mildly increased pulmonary vascular congestion. There is stable minimal blunting of the costophrenic angles. There is mild pulmonary interstitial prominence. No pneumothorax. IMPRESSION: Increased CHF. ACT 112: Negative or not required by law. Electronically signed by: Terrance Reyes M.D. 09/07/2024 9:31 AM PG Care Time/CCT Total # of Minutes Spent Total Time Spent with Patient: Total time spent is greater than 50% in coordination of care (as documented) at patient's floor/unit and/or counseling patient: Coding Level of Care Code 40560 INT INP/OBS CARE 2MIN Diagnoses Cerebral aneurysm I67.1 Neurogenic claudication due to lumbar spinal stenosis M48.062 Atrial fibrillation, permanent I48.21 Obesity E66.9 Hyperlipidemia E78.5 Hypertension I10 Chronic obstructive pulmonary disease J44.9 Chronic diastolic CHF (congestive heart failure) I50.32
[2024-09-07] MEDS ORDERED: POLYETHYLENE (MIRALAX) 17 GM PACK PO PRN (11:10)
[2024-09-07] MEDS ORDERED: ACETAMINOPHEN 325 MG TAB PO PRN (11:10)
[2024-09-07] MEDS ORDERED: ALUMINUM/MAGNESIUM SUSP 30 ML UDC PO PRN (11:10)
[2024-09-07] MEDS ORDERED: MAGNESIUM HYDROXIDE SUSP 30 ML UDC PO PRN (11:10)
[2024-09-07] MEDS ORDERED: CARBOHYDRATES FOR HYPOGLYCEMIA PO PRN (11:22)
[2024-09-07] MEDS ORDERED: DEXTROSE 50% 50 ML SYRINGE IV PRN (11:22)
[2024-09-07] MEDS ORDERED: GLUCOSE 10 TAB/TUBE PO PRN (11:22)
[2024-09-07] MEDS ORDERED: PHARMACY GLYCEMIC MGMT CONSULT PRN (11:22)
[2024-09-07] MEDS ORDERED: GLUCAGON FOR INJ 1 MG VIAL SQ PRN (11:22)
[2024-09-07] MEDS ORDERED: GLUCOSE 40% GEL 15 GM TUBE PO PRN (11:22)
[2024-09-07] MEDS: INSULIN ASPART PER UNIT CHARGE SC SCH (12:26)
[2024-09-07] MEDS: LANTUS PER UNIT CHARGE SC ONE ×2 (12:26→20:36)
[2024-09-07 12:48] LABS: Appearance Urine Clear (Clear); Bacteria Urine Automated 2+ (None Seen); Cast Urine Automated 0-2 /lpf (0-2); Epithelial Cell Urine Auto 0-2 /hpf (0-2); Glucose Urine UA 2+ (Negative); RBC Urine Automated 0-2 /hpf (0-2); WBC Urine Automated 0-5 /hpf (0-5)
--- NOTE | 2024-09-07 13:05 | Hospitalist Progress Note ---
Date of Service September 07, 2024 Subjective THIS NOTE IS AN ERROR PLEASE REMOVE IT Results & Data Results & Data Vital Signs (Past 12 Hours) Vital Signs Temp Pulse Pulse Resp BP BP Pulse Ox 09/07/24 09:54 99 H 18 163/99 H 97 09/07/24 09:02 88 L 09/07/24 08:39 103 H 09/07/24 08:37 36.8 C 83 22 140/84 95 O2 Del Method O2 Flow Rate 09/07/24 09:54 Nasal Cannula 2 09/07/24 09:02 Nasal Cannula 0 09/07/24 08:39 09/07/24 08:37 Nasal Cannula 2 PG Care Time/CCT Total # of Minutes Spent Total Time Spent with Patient: Total time spent is greater than 50% in coordination of care (as documented) at patient's floor/unit and/or counseling patient: Coding Level of Care Code None
[2024-09-07] MEDS ORDERED: ALBUTEROL 0.083% NEBU SOLN 3 ML VIAL INH PRN (13:57)
[2024-09-07] MEDS ORDERED: ALBUTEROL HFA 8 GM INHALER INH PRN (13:57)
[2024-09-07] MEDS ORDERED: MECLIZINE HCL 25 MG TAB PO PRN (13:57)
--- NOTE | 2024-09-07 14:01 | Pharmacy Report ---
Pharmacy Glycemic Short Note 2 - Date of Service September 07, 2024 - Glycemic Short BSG Results (Last 24 hours): 09/07/24 09/07/24 09/07/24 08:47 08:51 12:13 Glucose 237 H POC Glucose 256 H POC Glucose (other) 233 H OUTPATIENT ANTIDIABETIC REGIMEN: * metformin 500 mg PO BIDM * empagliflozin 25 mg PO daily HbA1c: 8.4% (06/17/24) ASSESSMENT: * KATY is an 84 year old male who presents with shortness of breath secondary to acute on chronic HF/COPD exacerbation? * Methylprednisolone 125 mg IV x 1 given in ED, ordered prednisone 40 mg PO daily ongoing starting 09/08/24 * Blood sugars elevated thus far (233 mg/dL and 256 mg/dL) * Patient likely to require aggressive insulin regimen while receiving steroids PLAN FOR INPATIENT GLYCEMIC CONTROL: * Hold outpatient oral diabetes medications * Basal insulin * Lantus 30 units SQ x 1 (~0.4 unit/kg of adjusted body weight) * Lantus 0-5-10 units SC HS x 1 (see EHR for details) * Bolus insulin * NovoLog per scale ACHS or Q6hrs while NPO * Goal Range: Low 110 mg/dL - High 140 mg/dL * Correction Factor: 15 mg/dL/unit * Nutritional / Prandial insulin per carb ratio of 1 unit per 5 grams CHO consumed
--- NOTE | 2024-09-07 17:18 | XCELERA ---
[id number]
[2024-09-07] MEDS: NYSTATIN POWDER 15GM BTL EXT SCH (19:09)
[2024-09-07] MEDS: FUROSEMIDE 40 MG/4 ML VIAL IV SCH (20:37)
[2024-09-07] MEDS: APIXABAN 2.5 MG TAB PO SCH (20:37)
[2024-09-07] MEDS: METOPROLOL SUCC 50MG EXT REL TAB PO SCH (20:37)
[2024-09-07] MEDS ORDERED: NON-FORMULARY MEDICATION (Mometasone-Formoterol [Dulera] 200-5 mcg/actuation HFA aerosol i INH SCH (21:00)
--- NOTE | 2024-09-08 06:04 | Electrocardiogram Report ---
Test Reason : Blood Pressure : */* mmHG Vent. Rate : 106 BPM Atrial Rate : * BPM P-R Int : * ms QRS Dur : 90 ms QT Int : 334 ms P-R-T Axes : * -19 93 degrees QTcB Int : 443 ms Atrial fibrillation with rapid ventricular response Low voltage QRS Nonspecific ST and T wave abnormality Abnormal ECG When compared with ECG of 24-Jul-2024 15:39, Vent. rate has increased by 46 bpm Nonspecific T wave abnormality now evident in Lateral leads Confirmed by Lg Aponte ([id number]) on 09/08/2024 6:03:52 AM Referred By: REFERRED SELF Confirmed By: Lg Aponte
[2024-09-08 08:23] VITALS: TEMP 97.7
[2024-09-08] MEDS: FLUTICASONE FUROATE 100MCG 14 PUFFS/INHALER INH SCH (08:23)
[2024-09-08] MEDS: UMECLIDINIUM/VILANTEROL 62.5/25MCG 7 PUFFS/INHALER INH SCH (08:24)
[2024-09-08] MEDS: predniSONE 20 MG TAB PO SCH (08:25)
[2024-09-08] MEDS: MAGNESIUM OXIDE 400 MG TAB PO SCH (08:27)
[2024-09-08] MEDS: INSULIN HUMAN NPH SC SCH (09:34)
--- NOTE | 2024-09-08 11:27 | Discharge Summary ---
Discharge Summary Date of Service September 08, 2024 Principal Dx & Hospital Course #1 = Principal Diagnosis (1) Cerebral aneurysm: (2) Neurogenic claudication due to lumbar spinal stenosis: (3) Atrial fibrillation, permanent: (4) Obesity: (5) Hyperlipidemia: (6) Hypertension: (7) Chronic obstructive pulmonary disease: (8) Chronic diastolic CHF (congestive heart failure): Plan Subjective discussed with RN covering for assigned RN around noon. She will relay to assigned RN our conversation. Requested she relay to the patient that the dental instrument maker is aware of the patient and will arrange for outpatient follow-up. She does not patient is doing very well walking around her room eating. Wants to go home. Asymptomatic. Has diuresed a significant amount. They will go over importance of close follow-up and strict return precautions again. Patient is insightful and understands this as well. Discussed with dental instrument maker via secure chat he tells me that patient is doing well no objection to discharge and can follow-up closely with him outpatient. He tells me if the patient is still here then he may drop by to stay otherwise he will Have his clinic arrange for close follow-up A/P: 84 female history of COPD not on oxygen, diastolic CHF A-fib PAD Diabetes hypertension hyperlipidemia chronic kidney disease Nonalcoholic cirrhosis cerebral aneurysm venous insufficiency lumbar spinal stenosis with claudication pain Who presents with worsening shortness of breath weight gain Lower extremity edema orthopnea over the past week. Acute on chronic diastolic heart failure CHF protocol orders TTE Moderate MR (increased), mild RV dysfunction, severe biatrial dilatation, moderate pulmonary hypertension that is new IV Lasix GDMT Questionable COPD exacerbation Steroids taper as tolerated bronchodilators Acute hypoxic respiratory failure secondary to above Wean O2 sat goal 88-94 Diabetes type 2 Short and long-acting insulin Hold oral hypoglycemics A-fib Eliquis beta-andrea calcium channel andrea CKD Avoid nephrotoxic meds Deconditioning PT OT GI steroid prophylaxis DVT prophylaxis DNR/DNI Disposition Discharge home Likely in next 24 hours Admission HPI Per Admitting Provider 84 female history of COPD not on oxygen, diastolic CHF A-fib PAD Diabetes hypertension hyperlipidemia chronic kidney disease Nonalcoholic cirrhosis cerebral aneurysm venous insufficiency lumbar spinal stenosis with claudication pain Who presents with worsening shortness of breath weight gain Lower extremity edema orthopnea over the past week. No pleuritic or other chest pain fevers or chills. No cough over her chronic baseline cough from COPD. Discussed the case with ED physician who feels this is CHF exacerbation can possibly COPD exacerbation although less likely Confirmed she is a DNR/DNI Discussed with RN In the ED Discharge Exam General: Alert and oriented, No acute distress. HENT: Normocephalic, Oral mucosa is moist, No pharyngeal erythema. Tympanic Membranes normal on L, R not visible due to cerumen. Respiratory: Lungs are clear to auscultation. There are some crackles in the lower lobes b/l Cardiovascular: Irregular rate and rhythm, Roughly 1-2+ LE Edema b/l Gastrointestinal: Soft, Non-tender, Non-distended, Normal bowel sounds. Integumentary: There is a dark brown almost black irregularly shaped lesion roughly 0.5cm in diameter on the mid L back. Non raised. Neurological: Alert, Oriented, Normal sensory. Cognition and Speech: Oriented, Speech clear and coherent. Psychiatric: Cooperative, Appropriate mood & affect. Discharge Plan Discharge Items Patient Disposition: Home - Self-Care Reason For Visit: CHF AND COPD AE Discharge Diagnosis: chf Condition on Discharge: Good Activity: Resume your previous activity Non-emergency contact: Primary Care Provider and Service Desk Specialist Call non-emergency contact if: you have any medication questions and your symptoms worsen Follow-up/Referrals: Subhash Esparza, [Primary Care Provider] - Diet: Carb Consistent or DM2, Heart Healthy, Low Fat and Low Sodium (2gm) Addtl Attending Provider Instructions: Follow-up with your primary care doctor and your Heart doctor within 2-3 days. Also have your blood work rechecked to monitor kidney function and electrolytes. you may need your lasix dose adjusted. monitor Weight closely and return for medical attention if develop worsening shortness of breath swelling in legs or any other concerning symptoms Pending Studies at Discharge: No Stand-Alone Forms: My Narrative [employer], Smoking Cessation Medications and DC Order Prescriptions: New pantoprazole 40 mg Tablet,Delayed Release (Dr/Ec) 40 mg PO QAM Qty: 7 0RF prednisone 20 mg Tablet 40 mg PO DAILY Qty: 5 0RF lisinopril 2.5 mg Tablet 2.5 mg PO QAM Qty: 30 0RF furosemide [Lasix] 20 mg tablet 20 mg PO BID Qty: 14 0RF Continued (DME) blood sugar diagnostic Strip See Dose Instructions .ROUTE .MEDSUPPLY Qty: 10 3RF Rx Instructions: As directed (DME) lancets [OneTouch Delica Plus Lancet] 33 gauge [facility] [place] See Rx Instructions .ROUTE .COMPLEX Qty: 100 3RF Dose Instruction: DIRECTED Rx Instructions: DIRECTED Spiriva Respimat 2.5 mcg/actuation mist 2 puff inhalation QAM Qty: 12 4RF Rx Instructions: INHALE TWO PUFFS BY MOUTH EVERY MORNING albuterol sulfate 90 mcg/actuation HFA aerosol inhaler 2 puff inhalation QID PRN (Reason: shortness of breath or wheezing) Qty: 8.5 1RF (DME) Wheeled Walker [facility] [place] See Rx Instructions .Route Qty: 1 0RF Rx Instructions: As directed- rollator with seat diltiazem HCl 180 mg capsule,extended release 24hr 180 mg PO QAM Qty: 90 3RF Eliquis 2.5 mg tablet 2.5 mg PO BID Qty: 180 3RF metoprolol succinate [Toprol XL] 100 mg tablet extended release 24 hr 150 mg PO BID Qty: 270 3RF metformin 500 mg tablet extended release 24 hr 500 mg PO BID Qty: 180 3RF Jardiance 25 mg tablet 25 mg PO DAILY Qty: 90 3RF allopurinol 300 mg tablet 300 mg PO QAM Qty: 90 3RF magnesium oxide 400 mg (241.3 mg magnesium) tablet 400 mg PO QAM Qty: 90 3RF Dulera 200-5 mcg/actuation HFA aerosol inhaler 2 puff inhalation BID Qty: 3 0RF Rx Instructions: INHALE 2 PUFFS ORALLY TWICE DAILY RINSE MOUTH AFTER USE (DME) OneTouch Ultra Test Strip See Rx Instructions .ROUTE .COMPLEX Qty: 100 3RF Dose Instruction: DIRECTED Rx Instructions: DIRECTED meclizine 25 mg tablet 25 mg PO TID PRN (Reason: dizziness) Qty: 30 3RF (DME) lancing device with lancets [OneTouch Delica Lanc Device] Kit See Rx Instructions .Route Qty: 100 0RF Rx Instructions: As directed nystatin 100,000 unit/gram powder 1 applic topical TID Qty: 60 5RF Rx Instructions: Apply to bilateral groin and breast cephalexin 500 mg capsule 500 mg PO BID Rx Instructions: ON GOING THERAPY albuterol sulfate 2.5 mg /3 mL (0.083 %) solution for nebulization 2.5 mg inhalation DIRECTED PRN (Reason: shortness of breath or wheezing) Rx Instructions: Q4-6 hours Discontinued furosemide 20 mg tablet 20 mg PO QAM Qty: 90 3RF Rx Instructions: May take an additional tablet as needed for weight gain, swelling or shortness of breath. Admission Data Admit Date/Time: 09/07/24 11:11 Attending Provider: Angelina Shane Admit Provider: Angelina Shane Primary Care Provider: Subhash Esparza Other Providers: Angelina Shane Hospital Stay Data Consultations 09/07/24 10:02 ED Decision to Admit Stat 09/07/24 11:10 Consult Cardiac Rehabilitation Routine Pending Results Patient Have Any Pending Studies at Discharge: No Discharge Instructions Given to Patient (Per Discharging Provider) Follow-up with your primary care doctor and your Heart doctor within 2-3 days. Also have your blood work rechecked to monitor kidney function and electrolytes. you may need your lasix dose adjusted. monitor Weight closely and return for medical attention if develop worsening shortness of breath swelling in legs or any other concerning symptoms Total Time Total Time Spent Total Time Spent (In Minutes): 35 Coding Level of Care Code 27573 INP/OBS DISCH >30 MIN Diagnoses Cerebral aneurysm I67.1 Neurogenic claudication due to lumbar spinal stenosis M48.062 Atrial fibrillation, permanent I48.21 Obesity E66.9 Hyperlipidemia E78.5 Hypertension I10 Chronic obstructive pulmonary disease J44.9 Chronic diastolic CHF (congestive heart failure) I50.32
--- NOTE | 2024-09-08 11:33 | Hospitalist Progress Note ---
Date of Service September 08, 2024 Assessment & Plan (1) Cerebral aneurysm: (2) Neurogenic claudication due to lumbar spinal stenosis: (3) Atrial fibrillation, permanent: (4) Obesity: (5) Hyperlipidemia: (6) Hypertension: (7) Chronic obstructive pulmonary disease: (8) Chronic diastolic CHF (congestive heart failure): Plan 84 female history of COPD not on oxygen, diastolic CHF A-fib PAD Diabetes hypertension hyperlipidemia chronic kidney disease Nonalcoholic cirrhosis cerebral aneurysm venous insufficiency lumbar spinal stenosis with claudication pain Who presents with worsening shortness of breath weight gain Lower extremity edema orthopnea over the past week. Acute on chronic diastolic heart failure CHF protocol orders TTE Moderate MR (increased), mild RV dysfunction, severe biatrial dilatation, moderate pulmonary hypertension that is new IV Lasix GDMT Questionable COPD exacerbation Steroids taper as tolerated bronchodilators Acute hypoxic respiratory failure secondary to above Wean O2 sat goal [id number] Diabetes type 2 Short and long-acting insulin Hold oral hypoglycemics A-fib Eliquis beta-andrea calcium channel andrea CKD Avoid nephrotoxic meds Deconditioning PT OT GI steroid prophylaxis DVT prophylaxis DNR/DNI Disposition Discharge home Likely in next 24 hours Admission and Anticipated Discharge Date Admission Date: September 07, 2024 Subjective Improving breathing improved I's and O's negative. Weight has come down significantly. tells me she feels much better. Vital trends noted BP elevated overnight now improved. Lisinopril added We reviewed echo findings Reached out to director of field coordination regarding echo findings to see if patient can just follow-up outpatient or if he would like to see the patient here PTD. Appreciate his expertise Review of Systems Review of Systems: All systems reviewed & are unremarkable except as noted in Subjective Physical Exam Physical Exam: General: Alert and oriented, No acute distress. HENT: Normocephalic, Oral mucosa is moist, No pharyngeal erythema. Tympanic Membranes normal on L, R not visible due to cerumen. Respiratory: Lungs are clear to auscultation. There are some crackles in the lower lobes b/l Cardiovascular: Irregular rate and rhythm, Roughly 1-2+ LE Edema b/l Gastrointestinal: Soft, Non-tender, Non-distended, Normal bowel sounds. Integumentary: There is a dark brown almost black irregularly shaped lesion roughly 0.5cm in diameter on the mid L back. Non raised. Neurological: Alert, Oriented, Normal sensory. Cognition and Speech: Oriented, Speech clear and coherent. Psychiatric: Cooperative, Appropriate mood & affect. Results & Data Results & Data Vital Signs (Past 12 Hours) Vital Signs Temp Pulse Pulse Resp BP BP Pulse Ox 09/08/24 08:00 36.5 C 96 H 22 135/70 92 09/08/24 08:00 09/08/24 07:22 86 09/08/24 06:38 89 20 128/91 96 09/08/24 03:30 83 18 124/73 95 09/08/24 03:03 82 20 120/64 95 09/08/24 02:11 84 17 95 09/08/24 02:06 84 18 95 09/08/24 01:57 81 17 95 09/08/24 01:42 77 19 95 09/08/24 01:30 76 19 95 09/08/24 01:30 191/122 H 09/08/24 01:30 191/122 H 09/08/24 01:30 191/122 H 09/08/24 01:21 92 H 20 96 09/08/24 01:12 89 18 96 09/08/24 00:45 81 22 95 09/08/24 00:30 78 23 95 09/08/24 00:30 136/79 09/08/24 00:30 136/79 09/08/24 00:30 136/79 09/08/24 00:21 81 22 95 09/08/24 00:15 70 22 95 09/08/24 00:00 138/87 09/08/24 00:00 138/87 09/08/24 00:00 138/87 09/08/24 00:00 81 17 94 09/07/24 23:51 79 20 94 Pulse Ox O2 Del Method O2 Del Method O2 Flow Rate 09/08/24 08:00 Room Air 09/08/24 08:00 91 Room Air 09/08/24 07:22 09/08/24 06:38 09/08/24 03:30 Nasal Cannula 2 09/08/24 03:03 Nasal Cannula 2 09/08/24 02:11 09/08/24 02:06 09/08/24 01:57 09/08/24 01:42 09/08/24 01:30 09/08/24 01:30 09/08/24 01:30 09/08/24 01:30 09/08/24 01:21 09/08/24 01:12 09/08/24 00:45 09/08/24 00:30 09/08/24 00:30 09/08/24 00:30 09/08/24 00:30 09/08/24 00:21 09/08/24 00:15 09/08/24 00:00 09/08/24 00:00 09/08/24 00:00 09/08/24 00:00 09/07/24 23:51 Laboratory Results Abnormal Labs 09/07/24 09/07/24 09/07/24 08:47 08:51 12:13 WBC 4.72 L RBC 3.02 L Hgb 9.2 L POC Hgb 9.2 L Hct 29.2 L POC Hct 27 L MCHC 31.5 L RDW Std Deviation 66.1 H RDW Coeff of Beatrice 19.0 H Lymph # (Auto) 0.69 L APTT 36 H POC Total CO2 22 L POC BUN 37 H BUN 43 H Creatinine 1.36 H POC Creatinine 1.5 H BUN/Creatinine Ratio 31.6 H Glucose 237 H POC Glucose 256 H POC Glucose (other) 233 H B-Natriuretic Peptide 911 H Urine Glucose (UA) Ur Leukocyte Esterase Urine Bacteria (Auto) 09/07/24 09/07/24 09/07/24 12:34 16:40 20:16 WBC RBC Hgb POC Hgb Hct POC Hct MCHC RDW Std Deviation RDW Coeff of Beatrice Lymph # (Auto) APTT POC Total CO2 POC BUN BUN Creatinine POC Creatinine BUN/Creatinine Ratio Glucose POC Glucose 202 H 279 H POC Glucose (other) B-Natriuretic Peptide Urine Glucose (UA) 2+ H Ur Leukocyte Esterase Trace H Urine Bacteria (Auto) 2+ H 09/08/24 07:44 WBC RBC Hgb POC Hgb Hct POC Hct MCHC RDW Std Deviation RDW Coeff of Beatrice Lymph # (Auto) APTT POC Total CO2 POC BUN BUN Creatinine POC Creatinine BUN/Creatinine Ratio Glucose POC Glucose 216 H POC Glucose (other) B-Natriuretic Peptide Urine Glucose (UA) Ur Leukocyte Esterase Urine Bacteria (Auto) PG Care Time/CCT Total # of Minutes Spent Total Time Spent with Patient: Total time spent is greater than 50% in coordination of care (as documented) at patient's floor/unit and/or counseling patient: Coding Level of Care Code 07195 SUB INP/OBS CARE MIN Diagnoses Cerebral aneurysm I67.1 Neurogenic claudication due to lumbar spinal stenosis M48.062 Atrial fibrillation, permanent I48.21 Obesity E66.9 Hyperlipidemia E78.5 Hypertension I10 Chronic obstructive pulmonary disease J44.9 Chronic diastolic CHF (congestive heart failure) I50.32
[2024-09-08 11:46] VITALS: BP 139/80; PULSE 82; RESP 17
[2024-09-08 15:08] VITALS: O2SAT 92
== END 2024-09-08 14:17 | disposition home or self-care (01) | DRG 291 ==
LOC: ED 08:30 → EDINP 11:11